=== PATIENT | female | born 1970 | race Caucasian/White ===

== ENCOUNTER 2016-09-06 12:51 | Emergency (ER) | payer MEDICAID, OTHER ==
[~2016-09-06] VITALS: Ht 157.5 cm; Wt 115.0 kg
[~2016-09-06 12:51] MED LIST: CORT5TAB PO; OXYB5TAB33 PO; VICOTAB4 PO; XANA1TAB6 PO
[2016-09-06 12:53] VITALS: BP 169/92; PULSE 113; RESP 18; TEMP 98.7; O2SAT 99
[2016-09-06] MEDS ORDERED: HUMALOG SQ (13:29)
[2016-09-06] MEDS ORDERED: NITR100C4 PO (13:29)
[2016-09-06] MEDS ORDERED: LANTUS2P (13:29)
[2016-09-06] MEDS ORDERED: HYDR25TA5 PO (13:29)
[2016-09-06] MEDS ORDERED: CYCL5TAB PO (13:29)
[2016-09-06] MEDS ORDERED: SODIUM CHLOR 0.9% 1000 ML INJ 1,000 ML IV ONE (13:30)
[2016-09-06] MEDS ORDERED: ONDANSETRON HCL 4 MG/2 ML VIAL IV PUSH ONE (13:30)
[2016-09-06] MEDS ORDERED: KETOROLAC TROMETHAMINE 30 MG/ML (IVP) VIAL IV PUSH ONE (13:30)
--- NOTE | 2016-09-06 13:37 | PD ---
HPI Chief Complaint: Flank/Kidney Pain Time Seen by Provider: 13:09 Travel History International Travel<30 days: No Contact w/Intl Traveler<30days: No Traveled to known affect area: No History of Present Illness HPI This is a 45-year-old female who presents to the emergency department with left- sided flank pain, constant, severe this been going on for 9 days, associated with nausea and some subjective fevers and chills. Patient was just hospitalized at [facility] and had a stent put in because she says she has a 9 mm obstructing stone on the left. She says her pain has been worse ever since the stent was put in and she's had a lot of hematuria and blood clots in her urine. She said she tried to follow-up with the urologist that placed her stent but he says he doesn't take her insurance and she will have to follow up elsewhere to get the stent removed. PFSH Past Medical History Cancer: No Cardiovascular Problems: No Cerebrovascular Accident: No Diabetes: Yes Glaucoma: No Genitourinary: Yes Headaches: Yes (DUE LOW BLOOD PRESSURE) Hepatitis: No Hiatal Hernia: Yes (REPAIR UMBILUS HERNIA) Hypertension: No Kidney Stones: Yes (THREE LISTROPSPHY) Musculoskeletal: No Respiratory: No Thyroid Disease: Yes Ulcer: Yes ?: Not Past Surgical History Abdominal Surgery: Yes (GALL BLADDER APPENDIX) Appendectomy: Yes Cardiac Surgery: No Section: Yes Cholecystectomy: Yes Ear Surgery: No Endocrine Surgery: No Eye Surgery: No Genitourinary Surgery: Yes (KIDNEY STENT PLACED) Gynecologic Surgery: Yes (C SECTION) Hysterectomy: Yes Oral Surgery: Yes (TONSILLECTOMY) Pacemaker: No Thoracic Surgery: No Other Surgery: Yes Social History Alcohol Use: No Tobacco Use: No Substance Use: No Allergies-Medications (Allergen,Severity, Reaction): Coded Allergies: Tylenol (Verified Allergy, Severe, VOMITING, SWELLING OF TONGUE, 08/12/10) Uncoded Allergies: NUTRASWEET (Adverse Reaction, Severe, VOMITING,SWELLING OF TONGUE, 07/24/08) SPLENDA (Adverse Reaction, Severe, SWELLING TONGUE , 07/26/08) Reported Meds & Prescriptions Reported Meds & Active Scripts Active Reported Nitrofurantoin Monohydrate Macrocrystals (Nitrofurantoin Monoh/Nitrofur Macro) 100 Mg Cap 100 Mg PO BID Flexeril (Cyclobenzaprine HCl) 5 Mg Tab 5 Mg PO TID Humalog Inj (Insulin Human Lispro) 1,000 Unit/10 Ml Vial 5-25 Units SQ ACHS Max dose at bedtime:( )units; sugars < 70,(0)units; sugars 150-199,(5)units; sugars 200-249,(10)units; sugars 250-299,(15)units; sugars 300-349,(20)units; sugars more than 349,(25)units. Lantus Inj (Insulin Glargine) 100 Unit/Ml Inj Hydrochlorothiazide 25 Mg Tab 25 Mg PO DAILY Ditropan (Oxybutynin Chloride) 5 Mg Tab 0 PO UNKNOWN DOSE Xanax 1 mg (Alprazolam) 1 Mg Tab 1 Mg PO BIDPRN Review of Systems Except as stated in HPI: all other systems reviewed are Neg Physical Exam Narrative GENERAL:Well appearing, no acute distress SKIN: Focused skin assessment warm and dry. HEAD: Atraumatic. Normocephalic. EYES: Pupils equal and round. No injection or drainage. ENT: Moist mucous membranes NECK: Trachea midline. CARDIOVASCULAR: Regular rate and rhythm. No murmur appreciated. RESPIRATORY: Clear to auscultation. Breath sounds equal bilaterally. GASTROINTESTINAL: Abdomen tender to palpation in the left lower quadrant with no rebound or guarding. : Left CVA tenderness. MUSCULOSKELETAL: No obvious deformities. NEUROLOGICAL: Awake and alert. No obvious cranial nerve deficits. Moving all extremities. PSYCHIATRIC: Appropriate mood and affect; insight and judgment normal. Data Data Last Documented VS Vital Signs Date Time Temp Pulse Resp B/P Pulse Ox O2 Delivery O2 Flow Rate FiO2 09/06/16 12:53 98.7 113 18 169/92 99 Orders Complete Blood Count With Diff (09/06/16 13:19) Comprehensive Metabolic Panel (09/06/16 13:19) Ct Abd/Pel W/O Iv Contrast (09/06/16 ) ^ Insert Iv (09/06/16 13:19) Ketorolac Inj (Toradol Inj) (09/06/16 13:30) Ondansetron Inj (Zofran Inj) (09/06/16 13:30) Sodium Chlor 0.9% 1000 Ml Inj (Ns 1000 M (09/06/16 13:30) Labs Laboratory Tests Test 09/06/16 13:40 White Blood Count 8.2 TH/MM3 Red Blood Count 4.11 MIL/MM3 Hemoglobin 12.6 GM/DL Hematocrit 37.4 % Mean Corpuscular Volume 90.9 FL Mean Corpuscular Hemoglobin 30.7 PG Mean Corpuscular Hemoglobin 33.8 % Concent Red Cell Distribution Width 13.9 % Platelet Count 173 TH/MM3 Mean Platelet Volume 9.0 FL Neutrophils (%) (Auto) 64.2 % Lymphocytes (%) (Auto) 24.2 % Monocytes (%) (Auto) 8.8 % Eosinophils (%) (Auto) 2.3 % Basophils (%) (Auto) 0.5 % Neutrophils # (Auto) 5.2 TH/MM3 Lymphocytes # (Auto) 2.0 TH/MM3 Monocytes # (Auto) 0.7 TH/MM3 Eosinophils # (Auto) 0.2 TH/MM3 Basophils # (Auto) 0.0 TH/MM3 CBC Comment DIFF FINAL Differential Comment Sodium Level 137 MEQ/L Potassium Level 4.1 MEQ/L Chloride Level 96 MEQ/L Carbon Dioxide Level 32.8 MEQ/L Anion Gap 8 MEQ/L Blood Urea Nitrogen 7 MG/DL Creatinine 0.91 MG/DL Estimat Glomerular Filtration 67 ML/MIN Rate Random Glucose 292 MG/DL Calcium Level 9.6 MG/DL Total Bilirubin 0.4 MG/DL Aspartate Amino Transf 33 U/L (AST/SGOT) Alanine Aminotransferase 62 U/L (ALT/SGPT) Alkaline Phosphatase 113 U/L Total Protein 7.3 GM/DL Albumin 3.1 GM/DL MDM Medical Decision Making Medical Screen Exam Complete: Yes Emergency Medical Condition: Yes Interpretation(s) afebrile, tachycardic, hypertensive no leukocytosis hyperglycemia Differential Diagnosis Nephrolithiasis, pyelonephritis, obstructive uropathy Narrative Course This is a 45-year-old female with a history of recurring kidney stones who presents to the emergency department having had a stent placed last week at [facility] with increasing hematuria and pain on the left side. She tried to follow-up at [facility] but they would not take her insurance. She is placed on a monitor and an IV was established. Labs are obtained which are reassuring. She is afebrile. CT demonstrates a stent which is in proper position with no hydronephrosis. I think patient is safe for outpatient follow- up with urology. I spoke to Dr. Lira who was happy to see the patient in clinic. Patient will be discharged home. She was instructed to continue taking her antibiotics. She also says that Toradol really helps her with her pain. Given her kidney function is normal I think it's reasonable to prescribe her a short course of Toradol. Diagnosis Primary Impression: Nephrolithiasis Additional Impression: Hematuria Referrals: Theodore Lira MD Patient Instructions: General Instructions Additional Instructions: If you develop severe pain, inability to eat or drink, or fever return to the emergency department. Follow-up with a urologist as soon as possible. Med/Other Pt SpecificInfo: Prescription(s) given Scripts Ketorolac 10 Mg Tab10 Mg PO Q6HR PRN (PAIN) 5 Days Ref 0 Prov:Vida Bloom MD 09/06/16 Disposition: 01 DISCHARGE HOME Condition: Stable Vida Bloom MD September 06, 2016 13:37
[2016-09-06 13:56] LABS: AUTOMATED NEUTROPHIL # 5.2 TH/MM3 (1.8-7.7); BASOPHIL % 0.5 % (0.0-2.0); EOSINOPHIL # 0.2 TH/MM3 (0-0.4); EOSINOPHIL % 2.3 % (0.0-4.0); HEMATOCRIT 37.4 % (35.0-46.0); HEMO FLAGS DIFF FINAL; LYMPH % 24.2 % (9.0-44.0); MEAN CELL VOLUME 90.9 FL (80.0-100.0); MEAN CORPUSCULAR HEMOGLOBIN 30.7 PG (27.0-34.0); MEAN CORPUSCULAR HGB CONC 33.8 % (32.0-36.0); MONO % 8.8 % (0.0-8.0); NEUT % 64.2 % (16.0-70.0); PLATELET COUNT 173 TH/MM3 (150-450); RED BLOOD COUNT 4.11 MIL/MM3 (4.00-5.30); RED CELL DISTRIBUTION WIDTH 13.9 % (11.6-17.2); WHITE BLOOD COUNT 8.2 TH/MM3 (4.0-11.0)
--- NOTE | 2016-09-06 14:05 | RADRPT ---
EXAM DATE/TIME: 09/06/2016 13:45 [facility] COMPARISON: CT ABDOMEN & PELVIS W/O CONTRAST, August 12, 2010, 16:05. INDICATIONS : Patient complains of known kidney stone left kidney with stent. Blood in urine with clots and increas ed pain left lower quadrant. ORAL CONTRAST: No oral contrast ingested. RADIATION DOSE: 10.68 CTDIvol (mGy) MEDICAL HISTORY : Renal calculi. Diabetes mellitus type 1. Gastroesophageal reflux disease. SURGICAL HISTORY : Appendectomy. Cholecystectomy.Hysterectomy.Kidney stent. ENCOUNTER: Initial ACUITY: 1 day PAIN SCALE: 9/10 LOCATION: Left abdomen TECHNIQUE: Volumetric scanning of the abdomen and pelvis was performed. Using automated exposure control and ad justment of the mA and/or kV according to patient size, radiation dose was kept as low as reasonably achievable to obtain optimal diagnostic quality images. FINDINGS: LOWER LUNGS: The visualized lower lungs are clear. LIVER: Liver measures 19.3 cm in length and demonstrates mild diffuse low density. Gallbladder is absent wit h clips in the gallbladder fossa. There is no dilation of the biliary tree. SPLEEN: Spleen is mildly enlarged measuring 14.3 cm in length. PANCREAS: Within normal limits. KIDNEYS: Normal in size and shape. There is no hydronephrosis or mass appreciated. There are 23 mm nonobstruc ting right renal stones. An 8 x 4 mm stone is present in the left lower pole collecting system. Left ureteral stent is present with proximal aspect in the extrarenal pelvis and distal aspect of the urin reg bladder. There is mild stranding around the left ureter. ADRENAL GLANDS: Within normal limits. VASCULAR: There is no aortic aneurysm. BOWEL/MESENTERY: The stomach, small bowel, and colon demonstrate no acute abnormality. There is no free intraperitone al air or fluid. There is sigmoid diverticulosis. ABDOMINAL WALL: There has been prior inferior left anterior abdominal wall hernia repair with mesh. RETROPERITONEUM: There is no lymphadenopathy. BLADDER: No wall thickening or mass. No stones are visualized. REPRODUCTIVE: The uterus is absent. INGUINAL: There is no lymphadenopathy or hernia. MUSCULOSKELETAL: There are degenerative changes of the lumbar spine. CONCLUSION: 1. Left ureteral stent is present and in appropriate location. There is no hydronephrosis. There is a n 8mm nonobstructing left renal stone. 2. There are 2 nonobstructing right renal stones measuring 3 mm each. 3. Nonacute findings include hepatomegaly with steatosis, mild splenomegaly, and sigmoid diverticulos is. Leonel Suarez MD on September 06, 2016 at 13:57 Board Certified Radiologist. This report was verified electronically.
[2016-09-06 14:20] LABS: ANION GAP 8 MEQ/L (5-15); AST (GOT) 33 U/L (15-37); BICARBONATE 32.8 MEQ/L (21.0-32.0); BLOOD UREA NITROGEN 7 MG/DL (7-18); CHLORIDE 96 MEQ/L (98-107); GLOMERULAR FILTRATION RATE 67 ML/MIN (>89); POTASSIUM 4.1 MEQ/L (3.5-5.1); SODIUM (NA) 137 MEQ/L (136-145)
[2016-09-06 14:23] LABS: ALKALINE PHOSPHATASE 113 U/L (45-117); ALT (GPT) 62 U/L (10-53); TOTAL BILIRUBIN ADULT 0.4 MG/DL (0.2-1.0)
[2016-09-06] MEDS ORDERED: KETO10 PO (14:47)
== END 2016-09-06 15:01 | disposition home or self-care (01) ==
LOC: NEPC 12:51
DX: N20.0 Calculus of kidney (principal)
CPT/HCPCS: 74176; 80053; 85025; 96361; 96374; 96375; 99285; J1885; J2405; J7030

== ENCOUNTER 2016-09-13 20:31 | Inpatient (IN) | payer MEDICAID, OTHER ==
[~2016-09-13] VITALS: Ht 157.5 cm; Wt 117.2 kg
[~2016-09-13 20:31] MED LIST changes: -CORT5TAB PO; +CYCL5TAB PO; +HUMALOG SQ; +HYDR25TA5 PO; +KETO10 PO; +LANTUS2P; +NITR100C4 PO; -VICOTAB4 PO
[2016-09-13 20:33] VITALS: BP 132/83; PULSE 100; RESP 18; TEMP 99.3; O2SAT 98
--- NOTE | 2016-09-13 21:04 | PD ---
Physical Exam Date Seen by Provider: Sep 13, 2016 Time Seen by Provider: 21:02 Data Data Last Documented VS Vital Signs Date Time Temp Pulse Resp B/P Pulse Ox O2 Delivery O2 Flow Rate FiO2 09/13/16 20:33 99.3 100 18 132/83 98 Room Air MDM Supervised Visit with JOE: No Narrative Course 45 YO F with complaint of fever, hematuria x 24 hours. Left stent x 3 weeks at outside hospital. Upcoming appt with Dr. Lira. Vitals reviewed. Awaiting bed placement. Leticia Laughlin Sep 13, 2016 21:04
[2016-09-13 21:21] VITALS: TEMP 100.2
[2016-09-13] MEDS ORDERED: ONDANSETRON HCL 4 MG/2 ML VIAL IV PUSH ONE (22:00)
[2016-09-13] MEDS ORDERED: cefTRIAXone INJ 1,000 MG in SODIUM CHLORIDE 0.9% INJ 100 ML IV ONE (22:00)
[2016-09-13] MEDS ORDERED: HYDROmorphone HCL PF 1 MG/ML VIAL IV PUSH ONE (22:00)
--- NOTE | 2016-09-13 22:07 | PD ---
HPI Chief Complaint: Complaint Time Seen by Provider: 22:04 Travel History International Travel<30 days: No Contact w/Intl Traveler<30days: No Traveled to known affect area: No History of Present Illness HPI 45-year-old female that presents to the ED for evaluation of left flank pain with chills and fever as well as blood in urine. Per patient she's had this since Wednesday. Per patient with 3 weeks ago she was told she had a stone in her kidney and needed a stent. Patient had the stent placed a for the hospital. Per patient she was not able to follow-up because apparently the doctor will not see her outside of the hospital. Patient was seen here by Dr. Bloom this last week and was found to have possible infection so started antibiotics. Patient was sent to Dr. Lira who was given a see her outpatient but she states that she was not able to follow up yet as the symptoms only worsened on Wednesday. Per patient she has a prominent for next week. Per patient she is concerned because she has a lot more pain and she has the fever. Per patient she has finished the Macrobid and she continues to have the fever. Per patient she is only urinating blood. No chest pain or shortness of breath. Allergies to Tylenol and Splenda. She states compliance with her medications. Pain per patient is severe 8 out of 10. PFSH Past Medical History Cancer: No Cardiovascular Problems: No Cerebrovascular Accident: No Diabetes: Yes Patient Takes Glucophage: No Glaucoma: No Genitourinary: Yes Headaches: Yes (DUE LOW BLOOD PRESSURE) Hepatitis: No Hiatal Hernia: Yes (REPAIR UMBILUS HERNIA) Hypertension: No Kidney Stones: Yes (THREE LISTROPSPHY) Medical other: Yes (GERD) Musculoskeletal: No Respiratory: No Thyroid Disease: Yes Ulcer: Yes ?: Not Past Surgical History Abdominal Surgery: Yes (GALL BLADDER APPENDIX) Appendectomy: Yes Cardiac Surgery: No Section: Yes Cholecystectomy: Yes Ear Surgery: No Endocrine Surgery: No Eye Surgery: No Genitourinary Surgery: Yes (KIDNEY STENT PLACED) Gynecologic Surgery: Yes (C SECTION) Hysterectomy: Yes Oral Surgery: Yes (TONSILLECTOMY) Pacemaker: No Thoracic Surgery: No Other Surgery: Yes Social History Alcohol Use: No Tobacco Use: No Substance Use: No Allergies-Medications (Allergen,Severity, Reaction): Coded Allergies: Tylenol (Verified Allergy, Severe, VOMITING, SWELLING OF TONGUE, 08/12/10) Uncoded Allergies: NUTRASWEET (Adverse Reaction, Severe, VOMITING,SWELLING OF TONGUE, 07/24/08) SPLENDA (Adverse Reaction, Severe, SWELLING TONGUE , 07/26/08) Reported Meds & Prescriptions Reported Meds & Active Scripts Active Ketorolac (Ketorolac Tromethamine) 10 Mg Tab 10 Mg PO Q6HR PRN 5 Days Reported Nitrofurantoin Monohydrate Macrocrystals (Nitrofurantoin Monoh/Nitrofur Macro) 100 Mg Cap 100 Mg PO BID Flexeril (Cyclobenzaprine HCl) 5 Mg Tab 5 Mg PO TID Humalog Inj (Insulin Human Lispro) 1,000 Unit/10 Ml Vial 5-25 Units SQ ACHS Max dose at bedtime:( )units; sugars < 70,(0)units; sugars 150-199,(5)units; sugars 200-249,(10)units; sugars 250-299,(15)units; sugars 300-349,(20)units; sugars more than 349,(25)units. Lantus Inj (Insulin Glargine) 100 Unit/Ml Inj Hydrochlorothiazide 25 Mg Tab 25 Mg PO DAILY Ditropan (Oxybutynin Chloride) 5 Mg Tab 0 PO UNKNOWN DOSE Xanax 1 mg (Alprazolam) 1 Mg Tab 1 Mg PO BIDPRN Review of Systems Except as stated in HPI: all other systems reviewed are Neg Physical Exam Narrative GENERAL: SKIN: Warm and dry. HEAD: Atraumatic. Normocephalic. EYES: Pupils equal and round. No scleral icterus. No injection or drainage. ENT: No nasal bleeding or discharge. Mucous membranes pink and moist. Tongue is midline. No uvula deviation. NECK: Trachea midline. No JVD. CARDIOVASCULAR: Regular rate and rhythm. No murmurs, S3, S4. RESPIRATORY: No accessory muscle use. Clear to auscultation. Breath sounds equal bilaterally. GASTROINTESTINAL: Abdomen soft, non-tender, nondistended. Hepatic and splenic margins not palpable. MUSCULOSKELETAL: Extremities without clubbing, cyanosis, or edema. No obvious deformities. Full range of motion of the upper and lower extremities bilaterally. 2+ pulses bilaterally. Patient has reproducible left flank pain. NEUROLOGICAL: Awake and alert. No obvious cranial nerve deficits. Motor grossly within normal limits. Five out of 5 muscle strength in the arms and legs. Normal speech. PSYCHIATRIC: Appropriate mood and affect; insight and judgment normal. Data Data Last Documented VS Vital Signs Date Time Temp Pulse Resp B/P Pulse Ox O2 Delivery O2 Flow Rate FiO2 09/13/16 21:21 100.2 09/13/16 20:33 100 18 132/83 98 Room Air Orders Complete Blood Count With Diff (09/13/16 21:47) Basic Metabolic Panel (Bmp) (09/13/16 21:47) Prothrombin Time / Inr (Pt) (09/13/16 21:47) Act Partial Throm Time (Ptt) (09/13/16 21:47) Urinalysis - C+S If Indicated (09/13/16 21:47) Magnesium (Mg) (09/13/16 21:47) Ct Abd/Pel W/O Iv Contrast (09/13/16 21:47) Blood Culture (09/13/16 21:47) Lactic Acid Sepsis Protocol (09/13/16 21:47) Ceftriaxone Inj (Rocephin Inj) (09/13/16 22:00) Hydromorphone Pf Inj (Dilaudid Pf Inj) (09/13/16 22:00) Ondansetron Inj (Zofran Inj) (09/13/16 22:00) Urine Culture (09/13/16 21:53) Ketorolac Inj (Toradol Inj) (09/13/16 22:45) Labs Laboratory Tests Test 09/13/16 21:53 White Blood Count 8.1 TH/MM3 Red Blood Count 4.19 MIL/MM3 Hemoglobin 13.2 GM/DL Hematocrit 37.6 % Mean Corpuscular Volume 89.9 FL Mean Corpuscular Hemoglobin 31.6 PG Mean Corpuscular Hemoglobin 35.2 % Concent Red Cell Distribution Width 13.6 % Platelet Count 218 TH/MM3 Mean Platelet Volume 8.9 FL Neutrophils (%) (Auto) 66.1 % Lymphocytes (%) (Auto) 24.0 % Monocytes (%) (Auto) 5.4 % Eosinophils (%) (Auto) 3.4 % Basophils (%) (Auto) 1.1 % Neutrophils # (Auto) 5.3 TH/MM3 Lymphocytes # (Auto) 1.9 TH/MM3 Monocytes # (Auto) 0.4 TH/MM3 Eosinophils # (Auto) 0.3 TH/MM3 Basophils # (Auto) 0.1 TH/MM3 CBC Comment DIFF FINAL Differential Comment Prothrombin Time 11.9 SEC Prothromb Time International 1.1 RATIO Ratio Activated Partial 29.5 SEC Thromboplast Time Urine Color RED Urine Turbidity CLOUDY Urine pH 7.0 Urine Specific [place] 1.024 Urine Protein 300 mg/dL Urine Glucose (UA) 150 mg/dL Urine Ketones NEG mg/dL Urine Occult Blood LARGE Urine Nitrite NEG Urine Bilirubin NEG Urine Urobilinogen LESS THAN 2.0 MG/DL Urine Leukocyte Esterase MOD Urine RBC INNUM /hpf Urine WBC 9-14 /hpf Urine Squamous Epithelial 6-8 /hpf Cells Urine Bacteria OCC /hpf Microscopic Urinalysis Comment CULTURE INDICATED Sodium Level 140 MEQ/L Potassium Level 3.4 MEQ/L Chloride Level 106 MEQ/L Carbon Dioxide Level 28.9 MEQ/L Anion Gap 5 MEQ/L Blood Urea Nitrogen 18 MG/DL Creatinine 0.91 MG/DL Estimat Glomerular Filtration 67 ML/MIN Rate Random Glucose 213 MG/DL Lactic Acid Level 1.5 mmol/L Calcium Level 8.5 MG/DL Magnesium Level 1.9 MG/DL [facility] Medical Decision Making Medical Screen Exam Complete: Yes Emergency Medical Condition: Yes Medical Record Reviewed: Yes Interpretation(s) CBC & BMP Diagram 09/13/16 21:53 lactic acid WNL Coags WNL UA shows blood, WBC, bacteria, Leukerase esterase Differential Diagnosis UTI versus polynephritis versus infected stone versus nephrolithiasis Narrative Course 45-year-old female that presents to the ED for evaluation of fever, flank pain and blood in the urine. Patient was properly examined and was found to have signs and symptoms consistent with possible infection with stent. At this time , labs and imaging. Patient started on IV fluids as well as ceftriaxone. Labs and imaging showed UTI with blood. CT pending. Case signed out to my attending pending disposition for likely admission. Manny Cain Sep 13, 2016 22:07
[2016-09-13 22:17] LABS: AUTOMATED NEUTROPHIL # 5.3 TH/MM3 (1.8-7.7); BASOPHIL # 0.1 TH/MM3 (0-0.2); BASOPHIL % 1.1 % (0.0-2.0); EOSINOPHIL # 0.3 TH/MM3 (0-0.4); EOSINOPHIL % 3.4 % (0.0-4.0); HEMATOCRIT 37.6 % (35.0-46.0); HEMO FLAGS DIFF FINAL; LYMPHOCYTE # 1.9 TH/MM3 (1.0-4.8); MEAN CELL VOLUME 89.9 FL (80.0-100.0); MEAN CORPUSCULAR HEMOGLOBIN 31.6 PG (27.0-34.0); MEAN CORPUSCULAR HGB CONC 35.2 % (32.0-36.0); MONO % 5.4 % (0.0-8.0); NEUT % 66.1 % (16.0-70.0); PLATELET COUNT 218 TH/MM3 (150-450); RED BLOOD COUNT 4.19 MIL/MM3 (4.00-5.30); RED CELL DISTRIBUTION WIDTH 13.6 % (11.6-17.2); WHITE BLOOD COUNT 8.1 TH/MM3 (4.0-11.0)
[2016-09-13 22:28] LABS: APTT (PATIENT) 29.5 SEC (24.3-30.1); INTERNATIONAL NORMALIZED RATIO 1.1 RATIO; PROTHROMBIN TIME - PATIENT 11.9 SEC (9.8-11.6)
[2016-09-13 22:29] LABS: BICARBONATE 28.9 MEQ/L (21.0-32.0); MAGNESIUM 1.9 MG/DL (1.5-2.5); POTASSIUM 3.4 MEQ/L (3.5-5.1)
[2016-09-13 22:30] LABS: BLOOD, URINE LARGE (NEG); GLUCOSE,URINE 150 mg/dL (NEG); KETONE, URINE NEG (NEG); NITRITE,URINE NEG (NEG)
[2016-09-13 22:31] LABS: URINE COLOR RED (YELLW/STRAW)
[2016-09-13 22:36] LABS: BACTERIA, URINE OCC /hpf; CULTURE IF INDICATED CULTURE INDICATED; RBC, URINE INNUM /hpf (0-3)
[2016-09-13 22:37] LABS: COMMENT (UR) CULTURE INDICATED; COMMENT2 (UR) CULTURE INDICATED
[2016-09-13] MEDS ORDERED: KETOROLAC TROMETHAMINE 30 MG/ML (IVP) VIAL IV PUSH ONE (22:45)
--- NOTE | 2016-09-13 23:41 | RADRPT ---
EXAM DATE/TIME: 09/13/2016 23:17 [facility] COMPARISON: CT ABDOMEN & PELVIS W/O CONTRAST, September 06, 2016, 13:45. INDICATIONS : Renal stent placed at [facility] x1 week ago. Hematuria. ORAL CONTRAST: No oral contrast ingested. RADIATION DOSE: 17.90 CTDIvol (mGy) MEDICAL HISTORY : Renal calculi. Diabetes. SURGICAL HISTORY : Appendectomy. Cholecystectomy. section.Hysterectomy. Umbilical hernia repair. ENCOUNTER: Initial ACUITY: 1 day PAIN SCALE: 7/10 LOCATION: Left flank TECHNIQUE: Volumetric scanning of the abdomen and pelvis was performed. Using automated exposure control and ad justment of the mA and/or kV according to patient size, radiation dose was kept as low as reasonably achievable to obtain optimal diagnostic quality images. FINDINGS: LOWER LUNGS: The visualized lower lungs are clear. LIVER: Homogeneous density without lesion. There is no dilation of the biliary tree. Cholecystectomy clips. SPLEEN: Normal size without lesion. PANCREAS: Within normal limits. KIDNEYS: Numerous stones are seen bilaterally left greater than right. Left-sided double-J ureteral catheter w ith mild hydronephrosis. No obvious stone on the course of left ureter. ADRENAL GLANDS: Within normal limits. VASCULAR: There is no aortic aneurysm. BOWEL/MESENTERY: The stomach, small bowel, and colon demonstrate no acute abnormality. There is no free intraperitone al air or fluid. ABDOMINAL WALL: Within normal limits. Numerous hernia repairs RETROPERITONEUM: There is no lymphadenopathy. BLADDER: No wall thickening or mass. REPRODUCTIVE: Within normal limits. INGUINAL: There is no lymphadenopathy or hernia. MUSCULOSKELETAL: Within normal limits for patient age. CONCLUSION: Innumerable renal calcifications bilaterally. Left-sided double-J ureteral catheter in good position. No active stone or mass is identified. Status post cholecystectomy Shar Trevizo MD on September 13, 2016 at 23:38 Board Certified Radiologist. This report was verified electronically.
[2016-09-14] MEDS ORDERED: BISACODYL 10 MG SUPP RECTAL PRN (01:30)
[2016-09-14] MEDS ORDERED: LACTULOSE SYRUP 20 GM/30 ML CUP PO PRN (01:30)
[2016-09-14] MEDS ORDERED: SODIUM CHLORIDE 0.9% FLUSH 10 ML FLUSH IV FLUSH PRN (01:30)
[2016-09-14] MEDS: HYDROmorphone HCL PF 1 MG/ML VIAL IV PRN ×5 (01:43→17:21)
[2016-09-14 01:55] VITALS: BP 144/80; PULSE 77; RESP 18; TEMP 98.9; O2SAT 100
--- NOTE | 2016-09-14 02:35 | HHI.HP ---
HPI Service [facility] Hospitalists Primary Care Physician Lissy Henry Admission Diagnosis UTI failed outpatient managment, ureteral stent Diagnoses: (1) UTI (urinary tract infection) Diagnosis: Principal (2) Failure of outpatient treatment Diagnosis: Principal (3) Nephrolithiasis Diagnosis: Principal (4) Dehydration Diagnosis: Principal (5) Hypokalemia Diagnosis: Principal Travel History International Travel<30 Days: No Contact w/Intl Traveler <30 Da: No Traveled to Known Affected Are: No History of Present Illness This is a 45-year-old female with a PMH of DM and Renal Stones who presented to the ER with complaints of acute severe left flank pain with associated fever and chills x2 days. States she had similar symptoms approx 3wks ago, seen at and underwent Ureteral Stent Placement due to left 9mm obstructing stone, was d/c'd w/ referral to Urologist, however states she hasn't been able to follow up due to Insurance reasons. Presented to [place] ER 09/06/16 w/ similar complaints. CT Abd/Pelvis 09/06/16 w/ ureteral stent in place, no hydronephrosis. D/c'd w/ instructions to continue Macrobid and referred to Dr. Lira, however has not been able to make appt as of yet. Reports worsening flank pain and fever since Wednesday. On arrival, BP 132/83, HR 100, O2 sat 98% on RA, Temp 100.2. CBC unremarkable. Chemistry essentially unremarkable except for K+ 3.4, GFR 67. UA with persistent UTI. CT Abd/Pelvis w/ innumerable renal calcifications bilaterally, left-sided double-J ureteral catheter in good position, no active stone or mass identified. S/p Blood/Urine Cultures and IV Rocephin in ER. Review of Systems Except as stated in HPI: all other systems reviewed are Neg ROS: 14 point review of systems otherwise negative. Past Family Social History Past Medical History PMH: DM and Renal Stones Past Surgical History PAST SURGICAL HISTORY: Cholecystectomy, Appendectomy, Lithotripsy, Ureteral Stent , Tonsillectomy Allergies: Coded Allergies: Tylenol (Verified Allergy, Severe, VOMITING, SWELLING OF TONGUE, 08/12/10) Uncoded Allergies: NUTRASWEET (Adverse Reaction, Severe, VOMITING,SWELLING OF TONGUE, 07/24/08) SPLENDA (Adverse Reaction, Severe, SWELLING TONGUE , 07/26/08) Family History PAST FAMILY HISTORY: Reviewed. No h/o DM or CAD Social History PAST SOCIAL HISTORY: Negative for alcohol, tobacco or drugs. Physical Exam Vital Signs Vital Signs Date Time Temp Pulse Resp B/P Pulse Ox O2 Delivery O2 Flow Rate FiO2 09/14/16 01:55 98.9 77 18 144/80 100 09/13/16 21:21 100.2 09/13/16 20:33 99.3 100 18 132/83 98 Room Air Physical Exam PE: GENERAL: Middle-aged female in no acute distress. HEENT: PERRLA, EOMI. No scleral icterus or conjunctival pallor. No lid lag or facial droop. CARDIOVASCULAR: Regular rate and rhythm. No obvious murmurs to auscultation. No chest tenderness to palpation. RESPIRATORY: No obvious rhonchi or wheezing. Clear to auscultation. Breath sounds equal bilaterally. GASTROINTESTINAL: Abdomen soft, non-tender, nondistended. BS normal. MUSCULOSKELETAL: Extremities without clubbing, cyanosis, or edema. No obvious deformities. NEUROLOGICAL: Awake, alert and oriented x4. No focal neurologic deficits. Moving both upper and lower extremities spontaneously. Laboratory Laboratory Tests Test 09/13/16 21:53 White Blood Count 8.1 Red Blood Count 4.19 Hemoglobin 13.2 Hematocrit 37.6 Mean Corpuscular Volume 89.9 Mean Corpuscular Hemoglobin 31.6 Mean Corpuscular Hemoglobin 35.2 Concent Red Cell Distribution Width 13.6 Platelet Count 218 Mean Platelet Volume 8.9 Neutrophils (%) (Auto) 66.1 Lymphocytes (%) (Auto) 24.0 Monocytes (%) (Auto) 5.4 Eosinophils (%) (Auto) 3.4 Basophils (%) (Auto) 1.1 Neutrophils # (Auto) 5.3 Lymphocytes # (Auto) 1.9 Monocytes # (Auto) 0.4 Eosinophils # (Auto) 0.3 Basophils # (Auto) 0.1 CBC Comment DIFF FINAL Differential Comment Prothrombin Time 11.9 Prothromb Time International 1.1 Ratio Activated Partial 29.5 Thromboplast Time Urine Color RED Urine Turbidity CLOUDY Urine pH 7.0 Urine Specific [place] 1.024 Urine Protein 300 Urine Glucose (UA) 150 Urine Ketones NEG Urine Occult Blood LARGE Urine Nitrite NEG Urine Bilirubin NEG Urine Urobilinogen LESS THAN 2.0 Urine Leukocyte Esterase MOD Urine RBC INNUM Urine WBC 9-14 Urine Squamous Epithelial 6-8 Cells Urine Bacteria OCC Microscopic Urinalysis Comment CULTURE INDICATED Sodium Level 140 Potassium Level 3.4 Chloride Level 106 Carbon Dioxide Level 28.9 Anion Gap 5 Blood Urea Nitrogen 18 Creatinine 0.91 Estimat Glomerular Filtration 67 Rate Random Glucose 213 Lactic Acid Level 1.5 Calcium Level 8.5 Magnesium Level 1.9 Date/Time Procedure Status Source Growth 09/13/16 21:53 Urine Culture Received Urine Clean Catch Pending 09/13/16 21:50 Aerobic Blood Culture Received Blood Peripheral Pending 09/13/16 21:50 Anaerobic Blood Culture Received Blood Peripheral Pending Result Diagram: 09/13/16215209/13/162152 Assessment and Plan Problem List: (1) UTI (urinary tract infection) ICD Code: N39.0 Status: Acute (2) Failure of outpatient treatment ICD Code: Z78.9 Status: Acute (3) Nephrolithiasis ICD Code: N20.0 Status: Acute (4) Dehydration ICD Code: E86.0 Status: Acute (5) Hypokalemia ICD Code: E87.6 Status: Acute Assessment and Plan A/P: 1. UTI: Persistent UTI. S/p Blood/Urine Cultures, IV Rocephin in ER, will follow up cultures, continue IV Abx. 2. Failed Outpatient Tx: Previous admit to for ureteral stent/UTI, on Macrobid 100mg BID, now w/ ongoing UTI. Continue IV Abx as above. 3. Nephrolithiasis: S/p Left Ureteral Stent placement at approx 3 wks ago for 9mm obstructing left renal stone, was d/c'd w/ referral to Urologist, however states he did not accept her insurance as was not seen. Presented to [place] ER 09/06/16, CT Abd/Pelvis w/ stent in good position, no hydro, referred to Dr. Lira for stent removal as outpatient however has not been seen as of yet. CT Abd/Pelvis 09/13/16 w/ innumerable renal calcifications bilaterally, left -sided double-J ureteral catheter in good position, images reviewed by me. Will consult Urology for further evaluation. Continue with treatment as above. 6. Hypokalemia: Mild. K+ 3.4. Will recheck and replace as needed. 7. Dehydration: GFR 67, BUN/Creatinine normal. IVF for hydration, repeat labs in am. 8. DVT Prophylaxis: SCD/Teds. 9. Social work for d/c planning as needed. 10. Case discussed w/ ER physician at length Physician Certification 2 Midnight Certification Type: Admission for Inpatient Services Order for Inpatient Services The services are ordered in accordance with Medicare regulations or non- Medicare payer requirements, as applicable. In the case of services not specified as inpatient-only, they are appropriately provided as inpatient services in accordance with the 2-midnight benchmark. Estimated LOS (days): 2 days is the estimated time the patient will need to remain in the hospital, assuming treatment plan goals are met and no additional complications. Post-Hospital Plan: Not yet determined Glenny Lua MD Sep 14, 2016 02:35
[2016-09-14] MEDS: SODIUM CHLOR 0.9% 1000 ML INJ 1,000 ML IV SCH ×2 (02:36→12:04)
[2016-09-14 02:45] VITALS: BP 123/80; PULSE 83; RESP 17; TEMP 98.6; O2SAT 96
[2016-09-14] MEDS ORDERED: DEXTROSE 50% IN WATER 50 ML VIAL(D50) IV PRN (02:45)
[2016-09-14] MEDS ORDERED: GLUCAGON 1 MG/ML VIAL OTHER PRN (02:45)
[2016-09-14] MEDS ORDERED: HYDROmorphone HCL PF 1 MG/ML VIAL IV PUSH ONE (03:30)
[2016-09-14] MEDS: ONDANSETRON HCL 4 MG/2 ML VIAL IVP PRN ×3 (03:49→17:21)
[2016-09-14 07:10] VITALS: BP 120/84; PULSE 75; RESP 18; TEMP 96.6; O2SAT 97
[2016-09-14] MEDS: DOCUSATE SODIUM 50 MG/SENNA 8.6 MG TAB PO SCH ×2 (08:02→19:54)
[2016-09-14] MEDS: INSULIN ASPART SUPPLEMENTAL SCALE SQ SCH ×4 (08:07→20:01)
[2016-09-14] MEDS: SODIUM CHLORIDE 0.9% FLUSH 10 ML FLUSH IV FLUSH SCH ×2 (09:00→20:01)
[2016-09-14 11:10] VITALS: BP 123/78; PULSE 84; RESP 18; TEMP 97.9; O2SAT 99
--- NOTE | 2016-09-14 13:13 | MB ---
cc: ATTILA RAMOS MD DATE OF CONSULTATION: 09/14/2016 REASON FOR CONSULTATION 1. Left renal stone. 2. Status post left ureteral stent placement. 3. Left flank pain. 4. UTI. HISTORY OF PRESENT ILLNESS The patient is a 45-year-old female with a history of diabetes and kidney stones in the past, who presented to the ER this morning with complaints of acute left flank pain associated with fever and chills for last 2 days. She had similar symptoms approximately three weeks ago when she was seen at [facility] and was found to have a 9 mm obstructing stone. She underwent a cystostomy and left ureteral stent placement by Dr. Kang, and was then referred to urologist but she said she was unable to follow up due to insurance reasons. She subsequently presented to [place] ER on September [address] of the abdomen and pelvis at that time showed the ureteral stent placement, no hydronephrosis. She was then managed conservatively and was told to follow up with Dr. Lira however, she is still waiting on an appointment. She states that over the last 2 days she started having fevers, chills, worsening flank pain and pelvic pain. On arrival to the ER she was found to have a slightly low grade fever of 100.2. CT of the abdomen and pelvis without contrast was done which showed presence of the left ureteral stent in good position with a left renal non-obstructing stone as well as non-obstructing right renal stone. She was admitted for pain control and urology was consulted. Currently she continues to complain of left flank pain and more urgency, frequency and gross hematuria. She had been doing well for a while with the stent but now that her symptoms worsened when she developed a fever 2 days ago it scared her which brought her to the ER. She has had kidney stones in the past but she has never had metabolic workup. She denies family history of genitourinary malignancies. REVIEW OF SYSTEMS See HPI, otherwise all systems reviewed otherwise are negative. PAST MEDICAL HISTORY Significant for diabetes and renal stones. PAST SURGICAL HISTORY 1. Lithotripsy. 2. Appendectomy. 3. Cholecystectomy. 4. Tonsillectomy. ALLERGIES TYLENOL. FAMILY HISTORY Negative for genitourinary malignancy, negative for nephrolithiasis. SOCIAL HISTORY Negative for alcohol, tobacco or drugs. She is currently . PHYSICAL EXAMINATION VITAL SIGNS: Temperature 96.6, pulse 75, respiratory rate 18, BP 120/84, sating 97% on room air. GENERAL: She is alert and oriented x3. No apparent distress. A pleasant, cooperative lady who appears her stated age. HEAD: Normocephalic, atraumatic. EYES: o scleral icterus. Extraocular muscles intact. NECK: Neck is supple. Trachea is midline. LUNGS: Clear to auscultation bilaterally. No wheezes, rales or rhonchi. HEART: Regular rhythm. ABDOMEN: Soft, nontender, nondistended. Positive bowel sounds. GENITOURINARY: No CVA tenderness bilaterally. PELVIC: Not indicated at this time. EXTREMITIES: Nontender. No clubbing, cyanosis or edema. SKIN: No ulcers or rashes. NEURO: Cranial nerves II-XII intact. Strength 5/5 in all four extremities. PSYCHE: Normal affect. LABORATORY DATA Labs show a white count of 8.1, hemoglobin 13.2, hematocrit 37.6, platelet count 218, sodium 140, potassium 3.4, chloride 106, bicarb 28.9, BUN 18, creatinine 0.91, glucose 213. The urine shows cloudy and bright red blood with large red blood cells, large leukocyte esterase and culture currently pending. IMAGING STUDIES CT abdomen and pelvis without contrast images were reviewed and agree with the radiologist report. The patient has left nonobstructing 9 mm stone with left ureteral stent in proper position, nonobstructing right renal calculi. ASSESSMENT AND PLAN The patient is a 45-year-old female with a history of kidney stones status post cystoscopy, left ureteral stent placement, presents with fevers, chills ___ and flank pain, diagnosed with UTI and likely stent intolerance. Recommend pain control at this time. Will add Toradol and Pyridium to help with bladder spasms. We will start her on Flomax 0.4 mg daily to help with stent intolerance. Recommend continued antibiotics until the urine culture is back. Recommend against removing the stent on the left side until the stone is properly treated due to the fact that it has become obstructing in the past, most recently 3 weeks ago. Also recommend adequate treatment of the urinary tract infection before treatment of the stone. She then can follow up with Dr. Lira on an outpatient basis. Thank you for this consult. MD KLAUDIA Valentin/TISHA /12:27 PM /12:36 PM
[2016-09-14] MEDS: KETOROLAC TROMETHAMINE 30 MG/ML (IVP) VIAL IV PUSH SCH ×2 (13:19→17:20)
[2016-09-14] MEDS: TAMSULOSIN HCL 0.4 MG CAP PO SCH (13:21)
[2016-09-14] MEDS: PHENAZOPYRIDINE HCL 200 MG TAB PO SCH ×2 (13:21→22:41)
[2016-09-14 15:34] VITALS: BP 123/80; PULSE 85; RESP 18; TEMP 98.1; O2SAT 96
[2016-09-14 20:36] VITALS: BP 137/76; PULSE 84; RESP 15; TEMP 97.8; O2SAT 96
[2016-09-14] MEDS: cefTRIAXone INJ 1,000 MG in SODIUM CHLORIDE 0.9% INJ 100 ML IV SCH (22:41)
[2016-09-14] MEDS: HYDROmorphone HCL PF 1 MG/ML VIAL IV PUSH PRN (22:42)
[2016-09-15] MEDS: ONDANSETRON HCL 4 MG/2 ML VIAL IVP PRN ×4 (00:32→21:58)
[2016-09-15] MEDS: KETOROLAC TROMETHAMINE 30 MG/ML (IVP) VIAL IV PUSH SCH ×5 (00:33→23:27)
--- NOTE | 2016-09-15 00:35 | HHI.PR ---
Subjective Remarks Deferred entry - patient seen on 09/14 around 6:30 pm..Patient denies cp/sob. Denies fevers/chills. Patient c/o of severe pain on left flank. IV Dilaudid partially helping with pain. Stable vital signs. AAOx3, clear lungs, S1S2, soft abdomen. Patient has uti and failure of stent. Urology consulted recommended treatment w antibiotics and against removal of stent. Patient has uncontrolled pain. Will place patient on oral oxycodone and Dilaudid IV for breakthrough pain. Continue IVF and IV Rocephin. Objective Vitals Vital Signs Date Time Temp Pulse Resp B/P Pulse Ox O2 Delivery O2 Flow Rate FiO2 09/14/16 20:36 97.8 84 15 137/76 96 09/14/16 15:34 98.1 85 18 123/80 96 09/14/16 11:10 97.9 84 18 123/78 99 09/14/16 07:10 96.6 75 18 120/84 97 09/14/16 02:45 98.6 83 17 123/80 96 09/14/16 02:37 18 09/14/16 02:36 18 09/14/16 01:55 98.9 77 18 144/80 100 I/O 09/14/16 09/14/16 09/14/16 09/15/16 09/15/16 09/15/16 07:00 15:00 23:00 07:00 15:00 23:00 Intake Total 240 ml 960 ml 480 ml Balance 240 ml 960 ml 480 ml Intake Oral 240 ml 960 ml 480 ml # Voids 1 6 4 # Bowel Movements 0 0 0 Result Diagram: 09/13/16215209/13/16 2153 A/P Problem List: (1) UTI (urinary tract infection) ICD Code: N39.0 Status: Acute (2) Failure of outpatient treatment ICD Code: Z78.9 Status: Acute (3) Nephrolithiasis ICD Code: N20.0 Status: Acute (4) Dehydration ICD Code: E86.0 Status: Acute (5) Hypokalemia ICD Code: E87.6 Status: Acute Warren Glass MD Sep 15, 2016 00:35
[2016-09-15 00:59] VITALS: BP 142/86; PULSE 78; RESP 18; TEMP 98.7; O2SAT 97
[2016-09-15] MEDS: SODIUM CHLOR 0.9% 1000 ML INJ 1,000 ML IV SCH ×3 (01:38→18:00)
[2016-09-15] MEDS: HYDROmorphone HCL PF 1 MG/ML VIAL IV PUSH PRN ×5 (03:16→23:27)
[2016-09-15] MEDS: PHENAZOPYRIDINE HCL 200 MG TAB PO SCH ×3 (05:14→21:57)
[2016-09-15 06:24] LABS: AUTOMATED NEUTROPHIL # 3.7 TH/MM3 (1.8-7.7); BASOPHIL % 0.6 % (0.0-2.0); EOSINOPHIL # 0.3 TH/MM3 (0-0.4); EOSINOPHIL % 4.3 % (0.0-4.0); HEMATOCRIT 32.7 % (35.0-46.0); HEMO FLAGS DIFF FINAL; LYMPH % 32.5 % (9.0-44.0); LYMPHOCYTE # 2.2 TH/MM3 (1.0-4.8); MEAN CELL VOLUME 90.2 FL (80.0-100.0); MEAN CORPUSCULAR HEMOGLOBIN 30.5 PG (27.0-34.0); MEAN CORPUSCULAR HGB CONC 33.8 % (32.0-36.0); MONO % 8.6 % (0.0-8.0); PLATELET COUNT 172 TH/MM3 (150-450); RED BLOOD COUNT 3.63 MIL/MM3 (4.00-5.30); RED CELL DISTRIBUTION WIDTH 13.7 % (11.6-17.2); WHITE BLOOD COUNT 6.9 TH/MM3 (4.0-11.0)
[2016-09-15 06:58] LABS: ALKALINE PHOSPHATASE 90 U/L (45-117); ALT (GPT) 125 U/L (10-53); ANION GAP 7 MEQ/L (5-15); AST (GOT) 97 U/L (15-37); BICARBONATE 29.4 MEQ/L (21.0-32.0); BLOOD UREA NITROGEN 15 MG/DL (7-18); CHLORIDE 107 MEQ/L (98-107); GLOMERULAR FILTRATION RATE 87 ML/MIN (>89); POTASSIUM 3.6 MEQ/L (3.5-5.1); SODIUM (NA) 143 MEQ/L (136-145); TOTAL BILIRUBIN ADULT 0.3 MG/DL (0.2-1.0)
[2016-09-15] MEDS: INSULIN ASPART SUPPLEMENTAL SCALE SQ SCH ×4 (07:00→21:00)
[2016-09-15 08:00] VITALS: BP 108/67; PULSE 96; RESP 18; TEMP 97.3; O2SAT 97
[2016-09-15] MEDS: TAMSULOSIN HCL 0.4 MG CAP PO SCH (08:49)
[2016-09-15] MEDS: DOCUSATE SODIUM 50 MG/SENNA 8.6 MG TAB PO SCH ×2 (08:49→21:57)
[2016-09-15] MEDS: SODIUM CHLORIDE 0.9% FLUSH 10 ML FLUSH IV FLUSH SCH ×2 (08:52→21:00)
[2016-09-15 12:00] VITALS: BP 96/73; PULSE 76; RESP 18; TEMP 98; O2SAT 96
--- NOTE | 2016-09-15 15:42 | RADRPT ---
EXAM DATE/TIME: 09/15/2016 14:16 [place] COMPARISON: CT ABDOMEN & PELVIS W/O CONTRAST, September 13, 2016, 23:17. INDICATIONS : Increased lab values. MEDICAL HISTORY : Hernia, hiatal. Hypothyroidism. Gastroesophageal reflux disease. Ulcer. Kidney stones. Diabetes. SURGICAL HISTORY : Appendectomy. section. Hysterectomy. Tonsillectomy. Cholecystectomy. ENCOUNTER: Initial ACUITY: 1 day PAIN SCORE: 4/10 LOCATION: Bilateral upper quadrant MEASUREMENTS: LIVER: 14.9 cm length COMMON DUCT: 3 mm RIGHT KIDNEY: 10.4 x 4.7 x 4.7 cm SPLEEN: 12.5 cm length FINDINGS: LIVER: Homogeneous but diffusely increased echotexture without focal lesion or ductal dilatation. Hepatoped al flow within the portal vein. COMMON DUCT: No intraluminal mass or stone visualized. GALLBLADDER: Cholecystectomy. PANCREAS: Not well seen. RIGHT KIDNEY: No evidence hydronephrosis. Focal hyperechogenic area upper pole renal sinus measuring 7 x 5 mm with acoustic shadowing, probably representing a calcification. SPLEEN: No focal lesion. CONCLUSION: 1. Normal dimension common hepatic duct. 2. Diffuse increased acoustic attenuation throughout the liver suggests diffuse fatty change. 3. Focal calcification mid pole right kidney without evidence of hydronephrosis. Oscar Domínguez MD on September 15, 2016 at 15:38 Board Certified Radiologist. This report was verified electronically.
[2016-09-15 16:00] VITALS: BP 112/56; PULSE 85; RESP 18; TEMP 97.5; O2SAT 100
[2016-09-15 17:09] LABS: HEMOGLOBIN A1a 1.2 %; HEMOGLOBIN A1b 0.8 %; HEMOGLOBIN Ao 82.2 %; HEMOGLOBIN F 1.4 %; HEMOGLOBIN LA1C 1.6 %; HEMOGLOBIN P3 3.6 %
[2016-09-15 19:00] VITALS: BP 132/82; PULSE 84; RESP 16; TEMP 98.5; O2SAT 98
--- NOTE | 2016-09-15 19:46 | HHI.PR ---
Subjective Remarks Patient states has had a very bad day. feels nauseous and vomited x1 denies cp/sob still c/o left flank pain afebrile with stable vital signs Objective Vitals Vital Signs Date Time Temp Pulse Resp B/P Pulse Ox O2 Delivery O2 Flow Rate FiO2 09/15/16 16:00 97.5 85 18 112/56 100 09/15/16 12:00 98.0 76 18 96/73 96 09/15/16 08:00 97.3 96 18 108/67 97 09/15/16 00:59 98.7 78 18 142/86 97 09/14/16 20:36 97.8 84 15 137/76 96 I/O 09/14/16 09/14/16 09/14/16 09/15/16 09/15/16 09/15/16 07:00 15:00 23:00 07:00 15:00 23:00 Intake Total 240 ml 960 ml 480 ml 1190 ml 120 ml Balance 240 ml 960 ml 480 ml 1190 ml 120 ml Intake Oral 240 ml 960 ml 480 ml 1190 ml 120 ml # Voids 1 6 4 3 2 # Bowel Movements 0 0 0 0 Result Diagram: 09/15/16 0530 09/15/16 0530 Imaging Last Impressions Liver Ultrasound 09/15/16 0000 Signed Impressions: Service Date/Time: Thursday, September 15, 2016 14:16 - CONCLUSION: 1. Normal dimension common hepatic duct. 2. Diffuse increased acoustic attenuation throughout the liver suggests diffuse fatty change. 3. Focal calcification mid pole right kidney without evidence of hydronephrosis. Oscar Domínguez MD Abdomen/Pelvis CT 09/13/167 Signed Impressions: Service Date/Time: Tuesday, September 13, 2016 23:17 - CONCLUSION: Innumerable renal calcifications bilaterally. Left-sided double-J ureteral catheter in good position. No active stone or mass is identified. Status post cholecystectomy Shar Trevizo MD Objective Remarks GENERAL: Middle-aged female in no acute distress. HEENT: PERRLA, EOMI. No scleral icterus or conjunctival pallor. No lid lag or facial droop. CARDIOVASCULAR: Regular rate and rhythm. No obvious murmurs to auscultation. No chest tenderness to palpation. RESPIRATORY: No obvious rhonchi or wheezing. Clear to auscultation. Breath sounds equal bilaterally. GASTROINTESTINAL: Abdomen soft, non-tender, nondistended. BS normal. MUSCULOSKELETAL: Extremities without clubbing, cyanosis, or edema. No obvious deformities. NEUROLOGICAL: Awake, alert and oriented x4. No focal neurologic deficits. Moving both upper and lower extremities spontaneously. Medications and IVs Current Medications Medications (Trade) Dose Ordered Sig/Jacques Route Start Time Stop Time Status Last Admin Ceftriaxone Sodium 1000 mg/ Sodium Chloride 100 ml @ 200 mls/hr Q24H IV 09/14/16 22:00 09/14/16 22:41 (NS 1000 ml Inj) 1,000 ml @ 100 mls/hr Q10H IV 09/14/16 02:00 09/15/16 18:00 (NS Flush) 2 ml UNSCH PRN IV FLUSH 09/14/16 01:30 (NS Flush) 2 ml BID IV FLUSH 09/14/16 09:00 (Zofran Inj) 4 mg Q6H PRN IVP 09/14/16 01:30 09/15/16 12:01 (Alisha-Colace) 1 tab BID PO 09/14/16 09:00 09/15/16 08:49 (Milk Of Magnesia Liq) 30 ml Q12H PRN PO 09/14/16 01:30 (Senokot) 17.2 mg Q12H PRN PO 09/14/16 01:30 (Dulcolax Supp) 10 mg DAILY PRN RECTAL 09/14/16 01:30 (Lactulose Liq) 30 ml DAILY PRN PO 09/14/16 01:30 (D50w (Vial) Inj) 50 ml UNSCH PRN IV 09/14/16 02:45 (Glucagon Inj) 1 mg UNSCH PRN OTHER 09/14/16 02:45 (Toradol Inj) 30 mg Q6HR IV PUSH 09/14/16 13:00 09/19/16 12:59 09/15/16 17:47 (Flomax) 0.4 mg DAILY PO 09/14/16 13:00 09/15/16 08:49 (Pyridium) 200 mg Q8HR PO 09/14/16 14:00 09/15/16 14:44 (Roxicodone) 5 mg Q4H PRN PO 09/14/16 18:45 (Roxicodone) 10 mg Q4H PRN PO 09/14/16 18:45 09/15/16 17:47 (Dilaudid Pf Inj) 1 mg Q4H PRN IV PUSH 09/14/16 18:45 09/15/16 17:10 A/P Problem List: (1) UTI (urinary tract infection) ICD Code: N39.0 Status: Acute (2) Failure of outpatient treatment ICD Code: Z78.9 Status: Acute (3) Nephrolithiasis ICD Code: N20.0 Status: Acute (4) Dehydration ICD Code: E86.0 Status: Acute (5) Hypokalemia ICD Code: E87.6 Status: Acute Assessment and Plan 1. UTI: Persistent UTI. S/p Blood/Urine Cultures, IV Rocephin in ER,Blood cultures negative x2, continue IV Abx. 2. Failed Outpatient Tx: Previous admit to for ureteral stent/UTI, on Macrobid 100mg BID, now w/ ongoing UTI. Continue IV Abx as above. 3. Nephrolithiasis: S/p Left Ureteral Stent placement at approx 3 wks ago for 9mm obstructing left renal stone, was d/c'd w/ referral to Urologist, however states he did not accept her insurance as was not seen. Presented to [place] ER 09/06/16, CT Abd/Pelvis w/ stent in good position, no hydro, referred to Dr. Lira for stent removal as outpatient however has not been seen as of yet. CT Abd/Pelvis 09/13/16 w/ innumerable renal calcifications bilaterally, left -sided double-J ureteral catheter in good position, images reviewed by me. Urology consulted and recommended against removing stent. Continue pain control with oxycodone and IV dilaudid. 6. Hypokalemia: Continue to monitor BMP. K 3.6 7. Dehydration: Improved after IV fluids 8. DVT Prophylaxis: SCD/Teds. 9. Transaminitis: Mild. Liver ultrasound ordered which shows fatty liver. 10. Diabetes mellitus: Hemoglobin A1c is 9.0. Diabetes uncontrolled. Continue SSI with insulin NovoLog. Hepatitis profile is pending. 11. Nausea/vomiting: Secondary to pain. We'll place on IV Zofran Discharge Planning Possible discharge in a.m. pending clinical improvement and improvement of pain control. Warren Glass MD Sep 15, 2016 19:46
[2016-09-15] MEDS: cefTRIAXone INJ 1,000 MG in SODIUM CHLORIDE 0.9% INJ 100 ML IV SCH (21:57)
[2016-09-16] VITALS: BP 121/66; PULSE 85; RESP 17; TEMP 97.7; O2SAT 100
[2016-09-16] MEDS: SODIUM CHLOR 0.9% 1000 ML INJ 1,000 ML IV SCH ×3 (04:00→20:20)
[2016-09-16] MEDS: HYDROmorphone HCL PF 1 MG/ML VIAL IV PUSH PRN ×4 (04:53→20:17)
[2016-09-16] MEDS: ONDANSETRON HCL 4 MG/2 ML VIAL IVP PRN ×3 (05:03→20:24)
[2016-09-16] MEDS: PHENAZOPYRIDINE HCL 200 MG TAB PO SCH ×3 (07:14→20:15)
[2016-09-16] MEDS: KETOROLAC TROMETHAMINE 30 MG/ML (IVP) VIAL IV PUSH SCH ×3 (07:19→17:09)
[2016-09-16] MEDS: INSULIN ASPART SUPPLEMENTAL SCALE SQ SCH ×4 (07:31→20:34)
[2016-09-16 07:53] LABS: AUTOMATED NEUTROPHIL # 3.8 TH/MM3 (1.8-7.7); BASOPHIL # 0.1 TH/MM3 (0-0.2); BASOPHIL % 0.8 % (0.0-2.0); EOSINOPHIL # 0.3 TH/MM3 (0-0.4); EOSINOPHIL % 4.3 % (0.0-4.0); HEMATOCRIT 34.4 % (35.0-46.0); HEMO FLAGS DIFF FINAL; LYMPH % 31.8 % (9.0-44.0); LYMPHOCYTE # 2.2 TH/MM3 (1.0-4.8); MEAN CELL VOLUME 91.6 FL (80.0-100.0); MEAN CORPUSCULAR HEMOGLOBIN 30.2 PG (27.0-34.0); MONO % 7.4 % (0.0-8.0); NEUT % 55.7 % (16.0-70.0); PLATELET COUNT 175 TH/MM3 (150-450); RED BLOOD COUNT 3.76 MIL/MM3 (4.00-5.30); RED CELL DISTRIBUTION WIDTH 13.8 % (11.6-17.2); WHITE BLOOD COUNT 6.8 TH/MM3 (4.0-11.0)
[2016-09-16 07:55] VITALS: BP 117/72; PULSE 80; RESP 16; TEMP 98.7; O2SAT 95
[2016-09-16] MEDS: DOCUSATE SODIUM 50 MG/SENNA 8.6 MG TAB PO SCH ×2 (08:16→20:16)
[2016-09-16] MEDS: SODIUM CHLORIDE 0.9% FLUSH 10 ML FLUSH IV FLUSH SCH ×2 (08:16→20:17)
[2016-09-16] MEDS: TAMSULOSIN HCL 0.4 MG CAP PO SCH (08:16)
[2016-09-16 08:17] LABS: ALT (GPT) 117 U/L (10-53); ANION GAP 6 MEQ/L (5-15); AST (GOT) 87 U/L (15-37); BLOOD UREA NITROGEN 11 MG/DL (7-18); CHLORIDE 104 MEQ/L (98-107); GLOMERULAR FILTRATION RATE 78 ML/MIN (>89); POTASSIUM 3.9 MEQ/L (3.5-5.1); SODIUM (NA) 140 MEQ/L (136-145)
[2016-09-16 08:20] LABS: ALKALINE PHOSPHATASE 92 U/L (45-117); TOTAL BILIRUBIN ADULT 0.2 MG/DL (0.2-1.0)
[2016-09-16 11:57] VITALS: BP 125/72; PULSE 79; RESP 16; TEMP 98.2; O2SAT 96
--- NOTE | 2016-09-16 14:53 | HHI.PR ---
Subjective Remarks Patient still c/o severe left flank pain for which she requires constant pain medications RN states patient has been ambulating and on the phone and does not look in pain patient states she has a colicky crampy pain and still has hematuria states she might be urinating less denies fevers/chills denies cp/sob stable vital signs Objective Vitals Vital Signs Date Time Temp Pulse Resp B/P Pulse Ox O2 Delivery O2 Flow Rate FiO2 09/16/16 11:57 98.2 79 16 125/72 96 09/16/16 07:55 98.7 80 16 117/72 95 09/16/16 00:00 97.7 85 17 121/66 100 09/15/16 19:00 98.5 84 16 132/82 98 09/15/16 16:00 97.5 85 18 112/56 100 I/O 09/15/16 09/15/16 09/15/16 09/16/16 09/16/16 09/16/16 07:00 15:00 23:00 07:00 15:00 23:00 Intake Total 1190 ml 120 ml 480 ml 580 ml Balance 1190 ml 120 ml 480 ml 580 ml Intake Oral 1190 ml 120 ml 480 ml 580 ml # Voids 3 2 4 5 # Bowel Movements 0 0 0 Result Diagram: 09/16/16 0620 09/16/16 0620 Imaging Last Impressions Liver Ultrasound 09/15/16 0000 Signed Impressions: Service Date/Time: Thursday, September 15, 2016 14:16 - CONCLUSION: 1. Normal dimension common hepatic duct. 2. Diffuse increased acoustic attenuation throughout the liver suggests diffuse fatty change. 3. Focal calcification mid pole right kidney without evidence of hydronephrosis. Oscar Domínguez MD Abdomen/Pelvis CT 09/13/167 Signed Impressions: Service Date/Time: Tuesday, September 13, 2016 23:17 - CONCLUSION: Innumerable renal calcifications bilaterally. Left-sided double-J ureteral catheter in good position. No active stone or mass is identified. Status post cholecystectomy Shar Trevizo MD Objective Remarks GENERAL: Middle-aged female in no acute distress. HEENT: PERRLA, EOMI. No scleral icterus or conjunctival pallor. No lid lag or facial droop. CARDIOVASCULAR: Regular rate and rhythm. No obvious murmurs to auscultation. No chest tenderness to palpation. RESPIRATORY: No obvious rhonchi or wheezing. Clear to auscultation. Breath sounds equal bilaterally. GASTROINTESTINAL: Abdomen soft, tender to palpation of left flank, (+) left CVA tenderness. MUSCULOSKELETAL: Extremities without clubbing, cyanosis, or edema. No obvious deformities. NEUROLOGICAL: Awake, alert and oriented x4. No focal neurologic deficits. Moving both upper and lower extremities spontaneously. Medications and IVs Current Medications Medications (Trade) Dose Ordered Sig/Jacques Route Start Time Stop Time Status Last Admin Ceftriaxone Sodium 1000 mg/ Sodium Chloride 100 ml @ 200 mls/hr Q24H IV 09/14/16 22:00 09/15/16 21:57 (NS 1000 ml Inj) 1,000 ml @ 100 mls/hr Q10H IV 09/14/16 02:00 09/15/16 18:00 (NS Flush) 2 ml UNSCH PRN IV FLUSH 09/14/16 01:30 (NS Flush) 2 ml BID IV FLUSH 09/14/16 09:00 (Zofran Inj) 4 mg Q6H PRN IVP 09/14/16 01:30 09/16/16 11:50 (Alisha-Colace) 1 tab BID PO 09/14/16 09:00 09/16/16 08:16 (Milk Of Magnesia Liq) 30 ml Q12H PRN PO 09/14/16 01:30 (Senokot) 17.2 mg Q12H PRN PO 09/14/16 01:30 (Dulcolax Supp) 10 mg DAILY PRN RECTAL 09/14/16 01:30 (Lactulose Liq) 30 ml DAILY PRN PO 09/14/16 01:30 (D50w (Vial) Inj) 50 ml UNSCH PRN IV 09/14/16 02:45 09/15/16 21:52 (Glucagon Inj) 1 mg UNSCH PRN OTHER 09/14/16 02:45 (Toradol Inj) 30 mg Q6HR IV PUSH 09/14/16 13:00 09/19/16 12:59 09/16/16 17:09 (Flomax) 0.4 mg DAILY PO 09/14/16 13:00 09/16/16 08:16 (Pyridium) 200 mg Q8HR PO 09/14/16 14:00 09/16/16 14:42 (Roxicodone) 5 mg Q4H PRN PO 09/14/16 18:45 (Roxicodone) 10 mg Q4H PRN PO 09/14/16 18:45 09/16/16 17:09 (Dilaudid Pf Inj) 1 mg Q4H PRN IV PUSH 09/14/16 18:45 09/16/16 14:42 Urinary Catheter: No Vascular Central Line Catheter: No A/P Problem List: (1) UTI (urinary tract infection) ICD Code: N39.0 Status: Acute (2) Failure of outpatient treatment ICD Code: Z78.9 Status: Acute (3) Nephrolithiasis ICD Code: N20.0 Status: Acute (4) Dehydration ICD Code: E86.0 Status: Acute (5) Hypokalemia ICD Code: E87.6 Status: Acute Assessment and Plan 1. UTI: Persistent UTI. S/p Blood/Urine Cultures, IV Rocephin in ER,Blood cultures negative x3, continue IV Abx. Urine culture with mixed gram positive ariadna. 2. Failed Outpatient Tx: Previous admit to for ureteral stent/UTI, on Macrobid 100mg BID, now w/ ongoing UTI. Continue IV Abx as above. 3. Nephrolithiasis: S/p Left Ureteral Stent placement at approx 3 wks ago for 9mm obstructing left renal stone, was d/c'd w/ referral to Urologist, however states he did not accept her insurance as was not seen. Presented to [facility] 09/06/16, CT Abd/Pelvis w/ stent in good position, no hydro, referred to Dr. Lira for stent removal as outpatient however has not been seen as of yet. CT Abd/Pelvis 09/13/16 w/ innumerable renal calcifications bilaterally, left -sided double-J ureteral catheter in good position, images reviewed by me. Urology consulted and recommended against removing stent. Continue pain control with oxycodone and IV dilaudid. Patient has stent intolerance 09/16 Patient still having severe pain despite toradol and Flomax. will reconsult urology. Continue pain control w narcotics. 6. Hypokalemia: Continue to monitor BMP. K 3.9 7. Dehydration: Improved after IV fluids 8. DVT Prophylaxis: SCD/Teds. 9. Transaminitis: Mild. Liver ultrasound ordered which shows fatty liver. 10. Diabetes mellitus: Hemoglobin A1c is 9.0. Diabetes uncontrolled. Continue SSI with insulin NovoLog. Hepatitis profile negative. 11. Nausea/vomiting: Secondary to pain or narcotics. Continue IV Zofran Discharge Planning Continue to monitor in the medical floor. Patient still has severe pain, urology has been reconsulted. Warren Glass MD Sep 16, 2016 14:53
[2016-09-16 16:05] VITALS: BP 121/73; PULSE 86; RESP 16; TEMP 98.1; O2SAT 95
[2016-09-16] MEDS: cefTRIAXone INJ 1,000 MG in SODIUM CHLORIDE 0.9% INJ 100 ML IV SCH (20:14)
[2016-09-16] MEDS: MAGNESIUM HYDROXIDE SUSP 30 ML CUP PO PRN (20:15)
[2016-09-16] MEDS: SENNOSIDES 8.6 MG TAB PO PRN (20:16)
[2016-09-16 21:07] VITALS: BP 134/75; PULSE 100; RESP 18; TEMP 97; O2SAT 96
[2016-09-16] MEDS ORDERED: INSULIN HUMAN REGULAR 1,000 UNITS/10 ML VIAL SQ PRN (22:00)
[2016-09-16] MEDS ORDERED: SODIUM CHLORID 0.9% 500 ML IV PRN (22:00)
[2016-09-16] MEDS ORDERED: POVIDONE IODINE 5% (ANTISEPSIS KIT) 4 APPLICATIONS EACH NARE PRN (22:00)
[2016-09-16] MEDS ORDERED: LACTATED RINGER'S 1000 ML IV PRN (22:00)
[2016-09-16] MEDS ORDERED: METOPROLOL TARTRATE 25 MG TAB PO PRN (22:00)
[2016-09-16] MEDS ORDERED: CHLORHEXIDINE GLUCONATE 2 % 1 PACK (2 CLOTHS) TOPICAL PRN (22:00)
[2016-09-17] VITALS (7 sets, daily range): BP systolic 105–129; BP diastolic 57–78; PULSE 80–92; RESP 16–18; TEMP 97.1–98.3; O2SAT 94–99
[2016-09-17] MEDS: HYDROmorphone HCL PF 1 MG/ML VIAL IV PUSH PRN ×4 (00:19→21:27)
[2016-09-17] MEDS: KETOROLAC TROMETHAMINE 30 MG/ML (IVP) VIAL IV PUSH SCH ×5 (00:19→23:08)
[2016-09-17] MEDS: ONDANSETRON HCL 4 MG/2 ML VIAL IVP PRN (02:22)
[2016-09-17] MEDS: INSULIN ASPART SUPPLEMENTAL SCALE SQ SCH ×4 (06:52→21:16)
[2016-09-17] MEDS: PHENAZOPYRIDINE HCL 100 MG TAB PO SCH ×3 (07:06→21:10)
[2016-09-17] MEDS: TAMSULOSIN HCL 0.4 MG CAP PO SCH (08:52)
[2016-09-17] MEDS: DOCUSATE SODIUM 50 MG/SENNA 8.6 MG TAB PO SCH ×2 (08:54→21:07)
[2016-09-17] MEDS: SODIUM CHLORIDE 0.9% FLUSH 10 ML FLUSH IV FLUSH SCH ×2 (08:54→21:00)
--- NOTE | 2016-09-17 09:34 | PD.PN.STU ---
Subjective Remarks Patient states that she is feeling better today. She has more energy. Her pain is tolerable with the pain medications now. She still has left sided flank discomfort and is urinating the same about of blood. She had the renal ultrasound yesterday and was told that there were no kidney stones. Report is pending. She was also told that she is having surgery today around noon to have the stent removed. Objective Vitals Vital Signs Date Time Temp Pulse Resp B/P Pulse Ox O2 Delivery O2 Flow Rate FiO2 09/17/16 08:00 98.2 88 18 105/70 94 09/17/16 04:42 98.3 92 18 110/78 96 09/17/16 00:00 97.7 88 16 121/78 99 09/16/16 21:07 97.0 100 18 134/75 96 09/16/16 18:44 Room Air 09/16/16 16:05 98.1 86 16 121/73 95 09/16/16 11:57 98.2 79 16 125/72 96 I/O 09/16/16 09/16/16 09/16/16 09/17/16 09/17/16 09/17/16 06:59 14:59 22:59 06:59 14:59 22:59 Intake Total 580 ml 2354 ml Balance 580 ml 2354 ml Intake Oral 580 ml 480 ml IV Total 1874 ml # Voids 5 2 1 # Bowel Movements 0 0 0 Result Diagram: 09/16/1620 09/16/16 06 Objective Remarks GENERAL: Middle-aged female in no acute distress. CARDIOVASCULAR: Regular rate and rhythm. No obvious murmurs to auscultation. No chest tenderness to palpation. RESPIRATORY: No obvious rhonchi or wheezing. Clear to auscultation. Breath sounds equal bilaterally. GASTROINTESTINAL: Abdomen soft, tender to palpation of left flank, (+) left CVA tenderness. A/P Assessment and Plan 1. Persistent UTI. S/p Blood/Urine Cultures, IV Rocephin in ER,Blood cultures negative x3, continue IV Abx. Urine culture with mixed gram positive ariadna. 2. Failed Outpatient Tx: Previous admit to for ureteral stent/UTI, on Macrobid 100mg BID, now w/ ongoing UTI. Continue IV Abx as above. 3. Stent intolerance: Patient is still having pain despite pain medications. Renal ultrasound performed yesterday. Results pending. Urology was initially consulted and advised against removing stent, after reconsult they have decided to proceed with removal. Scheduled for surgery today at noon. Eli Echols M3 Sep 17, 2016 09:34
[2016-09-17] MEDS: SODIUM CHLOR 0.9% 1000 ML INJ 1,000 ML IV SCH ×2 (10:00→21:15)
--- NOTE | 2016-09-17 10:18 | HHI.PR ---
Subjective Remarks Patient still has left flank pain but better still feels nauseous, vomited last night denies fevers, (+) chills stable vital signs c/o insomnia Objective Vitals Vital Signs Date Time Temp Pulse Resp B/P Pulse Ox O2 Delivery O2 Flow Rate FiO2 09/17/16 08:00 98.2 88 18 105/70 94 09/17/16 04:42 98.3 92 18 110/78 96 09/17/16 00:00 97.7 88 16 121/78 99 09/16/16 21:07 97.0 100 18 134/75 96 09/16/16 18:44 Room Air 09/16/16 16:05 98.1 86 16 121/73 95 09/16/16 11:57 98.2 79 16 125/72 96 I/O 09/16/16 09/16/16 09/16/16 09/17/16 09/17/16 09/17/16 07:00 15:00 23:00 07:00 15:00 23:00 Intake Total 580 ml 480 ml 1874 ml Balance 580 ml 480 ml 1874 ml Intake Oral 580 ml 480 ml IV Total 1874 ml # Voids 5 1 1 1 # Bowel Movements 0 0 0 0 Result Diagram: 09/16/16 0620 09/16/16 0620 Imaging Last Impressions Liver Ultrasound 09/15/16 0000 Signed Impressions: Service Date/Time: Thursday, September 15, 2016 14:16 - CONCLUSION: 1. Normal dimension common hepatic duct. 2. Diffuse increased acoustic attenuation throughout the liver suggests diffuse fatty change. 3. Focal calcification mid pole right kidney without evidence of hydronephrosis. Oscar Domínguez MD Abdomen/Pelvis CT 09/13/162146 Signed Impressions: Service Date/Time: Tuesday, September 13, 2016 23:17 - CONCLUSION: Innumerable renal calcifications bilaterally. Left-sided double-J ureteral catheter in good position. No active stone or mass is identified. Status post cholecystectomy Shar Trevizo MD Objective Remarks GENERAL: Middle-aged female in no acute distress. HEENT: PERRLA, EOMI. No scleral icterus or conjunctival pallor. No lid lag or facial droop. CARDIOVASCULAR: Regular rate and rhythm. No obvious murmurs to auscultation. No chest tenderness to palpation. RESPIRATORY: No obvious rhonchi or wheezing. Clear to auscultation. Breath sounds equal bilaterally. GASTROINTESTINAL: Abdomen soft, tender to palpation of left flank, (+) left CVA tenderness. MUSCULOSKELETAL: Extremities without clubbing, cyanosis, or edema. No obvious deformities. NEUROLOGICAL: Awake, alert and oriented x4. No focal neurologic deficits. Moving both upper and lower extremities spontaneously. Medications and IVs Current Medications Medications (Trade) Dose Ordered Sig/Jacques Route Start Time Stop Time Status Last Admin Ceftriaxone Sodium 1000 mg/ Sodium Chloride 100 ml @ 200 mls/hr Q24H IV 09/14/16 22:00 09/16/16 20:14 (NS 1000 ml Inj) 1,000 ml @ 100 mls/hr Q10H IV 09/14/16 02:00 09/16/16 20:20 (NS Flush) 2 ml UNSCH PRN IV FLUSH 09/14/16 01:30 (NS Flush) 2 ml BID IV FLUSH 09/14/16 09:00 09/17/16 08:54 (Zofran Inj) 4 mg Q6H PRN IVP 09/14/16 01:30 09/17/16 02:22 (Alisha-Colace) 1 tab BID PO 09/14/16 09:00 09/16/16 20:16 (Milk Of Magnesia Liq) 30 ml Q12H PRN PO 09/14/16 01:30 09/16/16 20:15 (Senokot) 17.2 mg Q12H PRN PO 09/14/16 01:30 09/16/16 20:16 (Dulcolax Supp) 10 mg DAILY PRN RECTAL 09/14/16 01:30 09/17/16 04:30 (Lactulose Liq) 30 ml DAILY PRN PO 09/14/16 01:30 (D50w (Vial) Inj) 50 ml UNSCH PRN IV 09/14/16 02:45 09/15/16 21:52 (Glucagon Inj) 1 mg UNSCH PRN OTHER 09/14/16 02:45 (Toradol Inj) 30 mg Q6HR IV PUSH 09/14/16 13:00 09/19/16 12:59 09/17/16 06:49 (Flomax) 0.4 mg DAILY PO 09/14/16 13:00 09/17/16 08:52 (Roxicodone) 5 mg Q4H PRN PO 09/14/16 18:45 (Roxicodone) 10 mg Q4H PRN PO 09/14/16 18:45 09/17/16 08:52 Hydromorphone HCl 1 mg 1 mg Q4H PRN IV PUSH 09/14/16 18:45 09/17/16 06:50 Lactated Ringer's 1,000 ml @ 30 mls/hr Q24H PRN IV 09/16/16 22:00 09/19/16 21:59 (NS 500 ml Inj) 500 ml @ 30 mls/hr [id number] PRN IV 09/16/16 22:00 09/19/16 21:59 (Pyridium) 200 mg Q8HR PO 09/17/16 06:00 09/17/16 07:06 Urinary Catheter: No Vascular Central Line Catheter: No A/P Problem List: (1) UTI (urinary tract infection) ICD Code: N39.0 Status: Acute (2) Failure of outpatient treatment ICD Code: Z78.9 Status: Acute (3) Nephrolithiasis ICD Code: N20.0 Status: Acute (4) Dehydration ICD Code: E86.0 Status: Acute (5) Hypokalemia ICD Code: E87.6 Status: Acute Assessment and Plan 1. UTI: Persistent UTI. S/p Blood/Urine Cultures, IV Rocephin in ER,Blood cultures negative x3, continue IV Abx. Urine culture with mixed gram positive ariadna. 2. Failed Outpatient Tx: Previous admit to for ureteral stent/UTI, on Macrobid 100mg BID, now w/ ongoing UTI. Continue IV Abx as above. 3. Nephrolithiasis: S/p Left Ureteral Stent placement at approx 3 wks ago for 9mm obstructing left renal stone, was d/c'd w/ referral to Urologist, however states he did not accept her insurance as was not seen. Presented to [facility] ER 09/06/16, CT Abd/Pelvis w/ stent in good position, no hydro, referred to Dr. Lira for stent removal as outpatient however has not been seen as of yet. CT Abd/Pelvis 09/13/16 w/ innumerable renal calcifications bilaterally, left -sided double-J ureteral catheter in good position, images reviewed by me. Urology consulted and recommended against removing stent. Continue pain control with oxycodone and IV dilaudid. Patient has stent intolerance 09/16 Patient still having severe pain despite toradol and Flomax. will reconsult urology. Continue pain control w narcotics. 09/17 Patient for OR today by urology. Still having pain and hematuria. Will Continue pain control with IV morphine and Dilaudid and after surgery will Dc IV narcotics and start on oral. 6. Hypokalemia: Continue to monitor BMP. Level normal. 7. Dehydration: Improved after IV fluids 8. DVT Prophylaxis: SCD/Teds. 9. Transaminitis: Mild. Liver ultrasound ordered which shows fatty liver. 10. Diabetes mellitus: Hemoglobin A1c is 9.0. Diabetes uncontrolled. Continue SSI with insulin NovoLog. Hepatitis profile negative. 11. Nausea/vomiting: Secondary to pain or narcotics. Continue IV Zofran, will Add phenergan. 12. Insomnia: Will Rx Amitriptyline. Discharge Planning Patient for OR today. Warren Glass MD Sep 17, 2016 10:18
[2016-09-17] MEDS ORDERED: MORPHINE SULFATE 4 MG/ML INJ IV PUSH PRN (10:30)
[2016-09-17] MEDS ORDERED: POLYETHYLENE GLYCOL 17 GM PKG PO PRN (10:30)
[2016-09-17] MEDS: MORPHINE SULFATE 4 MG/ML INJ IV PUSH PRN ×3 (11:35→23:08)
[2016-09-17] MEDS ORDERED: ONDANSETRON HCL 4 MG/2 ML VIAL IV PUSH ONE (12:00)
[2016-09-17] MEDS ORDERED: ePHEDrine/NS 25 MG/5 ML SYR IV ONE (12:00)
[2016-09-17] MEDS ORDERED: LACTATED RINGER'S 1000 ML INJ 1,000 ML IV ONE (12:00)
[2016-09-17] MEDS ORDERED: PHENYLEPH/NS 1000 MCG/10 ML SYR IV ONE (12:00)
[2016-09-17] MEDS ORDERED: PROPOFOL 200 MG/20 ML AMP IV ONE (12:00)
[2016-09-17] MEDS ORDERED: KETOROLAC TROMETHAMINE 60 MG/2 ML (IM) VIAL IM ONE (12:00)
--- NOTE | 2016-09-17 15:40 | EKG ---
Date Performed: 09/16/2016 Time Performed: 19:46:18 PTAGE: 45 years EKG: Sinus rhythm MINIMAL ST DEPRESSION MINIMAL ST CHANGES ONLY. BORDERLINE ECG PREVIOUS TRACING : 08/24/2008 15.01 DOCTOR: Heath Patrick Interpretating Date/Time 09/17/2016 15:40:30
[2016-09-17] MEDS ORDERED: MIDAZOLAM HCL 2 MG/2 ML VIAL ONE (17:21)
[2016-09-17] MEDS ORDERED: ceFAZolin INJ 1,000 MG VIAL IV ONE (17:56)
--- NOTE | 2016-09-17 18:49 | PD.OP ---
Operative Report Date of Surgery: Sep 17, 2016 Preoperative Diagnosis: Left Renal Stone Left Flank Pain Stent intolerance Postoperative Diagnosis: Procedure: cystoscopy, left ureteroscopy, laser lithotripsy, stent removal Surgeon: Lucas Chaudhary Tour Narrator(s): N/A Operation and Findings: 9 mm stone found in lower pole of left kidney Successfully fragmented into tiny passable fragments Stent removed Lucas Chaudhary MD Sep 17, 2016 18:49
[2016-09-17] MEDS ORDERED: BELLADONNA ALKALOIDS/OPIUM 60 MG SUPP RECTAL PRN (19:00)
[2016-09-17] MEDS ORDERED: fentaNYL CITRATE 250 MCG/5 ML AMP ONE (19:02)
[2016-09-17] MEDS ORDERED: MORPHINE SULFATE 8 MG/ML INJ ONE (19:40)
[2016-09-17] MEDS: cefTRIAXone INJ 1,000 MG in SODIUM CHLORIDE 0.9% INJ 100 ML IV SCH (21:08)
[2016-09-18] MEDS: TEMAZEPAM 15 MG CAP PO PRN (00:11)
[2016-09-18] MEDS: MORPHINE SULFATE 4 MG/ML INJ IV PUSH PRN ×7 (02:17→22:27)
[2016-09-18 04:05] VITALS: BP 144/85; PULSE 117; RESP 18; TEMP 99.1; O2SAT 98
[2016-09-18] MEDS: KETOROLAC TROMETHAMINE 30 MG/ML (IVP) VIAL IV PUSH SCH ×4 (05:21→22:27)
[2016-09-18] MEDS: PHENAZOPYRIDINE HCL 200 MG TAB PO SCH ×3 (05:21→22:27)
[2016-09-18] MEDS: SODIUM CHLOR 0.9% 1000 ML INJ 1,000 ML IV SCH ×2 (05:22→16:00)
[2016-09-18] MEDS: INSULIN ASPART SUPPLEMENTAL SCALE SQ SCH ×4 (06:09→19:49)
[2016-09-18 07:43] LABS: AUTOMATED NEUTROPHIL # 6.9 TH/MM3 (1.8-7.7); BASOPHIL % 0.4 % (0.0-2.0); EOSINOPHIL # 0.1 TH/MM3 (0-0.4); EOSINOPHIL % 1.6 % (0.0-4.0); HEMO FLAGS DIFF FINAL; LYMPH % 7.9 % (9.0-44.0); LYMPHOCYTE # 0.7 TH/MM3 (1.0-4.8); MEAN CELL VOLUME 91.9 FL (80.0-100.0); MEAN CORPUSCULAR HEMOGLOBIN 30.2 PG (27.0-34.0); MEAN CORPUSCULAR HGB CONC 32.9 % (32.0-36.0); MONO % 6.4 % (0.0-8.0); NEUT % 83.7 % (16.0-70.0); PLATELET COUNT 164 TH/MM3 (150-450); RED BLOOD COUNT 3.48 MIL/MM3 (4.00-5.30); RED CELL DISTRIBUTION WIDTH 13.8 % (11.6-17.2); WHITE BLOOD COUNT 8.3 TH/MM3 (4.0-11.0)
[2016-09-18 08:00] VITALS: BP 119/60; PULSE 105; RESP 18; TEMP 101.1; O2SAT 95
[2016-09-18 08:04] LABS: ALKALINE PHOSPHATASE 108 U/L (45-117); ALT (GPT) 77 U/L (10-53); ANION GAP 7 MEQ/L (5-15); AST (GOT) 49 U/L (15-37); BICARBONATE 26.5 MEQ/L (21.0-32.0); BLOOD UREA NITROGEN 8 MG/DL (7-18); CHLORIDE 105 MEQ/L (98-107); GLOMERULAR FILTRATION RATE 80 ML/MIN (>89); POTASSIUM 4.2 MEQ/L (3.5-5.1); SODIUM (NA) 138 MEQ/L (136-145); TOTAL BILIRUBIN ADULT 0.4 MG/DL (0.2-1.0)
[2016-09-18] MEDS: TAMSULOSIN HCL 0.4 MG CAP PO SCH (08:13)
[2016-09-18] MEDS: DOCUSATE SODIUM 50 MG/SENNA 8.6 MG TAB PO SCH ×2 (08:13→19:31)
[2016-09-18] MEDS: SODIUM CHLORIDE 0.9% FLUSH 10 ML FLUSH IV FLUSH SCH ×2 (08:19→19:31)
--- NOTE | 2016-09-18 09:10 | PD.PN.STU ---
Subjective Remarks Patient seen status post lithotripsy, cystoscopy and L uretal stent removal. A 9 mm stone was successfully fragmented in the left lower pole of the kidney. She states that she is sore from the surgery and needs a day of rest. Her pain now is different than the pain she was feeling from the kidney stone. She says it is controlled best with morphine injections every 3 hours and wants to continue this regimen for now. She is still urinating blood. Denies chest pain, shortness of breath. Her swelling of her lower abdomen is improving. She still has not had a bowel movement since Wednesday. Objective Vitals Vital Signs Date Time Temp Pulse Resp B/P Pulse Ox O2 Delivery O2 Flow Rate FiO2 09/18/16 08:00 101.1 105 18 119/60 95 09/18/16 04:05 99.1 117 18 144/85 98 09/17/16 23:20 97.1 92 17 120/68 98 09/17/16 20:30 98.1 80 17 110/57 98 09/17/16 20:15 78 16 110/58 98 09/17/16 20:00 78 16 117/60 98 09/17/16 19:45 87 18 121/58 100 09/17/16 19:30 88 14 119/60 100 Nasal Cannula 2 09/17/16 19:15 91 11 128/63 100 Nasal Cannula 2 09/17/16 19:05 97.8 81 12 136/62 100 Nasal Cannula 2 09/17/16 18:55 Room Air 09/17/16 15:50 98.0 87 18 129/72 95 09/17/16 12:00 98.0 86 18 114/74 95 I/O 09/17/16 09/17/16 09/17/16 09/18/16 09/18/16 09/18/16 07:00 15:00 23:00 07:00 15:00 23:00 Intake Total 1780 ml 1244 ml Output Total 900 ml 1400 ml Balance 880 ml -156 ml Intake Oral 480 ml 800 ml IV Total 444 ml Other 1300 ml Output Urine Total 900 ml 1400 ml # Voids 1 6 # Bowel Movements 0 0 0 0 Result Diagram: 09/18/1670609/18/16706 Objective Remarks GENERAL: Pleasant middle-aged obese female in no acute distress. CARDIOVASCULAR: Regular rate and rhythm. No obvious murmurs to auscultation. No chest tenderness to palpation. RESPIRATORY: No obvious rhonchi or wheezing. Clear to auscultation. Breath sounds equal bilaterally. GASTROINTESTINAL: Abdomen soft, tender to palpation of left flank. BS + MUSCULOSKELETAL: Extremities without clubbing, cyanosis, or edema. No obvious deformities. NEUROLOGICAL: Awake, alert and oriented x4. No focal neurologic deficits. Moving both upper and lower extremities spontaneously. A/P Assessment and Plan 1. Nephrolithiasis: - s/p lithotripsy. Successful fragmentation of 9mm left renal stone in lower left pole of the kidney. - Patient stable, pain controlled with morphine injections q 3 hours - Fever of 101.1, WBC 8.3 with PMNs 83.7. Most likely reactive to surgery, continue to monitor. Patient using incentive spirometry post-op. 2. Stent intolerance: - Left stent removed successfully 3. Diabetes mellitus: uncontrolled - most recent fasting blood glucose 219 - Hemoglobin A1c is 9.0 - continue insulin therapy and follow up with outpatient physician Eli Echols Sep 18, 2016 09:10
--- NOTE | 2016-09-18 10:06 | MP ---
cc: ATTILA RAMOS MD DATE OF SURGERY: 09/17/2016 PREOPERATIVE DIAGNOSIS: 1. Left renal calculus status post cystoscopy left ureteral stent insertion. 2. Left flank pain 3. Stent intolerance. POSTOPERATIVE DIAGNOSIS: 1. Left renal calculus status post cystoscopy left ureteral stent insertion. 2. Left flank pain 3. Stent intolerance. PROCEDURE PERFORMED 1. cystoscopy. 2. Left ureteroscopy 3. Laser lithotripsy 4. Left ureteral stent removal. SURGEON Ning Ramos. ANESTHESIA General COMPLICATIONS None. ANTIBIOTICS: Ancef 2 grams IV. DRAINS: None SPECIMENS None. DISPOSITION To recovery INDICATIONS The patient is a 45-year-old female with a long standing history of kidney stones who presented to [facility] several weeks ago with left flank pain. The patient has cystoscopy, and stent placement. At that time was told to follow up with urologist however due to insurance issues she never did follow up. Approximately one week ago she started having fevers, chills, urgency, frequency and severe left flank pain. She came in to [facility] for further evaluation. She had a CT scan of the abdomen and pelvis without contrast which showed the stent to be in good position and the stone and migrated to the lower pole. She admitted for pain control. However next several days she has continue to have severe left flank pain and hematuria and inability to tolerate the stent. FINDINGS: Due to these findings she was then scheduled for definitive treatment of her left renal stone. After risks, benefits, alternatives were explained to the patient, the patient would like to proceed and informed consent was obtained. DETAILS OF THE PROCEDURE: The patient was appropriately identified, brought back to the cystoscopy suite, placed supine on cystoscopy table. Proper time-out was performed under anesthesiology. The patient was then induced under general aesthetic. Antibiotics in the form of Ancef 2 grams IV, given one hour prior to the start of the procedure. The patient was then placed in dorsolithotomy position, prepped, draped in normal sterile surgical fashion. The patient is using a rigid cystoscope I carefully into her bladder per urethra without any difficulty. There was some clots or bladder. These were irrigated out this time, I then found the distal portion of the indwelling left ureteral stent, using alligator grasping forceps. I grasped at this portion of the stent and removed it just inside urethral meatus under guidance fluoroscopy I then passed the wire through the stent up into the left kidney. The wire appeared to be in the full left kidney and then lower pole 9 mm stone was easily seen in kidney was a calcium stone. The stone was completely removed. I then passed a flexible ureteroscope easily over the wire up into the left kidney under guidance of fluoroscopy. The wire was then removed. A 200 mg laser wire was then used to break up the stone tiny fragments, to be passable. No other stones were seen in the kidney. This time I carefully resect the rest the kidney. The upper and lower pole calyces, as well as calyces in between. There were no other stones seen other then tiny fragments that were formed after breaking up this large stone. I then examined the ureter in its entirety and it appeared to be widely patent with minimal trauma. Due to it being patent and having the stent in for the last several weeks, intolerance of stent, it was decided not to leave the stent at this time. Her bladder was then drained, this concluded the procedure. The patient was extubated and sent to the Recovery Room in stable condition, without immediate complications, she will be transferred back to the floor and will be instructed to strain all her urine. If she does well overnight. She can then be discharged in the morning and follow up as an outpatient as scheduled with Dr. Lira. MD KLAUDIA Valentin/ale /6:54 PM /9:40 AM ASTON
[2016-09-18] MEDS ORDERED: GLUCAGON 1 MG/ML VIAL OTHER PRN (11:45)
[2016-09-18] MEDS ORDERED: DEXTROSE 50% IN WATER 50 ML VIAL(D50) IV PRN (11:45)
[2016-09-18 12:00] VITALS: BP 121/65; PULSE 104; RESP 18; TEMP 102.2; O2SAT 97
--- NOTE | 2016-09-18 12:25 | HHI.PR ---
Subjective Patient symptoms today feels better. pain improved, just "sore from surgery". Has spiked 2 high fevers. Denies nausea, vomiting. Has dysuria. Objective Vital Signs Vital Signs Date Time Temp Pulse Resp B/P Pulse Ox O2 Delivery O2 Flow Rate FiO2 09/18/16 08:00 101.1 105 18 119/60 95 09/18/16 04:05 99.1 117 18 144/85 98 09/17/16 23:20 97.1 92 17 120/68 98 09/17/16 20:30 98.1 80 17 110/57 98 09/17/16 20:15 78 16 110/58 98 09/17/16 20:00 78 16 117/60 98 09/17/16 19:45 87 18 121/58 100 09/17/16 19:30 88 14 119/60 100 Nasal Cannula 2 09/17/16 19:15 91 11 128/63 100 Nasal Cannula 2 09/17/16 19:05 97.8 81 12 136/62 100 Nasal Cannula 2 09/17/16 18:55 Room Air 09/17/16 15:50 98.0 87 18 129/72 95 Intake & Output 09/18/16 09/18/16 07:00 19:00 Intake Total 3024 ml Output Total 2300 ml Balance 724 ml Intake Oral 1280 ml IV Total 444 ml Other 1300 ml Output Urine Total 2300 ml # Bowel Movements 0 Result Diagram: 09/18/16 0707 09/18/16 0707 Objective Remarks NAD. A/O x 3 abd soft, No CVAT. Medications and IVs Current Medications Medications (Trade) Dose Ordered Sig/Jacques Route Start Time Stop Time Status Last Admin (NS 1000 ml Inj) 1,000 ml @ 100 mls/hr Q10H IV 09/14/16 02:00 09/18/16 05:22 (NS Flush) 2 ml UNSCH PRN IV FLUSH 09/14/16 01:30 (NS Flush) 2 ml BID IV FLUSH 09/14/16 09:00 09/18/16 08:19 (Zofran Inj) 4 mg Q6H PRN IVP 09/14/16 01:30 09/17/16 02:22 (Alisha-Colace) 1 tab BID PO 09/14/16 09:00 09/18/16 08:13 (Milk Of Magnesia Liq) 30 ml Q12H PRN PO 09/14/16 01:30 09/16/16 20:15 (Senokot) 17.2 mg Q12H PRN PO 09/14/16 01:30 09/16/16 20:16 (Dulcolax Supp) 10 mg DAILY PRN RECTAL 09/14/16 01:30 09/17/16 04:30 (Lactulose Liq) 30 ml DAILY PRN PO 09/14/16 01:30 (Toradol Inj) 30 mg Q6HR IV PUSH 09/14/16 13:00 09/19/16 12:59 09/18/16 11:17 Tamsulosin HCl 0.4 mg 0.4 mg DAILY PO 09/14/16 13:00 09/18/16 08:13 Lactated Ringer's 1,000 ml @ 30 mls/hr Q24H PRN IV 09/16/16 22:00 09/19/16 21:59 (NS 500 ml Inj) 500 ml @ 30 mls/hr [id number] PRN IV 09/16/16 22:00 09/19/16 21:59 (Compazine Inj) 5 mg Q6H PRN IM 09/17/16 10:30 (Restoril) 15 mg HS PRN PO 09/17/16 10:30 09/18/16 00:11 (Miralax) 17 gm DAILY PRN PO 09/17/16 10:30 (B & O Supp) 60 mg Q6HR PRN RECTAL 09/17/16 19:00 Phenazopyridine HCl 200 mg 200 mg Q8HR PO 09/18/16 06:00 09/18/16 05:21 (Zosyn 4.5 Gm Premix) 100 ml @ 200 mls/hr Q8H IV 09/18/16 11:45 UNV (D50w (Vial) Inj) 50 ml UNSCH PRN IV 09/18/16 11:45 UNV (Glucagon Inj) 1 mg UNSCH PRN OTHER 09/18/16 11:45 UNV (Roxicodone) 5 mg Q4H PRN PO 09/18/16 12:00 UNV (Roxicodone) 10 mg Q4H PRN PO 09/18/16 12:00 UNV (Morphine Inj) 4 mg Q3H PRN IV PUSH 09/18/16 12:00 UNV Assessment and Plan Assessment and Plan POD# 1 s/p cystoscopy, left ureteroscopy, laser lithotripsy, stent removal -check KUB -Agree with change of antibiotics. Stone was likely infected. -Pain control -Flomax -BLood, Urine cultures pending Lucas Chaudhary MD Sep 18, 2016 12:25
--- NOTE | 2016-09-18 14:23 | RADRPT ---
EXAM DATE/TIME: 09/18/2016 13:40 [facility] COMPARISON: No previous studies available for comparison. INDICATIONS : Calculi MEDICAL HISTORY : SURGICAL HISTORY : Hysterectomy. section. Cholecystectomy. hernias, appendectomy, kidney stones ENCOUNTER: Initial ACUITY: 4 - 6 days PAIN SCORE: Non-responsive. LOCATION: Bilateral abdomen FINDINGS: Supine view of the abdomen was performed. Examination is extremely limited due to the patient's body habitus. No obvious obstruction. Multiple surgical clips in the right upper abdominal quadrant are ch aracteristic of prior cholecystectomy. No obvious renal stones but again, anatomic detail is extremel y limited. CONCLUSION: 1. Very limited examination due to patient's body habitus. Small renal calculi cannot be excluded. 2. No obvious bowel obstruction or pneumoperitoneum. 3. Noncontrasted CT scan of the abdomen could be performed for further evaluation if clinically warra nted. Tonny Figueroa MD on September 18, 2016 at 14:19 Board Certified Radiologist. This report was verified electronically.
--- NOTE | 2016-09-18 14:29 | RADRPT ---
EXAM DATE/TIME: 09/18/2016 13:36 [facility] COMPARISON: No previous studies available for comparison. INDICATIONS : Fever. MEDICAL HISTORY : Hiatal hernia. SURGICAL HISTORY : Hysterectomy. Cholecystectomy. section. hernias ENCOUNTER: Initial ACUITY: 4 - 6 days PAIN SCORE: 0/10 LOCATION: Bilateral chest FINDINGS: A single view of the chest demonstrates the lungs to be symmetrically, but under aerated without evid ence of mass, infiltrate or effusion. The cardiomediastinal contours are unremarkable. Osseous stru ctures are intact. CONCLUSION: Hypoinflation with no acute cardiopulmonary process. Tonny Figueroa MD on September 18, 2016 at 14:23 Board Certified Radiologist. This report was verified electronically.
[2016-09-18] MEDS: PIPERACIL-TAZO 4.5 GM PREMIX 100 ML IV SCH ×2 (15:08→22:27)
[2016-09-18 16:00] VITALS: BP 140/90; PULSE 100; RESP 18; TEMP 100.7; O2SAT 98
[2016-09-18 19:30] VITALS: BP 135/70; PULSE 103; RESP 18; TEMP 100.3; O2SAT 95
--- NOTE | 2016-09-18 19:47 | HHI.PR ---
Subjective Remarks Patient states that flank pain is better - feels sore now Patient has had 2 episodes of fever denies dysuria, nausea or vomiting Objective Vitals Vital Signs Date Time Temp Pulse Resp B/P Pulse Ox O2 Delivery O2 Flow Rate FiO2 09/18/16 16:00 100.7 100 18 140/90 98 09/18/16 12:00 102.2 104 18 121/65 97 09/18/16 08:00 101.1 105 18 119/60 95 09/18/16 04:05 99.1 117 18 144/85 98 09/17/16 23:20 97.1 92 17 120/68 98 09/17/16 20:30 98.1 80 17 110/57 98 09/17/16 20:15 78 16 110/58 98 09/17/16 20:00 78 16 117/60 98 09/17/16 19:45 87 18 121/58 100 I/O 09/17/16 09/17/16 09/17/16 09/18/16 09/18/16 09/18/16 07:00 15:00 23:00 07:00 15:00 23:00 Intake Total 1780 ml 1244 ml 480 ml Output Total 900 ml 1400 ml Balance 880 ml -156 ml 480 ml Intake Oral 480 ml 800 ml 480 ml IV Total 444 ml Other 1300 ml Output Urine Total 900 ml 1400 ml # Voids 1 6 3 # Bowel Movements 0 0 0 0 0 Result Diagram: 09/18/16 0707 09/18/16 0707 Imaging Last Impressions Chest X-Ray 09/18/16 0000 Signed Impressions: Service Date/Time: Sunday, September 18, 2016 13:36 - CONCLUSION: Hypoinflation with no acute cardiopulmonary process. Tonny Figueroa MD Abdomen X-Ray 09/18/16 0000 Signed Impressions: Service Date/Time: Sunday, September 18, 2016 13:40 - CONCLUSION: 1. Very limited examination due to patient's body habitus. Small renal calculi cannot be excluded. 2. No obvious bowel obstruction or pneumoperitoneum. 3. Noncontrasted CT scan of the abdomen could be performed for further evaluation if clinically warranted. Tonny Figueroa MD Liver Ultrasound 09/15/16 0000 Signed Impressions: Service Date/Time: Thursday, September 15, 2016 14:16 - CONCLUSION: 1. Normal dimension common hepatic duct. 2. Diffuse increased acoustic attenuation throughout the liver suggests diffuse fatty change. 3. Focal calcification mid pole right kidney without evidence of hydronephrosis. Oscar Domínguez MD Abdomen/Pelvis CT [id number]/13/162146 Signed Impressions: Service Date/Time: Tuesday, September 13, 2016 23:17 - CONCLUSION: Innumerable renal calcifications bilaterally. Left-sided double-J ureteral catheter in good position. No active stone or mass is identified. Status post cholecystectomy Shar Trevizo MD Objective Remarks GENERAL: Middle-aged female in no acute distress. HEENT: PERRLA, EOMI. No scleral icterus or conjunctival pallor. No lid lag or facial droop. CARDIOVASCULAR: Regular rate and rhythm. No obvious murmurs to auscultation. No chest tenderness to palpation. RESPIRATORY: No obvious rhonchi or wheezing. Clear to auscultation. Breath sounds equal bilaterally. GASTROINTESTINAL: Abdomen soft, tender to palpation of left flank, (+) left CVA tenderness. MUSCULOSKELETAL: Extremities without clubbing, cyanosis, or edema. No obvious deformities. NEUROLOGICAL: Awake, alert and oriented x4. No focal neurologic deficits. Moving both upper and lower extremities spontaneously. Procedures 6/8cystoscopy, left ureteroscopy, laser lithotripsy, stent removal Medications and IVs Current Medications Medications (Trade) Dose Ordered Sig/Jacques Route Start Time Stop Time Status Last Admin (NS 1000 ml Inj) 1,000 ml @ 100 mls/hr Q10H IV 09/14/16 02:00 09/18/16 16:00 (NS Flush) 2 ml UNSCH PRN IV FLUSH 09/14/16 01:30 (NS Flush) 2 ml BID IV FLUSH 09/14/16 09:00 09/18/16 08:19 (Zofran Inj) 4 mg Q6H PRN IVP 09/14/16 01:30 09/17/16 02:22 (Alisha-Colace) 1 tab BID PO 09/14/16 09:00 09/18/16 08:13 (Milk Of Magnesia Liq) 30 ml Q12H PRN PO 09/14/16 01:30 09/16/16 20:15 (Senokot) 17.2 mg Q12H PRN PO 09/14/16 01:30 09/16/16 20:16 (Dulcolax Supp) 10 mg DAILY PRN RECTAL 09/14/16 01:30 09/17/16 04:30 (Lactulose Liq) 30 ml DAILY PRN PO 09/14/16 01:30 (Toradol Inj) 30 mg Q6HR IV PUSH 09/14/16 13:00 09/19/16 12:59 09/18/16 17:34 Tamsulosin HCl 0.4 mg 0.4 mg DAILY PO 09/14/16 13:00 09/18/16 08:13 Lactated Ringer's 1,000 ml @ 30 mls/hr Q24H PRN IV 09/16/16 22:00 09/19/16 21:59 (NS 500 ml Inj) 500 ml @ 30 mls/hr [id number] PRN IV 09/16/16 22:00 09/19/16 21:59 (Compazine Inj) 5 mg Q6H PRN IM 09/17/16 10:30 (Restoril) 15 mg HS PRN PO 09/17/16 10:30 09/18/16 00:11 (Miralax) 17 gm DAILY PRN PO 09/17/16 10:30 (B & O Supp) 60 mg Q6HR PRN RECTAL 09/17/16 19:00 Phenazopyridine HCl 200 mg 200 mg Q8HR PO 09/18/16 06:00 09/18/16 14:03 (Zosyn 4.5 Gm Premix) 100 ml @ 200 mls/hr Q8H IV 09/18/16 14:00 09/18/16 15:08 (D50w (Vial) Inj) 50 ml UNSCH PRN IV 09/18/16 11:45 (Glucagon Inj) 1 mg UNSCH PRN OTHER 09/18/16 11:45 (Roxicodone) 5 mg Q4H PRN PO 09/18/16 13:00 (Roxicodone) 10 mg Q4H PRN PO 09/18/16 12:00 09/18/16 17:34 (Morphine Inj) 4 mg Q3H PRN IV PUSH 09/18/16 12:00 09/18/16 14:04 Urinary Catheter: No Vascular Central Line Catheter: No A/P Problem List: (1) UTI (urinary tract infection) ICD Code: N39.0 Status: Acute (2) Failure of outpatient treatment ICD Code: Z78.9 Status: Acute (3) Nephrolithiasis ICD Code: N20.0 Status: Acute (4) Dehydration ICD Code: E86.0 Status: Acute (5) Hypokalemia ICD Code: E87.6 Status: Acute Assessment and Plan 1. UTI: Persistent UTI. S/p Blood/Urine Cultures, IV Rocephin in ER,Blood cultures negative x3, continue IV Abx. Urine culture with mixed gram positive ariadna. 2. Failed Outpatient Tx: Previous admit to for ureteral stent/UTI, on Macrobid 100mg BID, now w/ ongoing UTI. Continue IV Abx as above. 3. Nephrolithiasis: S/p Left Ureteral Stent placement at approx 3 wks ago for 9mm obstructing left renal stone, was d/c'd w/ referral to Urologist, however states he did not accept her insurance as was not seen. Presented to [place] ER 09/06/16, CT Abd/Pelvis w/ stent in good position, no hydro, referred to Dr. Lira for stent removal as outpatient however has not been seen as of yet. CT Abd/Pelvis 09/13/16 w/ innumerable renal calcifications bilaterally, left -sided double-J ureteral catheter in good position, images reviewed by me. Urology consulted and recommended against removing stent. Continue pain control with oxycodone and IV dilaudid. Patient has stent intolerance 09/16 Patient still having severe pain despite toradol and Flomax. will reconsult urology. Continue pain control w narcotics. 09/17 Patient for OR today by urology. Still having pain and hematuria. Will Continue pain control with IV morphine and Dilaudid and after surgery will Dc IV narcotics and start on oral. 09/18 patient is a status post cystoscopy, left ureteroscopy, laser lithotripsy and left ureteral stent removal. Continue pain control with oral Percocet and IV morphine for breakthrough pain. 6. Hypokalemia: Continue to monitor BMP. Level normal. 7. Dehydration: Improved after IV fluids 8. DVT Prophylaxis: SCD/Teds. 9. Transaminitis: Mild. Liver ultrasound ordered which shows fatty liver. 10. Diabetes mellitus: Hemoglobin A1c is 9.0. Diabetes uncontrolled. Continue SSI with insulin NovoLog. Hepatitis profile negative. 11. Nausea/vomiting: Secondary to pain or narcotics. Continue IV Zofran, Continue phenergan. 12. Insomnia: Improved. Continue amitriptyline. 13. Sepsis: Patient with tachycardia and fever with a MAXIMUM TEMPERATURE of 102.2. Likely infected stone. I will discontinue IV Rocephin and placed on IV Zosyn. Check blood cultures, repeat urinalysis and consult infectious disease. Discharge Planning Patient for OR today. Warren Glass MD Sep 18, 2016 19:47
[2016-09-18] MEDS: ONDANSETRON HCL 4 MG/2 ML VIAL IVP PRN (22:28)
[2016-09-19] VITALS (7 sets, daily range): BP systolic 128–165; BP diastolic 63–88; PULSE 103–111; RESP 17–22; TEMP 98.8–102.6; O2SAT 94–96
[2016-09-19] MEDS: SODIUM CHLOR 0.9% 1000 ML INJ 1,000 ML IV SCH ×3 (02:00→22:00)
[2016-09-19] MEDS: MORPHINE SULFATE 4 MG/ML INJ IV PUSH PRN ×6 (02:59→23:14)
[2016-09-19] MEDS: MAGNESIUM HYDROXIDE SUSP 30 ML CUP PO PRN ×2 (04:14→08:42)
[2016-09-19] MEDS: PHENAZOPYRIDINE HCL 200 MG TAB PO SCH ×3 (05:56→20:46)
[2016-09-19] MEDS: KETOROLAC TROMETHAMINE 30 MG/ML (IVP) VIAL IV PUSH SCH ×2 (05:56→11:19)
[2016-09-19] MEDS: PIPERACIL-TAZO 4.5 GM PREMIX 100 ML IV SCH ×3 (06:00→20:46)
[2016-09-19] MEDS: INSULIN ASPART SUPPLEMENTAL SCALE SQ SCH ×4 (06:09→20:39)
--- NOTE | 2016-09-19 08:20 | PD.PN.STU ---
Subjective Remarks Patient states she has been feeling very dizzy, like she is going to pass out. She also reports shaking and tremors. She said the oral pain medications do not control her pain as well as the IV morphine every 3 hours and she wants to go back to that pain regimen instead of using morphine for break through pain. She states that the oral pain medications make her throw up. She threw up 2 times last night after the taking the medicine. She has not eaten since her surgery yesterday, 09/18. She can tolerate the liquids she has been drinking. No BM yet. She is still urinating blood. Reports pain on her left lower back. Objective Vitals Vital Signs Date Time Temp Pulse Resp B/P Pulse Ox O2 Delivery O2 Flow Rate FiO2 09/19/16 04:00 101.6 108 17 128/68 95 09/19/16 00:10 100.5 103 17 139/67 96 09/18/16 19:30 100.3 103 18 135/70 95 09/18/16 16:00 100.7 100 18 140/90 98 09/18/16 12:00 102.2 104 18 121/65 97 I/O 09/18/16 09/18/16 09/18/16 09/19/16 09/19/16 09/19/16 07:00 15:00 23:00 07:00 15:00 23:00 Intake Total 1244 ml 480 ml 600 ml 480 ml Output Total 1400 ml Balance -156 ml 480 ml 600 ml 480 ml Intake Oral 800 ml 480 ml 600 ml 480 ml IV Total 444 ml Output Urine Total 1400 ml # Voids 3 3 5 # Bowel Movements 0 0 0 0 Result Diagram: 09/18/16 0707 09/18/16 0707 Objective Remarks GENERAL: Middle-aged female in no acute distress. CARDIOVASCULAR: Regular rate and rhythm. No obvious murmurs to auscultation. No chest tenderness to palpation. RESPIRATORY: No obvious rhonchi or wheezing. Clear to auscultation. Breath sounds equal bilaterally. GASTROINTESTINAL: Abdomen soft, tender to palpation of left flank. BACK: Left lower back pain illicited with palpation. A/P Assessment and Plan 1. Nephrolithiasis: - s/p left ureteroscopy, lithotripsy. Successful fragmentation of 9mm left renal stone in lower left pole of the kidney. - Patient stable, pain controlled with morphine injections q 3 hours post-op. POD1 switched to oral roxicodone and morphine IV for break through pain. Patient states this is not controlling her pain and the oral medications cause vomiting. 2. Sepsis: - Fever of 101.6 today, WBC 8.3 with PMNs 83.7. - Pulse 108, BP stable - Blood cultures and urine pending - KUB inconclusive due to body habitus, recommended CT abdomen - Currently on IV Zosyn, consult to ID 2. Stent intolerance: - Left stent removed successfully 3. Diabetes mellitus: uncontrolled - most recent fasting blood glucose 219 - Hemoglobin A1c is 9.0 - continue insulin therapy and follow up with outpatient physician Eli Echols Sep 19, 2016 08:20
[2016-09-19] MEDS: TAMSULOSIN HCL 0.4 MG CAP PO SCH (08:40)
[2016-09-19] MEDS: DOCUSATE SODIUM 50 MG/SENNA 8.6 MG TAB PO SCH ×2 (08:42→20:33)
[2016-09-19] MEDS: SENNOSIDES 8.6 MG TAB PO PRN (08:42)
[2016-09-19] MEDS: ONDANSETRON HCL 4 MG/2 ML VIAL IVP PRN (08:43)
[2016-09-19] MEDS: SODIUM CHLORIDE 0.9% FLUSH 10 ML FLUSH IV FLUSH SCH ×2 (08:45→20:33)
[2016-09-19] MEDS: PROCHLORPERAZINE INJ 10 MG/2 ML VIAL IM PRN ×2 (11:20→17:11)
--- NOTE | 2016-09-19 11:44 | HHI.PR ---
Subjective Remarks Patient c/o left flank pain states hematuria was improving however now back to being very red Patient still having fevers w a Tmax of 101.6 still tachycardic denies cp/sob states feels very nauseous after oral narcotics Objective Vitals Vital Signs Date Time Temp Pulse Resp B/P Pulse Ox O2 Delivery O2 Flow Rate FiO2 09/19/16 09:06 Room Air 09/19/16 07:18 100.8 104 19 131/78 96 09/19/16 04:00 101.6 108 17 128/68 95 09/19/16 00:10 100.5 103 17 139/67 96 09/18/16 19:30 100.3 103 18 135/70 95 09/18/16 16:00 100.7 100 18 140/90 98 09/18/16 12:00 102.2 104 18 121/65 97 I/O 09/18/16 09/18/16 09/18/16 09/19/16 09/19/16 09/19/16 07:00 15:00 23:00 07:00 15:00 23:00 Intake Total 1244 ml 480 ml 600 ml 480 ml 1163 ml Output Total 1400 ml Balance -156 ml 480 ml 600 ml 480 ml 1163 ml Intake Oral 800 ml 480 ml 600 ml 480 ml IV Total 444 ml 1163 ml Output Urine Total 1400 ml # Voids 3 3 5 # Bowel Movements 0 0 0 0 Result Diagram: 09/18/16 0707 09/18/16 0707 Imaging Last Impressions Chest X-Ray 09/18/16 0000 Signed Impressions: Service Date/Time: Sunday, September 18, 2016 13:36 - CONCLUSION: Hypoinflation with no acute cardiopulmonary process. Tonny Figueroa MD Abdomen X-Ray 09/18/16 0000 Signed Impressions: Service Date/Time: Sunday, September 18, 2016 13:40 - CONCLUSION: 1. Very limited examination due to patient's body habitus. Small renal calculi cannot be excluded. 2. No obvious bowel obstruction or pneumoperitoneum. 3. Noncontrasted CT scan of the abdomen could be performed for further evaluation if clinically warranted. Tonny Figueroa MD Liver Ultrasound 09/15/16 0000 Signed Impressions: Service Date/Time: Thursday, September 15, 2016 14:16 - CONCLUSION: 1. Normal dimension common hepatic duct. 2. Diffuse increased acoustic attenuation throughout the liver suggests diffuse fatty change. 3. Focal calcification mid pole right kidney without evidence of hydronephrosis. Oscar Domínguez MD Abdomen/Pelvis CT 09/13/162146 Signed Impressions: Service Date/Time: Tuesday, September 13, 2016 23:17 - CONCLUSION: Innumerable renal calcifications bilaterally. Left-sided double-J ureteral catheter in good position. No active stone or mass is identified. Status post cholecystectomy Shar Trevizo MD Objective Remarks GENERAL: Middle-aged female in no acute distress. HEENT: PERRLA, EOMI. No scleral icterus or conjunctival pallor. No lid lag or facial droop. CARDIOVASCULAR: Regular rate and rhythm. No obvious murmurs to auscultation. No chest tenderness to palpation. RESPIRATORY: No obvious rhonchi or wheezing. Clear to auscultation. Breath sounds equal bilaterally. GASTROINTESTINAL: Abdomen soft, tender to palpation of left flank, (+) left CVA tenderness. MUSCULOSKELETAL: Extremities without clubbing, cyanosis, or edema. No obvious deformities. NEUROLOGICAL: Awake, alert and oriented x4. No focal neurologic deficits. Moving both upper and lower extremities spontaneously. Procedures 6/8cystoscopy, left ureteroscopy, laser lithotripsy, stent removal Medications and IVs Current Medications Medications (Trade) Dose Ordered Sig/Jacques Route Start Time Stop Time Status Last Admin (NS 1000 ml Inj) 1,000 ml @ 100 mls/hr Q10H IV 09/14/16 02:00 09/19/16 11:23 (NS Flush) 2 ml UNSCH PRN IV FLUSH 09/14/16 01:30 (NS Flush) 2 ml BID IV FLUSH 09/14/16 09:00 09/18/16 08:19 (Zofran Inj) 4 mg Q6H PRN IVP 09/14/16 01:30 09/19/16 08:43 (Alisha-Colace) 1 tab BID PO 09/14/16 09:00 09/19/16 08:42 (Milk Of Magnesia Liq) 30 ml Q12H PRN PO 09/14/16 01:30 09/19/16 08:42 (Senokot) 17.2 mg Q12H PRN PO 09/14/16 01:30 09/19/16 08:42 (Dulcolax Supp) 10 mg DAILY PRN RECTAL 09/14/16 01:30 09/17/16 04:30 (Lactulose Liq) 30 ml DAILY PRN PO 09/14/16 01:30 09/19/16 08:42 Tamsulosin HCl 0.4 mg 0.4 mg DAILY PO 09/14/16 13:00 09/19/16 08:40 Lactated Ringer's 1,000 ml @ 30 mls/hr Q24H PRN IV 09/16/16 22:00 09/19/16 21:59 (NS 500 ml Inj) 500 ml @ 30 mls/hr [id number] PRN IV 09/16/16 22:00 09/19/16 21:59 (Compazine Inj) 5 mg Q6H PRN IM 09/17/16 10:30 09/19/16 11:20 (Restoril) 15 mg HS PRN PO 09/17/16 10:30 09/18/16 00:11 (Miralax) 17 gm DAILY PRN PO 09/17/16 10:30 09/19/16 08:43 (B & O Supp) 60 mg Q6HR PRN RECTAL 09/17/16 19:00 Phenazopyridine HCl 200 mg 200 mg Q8HR PO 09/18/16 06:00 09/19/16 12:28 (Zosyn 4.5 Gm Premix) 100 ml @ 200 mls/hr Q8H IV 09/18/16 14:00 09/19/16 12:28 (D50w (Vial) Inj) 50 ml UNSCH PRN IV 09/18/16 11:45 (Glucagon Inj) 1 mg UNSCH PRN OTHER 09/18/16 11:45 (Roxicodone) 5 mg Q4H PRN PO 09/18/16 13:00 (Roxicodone) 10 mg Q4H PRN PO 09/18/16 12:00 09/19/16 11:20 Morphine Sulfate 4 mg 4 mg Q3H PRN IV PUSH 09/18/16 12:00 09/19/16 12:28 (Vancomycin Consult Pharmacy) 0 ml @ 0 mls/hr UNSCH OTHER 09/19/16 11:45 Insulin Detemir 10 units 10 units Q12HR SQ 09/19/16 11:45 09/19/16 13:34 (Vancomycin Inj/ NS 500 ml Inj) 515 ml @ 257.5 mls/ hr Q12H IV 09/20/16 03:00 Miscellaneous Information SPECIFIC LAB TO BE ... ONCE ONCE .XX 09/21/16 02:45 09/21/16 02:46 Urinary Catheter: No Vascular Central Line Catheter: No A/P Problem List: (1) UTI (urinary tract infection) ICD Code: N39.0 Status: Acute (2) Failure of outpatient treatment ICD Code: Z78.9 Status: Acute (3) Nephrolithiasis ICD Code: N20.0 Status: Acute (4) Dehydration ICD Code: E86.0 Status: Acute (5) Hypokalemia ICD Code: E87.6 Status: Acute Assessment and Plan 1. UTI: Persistent UTI. S/p Blood/Urine Cultures, IV Rocephin in ER,Blood cultures negative x3, continue IV Abx. Urine culture with mixed gram positive ariadna. 09/19 given fevers the antibiotic therapy was broadened to Zosyn, patient still with fevers due to recent instrumentation will add IV Vancomycin. Blood cultures negative x1. Will consult infectious disease. 2. Failed Outpatient Tx: Previous admit to for ureteral stent/UTI, on Macrobid 100mg BID, now w/ ongoing UTI. Continue IV Abx as above. 3. Nephrolithiasis: S/p Left Ureteral Stent placement at approx 3 wks ago for 9mm obstructing left renal stone, was d/c'd w/ referral to Urologist, however states he did not accept her insurance as was not seen. Presented to [facility] ER 09/06/16, CT Abd/Pelvis w/ stent in good position, no hydro, referred to Dr. Lira for stent removal as outpatient however has not been seen as of yet. CT Abd/Pelvis 09/13/16 w/ innumerable renal calcifications bilaterally, left -sided double-J ureteral catheter in good position, images reviewed by me. Urology consulted and recommended against removing stent. Continue pain control with oxycodone and IV dilaudid. Patient has stent intolerance 09/16 Patient still having severe pain despite toradol and Flomax. will reconsult urology. Continue pain control w narcotics. 09/17 Patient for OR today by urology. Still having pain and hematuria. Will Continue pain control with IV morphine and Dilaudid and after surgery will Dc IV narcotics and start on oral. 09/18 patient is a status post cystoscopy, left ureteroscopy, laser lithotripsy and left ureteral stent removal. Continue pain control with oral Percocet and IV morphine for breakthrough pain. 6. Hypokalemia: Continue to monitor BMP. Level normal. Lft's are trending down. 7. Dehydration: Improved after IV fluids 8. DVT Prophylaxis: SCD/Teds. 9. Transaminitis: Mild. Liver ultrasound ordered which shows fatty liver. 10. Diabetes mellitus: Hemoglobin A1c is 9.0. Diabetes uncontrolled. Continue SSI with insulin NovoLog. Hepatitis profile negative. 11. Nausea/vomiting: Secondary to pain or narcotics. Continue IV Zofran, Continue phenergan. 12. Insomnia: Improved. Continue amitriptyline. 13. Sepsis: Patient with tachycardia and fever with a MAXIMUM TEMPERATURE of 102.2. Likely infected stone vs pyelonephritis. Continue IV Zosyn,add Vancomycin. Pharmacy to help w dosing. Blood cultures negative x1. ID consulted - recommendations pending. Discharge Planning Patient is still febrile - Id consulted. Warren Glass MD Sep 19, 2016 11:44
[2016-09-19] MEDS ORDERED: Vancomycin Consult Pharmacy 1 EA OTHER SCH (11:45)
[2016-09-19] MEDS ORDERED: VANCOMYCIN INJ 1,000 MG in SODIUM CHLOR 0.9% 250 ML INJ 250 ML IV ONE (12:30)
[2016-09-19] MEDS ORDERED: VANCOMYCIN 1,000 MG/NS 250 ML IV ONE ×2 (13:30)
[2016-09-19] MEDS: INSULIN DETEMIR 100 UNITS/ML VIAL SQ SCH ×2 (13:34→20:39)
--- NOTE | 2016-09-19 17:46 | RADRPT ---
EXAM DATE/TIME: 09/19/2016 17:16 [facility] COMPARISON: No previous studies available for comparison. INDICATIONS : Left sided chest pain. MEDICAL HISTORY : Hiatal hernia. SURGICAL HISTORY : Hernia repair. ENCOUNTER: Initial ACUITY: 1 day PAIN SCORE: 4/10 LOCATION: Left chest FINDINGS: A single view of the chest demonstrates the lungs to be symmetrically aerated without evidence of mas s, infiltrate or effusion. Minimal basilar atelectasis. The cardiomediastinal contours are mildly pr ominent. Osseous structures are intact. CONCLUSION: 1. Minimal basilar atelectasis. No effusion or pneumothorax. Rambo Rodriguez MD on September 19, 2016 at 17:43 Board Certified Radiologist. This report was verified electronically.
[2016-09-19 19:11] LABS: LACTIC ACID GHOST NOT REPORTABLE
--- NOTE | 2016-09-19 20:02 | MB ---
cc: THOMAS WYATT MD DATE OF CONSULTATION 09/19/[address] Ramirez REASON FOR CONSULTATION UTI/sepsis. Removed stent. HISTORY OF PRESENT ILLNESS This is a 45-year-old white female who presented to the emergency department on 09/13 with fever and hematuria. The patient was evaluated 3 weeks prior and was noted to have a stone in the kidney and underwent placement of a ureteral stent double-J. She was seen previously in the emergency department on September 06. She presented again on September 13 with fever and left flank pain. The patient was seen by urology and the ureteral stent was removed and she underwent lithotripsy. She had a passage of blood via the urine and then it cleared up and she states that the blood started again today. Prior to admission she was on Macrobid. She states that she was having nausea over the past couple of days and currently she states that she feels very poorly. She states that she has severe headache and left-sided pain at the left flank and she has a lot of nausea. She is receiving Compazine for the nausea. Her temperature donita to 102.6 degrees this evening. Prior to that the temperature was 102 degrees yesterday. Her temperature was within normal range before the temperature elevations began yesterday. Her white blood cell count is normal. Blood culture taken yesterday has no growth in 1 day. Previous blood culture from 09/13 have no growth and urine culture showed mixed bacteria. She is on IV antibiotics with vancomycin and piperacillin/Tazobactam. She states to me now that she actively had chills and it has been happening all day today. Chest x-ray performed yesterday showed hypoinflation with no acute cardiopulmonary disease. PAST MEDICAL HISTORY Past medical history of diabetes mellitus, kidney stones. PAST SURGICAL HISTORY Cholecystectomy, appendectomy, lithotripsy, ureteral stent, tonsillectomy. ALLERGIES TYLENOL CAUSE SWELLING OF THE TONGUE AND CAUSED HER BREATHING TO SHUT OFF. THE PATIENT ALSO ALLERGIC TO SPLENDA AND NUTRASWEET. MEDICATIONS 1. Vancomycin. 2. Piperacillin/Tazobactam. 3. Insulin. 4. Morphine sulfate. 5. Oxycodone. 6. Pyridium. 7. Compazine. 8. MiraLax. 9. Alisha-Colace. 10. Flomax. SOCIAL HISTORY The patient is . No tobacco, no alcohol. No illicit drugs. FAMILY HISTORY Noncontributory. REVIEW OF SYSTEMS Pertinents mentioned in the history of present illness. PHYSICAL EXAMINATION GENERAL: This is a moderately obese female in no acute distress. She is awake and alert. VITAL SIGNS: Temperature 102.6, BP 165/88, heart rate 111, respirations 22. HEENT: Head is atraumatic. Extraocular movements grossly intact. Pupils reactive to light without icterus. Oropharynx no visible lesions. NECK: Supple. No adenopathy. LUNGS: Clear to auscultation. HEART: Regular rate and rhythm without audible murmurs, rubs or gallops. ABDOMEN: Bowel sounds present, distended, soft, left flank tenderness. RECTAL: Not performed. EXTREMITIES: No clubbing, cyanosis or edema. SKIN: No rash. NEURO: Nonfocal. PSYCHIATRIC: The patient is calm and cooperative. LABORATORY DATA WBC 8.3, platelets 164, 83% neutrophils, hemoglobin 10.5, creatinine 0.78, BUN 8, estimated GFR 80, sodium 138, AST 49, ALT 77, alk phos 108, lactic acid level pending. IMPRESSION 1. Sepsis indicated by fever, tachycardia, increased respiratory rate. The patient with left flank pain and chills and fever suggesting pyelonephritis. 2. Recent treatment for UTI and left-sided ureteral stent removal. 3. Recent kidney stone treated with lithotripsy. RECOMMENDATIONS 1. Continue vancomycin. 2. Continue piperacillin/tazobactam. 3. Add cefepime. 4. Monitor blood cultures. 5. Monitor clinical status. 6. Monitor repeat urine culture. 7. Monitor repeat blood culture. Thank you for this consultation. The patient's progress will be monitored and further recommendations will be given on followup if necessary. Thomas Wyatt MD FD/JOSE E /5:40 PM /7:48 PM
[2016-09-19 20:12] LABS: CREATINE KINASE 97 U/L (26-192)
[2016-09-20] VITALS (8 sets, daily range): BP systolic 122–155; BP diastolic 72–93; PULSE 86–110; RESP 14–20; TEMP 100–102.7; O2SAT 93–98
[2016-09-20] MEDS: PROCHLORPERAZINE INJ 10 MG/2 ML VIAL IM PRN ×4 (01:35→20:20)
[2016-09-20 01:50] LABS: AUTOMATED NEUTROPHIL # 4.4 TH/MM3 (1.8-7.7); BASOPHIL % 0.3 % (0.0-2.0); EOSINOPHIL % 0.4 % (0.0-4.0); HEMATOCRIT 28.7 % (35.0-46.0); HEMO FLAGS DIFF FINAL; LYMPH % 12.5 % (9.0-44.0); LYMPHOCYTE # 0.7 TH/MM3 (1.0-4.8); MEAN CELL VOLUME 90.8 FL (80.0-100.0); MEAN CORPUSCULAR HEMOGLOBIN 30.7 PG (27.0-34.0); MEAN CORPUSCULAR HGB CONC 33.8 % (32.0-36.0); MONO % 10.4 % (0.0-8.0); NEUT % 76.4 % (16.0-70.0); PLATELET COUNT 137 TH/MM3 (150-450); RED BLOOD COUNT 3.16 MIL/MM3 (4.00-5.30); RED CELL DISTRIBUTION WIDTH 13.9 % (11.6-17.2); WHITE BLOOD COUNT 5.8 TH/MM3 (4.0-11.0)
[2016-09-20 02:21] LABS: ALKALINE PHOSPHATASE 75 U/L (45-117); ALT (GPT) 49 U/L (10-53); ANION GAP 5 MEQ/L (5-15); AST (GOT) 29 U/L (15-37); BICARBONATE 27.9 MEQ/L (21.0-32.0); BLOOD UREA NITROGEN 7 MG/DL (7-18); CALCIUM-PROTEIN CORRECTED 7.7 MG/DL (8.5-10.1); CHLORIDE 104 MEQ/L (98-107); GLOMERULAR FILTRATION RATE 78 ML/MIN (>89); POTASSIUM 4.2 MEQ/L (3.5-5.1); SODIUM (NA) 137 MEQ/L (136-145); TOTAL BILIRUBIN ADULT 0.6 MG/DL (0.2-1.0)
[2016-09-20 02:23] LABS: CREATINE KINASE 83 U/L (26-192)
[2016-09-20] MEDS: MORPHINE SULFATE 4 MG/ML INJ IV PUSH PRN ×7 (02:52→23:09)
[2016-09-20] MEDS: VANCOMYCIN 1,500 MG/NS 500 ML IV SCH ×4 (03:09→14:02)
[2016-09-20] MEDS: PIPERACIL-TAZO 4.5 GM PREMIX 100 ML IV SCH ×2 (05:32→11:16)
[2016-09-20] MEDS: PHENAZOPYRIDINE HCL 200 MG TAB PO SCH ×3 (05:32→21:35)
[2016-09-20] MEDS: INSULIN ASPART SUPPLEMENTAL SCALE SQ SCH ×4 (05:39→21:34)
[2016-09-20] MEDS: SODIUM CHLOR 0.9% 1000 ML INJ 1,000 ML IV SCH ×2 (07:04→11:15)
[2016-09-20] MEDS: MAGNESIUM HYDROXIDE SUSP 30 ML CUP PO PRN (07:11)
[2016-09-20] MEDS: DOCUSATE SODIUM 50 MG/SENNA 8.6 MG TAB PO SCH ×2 (07:11→20:20)
[2016-09-20] MEDS: TAMSULOSIN HCL 0.4 MG CAP PO SCH (07:11)
[2016-09-20] MEDS: SODIUM CHLORIDE 0.9% FLUSH 10 ML FLUSH IV FLUSH SCH ×2 (07:12→17:11)
[2016-09-20] MEDS: INSULIN DETEMIR 100 UNITS/ML VIAL SQ SCH ×2 (07:14→21:31)
[2016-09-20 08:16] LABS: BACTERIA, URINE OCC /hpf; BLOOD, URINE LARGE (NEG); GLUCOSE,URINE 70 mg/dL (NEG); KETONE, URINE NEG (NEG); NITRITE,URINE NEG (NEG); PH, URINE 7.5 (5.0-8.5)
[2016-09-20 08:27] LABS: URINE COLOR AMBER (YELLW/STRAW)
[2016-09-20 08:51] LABS: CREATINE KINASE 86 U/L (26-192)
--- NOTE | 2016-09-20 09:30 | EKG ---
Date Performed: 09/20/2016 Time Performed: 05:25:26 PTAGE: 45 years EKG: Sinus rhythm Possible inferior infarct - age undetermined Abnormal ECG NO PREVIOUS TRACING DOCTOR: Shar Carr Interpretating Date/Time 09/20/2016 09:28:17
--- NOTE | 2016-09-20 09:35 | EKG ---
Date Performed: 09/19/2016 Time Performed: 22:30:21 PTAGE: 45 years EKG: SINUS TACHYCARDIA ABNORMAL RHYTHM ECG PREVIOUS TRACING : 09/19/2016 17.44 DOCTOR: Shar Carr Interpretating Date/Time 09/20/2016 09:31:37
--- NOTE | 2016-09-20 09:39 | EKG ---
Date Performed: 09/19/2016 Time Performed: 17:44:37 PTAGE: 45 years EKG: SINUS TACHYCARDIA ABNORMAL RHYTHM ECG PREVIOUS TRACING : 09/16/2016 19.46 DOCTOR: Shar Carr Interpretating Date/Time 09/20/2016 09:33:39
--- NOTE | 2016-09-20 15:11 | HHI.IDPN ---
Note Infectious Disease Note Patient continues to have nausea. (+) vomiting. Febrile. Chills. Notes lower abdominal pain. Notes loose stool. Presented to the emergency department on 09/13 with fever and hematuria. The patient was evaluated 3 weeks prior and was noted to have a stone in the kidney and underwent placement of a ureteral stent double-J. PAST MEDICAL HISTORY Past medical history of diabetes mellitus, kidney stones. PAST SURGICAL HISTORY Cholecystectomy, appendectomy, lithotripsy, ureteral stent, tonsillectomy. ALLERGIES TYLENOL CAUSE SWELLING OF THE TONGUE AND CAUSED HER BREATHING TO SHUT OFF. THE PATIENT ALSO ALLERGIC TO SPLENDA AND NUTRASWEET. MEDICATIONS 1. Vancomycin. 2. Piperacillin/Tazobactam. OBJECTIVE: Vital Signs Date Time Temp Pulse Resp B/P Pulse Ox O2 Delivery O2 Flow Rate FiO2 09/20/16 14:09 18 09/20/16 14:00 96 09/20/16 12:06 100.3 93 14 138/89 95 09/20/16 07:15 102.7 98 19 136/82 93 09/20/16 04:13 100.9 103 18 122/72 95 09/20/16 00:45 100.4 110 20 133/79 96 09/19/16 20:45 102.3 111 20 143/84 94 09/19/16 16:56 102.6 111 22 165/88 96 09/19/16 16:00 100.5 108 19 141/81 96 09/19/16 09/19/16 09/20/16 15:00 23:00 07:00 Intake Total 1643 ml 360 ml 240 ml Balance 1643 ml 360 ml 240 ml Intake Oral 480 ml 360 ml 240 ml IV Total 1163 ml # Voids 2 1 2 # Bowel Movements 2 0 0 Laboratory Tests Test 09/20/16 01:35 White Blood Count 5.8 TH/MM3 Red Blood Count 3.16 MIL/MM3 Hemoglobin 9.7 GM/DL Hematocrit 28.7 % Mean Corpuscular Volume 90.8 FL Mean Corpuscular Hemoglobin 30.7 PG Mean Corpuscular Hemoglobin 33.8 % Concent Red Cell Distribution Width 13.9 % Platelet Count 137 TH/MM3 Mean Platelet Volume 8.6 FL Neutrophils (%) (Auto) 76.4 % Lymphocytes (%) (Auto) 12.5 % Monocytes (%) (Auto) 10.4 % Eosinophils (%) (Auto) 0.4 % Basophils (%) (Auto) 0.3 % Neutrophils # (Auto) 4.4 TH/MM3 Lymphocytes # (Auto) 0.7 TH/MM3 Monocytes # (Auto) 0.6 TH/MM3 Eosinophils # (Auto) 0.0 TH/MM3 Basophils # (Auto) 0.0 TH/MM3 CBC Comment DIFF FINAL Differential Comment Microbiology Date/Time Procedure Status Source Growth 09/18/16 11:59 Aerobic Blood Culture - Preliminary Resulted Blood Peripheral NO GROWTH IN 2 DAYS 09/18/16 11:59 Anaerobic Blood Culture - Preliminary Resulted Blood Peripheral NO GROWTH IN 2 DAYS 09/18/16 12:05 Aerobic Blood Culture - Preliminary Resulted Blood Peripheral NO GROWTH IN 2 DAYS 09/18/16 12:05 Anaerobic Blood Culture - Preliminary Resulted Blood Peripheral NO GROWTH IN 2 DAYS 09/19/16 19:15 Aerobic Blood Culture - Preliminary Resulted Blood Peripheral NO GROWTH IN 1 DAY 09/19/16 19:15 Anaerobic Blood Culture - Preliminary Resulted Blood Peripheral NO GROWTH IN 1 DAY 09/19/16 19:20 Aerobic Blood Culture - Preliminary Resulted Blood Peripheral NO GROWTH IN 1 DAY 09/19/16 19:20 Anaerobic Blood Culture - Preliminary Resulted Blood Peripheral NO GROWTH IN 1 DAY 09/20/16 07:40 Urine Culture Received Urine Clean Catch Pending IMAGING: Chest X-Ray 09/19/16 0000 Signed Impressions: Service Date/Time: Monday, September 19, 2016 17:16 - CONCLUSION: 1. Minimal basilar atelectasis. No effusion or pneumothorax. Rambo Rodriguez MD Abdomen X-Ray 09/18/16 0000 Signed Impressions: Service Date/Time: Sunday, September 18, 2016 13:40 - CONCLUSION: 1. Very limited examination due to patient's body habitus. Small renal calculi cannot be excluded. 2. No obvious bowel obstruction or pneumoperitoneum. 3. Noncontrasted CT scan of the abdomen could be performed for further evaluation if clinically warranted. Tonny Figueroa MD Liver Ultrasound 09/15/16 0000 Signed Impressions: Service Date/Time: Thursday, September 15, 2016 14:16 - CONCLUSION: 1. Normal dimension common hepatic duct. 2. Diffuse increased acoustic attenuation throughout the liver suggests diffuse fatty change. 3. Focal calcification mid pole right kidney without evidence of hydronephrosis. Osacr Domínguez MD Abdomen/Pelvis CT 09/13/162 Signed Impressions: Service Date/Time: Tuesday, September 13, 2016 23:17 - CONCLUSION: Innumerable renal calcifications bilaterally. Left-sided double-J ureteral catheter in good position. No active stone or mass is identified. Status post cholecystectomy Shar Trevizo MD PHYSICAL EXAMINATION GENERAL: Distressed by nausea. She is awake and alert. HEENT: Head is atraumatic. Extraocular movements grossly intact. Pupils reactive to light without icterus. Oropharynx no visible lesions. NECK: Supple. No adenopathy. LUNGS: Clear to auscultation. HEART: Regular rate and rhythm without audible murmurs, rubs or gallops. ABDOMEN: Bowel sounds present, distended, soft, left flank tenderness, lower abdominal tenderness. EXTREMITIES: No clubbing, cyanosis or edema. SKIN: No rash. NEURO: Nonfocal. PSYCHIATRIC: The patient is calm and cooperative. IMPRESSION 1. Sepsis indicated by fever, tachycardia, increased respiratory rate. patient with left flank pain and chills and fever suggesting pyelonephritis. 2. Recent treatment for UTI and left-sided ureteral stent removal. 3. Recent kidney stone treated with lithotripsy. RECOMMENDATIONS 1. Continue vancomycin. 2. Stop cefepime. 3. Start Azactam. 4. Repeat CT scan of the abdomen. 5. Monitor blood cultures. 6. Monitor urine culture. 7. Monitor blood culture. Discussed with and RN. Cuong Navas MD Sep 20, 2016 15:11
[2016-09-20] MEDS ORDERED: IOHEXOL 350 MG/ML 10 ML VIAL (for RAD DIAG) IV ONE (15:48)
--- NOTE | 2016-09-20 16:52 | RADRPT ---
EXAM DATE/TIME: 09/20/2016 15:42 [facility] COMPARISON: No previous studies available for comparison. INDICATIONS : Abdominal pain. IV CONTRAST: 100 cc Omnipaque 350 (iohexol) IV ORAL CONTRAST: No oral contrast ingested. RADIATION DOSE: 9.96 CTDIvol (mGy) MEDICAL HISTORY : Renal calculi. SURGICAL HISTORY : Cholecystectomy. Appendectomy.Hysterectomy.hernia repair. ENCOUNTER: Initial ACUITY: 1 day PAIN SCALE: 5/10 LOCATION: Bilateral abdomen. TECHNIQUE: Volumetric scanning of the abdomen and pelvis was performed. Using automated exposure control and ad justment of the mA and/or kV according to patient size, radiation dose was kept as low as reasonably achievable to obtain optimal diagnostic quality images. FINDINGS: LOWER LUNGS: The visualized lower lungs are clear. LIVER: Homogeneous density without lesion. There is no dilation of the biliary tree. Cholecystectomy. SPLEEN: Normal size without lesion. PANCREAS: Within normal limits. KIDNEYS: No evidence of hydronephrosis on either side. There are solitary bilateral nonobstructing stones, conor th measuring less than 5 mm, located mid pole of the right and lower pole of the left. Both ureters are normal in dimension. ADRENAL GLANDS: Within normal limits. VASCULAR: There is no aortic aneurysm. 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 BOWEL/MESENTERY: No dilated loops of small or large bowel. There is some mild induration of the lateral conal fascia on the left side. There are a few diverticula in the left colon and one diverticula is close to the area of the thickening. ABDOMINAL WALL: No focal defects seen. Prior lower abdominal surgery with multiple metallic anchor screws. There is induration of the subcutaneous fat bilaterally in the mid abdomen, more prominent on the left on the right. RETROPERITONEUM: There is no lymphadenopathy. BLADDER: No wall thickening or mass. REPRODUCTIVE: Within normal limits. INGUINAL: There is no lymphadenopathy or hernia. MUSCULOSKELETAL: Within normal limits for patient age. CONCLUSION: 1. Minimal amount of thickening of the left lateral conal fascia adjacent to one of the several diver ticula of the descending colon. This is nonspecific, but does suggest the possibility of diverticuli tis. 2. Bilateral nonobstructing renal stones. 3. Subcutaneous fat induration bilateral lateral abdominal wall, left greater than right. Oscar Domínguez MD on September 20, 2016 at 16:42 Board Certified Radiologist. This report was verified electronically.
[2016-09-20] MEDS ORDERED: CALCIUM CHLORIDE INJ 2 GM in SODIUM CHLORIDE 0.9% INJ 100 ML IV ONE (17:00)
[2016-09-20] MEDS: AZTREONAM INJ 2,000 MG in SODIUM CHLORIDE 0.9% INJ 100 ML IV SCH ×2 (17:12→23:08)
[2016-09-20] MEDS ORDERED: metroNIDAZOLE 500 MG INJ 100 ML IV SCH (18:00)
--- NOTE | 2016-09-20 18:13 | HHI.PR ---
Subjective Remarks Patient states the pain is controlled. Denies chest pain or shortness of breath States that she feels very nauseous, denies vomiting Still complains of severe left flank pain Still having fevers with a MAXIMUM TEMPERATURE of 102.7 Other vital signs stable Tachycardia improving. Blood sugars noted to be very elevated. Objective Vitals Vital Signs Date Time Temp Pulse Resp B/P Pulse Ox O2 Delivery O2 Flow Rate FiO2 09/20/16 17:30 18 09/20/16 17:14 19 09/20/16 15:28 100.0 99 19 151/93 95 09/20/16 14:00 96 09/20/16 12:06 100.3 93 14 138/89 95 09/20/16 07:15 102.7 98 19 136/82 93 09/20/16 04:13 100.9 103 18 122/72 95 09/20/16 00:45 100.4 110 20 133/79 96 09/19/16 20:45 102.3 111 20 143/84 94 I/O 09/19/16 09/19/16 09/19/16 09/20/16 09/20/16 09/20/16 07:00 15:00 23:00 07:00 15:00 23:00 Intake Total 480 ml 1643 ml 360 ml 240 ml 2936 ml Balance 480 ml 1643 ml 360 ml 240 ml 2936 ml Intake Oral 480 ml 480 ml 360 ml 240 ml IV Total 1163 ml 2936 ml # Voids 5 2 1 2 # Bowel Movements 0 2 0 0 Result Diagram: 09/20/16 0135 09/20/16 0135 Imaging Last Impressions Abdomen/Pelvis CT 09/20/16 0000 Signed Impressions: Service Date/Time: Tuesday, September 20, 2016 15:42 - CONCLUSION: 1. Minimal amount of thickening of the left lateral conal fascia adjacent to one of the several diverticula of the descending colon. This is nonspecific, but does suggest the possibility of diverticulitis. 2. Bilateral nonobstructing renal stones. 3. Subcutaneous fat induration bilateral lateral abdominal wall, left greater than right. Oscar Domínguez MD Chest X-Ray 09/19/16 0000 Signed Impressions: Service Date/Time: Monday, September 19, 2016 17:16 - CONCLUSION: 1. Minimal basilar atelectasis. No effusion or pneumothorax. Rambo Rodriguez MD Abdomen X-Ray 09/18/16 0000 Signed Impressions: Service Date/Time: Sunday, September 18, 2016 13:40 - CONCLUSION: 1. Very limited examination due to patient's body habitus. Small renal calculi cannot be excluded. 2. No obvious bowel obstruction or pneumoperitoneum. 3. Noncontrasted CT scan of the abdomen could be performed for further evaluation if clinically warranted. Tonny Figueroa MD Liver Ultrasound 09/15/16 0000 Signed Impressions: Service Date/Time: Thursday, September 15, 2016 14:16 - CONCLUSION: 1. Normal dimension common hepatic duct. 2. Diffuse increased acoustic attenuation throughout the liver suggests diffuse fatty change. 3. Focal calcification mid pole right kidney without evidence of hydronephrosis. Oscar Domínguez MD Objective Remarks GENERAL: Middle-aged female in no mild distress, not observed to be respiratory distress. HEENT: PERRLA, EOMI. No scleral icterus or conjunctival pallor. No lid lag or facial droop. CARDIOVASCULAR: Regular rate and rhythm. No obvious murmurs to auscultation. No chest tenderness to palpation. RESPIRATORY: No obvious rhonchi or wheezing. Clear to auscultation. Breath sounds equal bilaterally. GASTROINTESTINAL: Abdomen soft, tender to palpation of left flank, (+) left CVA tenderness. MUSCULOSKELETAL: Extremities without clubbing, cyanosis, or edema. No obvious deformities. NEUROLOGICAL: Awake, alert and oriented x4. No focal neurologic deficits. Moving both upper and lower extremities spontaneously. Procedures 6/8cystoscopy, left ureteroscopy, laser lithotripsy, stent removal Medications and IVs Current Medications Medications (Trade) Dose Ordered Sig/Jacques Route Start Time Stop Time Status Last Admin (NS 1000 ml Inj) 1,000 ml @ 100 mls/hr Q10H IV 09/14/16 02:00 09/20/16 11:15 (NS Flush) 2 ml UNSCH PRN IV FLUSH 09/14/16 01:30 (NS Flush) 2 ml BID IV FLUSH 09/14/16 09:00 09/20/16 17:11 (Zofran Inj) 4 mg Q6H PRN IVP 09/14/16 01:30 09/19/16 08:43 (Alisha-Colace) 1 tab BID PO 09/14/16 09:00 09/20/16 07:11 (Milk Of Magnesia Liq) 30 ml Q12H PRN PO 09/14/16 01:30 09/20/16 07:11 (Senokot) 17.2 mg Q12H PRN PO 09/14/16 01:30 09/19/16 08:42 (Dulcolax Supp) 10 mg DAILY PRN RECTAL 09/14/16 01:30 09/17/16 04:30 (Lactulose Liq) 30 ml DAILY PRN PO 09/14/16 01:30 09/19/16 08:42 (Flomax) 0.4 mg DAILY PO 09/14/16 13:00 09/20/16 07:11 (Compazine Inj) 5 mg Q6H PRN IM 09/17/16 10:30 09/20/16 14:52 (Restoril) 15 mg HS PRN PO 09/17/16 10:30 09/18/16 00:11 (Miralax) 17 gm DAILY PRN PO 09/17/16 10:30 09/19/16 08:43 (B & O Supp) 60 mg Q6HR PRN RECTAL 09/17/16 19:00 (Pyridium) 200 mg Q8HR PO 09/18/16 06:00 09/20/16 11:15 (D50w (Vial) Inj) 50 ml UNSCH PRN IV 09/18/16 11:45 (Glucagon Inj) 1 mg UNSCH PRN OTHER 09/18/16 11:45 (Roxicodone) 5 mg Q4H PRN PO 09/18/16 13:00 (Roxicodone) 10 mg Q4H PRN PO 09/18/16 12:00 09/20/16 15:31 Morphine Sulfate 4 mg 4 mg Q3H PRN IV PUSH 09/18/16 12:00 09/20/16 17:13 (Vancomycin Consult Pharmacy) 0 ml @ 0 mls/hr UNSCH OTHER 09/19/16 11:45 Insulin Detemir 10 units 10 units Q12HR SQ 09/19/16 11:45 09/20/16 07:14 (Vancomycin Inj/ NS 500 ml Inj) 515 ml @ 257.5 mls/ hr Q12H IV 09/20/16 03:00 09/20/16 14:02 Miscellaneous Information SPECIFIC LAB TO BE .. ONCE ONCE .XX 09/21/16 02:45 09/21/16 02:46 Potassium Phos/ Sodium Phos 250 mg 250 mg Q8HR PO 09/20/16 22:00 Aztreonam 2000 mg/ Sodium Chloride 100 ml @ 200 mls/hr Q6H IV 09/20/16 17:00 09/20/16 17:12 (Flagyl 500 Mg Inj) 100 ml @ 100 mls/hr Q6H IV 09/20/16 21:00 Urinary Catheter: No Vascular Central Line Catheter: No A/P Problem List: (1) UTI (urinary tract infection) ICD Code: N39.0 Status: Acute (2) Failure of outpatient treatment ICD Code: Z78.9 Status: Acute (3) Nephrolithiasis ICD Code: N20.0 Status: Acute (4) Dehydration ICD Code: E86.0 Status: Acute (5) Hypokalemia ICD Code: E87.6 Status: Acute Assessment and Plan 1. UTI: Persistent UTI. S/p Blood/Urine Cultures, IV Rocephin in ER,Blood cultures negative x3, continue IV Abx. Urine culture with mixed gram positive ariadna. 09/19 given fevers the antibiotic therapy was broadened to Zosyn, patient still with fevers due to recent instrumentation will add IV Vancomycin. Blood cultures negative x1. Will consult infectious disease. 2. Failed Outpatient Tx: Previous admit to for ureteral stent/UTI, on Macrobid 100mg BID, now w/ ongoing UTI. Continue IV Abx as above. 3. Nephrolithiasis: S/p Left Ureteral Stent placement at approx 3 wks ago for 9mm obstructing left renal stone, was d/c'd w/ referral to Urologist, however states he did not accept her insurance as was not seen. Presented to [facility] 09/06/16, CT Abd/Pelvis w/ stent in good position, no hydro, referred to Dr. Lira for stent removal as outpatient however has not been seen as of yet. CT Abd/Pelvis 09/13/16 w/ innumerable renal calcifications bilaterally, left -sided double-J ureteral catheter in good position, images reviewed by me. Urology consulted and recommended against removing stent. Continue pain control with oxycodone and IV dilaudid. Patient has stent intolerance 09/16 Patient still having severe pain despite toradol and Flomax. will reconsult urology. Continue pain control w narcotics. 09/17 Patient for OR today by urology. Still having pain and hematuria. Will Continue pain control with IV morphine and Dilaudid and after surgery will Dc IV narcotics and start on oral. 09/18 patient is a status post cystoscopy, left ureteroscopy, laser lithotripsy and left ureteral stent removal. Continue pain control with oral Percocet and IV morphine for breakthrough pain. 6. Hypokalemia: Continue to monitor BMP. Level normal. 7. Dehydration: Improved after IV fluids 8. DVT Prophylaxis: SCD/Teds. 9. Transaminitis: Mild. Liver ultrasound ordered which shows fatty liver. LFTs now normal. Hepatitis profile negative. 10. Diabetes mellitus: Hemoglobin A1c is 9.0. Diabetes uncontrolled. Continue SSI with insulin NovoLog. I will start the patient on basal bolus insulin with insulin Levemir and prandial insulin NovoLog. 11. Nausea/vomiting: Secondary to pain or narcotics. Continue IV Zofran, Continue phenergan. 12. Insomnia: Improved. Continue amitriptyline. 13. Sepsis: Patient with tachycardia and fever with a MAXIMUM TEMPERATURE of 102.2. Likely infected stone vs pyelonephritis. Continue IV Zosyn,add Vancomycin. Pharmacy to help w dosing. Blood cultures negative x1. ID consulted - recommendations pending. 09/20 appreciate IDs assistance. Recommended continuation of vancomycin, IV Zosyn discontinued and the patient started on aztreonam IV. Follow-up blood cultures which are negative to date. The abdomen and pelvis ordered, will follow. Discharge Planning Patient is still febrile -pending clinical improvement. Warren Glass MD Sep 20, 2016 18:13
[2016-09-20] MEDS: metroNIDAZOLE 500 MG INJ 100 ML IV SCH (20:21)
[2016-09-20] MEDS: POTASSIUM PHOSPHATE/SODIUM PHOSPHATE 250 MG TAB PO SCH (21:35)
[2016-09-21] VITALS (12 sets, daily range): BP systolic 113–160; BP diastolic 60–95; PULSE 88–119; RESP 17–19; TEMP 99.1–100.5; O2SAT 92–97
[2016-09-21] MEDS: ONDANSETRON HCL 4 MG/2 ML VIAL IVP PRN (02:38)
[2016-09-21] MEDS: MORPHINE SULFATE 4 MG/ML INJ IV PUSH PRN ×7 (02:38→23:53)
[2016-09-21] MEDS: SODIUM CHLOR 0.9% 1000 ML INJ 1,000 ML IV SCH ×3 (02:43→23:51)
[2016-09-21] MEDS: metroNIDAZOLE 500 MG INJ 100 ML IV SCH ×4 (02:43→22:54)
[2016-09-21] MEDS ORDERED: PHARMACY ORDERED LAB ONE ×2 (02:45→14:45)
[2016-09-21] MEDS: VANCOMYCIN 1,500 MG/NS 500 ML IV SCH ×4 (03:49→20:52)
[2016-09-21] MEDS: AZTREONAM INJ 2,000 MG in SODIUM CHLORIDE 0.9% INJ 100 ML IV SCH ×4 (05:36→23:51)
[2016-09-21] MEDS: POTASSIUM PHOSPHATE/SODIUM PHOSPHATE 250 MG TAB PO SCH ×4 (05:36→21:01)
[2016-09-21] MEDS: PHENAZOPYRIDINE HCL 200 MG TAB PO SCH ×3 (05:36→20:58)
[2016-09-21] MEDS: INSULIN ASPART SUPPLEMENTAL SCALE SQ SCH ×4 (06:18→21:00)
[2016-09-21 06:39] LABS: AUTOMATED NEUTROPHIL # 5.1 TH/MM3 (1.8-7.7); BASOPHIL % 0.3 % (0.0-2.0); EOSINOPHIL % 0.6 % (0.0-4.0); HEMATOCRIT 29.8 % (35.0-46.0); HEMO FLAGS DIFF FINAL; LYMPH % 15.4 % (9.0-44.0); LYMPHOCYTE # 1.1 TH/MM3 (1.0-4.8); MEAN CELL VOLUME 90.3 FL (80.0-100.0); MEAN CORPUSCULAR HEMOGLOBIN 30.9 PG (27.0-34.0); MEAN CORPUSCULAR HGB CONC 34.2 % (32.0-36.0); MONO % 12.7 % (0.0-8.0); PLATELET COUNT 164 TH/MM3 (150-450); RED CELL DISTRIBUTION WIDTH 13.3 % (11.6-17.2); WHITE BLOOD COUNT 7.2 TH/MM3 (4.0-11.0)
[2016-09-21 07:03] LABS: ALKALINE PHOSPHATASE 75 U/L (45-117); ALT (GPT) 36 U/L (10-53); ANION GAP 5 MEQ/L (5-15); AST (GOT) 17 U/L (15-37); BICARBONATE 31.2 MEQ/L (21.0-32.0); BLOOD UREA NITROGEN 7 MG/DL (7-18); CHLORIDE 103 MEQ/L (98-107); GLOMERULAR FILTRATION RATE 104 ML/MIN (>89); POTASSIUM 3.8 MEQ/L (3.5-5.1); SODIUM (NA) 139 MEQ/L (136-145); TOTAL BILIRUBIN ADULT 0.5 MG/DL (0.2-1.0)
[2016-09-21] MEDS: INSULIN ASPART 1,000 UNITS/10 ML VIAL SQ SCH ×3 (08:00→16:42)
[2016-09-21] MEDS: DOCUSATE SODIUM 50 MG/SENNA 8.6 MG TAB PO SCH ×2 (09:24→20:58)
[2016-09-21] MEDS: TAMSULOSIN HCL 0.4 MG CAP PO SCH (09:24)
[2016-09-21] MEDS: INSULIN DETEMIR 100 UNITS/ML VIAL SQ SCH ×2 (09:25→21:00)
[2016-09-21] MEDS: SODIUM CHLORIDE 0.9% FLUSH 10 ML FLUSH IV FLUSH SCH ×2 (09:28→20:58)
--- NOTE | 2016-09-21 14:36 | HHI.IDPN ---
Note Infectious Disease Note Delayed entry seen at 1:10pm. Patient had some liquids this am. No nausea this am. Looks comfortable but notes pain now at the RLQ of abdomen. Still febrile. Temp lower. Chills. Notes loose stool. Had BM this am. Notes " I will like I am going to explode" while pinching abdominal skin folds. Presented to the emergency department on 09/13 with fever and hematuria. The patient was evaluated 3 weeks prior and was noted to have a stone in the kidney and underwent placement of a ureteral stent double-J. PAST MEDICAL HISTORY Past medical history of diabetes mellitus, kidney stones. PAST SURGICAL HISTORY Cholecystectomy, appendectomy, lithotripsy, ureteral stent, tonsillectomy. ALLERGIES TYLENOL CAUSE SWELLING OF THE TONGUE AND CAUSED HER BREATHING TO SHUT OFF. THE PATIENT ALSO ALLERGIC TO SPLENDA AND NUTRASWEET. MEDICATIONS 1. Vancomycin. 2. Azactam. 3. Flagyl. OBJECTIVE: Vital Signs Date Time Temp Pulse Resp B/P Pulse Ox O2 Delivery O2 Flow Rate FiO2 09/21/16 11:20 99.7 89 19 144/76 97 09/21/16 11:11 88 09/21/16 07:14 100.0 91 19 160/76 92 09/21/16 06:43 88 09/21/16 04:45 100.0 90 19 157/87 96 09/21/16 00:30 92 09/21/16 00:25 100.5 94 19 156/95 97 09/20/16 20:40 100.2 91 20 155/90 98 09/20/16 20:00 86 09/20/16 17:30 18 09/20/16 17:14 19 09/20/16 15:28 100.0 99 19 151/93 95 09/20/16 09/20/16 09/21/16 15:00 23:00 07:00 Intake Total 3656 ml 1479 ml 1092 ml Balance 3656 ml 1479 ml 1092 ml Intake Oral 720 ml 240 ml 240 ml IV Total 2936 ml 1239 ml 852 ml # Voids 2 2 2 # Bowel Movements 0 0 0 Laboratory Tests Test 09/20/16 09/21/16 01:35 05:14 White Blood Count 5.8 TH/MM3 7.2 TH/MM3 Red Blood Count 3.16 MIL/MM3 3.30 MIL/MM3 Hemoglobin 9.7 GM/DL 10.2 GM/DL Hematocrit 28.7 % 29.8 % Mean Corpuscular Volume 90.8 FL 90.3 FL Mean Corpuscular Hemoglobin 30.7 PG 30.9 PG Mean Corpuscular Hemoglobin 33.8 % 34.2 % Concent Red Cell Distribution Width 13.9 % 13.3 % Platelet Count 137 TH/MM3 164 TH/MM3 Mean Platelet Volume 8.6 FL 9.3 FL Neutrophils (%) (Auto) 76.4 % 71.0 % Lymphocytes (%) (Auto) 12.5 % 15.4 % Monocytes (%) (Auto) 10.4 % 12.7 % Eosinophils (%) (Auto) 0.4 % 0.6 % Basophils (%) (Auto) 0.3 % 0.3 % Neutrophils # (Auto) 4.4 TH/MM3 5.1 TH/MM3 Lymphocytes # (Auto) 0.7 TH/MM3 1.1 TH/MM3 Monocytes # (Auto) 0.6 TH/MM3 0.9 TH/MM3 Eosinophils # (Auto) 0.0 TH/MM3 0.0 TH/MM3 Basophils # (Auto) 0.0 TH/MM3 0.0 TH/MM3 CBC Comment DIFF FINAL DIFF FINAL Differential Comment Laboratory Tests Test 09/19/16 09/19/16 09/19/16 09/20/16 17:08 19:15 20:46 01:35 Lactic Acid Level 2.3 mmol/L 0.9 mmol/L Total Creatine Kinase 97 U/L 83 U/L Troponin I LESS THAN 0.02 LESS THAN 0.02 NG/ML NG/ML Sodium Level 137 MEQ/L Potassium Level 4.2 MEQ/L Chloride Level 104 MEQ/L Carbon Dioxide Level 27.9 MEQ/L Anion Gap 5 MEQ/L Blood Urea Nitrogen 7 MG/DL Creatinine 0.79 MG/DL Estimat Glomerular Filtration 78 ML/MIN Rate Random Glucose 247 MG/DL Calcium Level 7.4 MG/DL Protein Corrected Calcium 7.7 MG/DL Phosphorus Level 1.7 MG/DL Magnesium Level 2.0 MG/DL Total Bilirubin 0.6 MG/DL Aspartate Amino Transf 29 U/L (AST/SGOT) Alanine Aminotransferase 49 U/L (ALT/SGPT) Alkaline Phosphatase 75 U/L Total Protein 6.5 GM/DL Albumin 2.4 GM/DL Test 09/20/16 09/21/16 07:59 05:14 Total Creatine Kinase 86 U/L Troponin I LESS THAN 0.02 NG/ML Sodium Level 139 MEQ/L Potassium Level 3.8 MEQ/L Chloride Level 103 MEQ/L Carbon Dioxide Level 31.2 MEQ/L Anion Gap 5 MEQ/L Blood Urea Nitrogen 7 MG/DL Creatinine 0.62 MG/DL Estimat Glomerular Filtration 104 ML/MIN Rate Random Glucose 170 MG/DL Calcium Level 8.4 MG/DL Phosphorus Level 1.6 MG/DL Total Bilirubin 0.5 MG/DL Aspartate Amino Transf 17 U/L (AST/SGOT) Alanine Aminotransferase 36 U/L (ALT/SGPT) Alkaline Phosphatase 75 U/L Total Protein 6.9 GM/DL Albumin 2.6 GM/DL Microbiology Date/Time Procedure Status Source Growth 09/19/16 19:15 Aerobic Blood Culture - Preliminary Resulted Blood Peripheral NO GROWTH IN 2 DAYS 09/19/16 19:15 Anaerobic Blood Culture - Preliminary Resulted Blood Peripheral NO GROWTH IN 2 DAYS 09/19/16 19:20 Aerobic Blood Culture - Preliminary Resulted Blood Peripheral NO GROWTH IN 2 DAYS 09/19/16 19:20 Anaerobic Blood Culture - Preliminary Resulted Blood Peripheral NO GROWTH IN 2 DAYS 09/20/16 07:40 Urine Culture - Final Complete Urine Clean Catch NO GROWTH IMAGING: Abdomen/Pelvis CT 09/20/16 0000 Signed Impressions: Service Date/Time: Tuesday, September 20, 2016 15:42 - CONCLUSION: 1. Minimal amount of thickening of the left lateral conal fascia adjacent to one of the several diverticula of the descending colon. This is nonspecific, but does suggest the possibility of diverticulitis. 2. Bilateral nonobstructing renal stones. 3. Subcutaneous fat induration bilateral lateral abdominal wall, left greater than right. Oscar Domínguez MD Chest X-Ray 09/19/16 0000 Signed Impressions: Service Date/Time: Monday, September 19, 2016 17:16 - CONCLUSION: 1. Minimal basilar atelectasis. No effusion or pneumothorax. Rambo Rodriguez MD Abdomen X-Ray 09/18/16 0000 Signed Impressions: Service Date/Time: Sunday, September 18, 2016 13:40 - CONCLUSION: 1. Very limited examination due to patient's body habitus. Small renal calculi cannot be excluded. 2. No obvious bowel obstruction or pneumoperitoneum. 3. Noncontrasted CT scan of the abdomen could be performed for further evaluation if clinically warranted. Tonny Figueroa MD Liver Ultrasound 09/15/16 0000 Signed Impressions: Service Date/Time: Thursday, September 15, 2016 14:16 - CONCLUSION: 1. Normal dimension common hepatic duct. 2. Diffuse increased acoustic attenuation throughout the liver suggests diffuse fatty change. 3. Focal calcification mid pole right kidney without evidence of hydronephrosis. Oscar Domínguez MD Abdomen/Pelvis CT 09/13/16 2147 Signed Impressions: Service Date/Time: Tuesday, September 13, 2016 23:17 - CONCLUSION: Innumerable renal calcifications bilaterally. Left-sided double-J ureteral catheter in good position. No active stone or mass is identified. Status post cholecystectomy Shar Trevizo MD PHYSICAL EXAMINATION GENERAL: She is awake and alert. no distress. HEENT: Head is atraumatic. Extraocular movements grossly intact. Pupils reactive to light without icterus. Oropharynx no visible lesions. NECK: Supple. No adenopathy. LUNGS: Clear to auscultation. HEART: Regular rate and rhythm without audible murmurs, rubs or gallops. ABDOMEN: Bowel sounds present, distended, soft, left flank tenderness, lower abdominal tenderness. EXTREMITIES: No clubbing, cyanosis or edema. SKIN: No rash. NEURO: Nonfocal. PSYCHIATRIC: The patient is calm and cooperative. IMPRESSION 1. Sepsis indicated by fever, tachycardia, increased respiratory rate. patient with left flank pain and chills and fever suggesting pyelonephritis. 2. Recent treatment for UTI and left-sided ureteral stent removal. 3. Recent kidney stone treated with lithotripsy. 4. Abdominal pain. ? diverticulitis CT abd finding. RECOMMENDATIONS 1. Continue vancomycin. 2. Continue Flagyl.. 3. Continue Azactam. 4. Monitor blood cultures. 5. Monitor urine culture. Discussed with and RN. Cuong Navas MD Sep 21, 2016 14:36
--- NOTE | 2016-09-21 16:05 | HHI.PR ---
Subjective Remarks Patient c/o of pain in right and left lower quadrants denies cp/sob states vomited several time last night after she got the oral oxycodone. Still hving fevers with a Tmax of 100.5 Patient still tachycardic Blood sugars elevated Objective Vitals Vital Signs Date Time Temp Pulse Resp B/P Pulse Ox O2 Delivery O2 Flow Rate FiO2 09/21/16 15:17 88 09/21/16 11:20 99.7 89 19 144/76 97 09/21/16 11:11 88 09/21/16 07:14 100.0 91 19 160/76 92 09/21/16 06:43 88 09/21/16 04:45 100.0 90 19 157/87 96 09/21/16 00:30 92 09/21/16 00:25 100.5 94 19 156/95 97 09/20/16 20:40 100.2 91 20 155/90 98 09/20/16 20:00 86 09/20/16 17:30 18 09/20/16 17:14 19 I/O 09/20/16 09/20/16 09/20/16 09/21/16 09/21/16 09/21/16 07:00 15:00 23:00 07:00 15:00 23:00 Intake Total 240 ml 3656 ml 1479 ml 1092 ml 120 ml Balance 240 ml 3656 ml 1479 ml 1092 ml 120 ml Intake Oral 240 ml 720 ml 240 ml 240 ml IV Total 2936 ml 1239 ml 852 ml 120 ml # Voids 2 2 2 2 # Bowel Movements 0 0 0 0 Result Diagram: 09/21/16 0514 09/21/16 0514 Imaging Last Impressions Abdomen/Pelvis CT 09/20/16 0000 Signed Impressions: Service Date/Time: Tuesday, September 20, 2016 15:42 - CONCLUSION: 1. Minimal amount of thickening of the left lateral conal fascia adjacent to one of the several diverticula of the descending colon. This is nonspecific, but does suggest the possibility of diverticulitis. 2. Bilateral nonobstructing renal stones. 3. Subcutaneous fat induration bilateral lateral abdominal wall, left greater than right. Oscar Domínguez MD Chest X-Ray 09/19/16 0000 Signed Impressions: Service Date/Time: Monday, September 19, 2016 17:16 - CONCLUSION: 1. Minimal basilar atelectasis. No effusion or pneumothorax. Rambo Rodriguez MD Abdomen X-Ray 09/18/16 0000 Signed Impressions: Service Date/Time: Sunday, September 18, 2016 13:40 - CONCLUSION: 1. Very limited examination due to patient's body habitus. Small renal calculi cannot be excluded. 2. No obvious bowel obstruction or pneumoperitoneum. 3. Noncontrasted CT scan of the abdomen could be performed for further evaluation if clinically warranted. Tonny Figueroa MD Liver Ultrasound 09/15/16 0000 Signed Impressions: Service Date/Time: Thursday, September 15, 2016 14:16 - CONCLUSION: 1. Normal dimension common hepatic duct. 2. Diffuse increased acoustic attenuation throughout the liver suggests diffuse fatty change. 3. Focal calcification mid pole right kidney without evidence of hydronephrosis. Oscar Domínguez MD Objective Remarks GENERAL: Middle-aged female in no mild distress, not observed to be respiratory distress. HEENT: PERRLA, EOMI. No scleral icterus or conjunctival pallor. No lid lag or facial droop. CARDIOVASCULAR: Regular rate and rhythm. No obvious murmurs to auscultation. No chest tenderness to palpation. RESPIRATORY: No obvious rhonchi or wheezing. Clear to auscultation. Breath sounds equal bilaterally. GASTROINTESTINAL: Abdomen soft, tender to palpation of left flank, (+) left CVA tenderness. There is some tenderness over the right and left lower quadrant. MUSCULOSKELETAL: Extremities without clubbing, cyanosis, or edema. No obvious deformities. NEUROLOGICAL: Awake, alert and oriented x4. No focal neurologic deficits. Moving both upper and lower extremities spontaneously. Procedures 6/8cystoscopy, left ureteroscopy, laser lithotripsy, stent removal Medications and IVs Current Medications Medications (Trade) Dose Ordered Sig/Jacques Route Start Time Stop Time Status Last Admin (NS 1000 ml Inj) 1,000 ml @ 100 mls/hr Q10H IV 09/14/16 02:00 09/21/16 13:18 (NS Flush) 2 ml UNSCH PRN IV FLUSH 09/14/16 01:30 (NS Flush) 2 ml BID IV FLUSH 09/14/16 09:00 09/21/16 09:28 (Zofran Inj) 4 mg Q6H PRN IVP 09/14/16 01:30 09/21/16 02:38 (Alisha-Colace) 1 tab BID PO 09/14/16 09:00 09/21/16 09:24 (Milk Of Magnesia Liq) 30 ml Q12H PRN PO 09/14/16 01:30 09/20/16 07:11 (Senokot) 17.2 mg Q12H PRN PO 09/14/16 01:30 09/19/16 08:42 (Dulcolax Supp) 10 mg DAILY PRN RECTAL 09/14/16 01:30 09/17/16 04:30 (Lactulose Liq) 30 ml DAILY PRN PO 09/14/16 01:30 09/19/16 08:42 (Flomax) 0.4 mg DAILY PO 09/14/16 13:00 09/21/16 09:24 (Compazine Inj) 5 mg Q6H PRN IM 09/17/16 10:30 09/20/16 20:20 (Restoril) 15 mg HS PRN PO 09/17/16 10:30 09/18/16 00:11 (Miralax) 17 gm DAILY PRN PO 09/17/16 10:30 09/19/16 08:43 (B & O Supp) 60 mg Q6HR PRN RECTAL 09/17/16 19:00 (Pyridium) 200 mg Q8HR PO 09/18/16 06:00 09/21/16 13:21 (D50w (Vial) Inj) 50 ml UNSCH PRN IV 09/18/16 11:45 Glucagon 1 mg 1 mg UNSCH PRN OTHER 09/18/16 11:45 (Vancomycin Consult Pharmacy) 0 ml @ 0 mls/hr UNSCH OTHER 09/19/16 11:45 Insulin Detemir 10 units 10 units Q12HR SQ 09/19/16 11:45 09/21/16 09:25 (Vancomycin Inj/ NS 500 ml Inj) 515 ml @ 257.5 mls/ hr Q12H IV 09/20/16 03:00 09/21/16 03:49 Potassium Phos/ Sodium Phos 250 mg 250 mg Q8HR PO 09/20/16 22:00 09/21/16 13:21 Aztreonam 2000 mg/ Sodium Chloride 100 ml @ 200 mls/hr Q6H IV 09/20/16 17:00 09/21/16 16:41 (Flagyl 500 Mg Inj) 100 ml @ 100 mls/hr Q6H IV 09/20/16 21:00 09/21/16 15:00 (NovoLOG INJ) 8 units TIDAC SQ 09/21/16 08:00 (Morphine Inj) 2 mg Q3H PRN IV PUSH 09/21/16 16:15 (Morphine Inj) 4 mg Q3H PRN IV PUSH 09/21/16 16:15 09/21/16 17:54 (Xanax) 1 mg Q8HR PRN PO 09/21/16 16:15 09/21/16 16:41 Urinary Catheter: No Vascular Central Line Catheter: No A/P Problem List: (1) UTI (urinary tract infection) ICD Code: N39.0 Status: Acute (2) Failure of outpatient treatment ICD Code: Z78.9 Status: Acute (3) Nephrolithiasis ICD Code: N20.0 Status: Acute (4) Dehydration ICD Code: E86.0 Status: Acute (5) Hypokalemia ICD Code: E87.6 Status: Acute Assessment and Plan 1. UTI: Persistent UTI. S/p Blood/Urine Cultures, IV Rocephin in ER,Blood cultures negative x3, continue IV Abx. Urine culture with mixed gram positive ariadna. 09/19 given fevers the antibiotic therapy was broadened to Zosyn, patient still with fevers due to recent instrumentation will add IV Vancomycin. Blood cultures negative x1. Will consult infectious disease. 2. Failed Outpatient Tx: Previous admit to for ureteral stent/UTI, on Macrobid 100mg BID, now w/ ongoing UTI. Continue IV Abx as above. 3. Nephrolithiasis: S/p Left Ureteral Stent placement at approx 3 wks ago for 9mm obstructing left renal stone, was d/c'd w/ referral to Urologist, however states he did not accept her insurance as was not seen. Presented to [facility] 09/06/16, CT Abd/Pelvis w/ stent in good position, no hydro, referred to Dr. Lira for stent removal as outpatient however has not been seen as of yet. CT Abd/Pelvis 09/13/16 w/ innumerable renal calcifications bilaterally, left -sided double-J ureteral catheter in good position, images reviewed by me. Urology consulted and recommended against removing stent. Continue pain control with oxycodone and IV dilaudid. Patient has stent intolerance 09/16 Patient still having severe pain despite toradol and Flomax. will reconsult urology. Continue pain control w narcotics. 09/17 Patient for OR today by urology. Still having pain and hematuria. Will Continue pain control with IV morphine and Dilaudid and after surgery will Dc IV narcotics and start on oral. 09/18 patient is a status post cystoscopy, left ureteroscopy, laser lithotripsy and left ureteral stent removal. Continue pain control with oral Percocet and IV morphine for breakthrough pain. 6. Hypokalemia: Continue to monitor BMP. Level normal. 7. Dehydration: Improved after IV fluids 8. DVT Prophylaxis: SCD/Teds. 9. Transaminitis: Mild. Liver ultrasound ordered which shows fatty liver. LFTs now normal. Hepatitis profile negative. 10. Diabetes mellitus: Hemoglobin A1c is 9.0. Diabetes uncontrolled. Continue SSI with insulin NovoLog. Blood sugars improved, however patient is refusing prandial insulin. 11. Nausea/vomiting: Secondary to pain or narcotics. Continue IV Zofran, Continue phenergan. 09/21 I will discontinue oral narcotics and keep the patient on IV morphine. Continue antiemetics as above 12. Insomnia: Improved. Continue amitriptyline. 13. Sepsis: Patient with tachycardia and fever with a MAXIMUM TEMPERATURE of 102.2. Likely infected stone vs pyelonephritis. Continue IV Zosyn,add Vancomycin. Pharmacy to help w dosing. Blood cultures negative x1. ID consulted - recommendations pending. 09/20 appreciate IDs assistance. Recommended continuation of vancomycin, IV Zosyn discontinued and the patient started on aztreonam IV. Follow-up blood cultures which are negative to date. The abdomen and pelvis ordered, will follow. 09/21 appreciate infectious disease consultation recommendations. Continue IV vancomycin, IV aztreonam and IV Flagyl recently started. CT of the abdomen and pelvis showed changes consistent with possible diverticulitis. Bilateral nonobstructing renal stones. Subcutaneous fat induration in the bilateral abdominal wall left greater than right. The case was discussed with Dr. Navas from infectious disease. Will await for 24 hours to see if there is any clinical improvement. I will also order a soft tissue ultrasound of the abdominal wall. Also place patient on clear liquid diet. 14. Hypophosphatemia: I will start the patient on oral K-Phos. Continue to monitor phosphorus. Hypophosphatemia likely secondary to nutritional deficiency due to poor oral intake secondary to nausea and vomiting. Blood cultures negative to date. Continue to monitor. Repeat urine culture on 09/20 no growth. Discharge Planning Patient is still febrile -pending clinical improvement. Warren Glass MD Sep 21, 2016 16:05
[2016-09-21] MEDS ORDERED: POLYETHYLENE GLYCOL 17 GM PKG PO ONE (16:15)
[2016-09-21] MEDS: ALPRAZolam 1 MG TAB PO PRN (16:41)
--- NOTE | 2016-09-21 22:24 | RADRPT ---
EXAM DATE/TIME: 09/21/2016 21:31 [facility] COMPARISON: CT ABDOMEN & PELVIS W CONTRAST, September 20, 2016, 15:42. INDICATIONS : Possible fluid collection seen on CT. MEDICAL HISTORY : Gastroesophageal reflux disease. Thyroid disease. Headache. Numbness. Ulcer. Renal calculi. Diabe jeff. SURGICAL HISTORY : Tonsillectomy. Cholecystectomy. Appendectomy. Hysterectomy. section. Ankle surgery. Lithotri psy. Renal stent placement. Umbilical hernia repair. ENCOUNTER: Initial ACUITY: 1 day PAIN SCORE: 2/10 LOCATION: Left lateral abdomen. AREA EVALUATED: Left lateral abdomen mid renal area. FINDINGS: Subcutaneous edema seen of both flanks. No organized or drainable fluid. No mass lesion demonstrated. CONCLUSION: Nonspecific body wall edema. No abscess. Leonel Glover MD on September 21, 2016 at 22:21 Board Certified Radiologist. This report was verified electronically.
[2016-09-21] MEDS: PROCHLORPERAZINE INJ 10 MG/2 ML VIAL IM PRN (23:52)
[2016-09-22 00:15] VITALS: BP 121/62; PULSE 93; RESP 18; TEMP 101.7; O2SAT 94
[2016-09-22] MEDS: metroNIDAZOLE 500 MG INJ 100 ML IV SCH ×4 (02:42→22:10)
[2016-09-22] MEDS: POTASSIUM PHOSPHATE/SODIUM PHOSPHATE 250 MG TAB PO SCH ×4 (04:18→22:11)
[2016-09-22 04:20] VITALS: BP 136/66; PULSE 97; RESP 18; TEMP 102; O2SAT 97
[2016-09-22] MEDS: INSULIN ASPART SUPPLEMENTAL SCALE SQ SCH ×4 (05:32→21:00)
[2016-09-22] MEDS: PHENAZOPYRIDINE HCL 200 MG TAB PO SCH ×2 (05:33→13:21)
[2016-09-22] MEDS: AZTREONAM INJ 2,000 MG in SODIUM CHLORIDE 0.9% INJ 100 ML IV SCH (05:34)
[2016-09-22] MEDS: ALPRAZolam 1 MG TAB PO PRN ×3 (05:42→22:28)
[2016-09-22] MEDS: MORPHINE SULFATE 4 MG/ML INJ IV PUSH PRN ×4 (05:42→22:13)
[2016-09-22] MEDS: DOCUSATE SODIUM 50 MG/SENNA 8.6 MG TAB PO SCH ×2 (07:54→22:10)
[2016-09-22 08:00] VITALS: BP 118/69; PULSE 94; RESP 19; TEMP 101.5; O2SAT 96
[2016-09-22] MEDS: INSULIN ASPART 1,000 UNITS/10 ML VIAL SQ SCH ×3 (08:04→17:00)
[2016-09-22] MEDS: INSULIN DETEMIR 100 UNITS/ML VIAL SQ SCH ×2 (08:05→22:25)
[2016-09-22] MEDS: TAMSULOSIN HCL 0.4 MG CAP PO SCH (08:09)
[2016-09-22] MEDS: SODIUM CHLORIDE 0.9% FLUSH 10 ML FLUSH IV FLUSH SCH ×2 (08:12→21:00)
[2016-09-22] MEDS ORDERED: VANCOMYCIN 1,500 MG/NS 500 ML IV SCH ×2 (09:00)
[2016-09-22 12:00] VITALS: BP 122/62; PULSE 99; RESP 20; TEMP 100.3; O2SAT 96
--- NOTE | 2016-09-22 15:24 | HHI.IDPN ---
Note Infectious Disease Note Patient had some liquids this am. No nausea this am. Notes nausea last night. Wants to eat soft foods. Now on liquid diet. High spiking temp. Notes sweats. Say she was unable to pass urine for 6 hours last night. Voided and notes she had blood in the urine. Looks comfortable but notes she has pain at both lower quadrants of the abdomen. Presented to the emergency department on 09/13 with fever and hematuria. The patient was evaluated 3 weeks prior and was noted to have a stone in the kidney and underwent placement of a ureteral stent double-J. PAST MEDICAL HISTORY Past medical history of diabetes mellitus, kidney stones. PAST SURGICAL HISTORY Cholecystectomy, appendectomy, lithotripsy, ureteral stent, tonsillectomy. ALLERGIES TYLENOL CAUSE SWELLING OF THE TONGUE AND CAUSED HER BREATHING TO SHUT OFF. THE PATIENT ALSO ALLERGIC TO SPLENDA AND NUTRASWEET. MEDICATIONS 1. Vancomycin. 2. Azactam. 3. Flagyl. OBJECTIVE: Vital Signs Date Time Temp Pulse Resp B/P Pulse Ox O2 Delivery O2 Flow Rate FiO2 09/22/16 12:00 100.3 99 20 122/62 96 09/22/16 08:00 101.5 94 19 118/69 96 09/22/16 04:20 102.0 97 18 136/66 97 09/22/16 00:15 101.7 93 18 121/62 94 09/21/16 20:00 103 09/21/16 19:50 100.4 98 17 133/61 94 09/21/16 18:32 119 09/21/16 15:29 99.1 92 19 113/60 96 09/21/16 15:17 88 09/21/16 09/21/16 09/22/16 15:00 23:00 07:00 Intake Total 1080 ml 480 ml 240 ml Balance 1080 ml 480 ml 240 ml Intake Oral 960 ml 480 ml 240 ml IV Total 120 ml # Voids 3 3 1 # Bowel Movements 1 0 0 Laboratory Tests Test 09/21/16 05:14 White Blood Count 7.2 TH/MM3 Red Blood Count 3.30 MIL/MM3 Hemoglobin 10.2 GM/DL Hematocrit 29.8 % Mean Corpuscular Volume 90.3 FL Mean Corpuscular Hemoglobin 30.9 PG Mean Corpuscular Hemoglobin 34.2 % Concent Red Cell Distribution Width 13.3 % Platelet Count 164 TH/MM3 Mean Platelet Volume 9.3 FL Neutrophils (%) (Auto) 71.0 % Lymphocytes (%) (Auto) 15.4 % Monocytes (%) (Auto) 12.7 % Eosinophils (%) (Auto) 0.6 % Basophils (%) (Auto) 0.3 % Neutrophils # (Auto) 5.1 TH/MM3 Lymphocytes # (Auto) 1.1 TH/MM3 Monocytes # (Auto) 0.9 TH/MM3 Eosinophils # (Auto) 0.0 TH/MM3 Basophils # (Auto) 0.0 TH/MM3 CBC Comment DIFF FINAL Differential Comment Laboratory Tests Test 09/21/16 05:14 Sodium Level 139 MEQ/L Potassium Level 3.8 MEQ/L Chloride Level 103 MEQ/L Carbon Dioxide Level 31.2 MEQ/L Anion Gap 5 MEQ/L Blood Urea Nitrogen 7 MG/DL Creatinine 0.62 MG/DL Estimat Glomerular Filtration 104 ML/MIN Rate Random Glucose 170 MG/DL Calcium Level 8.4 MG/DL Phosphorus Level 1.6 MG/DL Total Bilirubin 0.5 MG/DL Aspartate Amino Transf 17 U/L (AST/SGOT) Alanine Aminotransferase 36 U/L (ALT/SGPT) Alkaline Phosphatase 75 U/L Total Protein 6.9 GM/DL Albumin 2.6 GM/DL Microbiology Date/Time Procedure Status Source Growth 09/19/16 19:15 Aerobic Blood Culture - Preliminary Resulted Blood Peripheral NO GROWTH IN 3 DAYS 09/19/16 19:15 Anaerobic Blood Culture - Preliminary Resulted Blood Peripheral NO GROWTH IN 3 DAYS 09/19/16 19:20 Aerobic Blood Culture - Preliminary Resulted Blood Peripheral NO GROWTH IN 3 DAYS 09/19/16 19:20 Anaerobic Blood Culture - Preliminary Resulted Blood Peripheral NO GROWTH IN 3 DAYS 09/20/16 07:40 Urine Culture - Final Complete Urine Clean Catch NO GROWTH IMAGING: Soft Tissue Ultrasound 09/21/16 0000 Signed Impressions: Service Date/Time: Wednesday, September 21, 2016 21:31 - CONCLUSION: Nonspecific body wall edema. No abscess. Leonel Glover MD Abdomen/Pelvis CT 09/20/16 0000 Signed Impressions: Service Date/Time: Tuesday, September 20, 2016 15:42 - CONCLUSION: 1. Minimal amount of thickening of the left lateral conal fascia adjacent to one of the several diverticula of the descending colon. This is nonspecific, but does suggest the possibility of diverticulitis. 2. Bilateral nonobstructing renal stones. 3. Subcutaneous fat induration bilateral lateral abdominal wall, left greater than right. Oscar Domínguez MD Chest X-Ray 09/19/16 0000 Signed Impressions: Service Date/Time: Monday, September 19, 2016 17:16 - CONCLUSION: 1. Minimal basilar atelectasis. No effusion or pneumothorax. Rambo Rodriguez MD Abdomen X-Ray 09/18/16 0000 Signed Impressions: Service Date/Time: Sunday, September 18, 2016 13:40 - CONCLUSION: 1. Very limited examination due to patient's body habitus. Small renal calculi cannot be excluded. 2. No obvious bowel obstruction or pneumoperitoneum. 3. Noncontrasted CT scan of the abdomen could be performed for further evaluation if clinically warranted. Tonny Figueroa MD Liver Ultrasound 09/15/16 0000 Signed Impressions: Service Date/Time: Thursday, September 15, 2016 14:16 - CONCLUSION: 1. Normal dimension common hepatic duct. 2. Diffuse increased acoustic attenuation throughout the liver suggests diffuse fatty change. 3. Focal calcification mid pole right kidney without evidence of hydronephrosis. Oscar Domínguez MD Abdomen/Pelvis CT [id number] Signed Impressions: Service Date/Time: Tuesday, September 13, 2016 23:17 - CONCLUSION: Innumerable renal calcifications bilaterally. Left-sided double-J ureteral catheter in good position. No active stone or mass is identified. Status post cholecystectomy Shar Trevizo MD PHYSICAL EXAMINATION GENERAL: Awake and alert. no distress. HEENT: No icterus. Oropharynx no visible lesions. NECK: Supple. No adenopathy. LUNGS: Clear to auscultation. HEART: Regular rate and rhythm without audible murmurs, rubs or gallops. ABDOMEN: Bowel sounds present, distended, soft, left flank tenderness, lower abdominal tenderness. EXTREMITIES: No clubbing, cyanosis or edema. SKIN: No rash. NEURO: Nonfocal. PSYCHIATRIC: Calm and cooperative. IMPRESSION 1. Sepsis indicated by fever, tachycardia, increased respiratory rate. patient with left flank pain and chills and fever suggesting pyelonephritis. Negative cultures. Now with persistent fever. WBC normal. ? etiology. 2. Recent treatment for UTI and left-sided ureteral stent removal. 3. Recent kidney stone treated with lithotripsy. 4. Abdominal pain. ? diverticulitis CT abd CT finding. RECOMMENDATIONS 1. Continue vancomycin. Level was sub therapeutic. Increased by pharmacy. 2. Continue Flagyl. 3. Stop Azactam. 4. Stop Pyridium. 5. Monitor temps. 6. Ambulation. 7. Consider gallium scan if fever persist and cultures remain negative. Discussed with and RN. Cuong Navas MD Sep 22, 2016 15:24
[2016-09-22 15:26] LABS: BASOPHIL # 0.1 TH/MM3 (0-0.2); BASOPHIL % 0.7 % (0.0-2.0); EOSINOPHIL # 0.1 TH/MM3 (0-0.4); EOSINOPHIL % 1.7 % (0.0-4.0); HEMO FLAGS DIFF FINAL; LYMPH % 15.9 % (9.0-44.0); LYMPHOCYTE # 1.1 TH/MM3 (1.0-4.8); MEAN CELL VOLUME 90.6 FL (80.0-100.0); MEAN CORPUSCULAR HEMOGLOBIN 29.9 PG (27.0-34.0); NEUT % 69.7 % (16.0-70.0); PLATELET COUNT 183 TH/MM3 (150-450); RED BLOOD COUNT 3.31 MIL/MM3 (4.00-5.30); RED CELL DISTRIBUTION WIDTH 13.3 % (11.6-17.2); WHITE BLOOD COUNT 7.1 TH/MM3 (4.0-11.0)
--- NOTE | 2016-09-22 15:58 | HHI.PR ---
Subjective Remarks Patient is still having fevers. T max 102.0 marylou cp/sob patient had still c/o headache Patient states she wa s not able to void from 6pm to 5 am from today but now is urinating well. Patient wants her diet advanced to soft. denies nausea today. Objective Vitals Vital Signs Date Time Temp Pulse Resp B/P Pulse Ox O2 Delivery O2 Flow Rate FiO2 09/22/16 12:00 100.3 99 20 122/62 96 09/22/16 08:00 101.5 94 19 118/69 96 09/22/16 04:20 102.0 97 18 136/66 97 09/22/16 00:15 101.7 93 18 121/62 94 09/21/16 20:00 103 09/21/16 19:50 100.4 98 17 133/61 94 09/21/16 18:32 119 I/O 09/21/16 09/21/16 09/21/16 09/22/16 09/22/16 09/22/16 06:59 14:59 22:59 06:59 14:59 22:59 Intake Total 1092 ml 1080 ml 480 ml 240 ml Balance 1092 ml 1080 ml 480 ml 240 ml Intake Oral 240 ml 960 ml 480 ml 240 ml IV Total 852 ml 120 ml # Voids 2 2 4 1 # Bowel Movements 0 1 0 0 Result Diagram: 09/22/16 1359 09/21/16 0514 Imaging Last Impressions Soft Tissue Ultrasound 09/21/16 0000 Signed Impressions: Service Date/Time: Wednesday, September 21, 2016 21:31 - CONCLUSION: Nonspecific body wall edema. No abscess. Leonel Glover MD Abdomen/Pelvis CT 09/20/16 0000 Signed Impressions: Service Date/Time: Tuesday, September 20, 2016 15:42 - CONCLUSION: 1. Minimal amount of thickening of the left lateral conal fascia adjacent to one of the several diverticula of the descending colon. This is nonspecific, but does suggest the possibility of diverticulitis. 2. Bilateral nonobstructing renal stones. 3. Subcutaneous fat induration bilateral lateral abdominal wall, left greater than right. Oscar Domínguez MD Chest X-Ray 09/19/16 0000 Signed Impressions: Service Date/Time: Monday, September 19, 2016 17:16 - CONCLUSION: 1. Minimal basilar atelectasis. No effusion or pneumothorax. Rambo Rodriguez MD Abdomen X-Ray 09/18/16 0000 Signed Impressions: Service Date/Time: Sunday, September 18, 2016 13:40 - CONCLUSION: 1. Very limited examination due to patient's body habitus. Small renal calculi cannot be excluded. 2. No obvious bowel obstruction or pneumoperitoneum. 3. Noncontrasted CT scan of the abdomen could be performed for further evaluation if clinically warranted. Tonny Figueroa MD Liver Ultrasound 09/15/16 0000 Signed Impressions: Service Date/Time: Thursday, September 15, 2016 14:16 - CONCLUSION: 1. Normal dimension common hepatic duct. 2. Diffuse increased acoustic attenuation throughout the liver suggests diffuse fatty change. 3. Focal calcification mid pole right kidney without evidence of hydronephrosis. Oscar Domínguez MD Objective Remarks GENERAL: Middle-aged female in no mild distress, not observed to be respiratory distress. HEENT: PERRLA, EOMI. No scleral icterus or conjunctival pallor. No lid lag or facial droop. CARDIOVASCULAR: Regular rate and rhythm. No obvious murmurs to auscultation. No chest tenderness to palpation. RESPIRATORY: No obvious rhonchi or wheezing. Clear to auscultation. Breath sounds equal bilaterally. GASTROINTESTINAL: Abdomen soft, tender to palpation of left flank, (+) left CVA tenderness. There is some tenderness over the right and left lower quadrant. MUSCULOSKELETAL: Extremities without clubbing, cyanosis, or edema. No obvious deformities. NEUROLOGICAL: Awake, alert and oriented x4. No focal neurologic deficits. Moving both upper and lower extremities spontaneously. Procedures 6/8cystoscopy, left ureteroscopy, laser lithotripsy, stent removal Medications and IVs Last Impressions Soft Tissue Ultrasound 09/21/16 0000 Signed Impressions: Service Date/Time: Wednesday, September 21, 2016 21:31 - CONCLUSION: Nonspecific body wall edema. No abscess. Leonel Glover MD Abdomen/Pelvis CT 09/20/16 0000 Signed Impressions: Service Date/Time: Tuesday, September 20, 2016 15:42 - CONCLUSION: 1. Minimal amount of thickening of the left lateral conal fascia adjacent to one of the several diverticula of the descending colon. This is nonspecific, but does suggest the possibility of diverticulitis. 2. Bilateral nonobstructing renal stones. 3. Subcutaneous fat induration bilateral lateral abdominal wall, left greater than right. Oscar Domínguez MD Chest X-Ray 09/19/16 0000 Signed Impressions: Service Date/Time: Monday, September 19, 2016 17:16 - CONCLUSION: 1. Minimal basilar atelectasis. No effusion or pneumothorax. Rambo Rodriguez MD Abdomen X-Ray 09/18/16 0000 Signed Impressions: Service Date/Time: Sunday, September 18, 2016 13:40 - CONCLUSION: 1. Very limited examination due to patient's body habitus. Small renal calculi cannot be excluded. 2. No obvious bowel obstruction or pneumoperitoneum. 3. Noncontrasted CT scan of the abdomen could be performed for further evaluation if clinically warranted. Tonny Figueroa MD Liver Ultrasound 09/15/16 0000 Signed Impressions: Service Date/Time: Thursday, September 15, 2016 14:16 - CONCLUSION: 1. Normal dimension common hepatic duct. 2. Diffuse increased acoustic attenuation throughout the liver suggests diffuse fatty change. 3. Focal calcification mid pole right kidney without evidence of hydronephrosis. Oscar Domínguez MD Urinary Catheter: No Vascular Central Line Catheter: No A/P Problem List: (1) UTI (urinary tract infection) ICD Code: N39.0 Status: Acute (2) Failure of outpatient treatment ICD Code: Z78.9 Status: Acute (3) Nephrolithiasis ICD Code: N20.0 Status: Acute (4) Dehydration ICD Code: E86.0 Status: Acute (5) Hypokalemia ICD Code: E87.6 Status: Acute Assessment and Plan 1. UTI: Persistent UTI. S/p Blood/Urine Cultures, IV Rocephin in ER,Blood cultures negative x3, continue IV Abx. Urine culture with mixed gram positive ariadna. 09/19 given fevers the antibiotic therapy was broadened to Zosyn, patient still with fevers due to recent instrumentation will add IV Vancomycin. Blood cultures negative x1. Will consult infectious disease. 2. Failed Outpatient Tx: Previous admit to for ureteral stent/UTI, on Macrobid 100mg BID, now w/ ongoing UTI. Continue IV Abx as above. 3. Nephrolithiasis: S/p Left Ureteral Stent placement at approx 3 wks ago for 9mm obstructing left renal stone, was d/c'd w/ referral to Urologist, however states he did not accept her insurance as was not seen. Presented to [place] [facility] 09/06/16, CT Abd/Pelvis w/ stent in good position, no hydro, referred to Dr. Lira for stent removal as outpatient however has not been seen as of yet. CT Abd/Pelvis 09/13/16 w/ innumerable renal calcifications bilaterally, left -sided double-J ureteral catheter in good position, images reviewed by me. Urology consulted and recommended against removing stent. Continue pain control with oxycodone and IV dilaudid. Patient has stent intolerance 09/16 Patient still having severe pain despite toradol and Flomax. will reconsult urology. Continue pain control w narcotics. 09/17 Patient for OR today by urology. Still having pain and hematuria. Will Continue pain control with IV morphine and Dilaudid and after surgery will Dc IV narcotics and start on oral. 09/18 patient is a status post cystoscopy, left ureteroscopy, laser lithotripsy and left ureteral stent removal. Continue pain control with oral Percocet and IV morphine for breakthrough pain. 6. Hypokalemia: Continue to monitor BMP. Level normal. 7. Dehydration: Improved after IV fluids 8. DVT Prophylaxis: SCD/Teds. 9. Transaminitis: Mild. Liver ultrasound ordered which shows fatty liver. LFTs now normal. Hepatitis profile negative. 10. Diabetes mellitus: Hemoglobin A1c is 9.0. Diabetes uncontrolled. Continue SSI with insulin NovoLog. Blood sugars improved, however patient is refusing prandial insulin. 11. Nausea/vomiting: Secondary to pain or narcotics. Continue IV Zofran, Continue phenergan. 09/21 I will discontinue oral narcotics and keep the patient on IV morphine. Continue antiemetics as above 12. Insomnia: Improved. Continue amitriptyline. 13. Sepsis: Patient with tachycardia and fever with a MAXIMUM TEMPERATURE of 102.2. Likely infected stone vs pyelonephritis. Continue IV Zosyn,add Vancomycin. Pharmacy to help w dosing. Blood cultures negative x1. ID consulted - recommendations pending. 09/20 appreciate IDs assistance. Recommended continuation of vancomycin, IV Zosyn discontinued and the patient started on aztreonam IV. Follow-up blood cultures which are negative to date. The abdomen and pelvis ordered, will follow. 09/21 appreciate infectious disease consultation recommendations. Continue IV vancomycin, IV aztreonam and IV Flagyl recently started. CT of the abdomen and pelvis showed changes consistent with possible diverticulitis. Bilateral nonobstructing renal stones. Subcutaneous fat induration in the bilateral abdominal wall left greater than right. The case was discussed with Dr. Navas from infectious disease. Will await for 24 hours to see if there is any clinical improvement. I will also order a soft tissue ultrasound of the abdominal wall. Also place patient on clear liquid diet. Blood cultures negative to date. Continue to monitor. Repeat urine culture on 09/20 no growth. 09/22 Patient still febrile. Continue antibiotics as per ID. If fevers and headache persists will consider lumbar puncture. Consider galium scan as well. 14. Hypophosphatemia: I will start the patient on oral K-Phos. Continue to monitor phosphorus. Hypophosphatemia likely secondary to nutritional deficiency due to poor oral intake secondary to nausea and vomiting. 15. Soft stools. Patient states has soft stools which she notices when urinating. Will check c diff. DVT proph: Patient still with gross hematuria on SCD's. No chemoprophyalxis due to gross hematuria. Discharge Planning Patient is still febrile -pending clinical improvement. Warren Glass MD Sep 22, 2016 15:58
[2016-09-22 16:00] VITALS: BP 125/73; PULSE 96; RESP 20; TEMP 100.3; O2SAT 94
[2016-09-22] MEDS: VANCOMYCIN INJ 2,250 MG in SODIUM CHLORID 0.9% 500 ML INJ 500 ML IV SCH (16:00)
[2016-09-22 16:26] LABS: ALKALINE PHOSPHATASE 72 U/L (45-117); ALT (GPT) 26 U/L (10-53); ANION GAP 9 MEQ/L (5-15); AST (GOT) 17 U/L (15-37); BICARBONATE 26.6 MEQ/L (21.0-32.0); BLOOD UREA NITROGEN 6 MG/DL (7-18); CHLORIDE 105 MEQ/L (98-107); GLOMERULAR FILTRATION RATE 96 ML/MIN (>89); SODIUM (NA) 141 MEQ/L (136-145); TOTAL BILIRUBIN ADULT 0.3 MG/DL (0.2-1.0)
[2016-09-22 16:30] LABS: POTASSIUM 2.9 MEQ/L (3.5-5.1)
[2016-09-22] MEDS ORDERED: POTASSIUM CHLORIDE 20 MEQ CONTROLLED RELEASE TAB PO ONE (19:00)
[2016-09-22 20:00] VITALS: BP 99/51; PULSE 104; RESP 22; TEMP 100.3; O2SAT 98
[2016-09-23] VITALS: BP 115/55; PULSE 102; RESP 20; TEMP 100.9; O2SAT 95
[2016-09-23 03:25] VITALS: BP 120/53; PULSE 95; RESP 18; TEMP 101.7; O2SAT 96
[2016-09-23] MEDS: metroNIDAZOLE 500 MG INJ 100 ML IV SCH ×4 (03:29→22:28)
[2016-09-23] MEDS: VANCOMYCIN INJ 2,250 MG in SODIUM CHLORID 0.9% 500 ML INJ 500 ML IV SCH ×2 (03:29→15:44)
[2016-09-23] MEDS: MORPHINE SULFATE 4 MG/ML INJ IV PUSH PRN ×7 (03:31→22:13)
[2016-09-23] MEDS: POTASSIUM PHOSPHATE/SODIUM PHOSPHATE 250 MG TAB PO SCH ×3 (05:24→22:30)
[2016-09-23] MEDS: INSULIN ASPART SUPPLEMENTAL SCALE SQ SCH ×4 (05:25→21:00)
[2016-09-23] MEDS: SODIUM CHLOR 0.9% 1000 ML INJ 1,000 ML IV SCH ×2 (06:00→22:31)
[2016-09-23] MEDS: TAMSULOSIN HCL 0.4 MG CAP PO SCH (07:16)
[2016-09-23] MEDS: ALPRAZolam 1 MG TAB PO PRN ×2 (07:16→15:45)
[2016-09-23] MEDS: DOCUSATE SODIUM 50 MG/SENNA 8.6 MG TAB PO SCH ×2 (07:16→22:13)
[2016-09-23] MEDS: INSULIN ASPART 1,000 UNITS/10 ML VIAL SQ SCH (07:24)
[2016-09-23] MEDS: INSULIN DETEMIR 100 UNITS/ML VIAL SQ SCH ×2 (07:25→21:00)
[2016-09-23 07:29] LABS: AUTOMATED NEUTROPHIL # 4.8 TH/MM3 (1.8-7.7); BASOPHIL # 0.1 TH/MM3 (0-0.2); BASOPHIL % 0.8 % (0.0-2.0); EOSINOPHIL # 0.1 TH/MM3 (0-0.4); EOSINOPHIL % 2.1 % (0.0-4.0); HEMO FLAGS DIFF FINAL; LYMPH % 18.9 % (9.0-44.0); LYMPHOCYTE # 1.3 TH/MM3 (1.0-4.8); MEAN CELL VOLUME 90.8 FL (80.0-100.0); MEAN CORPUSCULAR HEMOGLOBIN 29.5 PG (27.0-34.0); MEAN CORPUSCULAR HGB CONC 32.5 % (32.0-36.0); MONO % 9.9 % (0.0-8.0); NEUT % 68.3 % (16.0-70.0); PLATELET COUNT 181 TH/MM3 (150-450); RED CELL DISTRIBUTION WIDTH 13.5 % (11.6-17.2)
[2016-09-23 07:30] VITALS: BP 122/63; PULSE 91; RESP 18; TEMP 100.3; O2SAT 97
[2016-09-23 07:56] LABS: ANION GAP 7 MEQ/L (5-15); AST (GOT) 20 U/L (15-37); BICARBONATE 27.6 MEQ/L (21.0-32.0); BLOOD UREA NITROGEN 4 MG/DL (7-18); CHLORIDE 107 MEQ/L (98-107); GLOMERULAR FILTRATION RATE 106 ML/MIN (>89); MAGNESIUM 1.9 MG/DL (1.5-2.5); POTASSIUM 3.1 MEQ/L (3.5-5.1); SODIUM (NA) 142 MEQ/L (136-145)
[2016-09-23 07:59] LABS: ALKALINE PHOSPHATASE 66 U/L (45-117); ALT (GPT) 22 U/L (10-53); TOTAL BILIRUBIN ADULT 0.5 MG/DL (0.2-1.0)
[2016-09-23] MEDS: SODIUM CHLORIDE 0.9% FLUSH 10 ML FLUSH IV FLUSH SCH ×2 (09:00→22:12)
[2016-09-23] MEDS ORDERED: POTASSIUM CHLORIDE 10 MEQ CONTROLLED RELEASE TAB PO ONE (09:45)
--- NOTE | 2016-09-23 09:48 | HHI.PR ---
Subjective Remarks Patient c/o chest pain also still with persistent headaches now more localized to the mastoid area still febrile, T max 101.7 as per RN patient's o2 sats dropped down into the low 90's today on room air patient states hematuria had resolved but came back Heart rate in the 90's K low Objective Vitals Vital Signs Date Time Temp Pulse Resp B/P Pulse Ox O2 Delivery O2 Flow Rate FiO2 09/23/16 07:30 100.3 91 18 122/63 97 09/23/16 03:25 101.7 95 18 120/53 96 09/23/16 00:00 100.9 102 20 115/55 95 09/22/16 22:18 16 09/22/16 20:00 100.3 104 22 99/51 98 09/22/16 16:00 100.3 96 20 125/73 94 09/22/16 12:00 100.3 99 20 122/62 96 I/O 09/22/16 09/22/16 09/22/16 09/23/16 09/23/16 09/23/16 07:00 15:00 23:00 07:00 15:00 23:00 Intake Total 240 ml 600 ml 780 ml 2318 ml Balance 240 ml 600 ml 780 ml 2318 ml Intake Oral 240 ml 600 ml 780 ml 780 ml IV Total 1538 ml # Voids 1 4 1 1 # Bowel Movements 0 0 0 Result Diagram: 09/23/16 0633 09/23/16 0633 Imaging Last Impressions Soft Tissue Ultrasound 09/21/16 0000 Signed Impressions: Service Date/Time: Wednesday, September 21, 2016 21:31 - CONCLUSION: Nonspecific body wall edema. No abscess. Leonel Glover MD Abdomen/Pelvis CT 09/20/16 0000 Signed Impressions: Service Date/Time: Tuesday, September 20, 2016 15:42 - CONCLUSION: 1. Minimal amount of thickening of the left lateral conal fascia adjacent to one of the several diverticula of the descending colon. This is nonspecific, but does suggest the possibility of diverticulitis. 2. Bilateral nonobstructing renal stones. 3. Subcutaneous fat induration bilateral lateral abdominal wall, left greater than right. Oscar Domínguez MD Chest X-Ray 09/19/16 0000 Signed Impressions: Service Date/Time: Monday, September 19, 2016 17:16 - CONCLUSION: 1. Minimal basilar atelectasis. No effusion or pneumothorax. Rambo Rodriguez MD Abdomen X-Ray 09/18/16 0000 Signed Impressions: Service Date/Time: Sunday, September 18, 2016 13:40 - CONCLUSION: 1. Very limited examination due to patient's body habitus. Small renal calculi cannot be excluded. 2. No obvious bowel obstruction or pneumoperitoneum. 3. Noncontrasted CT scan of the abdomen could be performed for further evaluation if clinically warranted. Tonny Figueroa MD Liver Ultrasound 09/15/16 0000 Signed Impressions: Service Date/Time: Thursday, September 15, 2016 14:16 - CONCLUSION: 1. Normal dimension common hepatic duct. 2. Diffuse increased acoustic attenuation throughout the liver suggests diffuse fatty change. 3. Focal calcification mid pole right kidney without evidence of hydronephrosis. Oscar Domínguez MD Objective Remarks GENERAL: Middle-aged female ill looking in mild distress due to chest pain, not observed to be respiratory distress. HEENT: PERRLA, EOMI. No scleral icterus or conjunctival pallor. No lid lag or facial droop. There is tenderness to palpation over right mastoid area, no erythema observed at this region. No ear discharge. Patient also has some neck pain at the level of the back of the neck. There is some nuchal rigidity on exam. CARDIOVASCULAR: Regular rate and rhythm. No obvious murmurs to auscultation. No chest tenderness to palpation. RESPIRATORY: No obvious rhonchi or wheezing. Clear to auscultation. Breath sounds equal bilaterally. GASTROINTESTINAL: Abdomen is soft, however diffusely tender. There is some tenderness over the right and left lower quadrant. MUSCULOSKELETAL: Extremities without clubbing, cyanosis, or edema. No obvious deformities. NEUROLOGICAL: Awake, alert and oriented x4. No focal neurologic deficits. Moving both upper and lower extremities spontaneously. PERRLA. Procedures 6/8cystoscopy, left ureteroscopy, laser lithotripsy, stent removal Medications and IVs Last Impressions Soft Tissue Ultrasound 09/21/16 0000 Signed Impressions: Service Date/Time: Wednesday, September 21, 2016 21:31 - CONCLUSION: Nonspecific body wall edema. No abscess. Leonel Glover MD Abdomen/Pelvis CT 09/20/16 0000 Signed Impressions: Service Date/Time: Tuesday, September 20, 2016 15:42 - CONCLUSION: 1. Minimal amount of thickening of the left lateral conal fascia adjacent to one of the several diverticula of the descending colon. This is nonspecific, but does suggest the possibility of diverticulitis. 2. Bilateral nonobstructing renal stones. 3. Subcutaneous fat induration bilateral lateral abdominal wall, left greater than right. Oscar Domínguez MD Chest X-Ray 09/19/16 0000 Signed Impressions: Service Date/Time: Monday, September 19, 2016 17:16 - CONCLUSION: 1. Minimal basilar atelectasis. No effusion or pneumothorax. Rambo Rodriguez MD Abdomen X-Ray 09/18/16 0000 Signed Impressions: Service Date/Time: Sunday, September 18, 2016 13:40 - CONCLUSION: 1. Very limited examination due to patient's body habitus. Small renal calculi cannot be excluded. 2. No obvious bowel obstruction or pneumoperitoneum. 3. Noncontrasted CT scan of the abdomen could be performed for further evaluation if clinically warranted. Tonny Figueroa MD Liver Ultrasound 09/15/16 0000 Signed Impressions: Service Date/Time: Thursday, September 15, 2016 14:16 - CONCLUSION: 1. Normal dimension common hepatic duct. 2. Diffuse increased acoustic attenuation throughout the liver suggests diffuse fatty change. 3. Focal calcification mid pole right kidney without evidence of hydronephrosis. Oscar Domínguez MD Urinary Catheter: No Vascular Central Line Catheter: No A/P Problem List: (1) Sepsis ICD Code: A41.9 Status: Acute Plan: Patient with tachycardia and fever with a MAXIMUM TEMPERATURE of 102.2 after stent removal and stone lithotripsy. Likely infected stone (pyonephritis. Antibody discontinued, the patient IV Zosyn and vancomycin. Blood cultures obtained. ID consulted and recommended continuation of IV antibiotics. ID discontinued IV Zosyn on 09/19. Repeat CT of the abdomen and pelvis was ordered on 09/20/16 and it showed changes consistent with possible diverticulitis. Bilateral nonobstructing renal stones. An subcutaneous fatty induration in the bilateral abdominal wall left greater than right. The case was discussed with Dr. Cherie Edwards from infectious disease. Soft tissue ultrasound of the abdomen did not show any fluid collection or abscess. 09/22 fevers are still persistent. Continue IV fluids, IV antibiotics as per infectious disease recommendations. Her noninfectious causes of fever given persistence of fever and no leukocytosis. We'll order CT of the brain and given persistence headache as well as nausea and vomiting, no CT abnormality and will probably order a lumbar puncture. Also blood clots go also give fevers , will check CT of the chest given the patient has chest pain and episode of oxygen saturation. If there is no PE and no clots in the legs then will order lumbar puncture. Follow-up DANDRE ordered to rule out autoimmune cause of fever. Sedimentation rate elevated at 85. Calcitonin within normal range. Follow-up ID recommendations. (2) Chest pain ICD Code: R07.9 Status: Acute Plan: A single complaining of chest pain today 09/23. Also reports of oxygen saturation. EKG stat ordered and it shows sinus rhythm with possible left atrial enlargement. Nonspecific T-wave abnormalities. No ischemic changes observed. EKG reviewed by me. Chest x-ray ordered stat reviewed by me. There is no clear infiltrate and there is a left-sided pleural effusion. Patient has a history of DVT and PE recently on antibiotic correlation which was discontinued but the patient's primary. I will order CTA chest with IV contrast to rule out PE, will also stop her ultrasounds of bilateral extremities to rule out DVT. Patient has not been on chemoprophylaxis due to gross hematuria. (3) Swelling of right lower extremity ICD Code: M79.89 Status: Acute Plan: Vital extremity noticed to be bigger than the left lower extremity on . The patient complaining of charley horses in both calves. Check venous Dopplers of the lotion is to rule out DVT. (4) Headache ICD Code: R51 Status: Acute Plan: Patient has a persistent headache for several days now. Also some neck pain on the posterior side as well as nausea and vomiting. I will order a CT of the brain without IV contrast and since the patient is also complaining of pain in the right mastoid I will order IV contrast to be given to better assess this region of the skull. (5) UTI (urinary tract infection) ICD Code: N39.0 Status: Acute Plan: Possible pyelonephritis. Patient presented to [facility] in planning of fevers and hematuria one week prior to presentation. The patient has had a stent placement for a kidney stone 3 weeks prior and was seen in emergency department and started on oral antibiotics for a UTI. The patient was admitted to the medical floor as her on IV Rocephin. Blood cultures and urine cultures obtained, results as above. Patient had a stent removal, given fevers the patient's coverage was broadened from IV Rocephin to Zosyn and 1 the patient start having fevers vancomycin IV was added. Infectious disease consulted (6) Failure of outpatient treatment ICD Code: Z78.9 Status: Acute Plan: As above. (7) Nephrolithiasis ICD Code: N20.0 Status: Acute Plan: Patient is status post left ureteral stent placement at approximately 3 weeks ago for a 9 mm obstructing left renal stone. The patient was discharged and referred to a urologist. However the patient states that the urologist did not accept her insurance and she was not seen. The patient presented to [place] [facility] on 09/06/16, CT abdomen and pelvis with stent in good position, no hydronephrosis, the patient was referred to Dr. Lira for stent removal as outpatient however was not seen yet when patient presented to the ED. CT abdomen and pelvis on 09/13/16 with innumerable renal calcifications bilaterally, left-sided double-J ureteral catheter in good position. Urology was consulted and recommended against removing the stent. Recommended pain control with oxycodone and IV Dilaudid as well as start the patient on Toradol IV. As per urology the patient had stenting tolerance. Patient's left flank pain persisted despite Toradol and Flomax. Urology was reconsulted on 09/16. Patient was taken to the OR on / and underwent cystoscopy, left ureteroscopy , laser lithotripsy and left ureteral stent removal. 09/23 patient states that the flank pain is improving, however hematuria had resolved and now is back. I will reconsult urology. (8) Uncontrolled diabetes mellitus ICD Code: E11.65 Status: Acute Plan: Hemoglobin A1c ordered and 9.0. Patient started on basal bolus therapy with insulin Levemir and prandial insulin with insulin NovoLog. SSI with insulin NovoLog. Patient refusing prandial insulin and blood sugars very elevated in the 200s. I will increase the sliding scale to the high dose. (9) Nausea & vomiting ICD Code: R11.2 Status: Acute Plan: Initially thought to be secondary to the patient's UTI. The patient placed on IV Zofran which would not controlled the nausea and vomiting, Phenergan was added to be given a Zofran ineffective. Patient still with persistent nausea and vomiting, thought to be secondary to oral opiates, these were discontinued and the patient only continue IV opiates. Patient still with nausea and vomiting and headache as well as fever. If CT of the brain is normal then will order a lumbar puncture. (10) Hypophosphatemia ICD Code: E83.39 Status: Acute Plan: The patient has a phosphorus of 1.6. We'll place on oral K-Phos. (11) Hypokalemia ICD Code: E87.6 Status: Acute Plan: Likely secondary to decreased by mouth intake. Will replete orally and continue to monitor BMP. (12) Transaminitis ICD Code: R74.0 Status: Acute Plan: Liver ultrasound showed normal dimension, hepatic duct. Diffusely increased acoustic attenuation of the liver suggesting fatty change. Patient presented with elevated AST of 97 and an AO 2125 which has been monitored and is now normal. Discharge Planning Patient is still febrile -pending clinical improvement. Problem Qualifiers (1) Sepsis: Qualified Code: A41.9 - Sepsis, due to unspecified organism (2) Headache: Qualified Code: R51 - Acute intractable headache, unspecified headache type (3) UTI (urinary tract infection): Qualified Code: N10 - Acute pyelonephritis (4) Uncontrolled diabetes mellitus: Qualified Code: E11.65 - Uncontrolled type 2 diabetes mellitus without complication, with long-term current use of insulin (5) Nausea & vomiting: Qualified Code: R11.2 - Intractable vomiting with nausea, unspecified vomiting type Warren Glass MD Sep 23, 2016 09:48
--- NOTE | 2016-09-23 11:44 | RADRPT ---
EXAM DATE/TIME: 09/23/2016 09:11 [facility] COMPARISON: CHEST SINGLE AP, September 19, 2016, 17:16. INDICATIONS : Chest pain. MEDICAL HISTORY : Gastroesophageal reflux disease. Thyroid disease. Headache. Numbness. Ulcer. Renal calculi. Carlene betes. SURGICAL HISTORY : Tonsillectomy. Cholecystectomy. Appendectomy. Hysterectomy. section. Ankle surgery. Lithotri psy. Renal stent placement. Umbilical hernia repair. ENCOUNTER: Subsequent ACUITY: 4 - 6 days PAIN SCORE: 4/10 LOCATION: Left chest FINDINGS: A single view of the chest demonstrates the lungs to be symmetrically aerated without evidence of mas s, infiltrate or effusion. The cardiomediastinal contours are unremarkable. Osseous structures are intact. CONCLUSION: 1. No acute cardiopulmonary findings. Sarbjit Us MD on September 23, 2016 at 11:42 Board Certified Radiologist. This report was verified electronically.
--- NOTE | 2016-09-23 11:47 | RADRPT ---
EXAM DATE/TIME: 09/23/2016 11:17 [facility] COMPARISON: No previous studies available for comparison. INDICATIONS : Bilateral leg pain. MEDICAL HISTORY : Gastroesophageal reflux disease. Thyroid disease. Dizziness. Headache. Numbness. Ulcer. Hiatal azael ia. Bloody urine. Kidney stones. Diabetes. SURGICAL HISTORY : Tonsillectomy.Appendectomy. Cholecystectomy. section. Kidney stent placement. Two ankle surge estrella. ENCOUNTER: Initial ACUITY: 2 day PAIN SCORE: 5/10 LOCATION: Bilateral legs. TECHNIQUE: Venous ultrasound of the left and right leg was performed from the inguinal ligament to the proximal calf. Real-time, color Doppler and spectral tracing, compression and augmentation techniques were us ed. FINDINGS: RIGHT LEG: There is normal compressibility of the deep venous system from the inguinal region to the proximal ca lf. No echogenic clot is seen in the lumen of the common femoral, femoral, popliteal, and posterior tibial veins. There is a normal response of the venous system to proximal and distal augmentation an d respiration. LEFT LEG: There is normal compressibility of the deep venous system from the inguinal region to the proximal ca lf. No echogenic clot is seen in the lumen of the common femoral, femoral, popliteal, and posterior tibial veins. There is a normal response of the venous system to proximal and distal augmentation an d respiration. CONCLUSION: No evidence of deep venous thrombosis within the lower extremities. Kayode Begum MD on September 23, 2016 at 11:44 Board Certified Radiologist. This report was verified electronically.
[2016-09-23 12:00] VITALS: BP 116/62; PULSE 94; RESP 18; TEMP 100.7; O2SAT 97
--- NOTE | 2016-09-23 12:32 | EKG ---
Date Performed: 09/23/2016 Time Performed: 09:10:08 PTAGE: 45 years EKG: Sinus rhythm POSSIBLE LEFT ATRIAL ENLARGEMENT NONSPECIFIC T-WAVE ABNORMALITY BORDERLINE ECG COMPARED TO PRIOR ZULEYMA CTROCARDIOGRAM, nonspecific T wave changes are present PREVIOUS TRACING : 09/20/2016 05.25 DOCTOR: Reuben Moore Interpretating Date/Time 09/23/2016 12:31:07
--- NOTE | 2016-09-23 13:15 | HHI.IDPN ---
Note Infectious Disease Note Patient notes FREGOSO. points to right posterior head. Denies dizziness, Photophobia or diplopia. No neck stiffness. No difficulty opening the mouth. "I felt like everything was caving in on me" this am. Still with temp spike. No chills, chest pain. Says she gets SOB and chest heaviness. Notes sweats. Presented to the emergency department on 09/13 with fever and hematuria. The patient was evaluated 3 weeks prior and was noted to have a stone in the kidney and underwent placement of a ureteral stent double-J. PAST MEDICAL HISTORY Past medical history of diabetes mellitus, kidney stones. PAST SURGICAL HISTORY Cholecystectomy, appendectomy, lithotripsy, ureteral stent, tonsillectomy. ALLERGIES TYLENOL CAUSE SWELLING OF THE TONGUE AND CAUSED HER BREATHING TO SHUT OFF. THE PATIENT ALSO ALLERGIC TO SPLENDA AND NUTRASWEET. MEDICATIONS 1. Vancomycin. 2. Flagyl. OBJECTIVE: Vital Signs Date Time Temp Pulse Resp B/P Pulse Ox O2 Delivery O2 Flow Rate FiO2 09/23/16 07:30 100.3 91 18 122/63 97 09/23/16 03:25 101.7 95 18 120/53 96 09/23/16 00:00 100.9 102 20 115/55 95 09/22/16 22:18 16 09/22/16 20:00 100.3 104 22 99/51 98 09/22/16 16:00 100.3 96 20 125/73 94 Vital Signs Date Time Temp Pulse Resp B/P Pulse Ox O2 Delivery O2 Flow Rate FiO2 09/22/16 12:00 100.3 99 20 122/62 96 09/22/16 08:00 101.5 94 19 118/69 96 09/22/16 04:20 102.0 97 18 136/66 97 09/22/16 00:15 101.7 93 18 121/62 94 09/21/16 20:00 103 09/21/16 19:50 100.4 98 17 133/61 94 09/21/16 18:32 119 09/21/16 15:29 99.1 92 19 113/60 96 09/21/16 15:17 88 09/22/16 09/22/16 09/23/16 15:00 23:00 07:00 Intake Total 600 ml 780 ml 2318 ml Balance 600 ml 780 ml 2318 ml Intake Oral 600 ml 780 ml 780 ml IV Total 1538 ml # Voids 4 1 1 # Bowel Movements 0 0 Laboratory Tests Test 09/22/16 09/22/16 09/23/16 13:54 13:59 06:33 Erythrocyte Sedimentation Rate 85 mm/hr White Blood Count 7.1 TH/MM3 7.0 TH/MM3 Red Blood Count 3.31 MIL/MM3 3.30 MIL/MM3 Hemoglobin 9.9 GM/DL 9.7 GM/DL Hematocrit 30.0 % 30.0 % Mean Corpuscular Volume 90.6 FL 90.8 FL Mean Corpuscular Hemoglobin 29.9 PG 29.5 PG Mean Corpuscular Hemoglobin 33.0 % 32.5 % Concent Red Cell Distribution Width 13.3 % 13.5 % Platelet Count 183 TH/MM3 181 TH/MM3 Mean Platelet Volume 9.2 FL 8.9 FL Neutrophils (%) (Auto) 69.7 % 68.3 % Lymphocytes (%) (Auto) 15.9 % 18.9 % Monocytes (%) (Auto) 12.0 % 9.9 % Eosinophils (%) (Auto) 1.7 % 2.1 % Basophils (%) (Auto) 0.7 % 0.8 % Neutrophils # (Auto) 5.0 TH/MM3 4.8 TH/MM3 Lymphocytes # (Auto) 1.1 TH/MM3 1.3 TH/MM3 Monocytes # (Auto) 0.9 TH/MM3 0.7 TH/MM3 Eosinophils # (Auto) 0.1 TH/MM3 0.1 TH/MM3 Basophils # (Auto) 0.1 TH/MM3 0.1 TH/MM3 CBC Comment DIFF FINAL DIFF FINAL Differential Comment Laboratory Tests Test 09/22/16 09/23/16 09/23/16 13:59 06:33 10:41 Sodium Level 141 MEQ/L 142 MEQ/L Potassium Level 2.9 MEQ/L 3.1 MEQ/L Chloride Level 105 MEQ/L 107 MEQ/L Carbon Dioxide Level 26.6 MEQ/L 27.6 MEQ/L Anion Gap 9 MEQ/L 7 MEQ/L Blood Urea Nitrogen 6 MG/DL 4 MG/DL Creatinine 0.66 MG/DL 0.61 MG/DL Estimat Glomerular Filtration 96 ML/MIN 106 ML/MIN Rate Random Glucose 109 MG/DL 170 MG/DL Calcium Level 8.0 MG/DL 7.8 MG/DL Total Bilirubin 0.3 MG/DL 0.5 MG/DL Aspartate Amino Transf 17 U/L 20 U/L (AST/SGOT) Alanine Aminotransferase 26 U/L 22 U/L (ALT/SGPT) Alkaline Phosphatase 72 U/L 66 U/L Total Protein 6.7 GM/DL 6.1 GM/DL Albumin 2.3 GM/DL 2.1 GM/DL Procalcitonin 0.28 ng/mL Phosphorus Level 1.6 MG/DL Magnesium Level 1.9 MG/DL Troponin I LESS THAN 0.02 NG/ML IMAGING: Lower Extremity Ultrasound 09/23/16 0000 Signed Impressions: Service Date/Time: Friday, September 23, 2016 11:17 - CONCLUSION: No evidence of deep venous thrombosis within the lower extremities. Kayode Begum MD Chest X-Ray 09/23/16 0000 Signed Impressions: Service Date/Time: Friday, September 23, 2016 09:11 - CONCLUSION: 1. No acute cardiopulmonary findings. Sarbjit Us MD Soft Tissue Ultrasound 09/21/16 0000 Signed Impressions: Service Date/Time: Wednesday, September 21, 2016 21:31 - CONCLUSION: Nonspecific body wall edema. No abscess. Leonel Glover MD Abdomen/Pelvis CT 09/20/16 0000 Signed Impressions: Service Date/Time: Tuesday, September 20, 2016 15:42 - CONCLUSION: 1. Minimal amount of thickening of the left lateral conal fascia adjacent to one of the several diverticula of the descending colon. This is nonspecific, but does suggest the possibility of diverticulitis. 2. Bilateral nonobstructing renal stones. 3. Subcutaneous fat induration bilateral lateral abdominal wall, left greater than right. Oscar Domínguez MD Chest X-Ray 09/19/16 0000 Signed Impressions: Service Date/Time: Monday, September 19, 2016 17:16 - CONCLUSION: 1. Minimal basilar atelectasis. No effusion or pneumothorax. Rambo Rodriguez MD Abdomen X-Ray 09/18/16 0000 Signed Impressions: Service Date/Time: Sunday, September 18, 2016 13:40 - CONCLUSION: 1. Very limited examination due to patient's body habitus. Small renal calculi cannot be excluded. 2. No obvious bowel obstruction or pneumoperitoneum. 3. Noncontrasted CT scan of the abdomen could be performed for further evaluation if clinically warranted. Tonny Figueroa MD Liver Ultrasound 09/15/16 0000 Signed Impressions: Service Date/Time: Thursday, September 15, 2016 14:16 - CONCLUSION: 1. Normal dimension common hepatic duct. 2. Diffuse increased acoustic attenuation throughout the liver suggests diffuse fatty change. 3. Focal calcification mid pole right kidney without evidence of hydronephrosis. Oscar Domínguez MD Abdomen/Pelvis CT 09/13/16 2147 Signed Impressions: Service Date/Time: Tuesday, September 13, 2016 23:17 - CONCLUSION: Innumerable renal calcifications bilaterally. Left-sided double-J ureteral catheter in good position. No active stone or mass is identified. Status post cholecystectomy Shar Trevizo MD PHYSICAL EXAMINATION GENERAL: Awake and alert. no distress. looks lethargic. HEENT: Focal area of tenderness at the r. posterior head. No icterus. Oropharynx no visible lesions. NECK: Supple. No adenopathy. LUNGS: Clear to auscultation. HEART: Regular rate and rhythm without audible murmurs, rubs or gallops. ABDOMEN: Bowel sounds present, distended, soft, left flank tenderness, lower abdominal tenderness. EXTREMITIES: No clubbing, cyanosis or edema. SKIN: No rash. NEURO: Nonfocal. PSYCHIATRIC: Calm and cooperative. IMPRESSION 1. Sepsis indicated by fever, tachycardia, increased respiratory rate. patient with left flank pain and chills and fever suggesting pyelonephritis. Negative cultures. 2. FUO - Persistent fever. WBC normal. ? etiology. 3. Recent treatment for UTI and left-sided ureteral stent removal. 4. Recent kidney stone treated with lithotripsy. 5. Abdominal pain. ? diverticulitis abd CT finding. RECOMMENDATIONS 1. Continue vancomycin. Level was sub therapeutic. Increased by pharmacy. 2. Continue Flagyl. 3. Monitor head CT scan and CTA. 4. Consider LP. 5. Monitor temps. 6. Consider gallium scan if fever persist and cultures remain negative. Has elevated sed rate. Cuong Navas MD Sep 23, 2016 13:15
[2016-09-23] MEDS ORDERED: IOHEXOL 350 MG/ML 10 ML VIAL (for RAD DIAG) IV ONE (14:18)
--- NOTE | 2016-09-23 14:25 | RADRPT ---
EXAM DATE/TIME: 09/23/2016 14:14 [facility] COMPARISON: No previous studies available for comparison. INDICATIONS : Cephalgia, right posterior ear pain. RADIATION DOSE: 67.83 CTDIvol (mGy) MEDICAL HISTORY : Diabetes mellitus type 2. SURGICAL HISTORY : None. ENCOUNTER: Subsequent ACUITY: 1 day PAIN SCALE: 2/10 LOCATION: cranial TECHNIQUE: Multiple contiguous axial images were obtained of the head. Using automated exposure control and adj ustment of the mA and/or kV according to patient size, radiation dose was kept as low as reasonably a chievable to obtain optimal diagnostic quality images. FINDINGS: CEREBRUM: The ventricles are normal for age. No evidence of midline shift, mass lesion, hemorrhage or acute in farction. No extra-axial fluid collections are seen. POSTERIOR FOSSA: The cerebellum and brainstem are intact. The 4th ventricle is midline. The cerebellopontine angle i s unremarkable. EXTRACRANIAL: The visualized portion of the orbits is intact. SKULL: The calvaria is intact. No evidence of skull fracture. CONCLUSION: No acute disease. Kayode Begum MD on September 23, 2016 at 14:23 Board Certified Radiologist. This report was verified electronically.
--- NOTE | 2016-09-23 14:43 | RADRPT ---
EXAM DATE/TIME: 09/23/2016 14:18 [facility] COMPARISON: CT BRAIN W/O CONTRAST, September 23, 2016, 14:14. INDICATIONS : Evaluate for Embolism. IV CONTRAST: 70 cc Omnipaque 350 (iohexol) IV RADIATION DOSE: 23.00 CTDIvol (mGy) MEDICAL HISTORY : Diabetes mellitus type 2. SURGICAL HISTORY : None. ENCOUNTER: Subsequent ACUITY: 1 day PAIN SCALE: 0/10 LOCATION: chest TECHNIQUE: Volumetric scanning of the chest was performed using a pulmonary embolism protocol MIP images were re constructed. Using automated exposure control and adjustment of the mA and/or kV according to patien t size, radiation dose was kept as low as reasonably achievable to obtain optimal diagnostic quality images. FINDINGS: PULMONARY ARTERIES: No filling defects are seen in the pulmonary arteries through the segmental level. LUNGS: There is no consolidation or pneumothorax . No concerning pulmonary nodule is visualized. PLEURAE: There is no pleural thickening or pleural effusion. MEDIASTINUM: There is good visualization of the great vessels of the middle mediastinum. No evidence of mediastin al or hilar adenopathy/mass. MUSCULOSKELETAL: Within normal limits for patient age. MISCELLANEOUS: The visualized upper abdominal organs demonstrate no acute abnormality. CONCLUSION: 1. No pulmonary embolus identified. The lungs are clear. Sarbjit Us MD on September 23, 2016 at 14:31 Board Certified Radiologist. This report was verified electronically.
[2016-09-23 16:00] VITALS: BP 104/56; PULSE 94; RESP 18; TEMP 99.6; O2SAT 94
[2016-09-23 20:00] VITALS: BP 106/63; PULSE 97; RESP 20; TEMP 101.1; O2SAT 97
[2016-09-23 23:24] LABS: C. DIFF EPI 027 PRESUMPTIVE NEGATIVE (NEGATIVE); C. DIFF TOXIN PCR NEGATIVE (NEGATIVE)
[2016-09-24] VITALS: BP 107/80; PULSE 101; RESP 20; TEMP 100.2; O2SAT 95
[2016-09-24] MEDS: ALPRAZolam 1 MG TAB PO PRN ×3 (00:30→17:44)
[2016-09-24] MEDS: MORPHINE SULFATE 4 MG/ML INJ IV PUSH PRN ×7 (00:31→21:51)
[2016-09-24] MEDS: ONDANSETRON HCL 4 MG/2 ML VIAL IVP PRN (01:38)
[2016-09-24] MEDS: SODIUM CHLOR 0.9% 1000 ML INJ 1,000 ML IV SCH ×3 (02:00→09:39)
[2016-09-24] MEDS ORDERED: PHARMACY ORDERED LAB ONE (03:45)
[2016-09-24] MEDS: metroNIDAZOLE 500 MG INJ 100 ML IV SCH ×4 (03:57→21:36)
[2016-09-24 04:00] VITALS: BP 108/51; PULSE 88; RESP 20; TEMP 99.7; O2SAT 99
[2016-09-24] MEDS: VANCOMYCIN INJ 2,250 MG in SODIUM CHLORID 0.9% 500 ML INJ 500 ML IV SCH ×2 (04:37→17:46)
[2016-09-24] MEDS: POTASSIUM PHOSPHATE/SODIUM PHOSPHATE 250 MG TAB PO SCH ×3 (06:00→21:35)
[2016-09-24] MEDS: INSULIN ASPART SUPPLEMENTAL SCALE SQ SCH ×4 (07:00→21:40)
[2016-09-24 08:00] VITALS: BP 115/55; PULSE 90; PULSE 97; RESP 18; TEMP 101.1; O2SAT 100
[2016-09-24] MEDS: INSULIN DETEMIR 100 UNITS/ML VIAL SQ SCH ×2 (09:00→21:39)
[2016-09-24] MEDS: SODIUM CHLORIDE 0.9% FLUSH 10 ML FLUSH IV FLUSH SCH ×2 (09:00→21:00)
[2016-09-24] MEDS: TAMSULOSIN HCL 0.4 MG CAP PO SCH (09:24)
[2016-09-24] MEDS: DOCUSATE SODIUM 50 MG/SENNA 8.6 MG TAB PO SCH ×2 (09:24→21:38)
[2016-09-24] MEDS: SENNOSIDES 8.6 MG TAB PO PRN (09:24)
[2016-09-24] MEDS: PROCHLORPERAZINE INJ 10 MG/2 ML VIAL IM PRN ×2 (09:37→17:45)
--- NOTE | 2016-09-24 11:23 | PD.RAD ---
Post Procedure Progress Note Pre Procedure Diagnosis: (1) Headache (2) Nausea & vomiting Post Procedure Diagnosis: (1) Nausea & vomiting (2) Headache Procedure Date: Sep 24, 2016 Supervising Radiologist: Sarbjit Us Anesthesia: Local Plan of Activity Patient to Unit: Nursing Unit Patient Condition: Poor Additional Comments: LP completed without difficulty 9cc of clear csf removed. Pt tolerated the procedure well See PACS Report for procedural detail/treatment Sarbjit Us MD Sep 24, 2016 11:23
[2016-09-24 11:48] LABS: CSF LYMPHOCYTES 0 %; CSF NEUTROPHILS 0 %; GROSS BLOOD TUBE #1 0 (0); GROSS BLOOD TUBE #2 0 (0); GROSS BLOOD TUBE #3 0 (0); GROSS BLOOD TUBE #4 0 (0); SUPERNATE COLOR TUBE #1 CLEAR (CLEAR); SUPERNATE COLOR TUBE #2 CLEAR (CLEAR); SUPERNATE COLOR TUBE #3 CLEAR (CLEAR); SUPERNATE COLOR TUBE #4 CLEAR (CLEAR); VOLUME TUBE # 1 1.3 ML; VOLUME TUBE # 3 1.7 ML; WBC TUBE #1 0 /MM3 (0-10)
[2016-09-24 12:00] VITALS: BP 93/50; PULSE 90; RESP 18; TEMP 99.9; O2SAT 94
--- NOTE | 2016-09-24 12:11 | RADRPT ---
EXAM DATE/TIME: 09/24/2016 10:57 [facility] COMPARISON: No previous studies available for comparison. INDICATIONS : Patient presents with headache and fever in need of lumbar puncture. MEDICAL HISTORY : DM Renal Stones SURGICAL HISTORY : Cholecystectomy Appendectomy Lithotripsy Ureteral Stent Tonsillectomy Hysterectomy ENCOUNTER: Initial ACUITY: 3 months PAIN SCORE: 10/10 LOCATION: Left flank Headache pain. LUMBAR PUNCTURE TIME: 11:00 hours FLUORO TIME: 2.5 minutes IMAGE SERIES: 0 ACCESS LEVEL: L3-4 OPENING PRESSURE: 15 cm of water CLOSING PRESSURE: Not requested. FLUID: 9 cc of clear CSF was collected and sent to the laboratory for analysis. PROCEDURE : 1. Fluoroscopic guided lumbar puncture. 2. Recording of opening pressure. The risks, benefits and alternatives to the procedure were explained and verbal and written consent w as obtained. The site was prepped in sterile fashion. Full sterile technique was used, including ca p, mask, sterile gloves and gown and a large sterile sheet. Hand hygiene and 2% chlorhexidine and/or betadine/alcohol prep was utilized per protocol for cutaneous antisepsis. A suitable site was localized using fluoroscopic guidance and the skin and subcutaneous tissues were infiltrated with 7 cc of local anesthetic solution. The procedure was performed with the patient in the lateral decubitus position. With fluoroscopic guidance the lumbar thecal sac was punctured at the L3-L4 level. Position was confi rmed in the anterior/posterior and lateral projections. The opening pressure was 15 CM H2O. A 22 gaug e needle was used. There was immediate return of clear CSF. A total of 9 cc of fluid was collected. Samples were appropriately labeled and sent for topology for evaluation. The patient tolerated the procedure well and there were no complications. CONCLUSION: Uncomplicated fluoroscopically guided lumbar puncture with pressures as above. Sarbjit Us MD on September 24, 2016 at 12:05 Board Certified Radiologist. This report was verified electronically.
[2016-09-24] MEDS: FLUCONAZOLE 400 MG PREMIX BAG 200 ML IV SCH (13:06)
[2016-09-24 13:07] LABS: HEMATOCRIT 28.8 % (35.0-46.0); MEAN CELL VOLUME 91.4 FL (80.0-100.0); MEAN CORPUSCULAR HEMOGLOBIN 29.7 PG (27.0-34.0); MEAN CORPUSCULAR HGB CONC 32.5 % (32.0-36.0); PLATELET COUNT 193 TH/MM3 (150-450); RED BLOOD COUNT 3.16 MIL/MM3 (4.00-5.30); RED CELL DISTRIBUTION WIDTH 13.6 % (11.6-17.2); REVIEW FLAG FINAL; WHITE BLOOD COUNT 6.2 TH/MM3 (4.0-11.0)
[2016-09-24 13:41] LABS: BICARBONATE 27.6 MEQ/L (21.0-32.0)
[2016-09-24 13:45] LABS: POTASSIUM 2.8 MEQ/L (3.5-5.1)
[2016-09-24 16:00] VITALS: BP 102/53; PULSE 90; RESP 18; TEMP 100.5; O2SAT 98
[2016-09-24] MEDS ORDERED: HYDROmorphone HCL PF 1 MG/ML VIAL IV ONE (16:00)
--- NOTE | 2016-09-24 16:52 | HHI.IDPN ---
Note Infectious Disease Note Patient had LP today. Notes mild FREGOSO. No distress. Denies dizziness, Photophobia or diplopia. No neck stiffness. Current temp 100.5. No chills, chest pain. Says she gets SOB and chest heaviness. Not wearing oxygen. CSF had 0 WBC, 5 RBC. Presented to the emergency department on 09/13 with fever and hematuria. The patient was evaluated 3 weeks prior and was noted to have a stone in the kidney and underwent placement of a ureteral stent double-J. PAST MEDICAL HISTORY Past medical history of diabetes mellitus, kidney stones. PAST SURGICAL HISTORY Cholecystectomy, appendectomy, lithotripsy, ureteral stent, tonsillectomy. ALLERGIES TYLENOL CAUSE SWELLING OF THE TONGUE AND CAUSED HER BREATHING TO SHUT OFF. THE PATIENT ALSO ALLERGIC TO SPLENDA AND NUTRASWEET. MEDICATIONS 1. Vancomycin. 2. Flagyl. OBJECTIVE: Vital Signs Date Time Temp Pulse Resp B/P Pulse Ox O2 Delivery O2 Flow Rate FiO2 09/24/16 12:00 99.9 90 18 93/50 94 09/24/16 08:00 101.1 90 18 115/55 100 09/24/16 08:00 97 09/24/16 04:00 99.7 88 20 108/51 99 09/24/16 00:00 100.2 101 20 107/80 95 09/23/16 20:00 101.1 97 20 106/63 97 09/23/16 09/23/16 09/24/16 15:00 23:00 07:00 Intake Total 480 ml 1000 ml 650 ml Balance 480 ml 1000 ml 650 ml Intake Oral 480 ml 1000 ml 650 ml # Voids 2 1 1 # Bowel Movements 1 0 0 Laboratory Tests Test 09/23/16 09/24/16 06:33 12:26 White Blood Count 7.0 TH/MM3 6.2 TH/MM3 Red Blood Count 3.30 MIL/MM3 3.16 MIL/MM3 Hemoglobin 9.7 GM/DL 9.4 GM/DL Hematocrit 30.0 % 28.8 % Mean Corpuscular Volume 90.8 FL 91.4 FL Mean Corpuscular Hemoglobin 29.5 PG 29.7 PG Mean Corpuscular Hemoglobin 32.5 % 32.5 % Concent Red Cell Distribution Width 13.5 % 13.6 % Platelet Count 181 TH/MM3 193 TH/MM3 Mean Platelet Volume 8.9 FL 8.7 FL Neutrophils (%) (Auto) 68.3 % Lymphocytes (%) (Auto) 18.9 % Monocytes (%) (Auto) 9.9 % Eosinophils (%) (Auto) 2.1 % Basophils (%) (Auto) 0.8 % Neutrophils # (Auto) 4.8 TH/MM3 Lymphocytes # (Auto) 1.3 TH/MM3 Monocytes # (Auto) 0.7 TH/MM3 Eosinophils # (Auto) 0.1 TH/MM3 Basophils # (Auto) 0.1 TH/MM3 CBC Comment DIFF FINAL Differential Comment Laboratory Tests Test 09/23/16 09/23/16 09/24/16 09/24/16 06:33 10:41 12:23 12:26 Sodium Level 142 MEQ/L 141 MEQ/L Potassium Level 3.1 MEQ/L 2.8 MEQ/L Chloride Level 107 MEQ/L 104 MEQ/L Carbon Dioxide Level 27.6 MEQ/L 27.6 MEQ/L Anion Gap 7 MEQ/L 9 MEQ/L Blood Urea Nitrogen 4 MG/DL 3 MG/DL Creatinine 0.61 MG/DL 0.72 MG/DL Estimat Glomerular Filtration 106 ML/MIN 87 ML/MIN Rate Random Glucose 170 MG/DL 216 MG/DL Calcium Level 7.8 MG/DL 7.6 MG/DL Phosphorus Level 1.6 MG/DL 1.9 MG/DL Magnesium Level 1.9 MG/DL Total Bilirubin 0.5 MG/DL Aspartate Amino Transf 20 U/L (AST/SGOT) Alanine Aminotransferase 22 U/L (ALT/SGPT) Alkaline Phosphatase 66 U/L Total Protein 6.1 GM/DL Albumin 2.1 GM/DL Troponin I LESS THAN 0.02 LESS THAN 0.02 NG/ML NG/ML Microbiology Date/Time Procedure Status Source Growth 09/24/16 11:00 Gram Stain - Final Resulted Cerebral Spinal Fluid Lumbar Puncture 09/24/16 11:00 CSF Culture Resulted Cerebral Spinal Fluid Lumbar Puncture Pending 09/24/16 11:00 Acid Fast Stain Received Cerebral Spinal Fluid Lumbar Puncture Pending 09/24/16 11:00 Mycobacterial Culture Received Cerebral Spinal Fluid Lumbar Puncture Pending 09/24/16 11:00 Fungal Smear - Final Resulted Cerebral Spinal Fluid Lumbar Puncture NO FUNGAL ELEMENTS SEEN. 09/24/16 11:00 Fungal Culture Resulted Cerebral Spinal Fluid Lumbar Puncture Pending IMAGING: Last 72 hours Impressions Lumbar Puncture Fluoroscopy 09/24/16 0000 Signed Impressions: Service Date/Time: September 10:57 - CONCLUSION: Uncomplicated fluoroscopically guided lumbar puncture with pressures as above. Sarbjit Us MD Head CT 09/23/16 1011 Signed Impressions: Service Date/Time: Friday, September 23, 2016 14:14 - CONCLUSION: No acute disease. Kayode Begum MD Lower Extremity Ultrasound 09/23/16 0000 Signed Impressions: Service Date/Time: Friday, September 23, 2016 11:17 - CONCLUSION: No evidence of deep venous thrombosis within the lower extremities. Kayode Begum MD Chest X-Ray 09/23/16 0000 Signed Impressions: Service Date/Time: Friday, September 23, 2016 09:11 - CONCLUSION: 1. No acute cardiopulmonary findings. Sarbjit Us MD CT Angiography 09/23/16 0000 Signed Impressions: Service Date/Time: Friday, September 23, 2016 14:18 - CONCLUSION: 1. No pulmonary embolus identified. The lungs are clear. Sarbjit Us MD Abdomen/Pelvis CT 09/20/16 0000 Signed Impressions: Service Date/Time: Tuesday, September 20, 2016 15:42 - CONCLUSION: 1. Minimal amount of thickening of the left lateral conal fascia adjacent to one of the several diverticula of the descending colon. This is nonspecific, but does suggest the possibility of diverticulitis. 2. Bilateral nonobstructing renal stones. 3. Subcutaneous fat induration bilateral lateral abdominal wall, left greater than right. Oscar Domínguez MD Chest X-Ray 09/19/16 0000 Signed Impressions: Service Date/Time: Monday, September 19, 2016 17:16 - CONCLUSION: 1. Minimal basilar atelectasis. No effusion or pneumothorax. Rambo Rodriguez MD Abdomen X-Ray 09/18/16 0000 Signed Impressions: Service Date/Time: Sunday, September 18, 2016 13:40 - CONCLUSION: 1. Very limited examination due to patient's body habitus. Small renal calculi cannot be excluded. 2. No obvious bowel obstruction or pneumoperitoneum. 3. Noncontrasted CT scan of the abdomen could be performed for further evaluation if clinically warranted. Tonny Figueroa MD Liver Ultrasound 09/15/16 0000 Signed Impressions: Service Date/Time: Thursday, September 15, 2016 14:16 - CONCLUSION: 1. Normal dimension common hepatic duct. 2. Diffuse increased acoustic attenuation throughout the liver suggests diffuse fatty change. 3. Focal calcification mid pole right kidney without evidence of hydronephrosis. Oscar Domínguez MD Abdomen/Pelvis CT 09/13/16 [id number] Signed Impressions: Service Date/Time: Tuesday, September 13, 2016 23:17 - CONCLUSION: Innumerable renal calcifications bilaterally. Left-sided double-J ureteral catheter in good position. No active stone or mass is identified. Status post cholecystectomy Shar Trevizo MD PHYSICAL EXAMINATION GENERAL: Awake and alert. no distress. More alert. HEENT: Focal area of tenderness at the r. posterior head. No icterus. Oropharynx no visible lesions. NECK: Supple. No adenopathy. LUNGS: Clear to auscultation. HEART: Regular rate and rhythm without audible murmurs, rubs or gallops. ABDOMEN: Bowel sounds present, distended, soft, left flank tenderness, lower abdominal tenderness. EXTREMITIES: No clubbing, cyanosis or edema. SKIN: No rash. NEURO: Nonfocal. PSYCHIATRIC: Calm and cooperative. IMPRESSION 1. Sepsis indicated by fever, tachycardia, increased respiratory rate. patient with left flank pain and chills and fever suggesting pyelonephritis. Negative cultures. 2. FUO - Persistent fever. WBC normal. ? etiology. No focal exam. - CSF unremarkable - Cultures negative. - CT without obvious abscess. 3. Recent treatment for UTI and left-sided ureteral stent removal. 4. Recent kidney stone treated with lithotripsy. 5. Abdominal pain. ? diverticulitis abd CT finding. RECOMMENDATIONS 1. Continue vancomycin. Level was sub therapeutic. Increased by pharmacy. 2. Continue Flagyl. 3. Add Diflucan 4. HIV test. Pre counseled by myself. 5. Gallium scan. 6. Monitor temps. Hopefully temp trends down. 7. Monitor clinical exam. Cuong Navas MD Sep 24, 2016 16:52
[2016-09-24 19:00] VITALS: BP 127/78; PULSE 106; RESP 17; TEMP 100.9; O2SAT 99
[2016-09-24 22:37] LABS: RHEUMATOID FACTOR TRIGGER LESS THAN 10.0 IU/ML (0.0-14.9)
[2016-09-25] VITALS (7 sets, daily range): BP systolic 102–124; BP diastolic 45–90; PULSE 71–100; RESP 17–20; TEMP 97.4–101.4; O2SAT 94–98
[2016-09-25] MEDS ORDERED: POTASSIUM CHLORIDE 10 MEQ CONTROLLED RELEASE TAB PO ONE (02:15)
[2016-09-25] MEDS: POTASSIUM CHLOR 20 MEQ PREMIX 100 ML IV SCH ×2 (02:34→04:00)
[2016-09-25] MEDS: metroNIDAZOLE 500 MG INJ 100 ML IV SCH ×2 (02:55→07:44)
[2016-09-25] MEDS: PROCHLORPERAZINE INJ 10 MG/2 ML VIAL IM PRN ×3 (03:02→23:12)
[2016-09-25] MEDS: MORPHINE SULFATE 4 MG/ML INJ IV PUSH PRN ×4 (03:02→12:47)
[2016-09-25] MEDS: VANCOMYCIN INJ 2,250 MG in SODIUM CHLORID 0.9% 500 ML INJ 500 ML IV SCH (04:00)
[2016-09-25] MEDS: ALPRAZolam 1 MG TAB PO PRN ×3 (04:47→21:02)
[2016-09-25] MEDS: INSULIN ASPART SUPPLEMENTAL SCALE SQ SCH ×4 (06:01→21:01)
[2016-09-25] MEDS: POTASSIUM PHOSPHATE/SODIUM PHOSPHATE 250 MG TAB PO SCH ×3 (06:15→21:02)
[2016-09-25] MEDS: DOCUSATE SODIUM 50 MG/SENNA 8.6 MG TAB PO SCH ×2 (07:43→21:02)
[2016-09-25] MEDS: TAMSULOSIN HCL 0.4 MG CAP PO SCH (07:43)
[2016-09-25] MEDS: MAGNESIUM HYDROXIDE SUSP 30 ML CUP PO PRN (07:43)
[2016-09-25] MEDS: SENNOSIDES 8.6 MG TAB PO PRN (07:43)
[2016-09-25] MEDS: SODIUM CHLORIDE 0.9% FLUSH 10 ML FLUSH IV FLUSH SCH ×2 (07:49→21:02)
[2016-09-25] MEDS: SODIUM CHLOR 0.9% 1000 ML INJ 1,000 ML IV SCH ×2 (07:50→17:42)
[2016-09-25] MEDS: INSULIN DETEMIR 100 UNITS/ML VIAL SQ SCH ×2 (07:53→21:01)
[2016-09-25] MEDS ORDERED: traMADol HCL 50 MG TAB PO PRN (08:00)
--- NOTE | 2016-09-25 08:22 | HHI.PR ---
Subjective Remarks still with fever; Tmax 101.4. complaining of some headache. has some pain to both flanks. no cough or sob. Objective Vitals Vital Signs Date Time Temp Pulse Resp B/P Pulse Ox O2 Delivery O2 Flow Rate FiO2 09/25/16 04:00 98.7 94 18 108/54 98 09/25/16 00:00 101.4 100 17 108/45 98 09/24/16 19:00 100.9 106 17 127/78 99 09/24/16 18:48 16 09/24/16 17:21 16 09/24/16 16:00 100.5 90 18 102/53 98 09/24/16 12:00 99.9 90 18 93/50 94 I/O 09/24/16 09/24/16 09/24/16 09/25/16 09/25/16 09/25/16 07:00 15:00 23:00 07:00 15:00 23:00 Intake Total 650 ml 600 ml 480 ml 5173 ml Balance 650 ml 600 ml 480 ml 5173 ml Intake Oral 650 ml 600 ml 480 ml 250 ml IV Total 4923 ml # Voids 1 2 3 3 # Bowel Movements 0 1 0 0 Result Diagram: 09/24/16 1226 09/24/16 1223 Imaging Last Impressions Lumbar Puncture Fluoroscopy 09/24/16 0000 Signed Impressions: Service Date/Time: September 10:57 - CONCLUSION: Uncomplicated fluoroscopically guided lumbar puncture with pressures as above. Sarbjit Us MD Head CT 09/23/16 1011 Signed Impressions: Service Date/Time: Friday, September 23, 2016 14:14 - CONCLUSION: No acute disease. Kayode Begum MD Lower Extremity Ultrasound 09/23/16 0000 Signed Impressions: Service Date/Time: Friday, September 23, 2016 11:17 - CONCLUSION: No evidence of deep venous thrombosis within the lower extremities. Kayode Begum MD Chest X-Ray 09/23/16 0000 Signed Impressions: Service Date/Time: Friday, September 23, 2016 09:11 - CONCLUSION: 1. No acute cardiopulmonary findings. Sarbjit Us MD CT Angiography 09/23/16 0000 Signed Impressions: Service Date/Time: Friday, September 23, 2016 14:18 - CONCLUSION: 1. No pulmonary embolus identified. The lungs are clear. Sarbjit Us MD Soft Tissue Ultrasound 09/21/16 0000 Signed Impressions: Service Date/Time: Wednesday, September 21, 2016 21:31 - CONCLUSION: Nonspecific body wall edema. No abscess. Leonel Glover MD Abdomen/Pelvis CT 09/20/16 0000 Signed Impressions: Service Date/Time: Tuesday, September 20, 2016 15:42 - CONCLUSION: 1. Minimal amount of thickening of the left lateral conal fascia adjacent to one of the several diverticula of the descending colon. This is nonspecific, but does suggest the possibility of diverticulitis. 2. Bilateral nonobstructing renal stones. 3. Subcutaneous fat induration bilateral lateral abdominal wall, left greater than right. Oscar Domínguez MD Abdomen X-Ray 09/18/16 0000 Signed Impressions: Service Date/Time: Sunday, September 18, 2016 13:40 - CONCLUSION: 1. Very limited examination due to patient's body habitus. Small renal calculi cannot be excluded. 2. No obvious bowel obstruction or pneumoperitoneum. 3. Noncontrasted CT scan of the abdomen could be performed for further evaluation if clinically warranted. Tonny Figueroa MD Liver Ultrasound 09/15/16 0000 Signed Impressions: Service Date/Time: Thursday, September 15, 2016 14:16 - CONCLUSION: 1. Normal dimension common hepatic duct. 2. Diffuse increased acoustic attenuation throughout the liver suggests diffuse fatty change. 3. Focal calcification mid pole right kidney without evidence of hydronephrosis. Oscar Domínguez MD Objective Remarks GENERAL: This is a well-nourished, well-developed patient, in no apparent distress. CARDIOVASCULAR: Regular rate and regular rhythm without murmurs, gallops, or rubs. RESPIRATORY: Clear to auscultation. Breath sounds equal bilaterally. No wheezes , rales, or rhonchi. GASTROINTESTINAL: Abdomen soft, mild right flank tenderness, nondistended. Normal, active bowel sounds MUSCULOSKELETAL: Extremities without clubbing, cyanosis, or edema. NEURO: Alert & Oriented x4 to person, place, time, situation. Moves all ext x4 Procedures cystoscopy, left ureteroscopy, laser lithotripsy, stent removal LP Medications and IVs Current Medications Ceftriaxone Sodium/Sodium Chloride (Rocephin Inj/NS Inj) 100 ml @ 200 mls/hr ONCE ONCE IV Last administered on 09/13/16 22:09; Start 09/13/16 at 22:00; Stop 09/13/16 at 22:29; Status DC Hydromorphone HCl (Dilaudid Pf Inj) 1 mg ONCE ONCE IV PUSH Last administered on 09/13/16 22:09; Start 09/13/16 at 22:00; Stop 09/13/16 at 22:01; Status DC Ondansetron HCl (Zofran Inj) 4 mg ONCE ONCE IV PUSH Last administered on 22:09; Start 09/13/16 at 22:00; Stop 09/13/16 at 22:01; Status DC Ketorolac Tromethamine 30 mg 30 mg ONCE ONCE IV PUSH Last administered on 23:44; Start 09/13/16 at 22:45; Stop 09/13/16 at 22:46; Status DC Ceftriaxone Sodium 1000 mg/ Sodium Chloride 100 ml @ 200 mls/hr Q24H IV Last administered on 09/17/16 21:08; Start 09/14/16 at 22:00; Stop 09/18/16 at 11:43; Status DC Sodium Chloride (NS 1000 ml Inj) 1,000 ml @ 100 mls/hr Q10H IV Last administered on 09/24/16 09:39; Start 09/14/16 at 02:00 Sodium Chloride (NS Flush) 2 ml UNSCH PRN IV FLUSH FLUSH AFTER USING IV ACCESS ; Start 09/14/16 at 01:30 Sodium Chloride (NS Flush) 2 ml BID IV FLUSH Last administered on 09/23/16 22: 12; Start 09/14/16 at 09:00 Ondansetron HCl (Zofran Inj) 4 mg Q6H PRN IVP NAUSEA OR VOMITING Last administered on 09/24/16 01:38; Start 09/14/16 at 01:30 Hydromorphone HCl (Dilaudid Pf Inj) 1 mg Q3H PRN IV Pain 6-10 Last administered on 09/14/16 17:21; Start 09/14/16 at 01:30; Stop 09/14/16 at 18:38; Status DC Senna/Docusate Sodium (Alisha-Colace) 1 tab BID PO Last administered on 07:43; Start 09/14/16 at 09:00 Magnesium Hydroxide (Milk Of Magnesia Liq) 30 ml Q12H PRN PO MILD - MODERATE CONSTIPATION Last administered on 09/25/16 07:43; Start 09/14/16 at 01:30 Sennosides (Senokot) 17.2 mg Q12H PRN PO MODERATE - SEVERE CONSTIPATION Last administered on 09/25/16 07:43; Start 09/14/16 at 01:30 Bisacodyl (Dulcolax Supp) 10 mg DAILY PRN RECTAL SEVERE CONSITIPATION Last administered on 09/17/16 04:30; Start 09/14/16 at 01:30 Lactulose (Lactulose Liq) 30 ml DAILY PRN PO SEVERE CONSITIPATION Last administered on 09/19/16 08:42; Start 09/14/16 at 01:30 Dextrose (D50w (Vial) Inj) 50 ml UNSCH PRN IV HYPOGLYCEMIA-SEE COMMENTS Last administered on 09/15/16 21:52; Start 09/14/16 at 02:45; Stop 09/18/16 at 11:45; Status DC Glucagon (Glucagon Inj) 1 mg UNSCH PRN OTHER HYPOGLYCEMIA-SEE COMMENTS; Start 09/14/16 at 02:45; Stop 09/18/16 at 11:45; Status DC Insulin Aspart (NovoLOG SUPPLEMENTAL SCALE) 1 ACHS SLIDING SCALE SQ Last administered on 09/18/16 11:20; Start 09/14/16 at 07:00; Stop 09/18/16 at 11:45; Status DC Hydromorphone HCl (Dilaudid Pf Inj) 1 mg ONCE ONCE IV PUSH Last administered on 09/14/16 03:46; Start 09/14/16 at 03:30; Stop 09/14/16 at 03:36; Status DC Ketorolac Tromethamine (Toradol Inj) 30 mg Q6HR IV PUSH Last administered on 11:19; Start 09/14/16 at 13:00; Stop 09/19/16 at 12:59; Status DC Tamsulosin HCl (Flomax) 0.4 mg DAILY PO Last administered on 09/25/16 07:43; Start 09/14/16 at 13:00 Phenazopyridine HCl (Pyridium) 200 mg Q8HR PO Last administered on 09/16/16 20: 15; Start 09/14/16 at 14:00; Stop 09/17/16 at 06:51; Status DC Oxycodone HCl (Roxicodone) 5 mg Q4H PRN PO PAIN SCALE 1 TO 4; Start 09/14/16 at 18:45; Stop 09/17/16 at 10:25; Status DC Oxycodone HCl (Roxicodone) 10 mg Q4H PRN PO PAIN SCALE 5 TO 10 Last administered on 09/17/16 08:52; Start 09/14/16 at 18:45; Stop 09/17/16 at 10:25; Status DC Hydromorphone HCl 1 mg 1 mg Q4H PRN IV PUSH BREAKTHROUGH PAIN Last administered on 09/17/16 21:27; Start 09/14/16 at 18:45; Stop 09/18/16 at 11:46; Status DC Lactated Ringer's 1,000 ml @ 30 mls/hr Q24H PRN IV SEE LABEL COMMENTS; Start at 22:00; Stop 09/19/16 at 21:59; Status DC Sodium Chloride (NS 500 ml Inj) 500 ml @ 30 mls/hr [id number] PRN IV SEE LABEL COMMENTS; Start 09/16/16 at 22:00; Stop 09/19/16 at 21:59; Status DC Metoprolol Tartrate (Lopressor) 25 mg MANAGER [employer]ATION PRN PO SEE LABEL COMMENTS; Start 09/16/16 at 22:00; Stop 09/19/16 at 21:59; Status DC Povidone Iodine (Betadine 5% Antisepsis Kit) 1 applic [employer] PRN EACH NARE SEE LABEL COMMENTS; Start 09/16/16 at 22:00; Stop 09/19/16 at 21:59; Status DC Chlorhexidine Gluconate (Chlorhexidine 2% Cloth) 3 pack [employer] PRN TOPICAL SEE LABEL COMMENTS; Start 09/16/16 at 22:00; Stop 09/19/16 at 21:59; Status DC Insulin Human Regular (NovoLIN R INJ) See Protocol Table ... [employer] PRN SQ SEE PROTOCOL TABLE; Start 09/16/16 at 22:00; Stop 09/19/16 at 21:59; Status DC Phenazopyridine HCl (Pyridium) 200 mg Q8HR PO Last administered on 09/17/16 07: 06; Start 09/17/16 at 06:00; Stop 09/18/16 at 02:41; Status DC Prochlorperazine Edisylate (Compazine Inj) 5 mg Q6H PRN IM NAUSEA OR VOMITING Last administered on 09/25/16 03:02; Start 09/17/16 at 10:30 Temazepam (Restoril) 15 mg HS PRN PO INSOMNIA Last administered on 09/18/16 00: 11; Start 09/17/16 at 10:30 Polyethylene Glycol (Miralax) 17 gm DAILY PRN PO CONSTIPATION. SEE LABEL COMMEN Last administered on 09/19/16 08:43; Start 09/17/16 at 10:30 Morphine Sulfate (Morphine Inj) 2 mg Q3H PRN IV PUSH PAIN SCALE 1 TO 4; Start 09/17/16 at 10:30; Stop 09/18/16 at 11:46; Status DC Morphine Sulfate (Morphine Inj) 4 mg Q3H PRN IV PUSH PAIN SCALE 5 TO 10 Last administered on 09/18/16 11:17; Start 09/17/16 at 10:30; Stop 09/18/16 at 11:46; Status DC Midazolam HCl (Versed Inj) 2 mg STK-MED ONCE .ROUTE ; Start 09/17/16 at 17:21; Stop 09/17/16 at 17:22; Status DC Belladonna Alkaloids/Opium (B & O Supp) 60 mg Q6HR PRN RECTAL BLADDER SPASM; Start 09/17/16 at 19:00 Fentanyl Citrate (fentaNYL INJ) 250 mcg STK-MED ONCE .ROUTE ; Start 09/17/16 at 19:02; Stop 09/17/16 at 19:03; Status DC Cefazolin Sodium (Ancef Inj) 2,000 mg STK-MED ONCE IV Last administered on 17:56; Start 09/17/16 at 17:56; Stop 09/17/16 at 19:21; Status DC Morphine Sulfate (Morphine Inj) 8 mg STK-MED ONCE .ROUTE Last administered on 19:40; Start 09/17/16 at 19:40; Stop 09/17/16 at 19:41; Status DC Phenazopyridine HCl 200 mg 200 mg Q8HR PO Last administered on 09/22/16 13:21 ; Start 09/18/16 at 06:00; Stop 09/22/16 at 13:58; Status DC Piperacillin Sod/ Tazobactam Sod (Zosyn 4.5 Gm Premix) 100 ml @ 200 mls/hr Q8H IV Last administered on 09/20/16 11:16; Start 09/18/16 at 14:00; Stop 09/20/16 at 12:04; Status DC Dextrose (D50w (Vial) Inj) 50 ml UNSCH PRN IV HYPOGLYCEMIA-SEE COMMENTS; Start 09/18/16 at 11:45 Glucagon (Glucagon Inj) 1 mg UNSCH PRN OTHER HYPOGLYCEMIA-SEE COMMENTS; Start 09/18/16 at 11:45 Insulin Aspart (NovoLOG SUPPLEMENTAL SCALE) 1 ACHS SLIDING SCALE SQ Last administered on 09/24/16 21:40; Start 09/18/16 at 16:00 Oxycodone HCl (Roxicodone) 5 mg Q4H PRN PO PAIN SCALE 1 TO 4; Start 09/18/16 at 13:00; Stop 09/21/16 at 16:08; Status DC Oxycodone HCl (Roxicodone) 10 mg Q4H PRN PO PAIN SCALE 5 TO 10 Last administered on 09/21/16 06:15; Start 09/18/16 at 12:00; Stop 09/21/16 at 16:08 ; Status DC Morphine Sulfate 4 mg 4 mg Q3H PRN IV PUSH BREAKTHROUGH PAIN Last administered on 09/21/16 15:10; Start 09/18/16 at 12:00; Stop 09/21/16 at 16:08; Status DC Vancomycin HCl 1000 mg/Sodium Chloride 250 ml @ 250 mls/hr ONCE ONCE IV Last administered on 09/19/16 13:35; Start 09/19/16 at 12:30; Stop 09/19/16 at 13:29 ; Status DC Pharmacy Profile Note (Vancomycin Consult Pharmacy) 0 ml @ 0 mls/hr UNSCH OTHER ; Start 09/19/16 at 11:45 Insulin Detemir 10 units 10 units Q12HR SQ Last administered on 6/15/17at 21:39 ; Start 09/19/16 at 11:45 Vancomycin HCl 1000 mg/Sodium Chloride 250 ml @ 250 mls/hr ONCE ONCE IV Last administered on 09/19/16 13:35; Start 09/19/16 at 13:30; Stop 09/19/16 at 14:29 ; Status DC Vancomycin HCl/ Sodium Chloride (Vancomycin Inj/ NS 500 ml Inj) 515 ml @ 257.5 mls/ hr Q12H IV Last administered on 09/21/16 20:52; Start 09/20/16 at 03:00; Stop 09/21/16 at 21:14; Status DC Miscellaneous Information SPECIFIC LAB TO BE DARIEN... ONCE ONCE .XX Last administered on 09/21/16 02:45; Start 09/21/16 at 02:45; Stop 09/21/16 at 02:46 ; Status DC Iohexol (Omnipaque 350 Inj) 100 ml STK-MED ONCE IV Last administered on 15:48; Start 09/20/16 at 15:48; Stop 09/20/16 at 15:49; Status DC Potassium Phos/ Sodium Phos 250 mg 250 mg Q8HR PO Last administered on 05:24; Start 09/20/16 at 22:00; Stop 09/23/16 at 10:57; Status DC Calcium Chloride 2 gm/Sodium Chloride 120 ml @ 120 mls/hr ONCE ONCE IV Last administered on 09/20/16 17:57; Start 09/20/16 at 17:00; Stop 09/20/16 at 17:59 ; Status DC Aztreonam 2000 mg/ Sodium Chloride 100 ml @ 200 mls/hr Q6H IV Last administered on 09/22/16 05:34; Start 09/20/16 at 17:00; Stop 09/22/16 at 09:46 ; Status DC Metronidazole 100 ml @ 100 mls/hr Q6H IV ; Start 09/20/16 at 18:00; Stop at 18:05; Status DC Metronidazole (Flagyl 500 Mg Inj) 100 ml @ 100 mls/hr Q6H IV Last administered on 09/25/16 07:44; Start 09/20/16 at 21:00 Insulin Aspart (NovoLOG INJ) 8 units TIDAC SQ Last administered on 09/22/16 11 :52; Start 09/21/16 at 08:00; Status Hold Miscellaneous Information SPECIFIC LAB TO BE DARIEN... ONCE ONCE .XX Last administered on 09/21/16 15:20; Start 09/21/16 at 14:45; Stop 09/21/16 at 14:46 ; Status DC Morphine Sulfate (Morphine Inj) 2 mg Q3H PRN IV PUSH PAIN SCALE 1 TO 7 Last administered on 09/24/16 10:11; Start 09/21/16 at 16:15 Morphine Sulfate (Morphine Inj) 4 mg Q3H PRN IV PUSH PAIN SCALE 8 TO 10 Last administered on 09/25/16 06:16; Start 09/21/16 at 16:15 Polyethylene Glycol (Miralax) 17 gm ONCE ONCE PO ; Start 09/21/16 at 16:15; Stop 09/21/16 at 16:19; Status DC Alprazolam (Xanax) 1 mg Q8HR PRN PO ANXIETY Last administered on 09/25/16 04: 47; Start 09/21/16 at 16:15 Potassium Phos/ Sodium Phos 250 mg 250 mg Q8HR PO ; Start 09/21/16 at 22:00; Stop 09/22/16 at 16:21; Status DC Vancomycin HCl/ Sodium Chloride (Vancomycin Inj/ NS 500 ml Inj) 515 ml @ 257.5 mls/ hr Q12H IV Last administered on 09/22/16 08:10; Start 09/22/16 at 09:00; Stop 09/22/16 at 10:12; Status DC Miscellaneous Information SPECIFIC LAB TO BE DRAWN:VANCO TROUGH DATE TO... ONCE ONCE .XX Last administered on 09/24/16 04:00; Start 09/24/16 at 03:45; Stop 09/24/16 at 03:46; Status DC Vancomycin HCl/ Sodium Chloride (Vancomycin Inj/ NS 500 ml Inj) 522.5 ml @ 257.5 mls/ hr Q12H IV Last administered on 09/25/16 04:00; Start 09/22/16 at 16:00 Propofol (Diprivan 200 Mg/20 ml Inj) 200 mg STK-MED ONCE IV ; Start 09/17/16 at 12:00; Stop 09/22/16 at 15:24; Status DC Ephedrine Sulfate (ePHEDrine/NS 25 MG/5 ML SYR) 25 mg STK-MED ONCE IV ; Start at 12:00; Stop 09/22/16 at 15:24; Status DC Phenylephrine HCl (Neosynephrine/ NS 1000 Mcg/10ml Syr) 1,000 mcg STK-MED ONCE IV ; Start 09/17/16 at 12:00; Stop 09/22/16 at 15:24; Status DC Ketorolac Tromethamine (Toradol Inj) 60 mg STK-MED ONCE IM ; Start 09/17/16 at 12 :00; Stop 09/22/16 at 15:24; Status DC Ondansetron HCl 4 mg 4 mg STK-MED ONCE IV PUSH ; Start 09/17/16 at 12:00; Stop at 15:24; Status DC Lactated Ringer's (Lr 1000 ml Inj) 1,000 ml @ As Directed STK-MED ONCE IV ; Start 09/17/16 at 12:00; Stop 09/22/16 at 15:24; Status DC Potassium Chloride (KCl) 60 meq ONCE ONCE PO Last administered on 09/22/16 22 :11; Start 09/22/16 at 19:00; Stop 09/22/16 at 19:02; Status DC Potassium Chloride (KCl) 30 meq ONCE ONCE PO Last administered on 09/23/16 09 :45; Start 09/23/16 at 09:45; Stop 09/23/16 at 09:46; Status DC Potassium Phos/ Sodium Phos (K-Phos Neutral) 250 mg Q8HR PO Last administered on 09/25/16 06:15; Start 09/23/16 at 14:00 Miscellaneous Information SPECIFIC LAB TO BE DRAWN:VANCOMYCIN TROUGH DATE TO... ONCE ONCE .XX ; Start 09/26/16 at 03:45; Stop 09/26/16 at 03:46 Fluconazole/ Sodium Chloride (Diflucan 400 Mg Premix Bag) 200 ml @ 100 mls/hr Q24H IV Last administered on 09/24/16 13:06; Start 09/24/16 at 10:00 Hydromorphone HCl (Dilaudid Pf Inj) 1 mg STAT ONCE IV Last administered on 16:32; Start 09/24/16 at 16:00; Stop 09/24/16 at 16:01; Status DC Potassium Chloride 40 meq 40 meq ONCE ONCE PO Last administered on 09/25/16t 02:34; Start 09/25/16 at 02:15; Stop 09/25/16 at 02:16; Status DC Potassium Chloride (KCl 20 Meq Premix Inj) 100 ml @ 50 mls/hr Q2H IV Last administered on 09/25/16t 04:00; Start 09/25/16 at 02:15; Stop 09/25/16 at 06:14 ; Status DC A/P Assessment and Plan (1) Sepsis Patient with tachycardia and fever with a MAXIMUM TEMPERATURE of 102.2 after stent removal and stone lithotripsy. Likely infected stone (pyonephritis. Repeat CT of the abdomen and pelvis was ordered on 09/20/16 and it showed changes consistent with possible diverticulitis. Bilateral nonobstructing renal stones. An subcutaneous fatty induration in the bilateral abdominal wall left greater than right. Soft tissue ultrasound of the abdomen did not show any fluid collection or abscess. LP was performed- CSF cultures and blood cultures negative. Sedimentation rate elevated at 85. on Vancomycin, Flagyl and Diflucan. for gallium scan today. ID is following. (2) Chest pain-resolved CTA chest and venous doppler negative for thrombus. (3) Headache continue with pain control. head CT with no acute abnormality. (4) Nephrolithiasis Patient is status post left ureteral stent placement at approximately 3 weeks ago for a 9 mm obstructing left renal stone. The patient was discharged and referred to a urologist. However the patient states that the urologist did not accept her insurance and she was not seen. The patient presented to [place] [facility] on 09/06/16, CT abdomen and pelvis with stent in good position, no hydronephrosis, the patient was referred to Dr. Lira for stent removal as outpatient however was not seen yet when patient presented to the ED. CT abdomen and pelvis on 09/13/16 with innumerable renal calcifications bilaterally, left-sided double-J ureteral catheter in good position. Urology was consulted ; Patient was taken to the OR on 64/8 and underwent cystoscopy, left ureteroscopy, laser lithotripsy and left ureteral stent removal. (5) diabetes mellitus Hemoglobin A1c ordered and 9.0. continue levemir and SSI. (6) Hypophosphatemia replaced- will monitor. (7) Hypokalemia Likely secondary to decreased by mouth intake. replaced - will monitor. (8) Transaminitis-resolved. Liver ultrasound showed normal dimension, hepatic duct. Diffusely increased acoustic attenuation of the liver suggesting fatty change. Cece Bryson MD Sep 25, 2016 08:22
[2016-09-25 08:55] LABS: HEMATOCRIT 28.9 % (35.0-46.0); MEAN CORPUSCULAR HEMOGLOBIN 29.6 PG (27.0-34.0); MEAN CORPUSCULAR HGB CONC 32.5 % (32.0-36.0); PLATELET COUNT 208 TH/MM3 (150-450); RED BLOOD COUNT 3.18 MIL/MM3 (4.00-5.30); RED CELL DISTRIBUTION WIDTH 13.8 % (11.6-17.2); REVIEW FLAG FINAL; WHITE BLOOD COUNT 6.4 TH/MM3 (4.0-11.0)
[2016-09-25] MEDS: FLUCONAZOLE 400 MG PREMIX BAG 200 ML IV SCH (09:17)
[2016-09-25 09:27] LABS: MAGNESIUM 1.9 MG/DL (1.5-2.5); POTASSIUM 3.3 MEQ/L (3.5-5.1)
--- NOTE | 2016-09-25 12:47 | HHI.IDPN ---
Note Infectious Disease Note Patient is sitting up in bed eating a tuna sandwich. Says she has pain in the lower back on both sides, lower abdomen and back of neck and that the top of her scalp is sensitive. No distress. Denies dizziness, Photophobia or diplopia. No neck stiffness. Temp lower. No chills, chest pain. CSF had 0 WBC, 5 RBC. CSF culture has no growth. Gallium scan in progress. RF and DANDRE negative. Sed rate elevated. Presented to the emergency department on 09/13 with fever and hematuria. The patient was evaluated 3 weeks prior and was noted to have a stone in the kidney and underwent placement of a ureteral stent double-J. PAST MEDICAL HISTORY Past medical history of diabetes mellitus, kidney stones. PAST SURGICAL HISTORY Cholecystectomy, appendectomy, lithotripsy, ureteral stent, tonsillectomy. ALLERGIES TYLENOL CAUSE SWELLING OF THE TONGUE AND CAUSED HER BREATHING TO SHUT OFF. THE PATIENT ALSO ALLERGIC TO SPLENDA AND NUTRASWEET. MEDICATIONS 1. Vancomycin. 2. Flagyl. 3. Diflucan. OBJECTIVE: Vital Signs Date Time Temp Pulse Resp B/P Pulse Ox O2 Delivery O2 Flow Rate FiO2 09/25/16 08:00 97.4 71 18 124/90 94 09/25/16 07:54 89 09/25/16 04:00 98.7 94 18 108/54 98 09/25/16 00:00 101.4 100 17 108/45 98 09/24/16 19:00 100.9 106 17 127/78 99 09/24/16 18:48 16 09/24/16 17:21 16 09/24/16 16:00 100.5 90 18 102/53 98 09/24/16 09/24/16 09/25/16 15:00 23:00 07:00 Intake Total 600 ml 480 ml 5173 ml Balance 600 ml 480 ml 5173 ml Intake Oral 600 ml 480 ml 250 ml IV Total 4923 ml # Voids 2 3 3 # Bowel Movements 1 0 0 Laboratory Tests Test 09/24/16 09/25/16 12:26 08:27 White Blood Count 6.2 TH/MM3 6.4 TH/MM3 Red Blood Count 3.16 MIL/MM3 3.18 MIL/MM3 Hemoglobin 9.4 GM/DL 9.4 GM/DL Hematocrit 28.8 % 28.9 % Mean Corpuscular Volume 91.4 FL 91.0 FL Mean Corpuscular Hemoglobin 29.7 PG 29.6 PG Mean Corpuscular Hemoglobin 32.5 % 32.5 % Concent Red Cell Distribution Width 13.6 % 13.8 % Platelet Count 193 TH/MM3 208 TH/MM3 Mean Platelet Volume 8.7 FL 8.6 FL Laboratory Tests Test 09/24/16 09/24/16 09/25/16 12:23 12:26 08:27 Sodium Level 141 MEQ/L 139 MEQ/L Potassium Level 2.8 MEQ/L 3.3 MEQ/L Chloride Level 104 MEQ/L 105 MEQ/L Carbon Dioxide Level 27.6 MEQ/L 28.0 MEQ/L Anion Gap 9 MEQ/L 6 MEQ/L Blood Urea Nitrogen 3 MG/DL 2 MG/DL Creatinine 0.72 MG/DL 0.73 MG/DL Estimat Glomerular Filtration 87 ML/MIN 86 ML/MIN Rate Random Glucose 216 MG/DL 168 MG/DL Calcium Level 7.6 MG/DL 7.7 MG/DL Phosphorus Level 1.9 MG/DL 1.9 MG/DL Troponin I LESS THAN 0.02 NG/ML Magnesium Level 1.9 MG/DL Microbiology Date/Time Procedure Status Source Growth 09/24/16 11:00 Gram Stain - Final Resulted Cerebral Spinal Fluid Lumbar Puncture 09/24/16 11:00 CSF Culture - Preliminary Resulted Cerebral Spinal Fluid Lumbar Puncture NO GROWTH IN 24 HOURS. 09/24/16 11:00 Acid Fast Stain Received Cerebral Spinal Fluid Lumbar Puncture Pending 09/24/16 11:00 Mycobacterial Culture Received Cerebral Spinal Fluid Lumbar Puncture Pending 09/24/16 11:00 Fungal Smear - Final Resulted Cerebral Spinal Fluid Lumbar Puncture NO FUNGAL ELEMENTS SEEN. 09/24/16 11:00 Fungal Culture Resulted Cerebral Spinal Fluid Lumbar Puncture Pending IMAGING: Lumbar Puncture Fluoroscopy 09/24/16 0000 Signed Impressions: Service Date/Time: September 10:57 - CONCLUSION: Uncomplicated fluoroscopically guided lumbar puncture with pressures as above. Sarbjit Us MD Head CT 09/23/16 1011 Signed Impressions: Service Date/Time: Friday, September 23, 2016 14:14 - CONCLUSION: No acute disease. Kayode Begum MD Lower Extremity Ultrasound 09/23/16 0000 Signed Impressions: Service Date/Time: Friday, September 23, 2016 11:17 - CONCLUSION: No evidence of deep venous thrombosis within the lower extremities. Kayode Begum MD Chest X-Ray 09/23/16 Signed Impressions: Service Date/Time: Friday, September 23, 2016 09:11 - CONCLUSION: 1. No acute cardiopulmonary findings. Sarbjit Us MD CT Angiography 09/23/16 Signed Impressions: Service Date/Time: Friday, September 23, 2016 14:18 - CONCLUSION: 1. No pulmonary embolus identified. The lungs are clear. Sarbjit Us MD Abdomen/Pelvis CT 09/20/16 Signed Impressions: Service Date/Time: Tuesday, September 20, 2016 15:42 - CONCLUSION: 1. Minimal amount of thickening of the left lateral conal fascia adjacent to one of the several diverticula of the descending colon. This is nonspecific, but does suggest the possibility of diverticulitis. 2. Bilateral nonobstructing renal stones. 3. Subcutaneous fat induration bilateral lateral abdominal wall, left greater than right. Oscar Domínguez MD Chest X-Ray 09/19/16 Signed Impressions: Service Date/Time: Monday, September 19, 2016 17:16 - CONCLUSION: 1. Minimal basilar atelectasis. No effusion or pneumothorax. Rambo Rodriguez MD Abdomen X-Ray 09/18/16 Signed Impressions: Service Date/Time: Sunday, September 18, 2016 13:40 - CONCLUSION: 1. Very limited examination due to patient's body habitus. Small renal calculi cannot be excluded. 2. No obvious bowel obstruction or pneumoperitoneum. 3. Noncontrasted CT scan of the abdomen could be performed for further evaluation if clinically warranted. Tonny Figueroa MD Liver Ultrasound 09/15/16 Signed Impressions: Service Date/Time: Thursday, September 15, 2016 14:16 - CONCLUSION: 1. Normal dimension common hepatic duct. 2. Diffuse increased acoustic attenuation throughout the liver suggests diffuse fatty change. 3. Focal calcification mid pole right kidney without evidence of hydronephrosis. Oscar Domínguez MD Abdomen/Pelvis CT 09/13/167 Signed Impressions: Service Date/Time: Tuesday, September 13, 2016 23:17 - CONCLUSION: Innumerable renal calcifications bilaterally. Left-sided double-J ureteral catheter in good position. No active stone or mass is identified. Status post cholecystectomy Shar Trevizo MD PHYSICAL EXAMINATION GENERAL: Awake and alert. no distress. More alert. HEENT: Focal area of tenderness at the r. posterior head, same. No icterus. Oropharynx no visible lesions. NECK: Supple. No adenopathy. LUNGS: Clear to auscultation. HEART: Regular rate and rhythm without audible murmurs, rubs or gallops. ABDOMEN: Bowel sounds present, distended, soft, left flank tenderness, lower abdominal tenderness. EXTREMITIES: No clubbing, cyanosis or edema. SKIN: No rash. NEURO: Nonfocal. PSYCHIATRIC: Calm and cooperative. IMPRESSION 1. Sepsis indicated by fever, tachycardia, increased respiratory rate. patient with left flank pain and chills and fever suggesting pyelonephritis. Negative cultures. 2. FUO - Persistent fever. WBC normal. ? etiology. ? inflammatory condition. - CSF unremarkable - Cultures negative. - CT without obvious abscess. - Gallium scan pending. 3. Recent treatment for UTI and left-sided ureteral stent removal. 4. Recent kidney stone treated with lithotripsy. 5. Abdominal pain. ? diverticulitis abd CT finding. RECOMMENDATIONS 1. Stop vancomycin. Level was sub therapeutic. Increased by pharmacy. 2. Stop Flagyl. 3. Continue Diflucan for mow. 4. Follow HIV test. CSF Crypto antigen. 5. Follow Gallium scan. 6. Monitor temps. Hopefully temp trends down. 7. Monitor clinical exam. May have to consider trial of steroids. ? polymyalgia rheumatica. If fever resolves she can be discharged and follow up with primary doctor. Would like to see her afebrile 24 - 48 hours. Cuong Navas MD Sep 25, 2016 12:47
[2016-09-25] MEDS ORDERED: HYDROmorphone HCL PF 1 MG/ML VIAL IV ONE (16:00)
[2016-09-26] VITALS (8 sets, daily range): BP systolic 92–118; BP diastolic 50–69; PULSE 79–110; RESP 16–19; TEMP 95.7–101.1; O2SAT 94–97
[2016-09-26] MEDS: TEMAZEPAM 15 MG CAP PO PRN ×2 (00:45→20:18)
[2016-09-26] MEDS: SODIUM CHLOR 0.9% 1000 ML INJ 1,000 ML IV SCH ×3 (01:16→20:25)
[2016-09-26] MEDS ORDERED: PHARMACY ORDERED LAB ONE (03:45)
[2016-09-26] MEDS: POTASSIUM PHOSPHATE/SODIUM PHOSPHATE 250 MG TAB PO SCH ×3 (06:13→20:13)
[2016-09-26] MEDS: ALPRAZolam 1 MG TAB PO PRN ×3 (06:13→23:02)
[2016-09-26] MEDS: INSULIN ASPART SUPPLEMENTAL SCALE SQ SCH ×4 (06:15→20:22)
--- NOTE | 2016-09-26 07:50 | HHI.PR ---
Subjective Remarks still febrile- Tmax 101.3. has mild headache but it seems better than yesterday. no cough,sob, abdominal pain or nausea. Objective Vitals Vital Signs Date Time Temp Pulse Resp B/P Pulse Ox O2 Delivery O2 Flow Rate FiO2 09/26/16 04:00 100.0 85 17 114/69 96 09/26/16 00:00 101.1 100 16 100/57 96 09/25/16 19:00 101.3 99 18 114/64 97 09/25/16 16:00 99.9 90 20 107/55 95 09/25/16 12:53 16 09/25/16 12:00 99.6 100 18 102/61 94 09/25/16 08:00 97.4 71 18 124/90 94 09/25/16 07:54 89 I/O 09/25/16 09/25/16 09/25/16 09/26/16 09/26/16 09/26/16 07:00 15:00 23:00 07:00 15:00 23:00 Intake Total 5173 ml 960 ml 480 ml 480 ml Balance 5173 ml 960 ml 480 ml 480 ml Intake Oral 250 ml 960 ml 480 ml 480 ml IV Total 4923 ml # Voids 3 1 4 3 # Bowel Movements 0 0 0 0 Result Diagram: 09/25/1627 09/25/16826 Imaging Last Impressions Lumbar Puncture Fluoroscopy 09/24/16 0000 Signed Impressions: Service Date/Time: September 10:57 - CONCLUSION: Uncomplicated fluoroscopically guided lumbar puncture with pressures as above. Sarbjit Us MD Head CT 09/23/16 1011 Signed Impressions: Service Date/Time: Friday, September 23, 2016 14:14 - CONCLUSION: No acute disease. Kayode Begum MD Lower Extremity Ultrasound 09/23/16 0000 Signed Impressions: Service Date/Time: Friday, September 23, 2016 11:17 - CONCLUSION: No evidence of deep venous thrombosis within the lower extremities. Kayode Begum MD Chest X-Ray 09/23/16 0000 Signed Impressions: Service Date/Time: Friday, September 23, 2016 09:11 - CONCLUSION: 1. No acute cardiopulmonary findings. Sarbjit Us MD CT Angiography 09/23/16 0000 Signed Impressions: Service Date/Time: Friday, September 23, 2016 14:18 - CONCLUSION: 1. No pulmonary embolus identified. The lungs are clear. Sarbjit Us MD Soft Tissue Ultrasound 09/21/16 0000 Signed Impressions: Service Date/Time: Wednesday, September 21, 2016 21:31 - CONCLUSION: Nonspecific body wall edema. No abscess. Leonel Glovre MD Abdomen/Pelvis CT 09/20/16 0000 Signed Impressions: Service Date/Time: Tuesday, September 20, 2016 15:42 - CONCLUSION: 1. Minimal amount of thickening of the left lateral conal fascia adjacent to one of the several diverticula of the descending colon. This is nonspecific, but does suggest the possibility of diverticulitis. 2. Bilateral nonobstructing renal stones. 3. Subcutaneous fat induration bilateral lateral abdominal wall, left greater than right. Oscar Domínguez MD Abdomen X-Ray 09/18/16 0000 Signed Impressions: Service Date/Time: Sunday, September 18, 2016 13:40 - CONCLUSION: 1. Very limited examination due to patient's body habitus. Small renal calculi cannot be excluded. 2. No obvious bowel obstruction or pneumoperitoneum. 3. Noncontrasted CT scan of the abdomen could be performed for further evaluation if clinically warranted. Tonny Figueroa MD Liver Ultrasound 09/15/16 0000 Signed Impressions: Service Date/Time: Thursday, September 15, 2016 14:16 - CONCLUSION: 1. Normal dimension common hepatic duct. 2. Diffuse increased acoustic attenuation throughout the liver suggests diffuse fatty change. 3. Focal calcification mid pole right kidney without evidence of hydronephrosis. Oscar Domínguez MD Objective Remarks GENERAL: This is a well-nourished, well-developed patient, in no apparent distress. CARDIOVASCULAR: Regular rate and regular rhythm without murmurs, gallops, or rubs. RESPIRATORY: Clear to auscultation. Breath sounds equal bilaterally. No wheezes , rales, or rhonchi. GASTROINTESTINAL: Abdomen soft, mild right flank tenderness, nondistended. Normal, active bowel sounds MUSCULOSKELETAL: Extremities without clubbing, cyanosis, or edema. NEURO: Alert & Oriented x4 to person, place, time, situation. Moves all ext x4 Procedures cystoscopy, left ureteroscopy, laser lithotripsy, stent removal LP Medications and IVs Current Medications Ceftriaxone Sodium/Sodium Chloride (Rocephin Inj/NS Inj) 100 ml @ 200 mls/hr ONCE ONCE IV Last administered on 09/13/16 22:09; Start 09/13/16 at 22:00; Stop 09/13/16 at 22:29; Status DC Hydromorphone HCl (Dilaudid Pf Inj) 1 mg ONCE ONCE IV PUSH Last administered on 09/13/16 22:09; Start 09/13/16 at 22:00; Stop 09/13/16 at 22:01; Status DC Ondansetron HCl (Zofran Inj) 4 mg ONCE ONCE IV PUSH Last administered on 22:09; Start 09/13/16 at 22:00; Stop 09/13/16 at 22:01; Status DC Ketorolac Tromethamine 30 mg 30 mg ONCE ONCE IV PUSH Last administered on 23:44; Start 09/13/16 at 22:45; Stop 09/13/16 at 22:46; Status DC Ceftriaxone Sodium 1000 mg/ Sodium Chloride 100 ml @ 200 mls/hr Q24H IV Last administered on 09/17/16 21:08; Start 09/14/16 at 22:00; Stop 09/18/16 at 11:43; Status DC Sodium Chloride (NS 1000 ml Inj) 1,000 ml @ 100 mls/hr Q10H IV Last administered on 09/24/16 09:39; Start 09/14/16 at 02:00 Sodium Chloride (NS Flush) 2 ml UNSCH PRN IV FLUSH FLUSH AFTER USING IV ACCESS ; Start 09/14/16 at 01:30 Sodium Chloride (NS Flush) 2 ml BID IV FLUSH Last administered on 09/25/16 21: 02; Start 09/14/16 at 09:00 Ondansetron HCl (Zofran Inj) 4 mg Q6H PRN IVP NAUSEA OR VOMITING Last administered on 09/24/16 01:38; Start 09/14/16 at 01:30 Hydromorphone HCl (Dilaudid Pf Inj) 1 mg Q3H PRN IV Pain 6-10 Last administered on 09/14/16 17:21; Start 09/14/16 at 01:30; Stop 09/14/16 at 18:38; Status DC Senna/Docusate Sodium (Alisha-Colace) 1 tab BID PO Last administered on 07:43; Start 09/14/16 at 09:00 Magnesium Hydroxide (Milk Of Magnesia Liq) 30 ml Q12H PRN PO MILD - MODERATE CONSTIPATION Last administered on 09/25/16 07:43; Start 09/14/16 at 01:30 Sennosides (Senokot) 17.2 mg Q12H PRN PO MODERATE - SEVERE CONSTIPATION Last administered on 09/25/16 07:43; Start 09/14/16 at 01:30 Bisacodyl (Dulcolax Supp) 10 mg DAILY PRN RECTAL SEVERE CONSITIPATION Last administered on 09/17/16 04:30; Start 09/14/16 at 01:30 Lactulose (Lactulose Liq) 30 ml DAILY PRN PO SEVERE CONSITIPATION Last administered on 09/19/16 08:42; Start 09/14/16 at 01:30 Dextrose (D50w (Vial) Inj) 50 ml UNSCH PRN IV HYPOGLYCEMIA-SEE COMMENTS Last administered on 09/15/16 21:52; Start 09/14/16 at 02:45; Stop 09/18/16 at 11:45; Status DC Glucagon (Glucagon Inj) 1 mg UNSCH PRN OTHER HYPOGLYCEMIA-SEE COMMENTS; Start 09/14/16 at 02:45; Stop 09/18/16 at 11:45; Status DC Insulin Aspart (NovoLOG SUPPLEMENTAL SCALE) 1 ACHS SLIDING SCALE SQ Last administered on 09/18/16 11:20; Start 09/14/16 at 07:00; Stop 09/18/16 at 11:45; Status DC Hydromorphone HCl (Dilaudid Pf Inj) 1 mg ONCE ONCE IV PUSH Last administered on 09/14/16 03:46; Start 09/14/16 at 03:30; Stop 09/14/16 at 03:36; Status DC Ketorolac Tromethamine (Toradol Inj) 30 mg Q6HR IV PUSH Last administered on 11:19; Start 09/14/16 at 13:00; Stop 09/19/16 at 12:59; Status DC Tamsulosin HCl (Flomax) 0.4 mg DAILY PO Last administered on 09/25/16 07:43; Start 09/14/16 at 13:00 Phenazopyridine HCl (Pyridium) 200 mg Q8HR PO Last administered on 09/16/16 20: 15; Start 09/14/16 at 14:00; Stop 09/17/16 at 06:51; Status DC Oxycodone HCl (Roxicodone) 5 mg Q4H PRN PO PAIN SCALE 1 TO 4; Start 09/14/16 at 18:45; Stop 09/17/16 at 10:25; Status DC Oxycodone HCl (Roxicodone) 10 mg Q4H PRN PO PAIN SCALE 5 TO 10 Last administered on 09/17/16 08:52; Start 09/14/16 at 18:45; Stop 09/17/16 at 10:25; Status DC Hydromorphone HCl 1 mg 1 mg Q4H PRN IV PUSH BREAKTHROUGH PAIN Last administered on 09/17/16 21:27; Start 09/14/16 at 18:45; Stop 09/18/16 at 11:46; Status DC Lactated Ringer's 1,000 ml @ 30 mls/hr Q24H PRN IV SEE LABEL COMMENTS; Start at 22:00; Stop 09/19/16 at 21:59; Status DC Sodium Chloride (NS 500 ml Inj) 500 ml @ 30 mls/hr [id number] PRN IV SEE LABEL COMMENTS; Start 09/16/16 at 22:00; Stop 09/19/16 at 21:59; Status DC Metoprolol Tartrate (Lopressor) 25 mg STAFFING ANALYST PRN PO SEE LABEL COMMENTS; Start 09/16/16 at 22:00; Stop 09/19/16 at 21:59; Status DC Povidone Iodine (Betadine 5% Antisepsis Kit) 1 applic STAFFING ANALYST PRN EACH NARE SEE LABEL COMMENTS; Start 09/16/16 at 22:00; Stop 09/19/16 at 21:59; Status DC Chlorhexidine Gluconate (Chlorhexidine 2% Cloth) 3 pack STAFFING ANALYST PRN TOPICAL SEE LABEL COMMENTS; Start 09/16/16 at 22:00; Stop 09/19/16 at 21:59; Status DC Insulin Human Regular (NovoLIN R INJ) See Protocol Table ... STAFFING ANALYST PRN SQ SEE PROTOCOL TABLE; Start 09/16/16 at 22:00; Stop 09/19/16 at 21:59; Status DC Phenazopyridine HCl (Pyridium) 200 mg Q8HR PO Last administered on 09/17/16 07: 06; Start 09/17/16 at 06:00; Stop 09/18/16 at 02:41; Status DC Prochlorperazine Edisylate (Compazine Inj) 5 mg Q6H PRN IM NAUSEA OR VOMITING Last administered on 09/25/16 23:12; Start 09/17/16 at 10:30 Temazepam (Restoril) 15 mg HS PRN PO INSOMNIA Last administered on 09/26/16 00 :45; Start 09/17/16 at 10:30 Polyethylene Glycol (Miralax) 17 gm DAILY PRN PO CONSTIPATION. SEE LABEL COMMEN Last administered on 09/19/16 08:43; Start 09/17/16 at 10:30; Stop at 15:16; Status DC Morphine Sulfate (Morphine Inj) 2 mg Q3H PRN IV PUSH PAIN SCALE 1 TO 4; Start 09/17/16 at 10:30; Stop 09/18/16 at 11:46; Status DC Morphine Sulfate (Morphine Inj) 4 mg Q3H PRN IV PUSH PAIN SCALE 5 TO 10 Last administered on 09/18/16 11:17; Start 09/17/16 at 10:30; Stop 09/18/16 at 11:46; Status DC Midazolam HCl (Versed Inj) 2 mg STK-MED ONCE .ROUTE ; Start 09/17/16 at 17:21; Stop 09/17/16 at 17:22; Status DC Belladonna Alkaloids/Opium (B & O Supp) 60 mg Q6HR PRN RECTAL BLADDER SPASM; Start 09/17/16 at 19:00 Fentanyl Citrate (fentaNYL INJ) 250 mcg STK-MED ONCE .ROUTE ; Start 09/17/16 at 19:02; Stop 09/17/16 at 19:03; Status DC Cefazolin Sodium (Ancef Inj) 2,000 mg STK-MED ONCE IV Last administered on 17:56; Start 09/17/16 at 17:56; Stop 09/17/16 at 19:21; Status DC Morphine Sulfate (Morphine Inj) 8 mg STK-MED ONCE .ROUTE Last administered on 19:40; Start 09/17/16 at 19:40; Stop 09/17/16 at 19:41; Status DC Phenazopyridine HCl 200 mg 200 mg Q8HR PO Last administered on 09/22/16 13:21 ; Start 09/18/16 at 06:00; Stop 09/22/16 at 13:58; Status DC Piperacillin Sod/ Tazobactam Sod (Zosyn 4.5 Gm Premix) 100 ml @ 200 mls/hr Q8H IV Last administered on 09/20/16 11:16; Start 09/18/16 at 14:00; Stop 09/20/16 at 12:04; Status DC Dextrose (D50w (Vial) Inj) 50 ml UNSCH PRN IV HYPOGLYCEMIA-SEE COMMENTS; Start 09/18/16 at 11:45 Glucagon (Glucagon Inj) 1 mg UNSCH PRN OTHER HYPOGLYCEMIA-SEE COMMENTS; Start 09/18/16 at 11:45 Insulin Aspart (NovoLOG SUPPLEMENTAL SCALE) 1 ACHS SLIDING SCALE SQ Last administered on 09/25/16 21:01; Start 09/18/16 at 16:00 Oxycodone HCl (Roxicodone) 5 mg Q4H PRN PO PAIN SCALE 1 TO 4; Start 09/18/16 at 13:00; Stop 09/21/16 at 16:08; Status DC Oxycodone HCl (Roxicodone) 10 mg Q4H PRN PO PAIN SCALE 5 TO 10 Last administered on 09/21/16 06:15; Start 09/18/16 at 12:00; Stop 09/21/16 at 16:08 ; Status DC Morphine Sulfate 4 mg 4 mg Q3H PRN IV PUSH BREAKTHROUGH PAIN Last administered on 09/21/16 15:10; Start 09/18/16 at 12:00; Stop 09/21/16 at 16:08; Status DC Vancomycin HCl 1000 mg/Sodium Chloride 250 ml @ 250 mls/hr ONCE ONCE IV Last administered on 09/19/16 13:35; Start 09/19/16 at 12:30; Stop 09/19/16 at 13:29 ; Status DC Pharmacy Profile Note (Vancomycin Consult Pharmacy) 0 ml @ 0 mls/hr UNSCH OTHER ; Start 09/19/16 at 11:45; Stop 09/25/16 at 09:08; Status DC Insulin Detemir 10 units 10 units Q12HR SQ Last administered on 09/25/16 21:01 ; Start 09/19/16 at 11:45 Vancomycin HCl 1000 mg/Sodium Chloride 250 ml @ 250 mls/hr ONCE ONCE IV Last administered on 09/19/16 13:35; Start 09/19/16 at 13:30; Stop 09/19/16 at 14:29 ; Status DC Vancomycin HCl/ Sodium Chloride (Vancomycin Inj/ NS 500 ml Inj) 515 ml @ 257.5 mls/ hr Q12H IV Last administered on 09/21/16 20:52; Start 09/20/16 at 03:00; Stop 09/21/16 at 21:14; Status DC Miscellaneous Information SPECIFIC LAB TO BE DARIEN... ONCE ONCE .XX Last administered on 09/21/16 02:45; Start 09/21/16 at 02:45; Stop 09/21/16 at 02:46 ; Status DC Iohexol (Omnipaque 350 Inj) 100 ml STK-MED ONCE IV Last administered on 15:48; Start 09/20/16 at 15:48; Stop 09/20/16 at 15:49; Status DC Potassium Phos/ Sodium Phos 250 mg 250 mg Q8HR PO Last administered on 05:24; Start 09/20/16 at 22:00; Stop 09/23/16 at 10:57; Status DC Calcium Chloride 2 gm/Sodium Chloride 120 ml @ 120 mls/hr ONCE ONCE IV Last administered on 09/20/16 17:57; Start 09/20/16 at 17:00; Stop 09/20/16 at 17:59 ; Status DC Aztreonam 2000 mg/ Sodium Chloride 100 ml @ 200 mls/hr Q6H IV Last administered on 09/22/16 05:34; Start 09/20/16 at 17:00; Stop 09/22/16 at 09:46 ; Status DC Metronidazole 100 ml @ 100 mls/hr Q6H IV ; Start 09/20/16 at 18:00; Stop at 18:05; Status DC Metronidazole (Flagyl 500 Mg Inj) 100 ml @ 100 mls/hr Q6H IV Last administered on 09/25/16 07:44; Start 09/20/16 at 21:00; Stop 09/25/16 at 09:08 ; Status DC Insulin Aspart (NovoLOG INJ) 8 units TIDAC SQ Last administered on 09/22/16 11 :52; Start 09/21/16 at 08:00; Status Hold Miscellaneous Information SPECIFIC LAB TO BE DARIEN... ONCE ONCE .XX Last administered on 09/21/16 15:20; Start 09/21/16 at 14:45; Stop 09/21/16 at 14:46 ; Status DC Morphine Sulfate (Morphine Inj) 2 mg Q3H PRN IV PUSH PAIN SCALE 1 TO 7 Last administered on 09/24/16 10:11; Start 09/21/16 at 16:15; Stop 09/25/16 at 08:12 ; Status DC Morphine Sulfate (Morphine Inj) 4 mg Q3H PRN IV PUSH PAIN SCALE 8 TO 10 Last administered on 09/25/16 06:16; Start 09/21/16 at 16:15; Stop 09/25/16 at 08:12 ; Status DC Polyethylene Glycol (Miralax) 17 gm ONCE ONCE PO ; Start 09/21/16 at 16:15; Stop 09/21/16 at 16:19; Status DC Alprazolam (Xanax) 1 mg Q8HR PRN PO ANXIETY Last administered on 09/26/16 06: 13; Start 09/21/16 at 16:15 Potassium Phos/ Sodium Phos 250 mg 250 mg Q8HR PO ; Start 09/21/16 at 22:00; Stop 09/22/16 at 16:21; Status DC Vancomycin HCl/ Sodium Chloride (Vancomycin Inj/ NS 500 ml Inj) 515 ml @ 257.5 mls/ hr Q12H IV Last administered on 09/22/16 08:10; Start 09/22/16 at 09:00; Stop 09/22/16 at 10:12; Status DC Miscellaneous Information SPECIFIC LAB TO BE DRAWN:VANCO TROUGH DATE TO... ONCE ONCE .XX Last administered on 09/24/16 04:00; Start 09/24/16 at 03:45; Stop 09/24/16 at 03:46; Status DC Vancomycin HCl/ Sodium Chloride (Vancomycin Inj/ NS 500 ml Inj) 522.5 ml @ 257.5 mls/ hr Q12H IV Last administered on 09/25/16 04:00; Start 09/22/16 at 16:00; Stop 09/25/16 at 09:09; Status DC Propofol (Diprivan 200 Mg/20 ml Inj) 200 mg STK-MED ONCE IV ; Start 09/17/16 at 12:00; Stop 09/22/16 at 15:24; Status DC Ephedrine Sulfate (ePHEDrine/NS 25 MG/5 ML SYR) 25 mg STK-MED ONCE IV ; Start at 12:00; Stop 09/22/16 at 15:24; Status DC Phenylephrine HCl (Neosynephrine/ NS 1000 Mcg/10ml Syr) 1,000 mcg STK-MED ONCE IV ; Start 09/17/16 at 12:00; Stop 09/22/16 at 15:24; Status DC Ketorolac Tromethamine (Toradol Inj) 60 mg STK-MED ONCE IM ; Start 09/17/16 at 12 :00; Stop 09/22/16 at 15:24; Status DC Ondansetron HCl 4 mg 4 mg STK-MED ONCE IV PUSH ; Start 09/17/16 at 12:00; Stop at 15:24; Status DC Lactated Ringer's (Lr 1000 ml Inj) 1,000 ml @ As Directed STK-MED ONCE IV ; Start 09/17/16 at 12:00; Stop 09/22/16 at 15:24; Status DC Potassium Chloride (KCl) 60 meq ONCE ONCE PO Last administered on 09/22/16 22 :11; Start 09/22/16 at 19:00; Stop 09/22/16 at 19:02; Status DC Potassium Chloride (KCl) 30 meq ONCE ONCE PO Last administered on 09/23/16 09 :45; Start 09/23/16 at 09:45; Stop 09/23/16 at 09:46; Status DC Potassium Phos/ Sodium Phos (K-Phos Neutral) 250 mg Q8HR PO Last administered on 09/26/16 06:13; Start 09/23/16 at 14:00 Miscellaneous Information SPECIFIC LAB TO BE DRAWN:VANCOMYCIN TROUGH DATE TO... ONCE ONCE .XX ; Start 09/26/16 at 03:45; Stop 09/26/16 at 03:45; Status DC Fluconazole/ Sodium Chloride (Diflucan 400 Mg Premix Bag) 200 ml @ 100 mls/hr Q24H IV Last administered on 09/25/16 09:17; Start 09/24/16 at 10:00 Hydromorphone HCl (Dilaudid Pf Inj) 1 mg STAT ONCE IV Last administered on 16:32; Start 09/24/16 at 16:00; Stop 09/24/16 at 16:01; Status DC Potassium Chloride 40 meq 40 meq ONCE ONCE PO Last administered on 09/25/16 02:34; Start 09/25/16 at 02:15; Stop 09/25/16 at 02:16; Status DC Potassium Chloride (KCl 20 Meq Premix Inj) 100 ml @ 50 mls/hr Q2H IV Last administered on 09/25/16 04:00; Start 09/25/16 at 02:15; Stop 09/25/16 at 06:14 ; Status DC Tramadol HCl (Ultram) 50 mg Q8H PRN PO PAIN 1-10/HEADACHE; Start 09/25/16 at 08 :00; Stop 09/25/16 at 09:25; Status DC Morphine Sulfate (Morphine Inj) 2 mg Q4HR PRN IV PUSH BREAKTHROUGH PAIN Last administered on 09/25/16 12:47; Start 09/25/16 at 08:00 Iohexol (Omnipaque 350 Inj) 70 ml STK-MED ONCE IV Last administered on 14:18; Start 09/23/16 at 14:18; Stop 09/25/16 at 11:11; Status DC Hydromorphone HCl (Dilaudid Pf Inj) 0.2 mg NOW ONCE IV Last administered on 16:33; Start 09/25/16 at 16:00; Stop 09/25/16 at 16:01; Status DC Oxycodone HCl (Roxicodone) 10 mg Q6H PRN PO PAIN WHEN TOLERATING PO MEDS Last administered on 09/26/16 06:13; Start 09/25/16 at 16:00 A/P Assessment and Plan (1) Sepsis Patient with tachycardia and fever with a MAXIMUM TEMPERATURE of 102.2 after stent removal and stone lithotripsy. Likely infected stone (pyonephritis). Patient is status post left ureteral stent placement at approximately 3 weeks ago for a 9 mm obstructing left renal stone. The patient was discharged and referred to a urologist. However the patient states that the urologist did not accept her insurance and she was not seen. The patient presented to [place] ER on 09/06/16, CT abdomen and pelvis with stent in good position, no hydronephrosis, the patient was referred to Dr. Lira for stent removal as outpatient however was not seen yet when patient presented to the ED. CT abdomen and pelvis on 09/13/16 with innumerable renal calcifications bilaterally, left-sided double-J ureteral catheter in good position. Urology was consulted ; Patient was taken to the OR on and underwent cystoscopy, left ureteroscopy, laser lithotripsy and left ureteral stent removal. (2)- FUO Repeat CT of the abdomen and pelvis showed changes consistent with possible diverticulitis. Bilateral nonobstructing renal stones. An subcutaneous fatty induration in the bilateral abdominal wall left greater than right. CTA chest with no PE and clear lungs. RF and DANDRE negative. Soft tissue ultrasound of the abdomen did not show any fluid collection or abscess. LP was performed- CSF cultures and blood cultures negative. HIV testing negative. Sedimentation rate elevated at 85. gallium scan pending. ID is following. (3) Headache continue with pain control. head CT with no acute abnormality. (4) diabetes mellitus Hemoglobin A1c ordered and 9.0. continue levemir and SSI. (5) Hypophosphatemia replaced- will monitor. (6) Hypokalemia Likely secondary to decreased by mouth intake. replaced - will monitor. (7) Transaminitis-resolved. Liver ultrasound showed normal dimension, hepatic duct. Diffusely increased acoustic attenuation of the liver suggesting fatty change. hepatitis panel negative. Discharge Planning not ready for discharge.work-up in progress. Cece Bryson MD Sep 26, 2016 07:50
[2016-09-26] MEDS: DOCUSATE SODIUM 50 MG/SENNA 8.6 MG TAB PO SCH ×2 (08:20→20:13)
[2016-09-26] MEDS: TAMSULOSIN HCL 0.4 MG CAP PO SCH (08:20)
[2016-09-26] MEDS: INSULIN DETEMIR 100 UNITS/ML VIAL SQ SCH ×2 (08:23→20:21)
[2016-09-26] MEDS: SODIUM CHLORIDE 0.9% FLUSH 10 ML FLUSH IV FLUSH SCH ×2 (08:23→20:15)
[2016-09-26] MEDS: predniSONE 20 MG TAB PO SCH ×2 (10:00→13:29)
[2016-09-26] MEDS: FLUCONAZOLE 400 MG PREMIX BAG 200 ML IV SCH (11:20)
--- NOTE | 2016-09-26 11:31 | RADRPT ---
EXAM DATE/TIME: 09/25/2016 11:30 [facility] COMPARISON: CT PULMONARY ANGIOGRAM, September 23, 2016, 14:18. CT BRAIN W/O CONTRAST, September 23, 2016, 14:14. INDICATIONS : Fever with kidney stones for 10 days. Left flank pain. DOSE: 6.2 mCi Gallium 67 Citrate IV PLANAR IMAGIN hrs, 24 hrs, 48 hrs MEDICAL HISTORY : Hypertension. Diabetes mellitus type 2. SURGICAL HISTORY : Cholecystectomy. Appendectomy. Hysterectomy. lithotripsy, ureteral stent. ENCOUNTER: Subsequent ACUITY: 2 weeks PAIN SCALE: 0/10 LOCATION: Left flank TECHNIQUE: Whole body imaging was performed at the specified times after intravenous administration of radiogal lium. FINDINGS: There is normal biodistribution of the radiotracer. No intense focal activity is seen to suggest a fo cus of infection. CONCLUSION: No abnormal uptake is identified to suggest an infectious or inflammatory process. Leonel Suarez MD on September 26, 2016 at 11:24 Board Certified Radiologist. This report was verified electronically.
[2016-09-26] MEDS: MORPHINE SULFATE 4 MG/ML INJ IV PUSH PRN (11:48)
[2016-09-26] MEDS: SENNOSIDES 8.6 MG TAB PO PRN (20:13)
[2016-09-26] MEDS: MAGNESIUM HYDROXIDE SUSP 30 ML CUP PO PRN (20:13)
[2016-09-27] VITALS: BP 119/68; PULSE 84; RESP 16; TEMP 97.4; O2SAT 97
[2016-09-27 04:00] VITALS: BP 111/58; PULSE 92; RESP 18; TEMP 96.9; O2SAT 95
[2016-09-27] MEDS: POTASSIUM PHOSPHATE/SODIUM PHOSPHATE 250 MG TAB PO SCH (06:15)
[2016-09-27] MEDS: INSULIN ASPART SUPPLEMENTAL SCALE SQ SCH ×4 (06:18→20:03)
[2016-09-27 07:05] LABS: AUTOMATED NEUTROPHIL # 5.1 TH/MM3 (1.8-7.7); BASOPHIL % 0.7 % (0.0-2.0); EOSINOPHIL % 0.2 % (0.0-4.0); HEMATOCRIT 31.1 % (35.0-46.0); HEMO FLAGS DIFF FINAL; LYMPH % 13.8 % (9.0-44.0); LYMPHOCYTE # 0.9 TH/MM3 (1.0-4.8); MEAN CELL VOLUME 91.7 FL (80.0-100.0); MEAN CORPUSCULAR HEMOGLOBIN 29.4 PG (27.0-34.0); MEAN CORPUSCULAR HGB CONC 32.1 % (32.0-36.0); MONO % 5.6 % (0.0-8.0); NEUT % 79.7 % (16.0-70.0); PLATELET COUNT 246 TH/MM3 (150-450); RED BLOOD COUNT 3.39 MIL/MM3 (4.00-5.30); RED CELL DISTRIBUTION WIDTH 13.9 % (11.6-17.2); WHITE BLOOD COUNT 6.3 TH/MM3 (4.0-11.0)
[2016-09-27 07:42] LABS: BICARBONATE 31.6 MEQ/L (21.0-32.0); POTASSIUM 3.9 MEQ/L (3.5-5.1)
--- NOTE | 2016-09-27 07:57 | HHI.PR ---
Subjective Remarks in no acute distress. temps improving- Tmax 100.4. complaining of generalized body ache and blurred vision on left side. Objective Vitals Vital Signs Date Time Temp Pulse Resp B/P Pulse Ox O2 Delivery O2 Flow Rate FiO2 09/27/16 04:00 96.9 92 18 111/58 95 09/27/16 00:00 97.4 84 16 119/68 97 09/26/16 23:22 79 09/26/16 20:00 98.4 88 16 118/60 95 09/26/16 18:39 Room Air 09/26/16 18:07 110 09/26/16 16:00 100.4 88 19 92/50 94 09/26/16 12:00 95.7 89 18 101/61 96 09/26/16 08:00 99.7 100 19 99/60 97 I/O 09/26/16 09/26/16 09/26/16 09/27/16 09/27/16 09/27/16 07:00 15:00 23:00 07:00 15:00 23:00 Intake Total 480 ml 1320 ml 480 ml Balance 480 ml 1320 ml 480 ml Intake Oral 480 ml 1320 ml 480 ml Bladder Scan Volume Amount 40 ml 663 ml # Voids 3 2 0 # Bowel Movements 0 0 0 Result Diagram: 09/27/16 0647 09/27/16 0647 Imaging Last Impressions Lumbar Puncture Fluoroscopy 09/24/16 0000 Signed Impressions: Service Date/Time: September 10:57 - CONCLUSION: Uncomplicated fluoroscopically guided lumbar puncture with pressures as above. Sarbjit Us MD Gallium Scan Nuclear Medicine 09/24/16 0000 Signed Impressions: Service Date/Time: Sunday, September 25, 2016 11:30 - CONCLUSION: No abnormal uptake is identified to suggest an infectious or inflammatory process. Leonel Suarez MD Head CT 09/23/16 1011 Signed Impressions: Service Date/Time: Friday, September 23, 2016 14:14 - CONCLUSION: No acute disease. Kayode Begum MD Lower Extremity Ultrasound 09/23/16 0000 Signed Impressions: Service Date/Time: Friday, September 23, 2016 11:17 - CONCLUSION: No evidence of deep venous thrombosis within the lower extremities. Kayode Begum MD Chest X-Ray 09/23/16 Signed Impressions: Service Date/Time: Friday, September 23, 2016 09:11 - CONCLUSION: 1. No acute cardiopulmonary findings. Sarbjit Us MD CT Angiography 09/23/16 Signed Impressions: Service Date/Time: Friday, September 23, 2016 14:18 - CONCLUSION: 1. No pulmonary embolus identified. The lungs are clear. Sarbjit Us MD Soft Tissue Ultrasound 09/21/16 Signed Impressions: Service Date/Time: Wednesday, September 21, 2016 21:31 - CONCLUSION: Nonspecific body wall edema. No abscess. Leonel Glover MD Abdomen/Pelvis CT 09/20/16 Signed Impressions: Service Date/Time: Tuesday, September 20, 2016 15:42 - CONCLUSION: 1. Minimal amount of thickening of the left lateral conal fascia adjacent to one of the several diverticula of the descending colon. This is nonspecific, but does suggest the possibility of diverticulitis. 2. Bilateral nonobstructing renal stones. 3. Subcutaneous fat induration bilateral lateral abdominal wall, left greater than right. Oscar Domínguez MD Abdomen X-Ray 09/18/16 Signed Impressions: Service Date/Time: Sunday, September 18, 2016 13:40 - CONCLUSION: 1. Very limited examination due to patient's body habitus. Small renal calculi cannot be excluded. 2. No obvious bowel obstruction or pneumoperitoneum. 3. Noncontrasted CT scan of the abdomen could be performed for further evaluation if clinically warranted. Tonny Figueroa MD Liver Ultrasound 09/15/16 Signed Impressions: Service Date/Time: Thursday, September 15, 2016 14:16 - CONCLUSION: 1. Normal dimension common hepatic duct. 2. Diffuse increased acoustic attenuation throughout the liver suggests diffuse fatty change. 3. Focal calcification mid pole right kidney without evidence of hydronephrosis. Oscar Domínguez MD Objective Remarks GENERAL: This is a well-nourished, well-developed patient, in no apparent distress. CARDIOVASCULAR: Regular rate and regular rhythm without murmurs, gallops, or rubs. RESPIRATORY: Clear to auscultation. Breath sounds equal bilaterally. No wheezes , rales, or rhonchi. GASTROINTESTINAL: Abdomen soft, mild right flank tenderness, nondistended. Normal, active bowel sounds MUSCULOSKELETAL: Extremities without clubbing, cyanosis, or edema. NEURO: Alert & Oriented x4 to person, place, time, situation. Moves all ext x4 Procedures cystoscopy, left ureteroscopy, laser lithotripsy, stent removal LP Medications and IVs Current Medications Ceftriaxone Sodium/Sodium Chloride (Rocephin Inj/NS Inj) 100 ml @ 200 mls/hr ONCE ONCE IV Last administered on 09/13/16 22:09; Start 09/13/16 at 22:00; Stop 09/13/16 at 22:29; Status DC Hydromorphone HCl (Dilaudid Pf Inj) 1 mg ONCE ONCE IV PUSH Last administered on 09/13/16 22:09; Start 09/13/16 at 22:00; Stop 09/13/16 at 22:01; Status DC Ondansetron HCl (Zofran Inj) 4 mg ONCE ONCE IV PUSH Last administered on 22:09; Start 09/13/16 at 22:00; Stop 09/13/16 at 22:01; Status DC Ketorolac Tromethamine 30 mg 30 mg ONCE ONCE IV PUSH Last administered on 23:44; Start 09/13/16 at 22:45; Stop 09/13/16 at 22:46; Status DC Ceftriaxone Sodium 1000 mg/ Sodium Chloride 100 ml @ 200 mls/hr Q24H IV Last administered on 09/17/16 21:08; Start 09/14/16 at 22:00; Stop 09/18/16 at 11:43; Status DC Sodium Chloride (NS 1000 ml Inj) 1,000 ml @ 100 mls/hr Q10H IV Last administered on 09/24/16 09:39; Start 09/14/16 at 02:00 Sodium Chloride (NS Flush) 2 ml UNSCH PRN IV FLUSH FLUSH AFTER USING IV ACCESS ; Start 09/14/16 at 01:30 Sodium Chloride (NS Flush) 2 ml BID IV FLUSH Last administered on 09/26/16 20: 15; Start 09/14/16 at 09:00 Ondansetron HCl (Zofran Inj) 4 mg Q6H PRN IVP NAUSEA OR VOMITING Last administered on 09/24/16 01:38; Start 09/14/16 at 01:30 Hydromorphone HCl (Dilaudid Pf Inj) 1 mg Q3H PRN IV Pain 6-10 Last administered on 09/14/16 17:21; Start 09/14/16 at 01:30; Stop 09/14/16 at 18:38; Status DC Senna/Docusate Sodium (Alisha-Colace) 1 tab BID PO Last administered on 20:13; Start 09/14/16 at 09:00 Magnesium Hydroxide (Milk Of Magnesia Liq) 30 ml Q12H PRN PO MILD - MODERATE CONSTIPATION Last administered on 09/26/16 20:13; Start 09/14/16 at 01:30 Sennosides (Senokot) 17.2 mg Q12H PRN PO MODERATE - SEVERE CONSTIPATION Last administered on 09/26/16 20:13; Start 09/14/16 at 01:30 Bisacodyl (Dulcolax Supp) 10 mg DAILY PRN RECTAL SEVERE CONSITIPATION Last administered on 09/17/16 04:30; Start 09/14/16 at 01:30 Lactulose (Lactulose Liq) 30 ml DAILY PRN PO SEVERE CONSITIPATION Last administered on 09/19/16 08:42; Start 09/14/16 at 01:30 Dextrose (D50w (Vial) Inj) 50 ml UNSCH PRN IV HYPOGLYCEMIA-SEE COMMENTS Last administered on 09/15/16 21:52; Start 09/14/16 at 02:45; Stop 09/18/16 at 11:45; Status DC Glucagon (Glucagon Inj) 1 mg UNSCH PRN OTHER HYPOGLYCEMIA-SEE COMMENTS; Start 09/14/16 at 02:45; Stop 09/18/16 at 11:45; Status DC Insulin Aspart (NovoLOG SUPPLEMENTAL SCALE) 1 ACHS SLIDING SCALE SQ Last administered on 09/18/16 11:20; Start 09/14/16 at 07:00; Stop 09/18/16 at 11:45; Status DC Hydromorphone HCl (Dilaudid Pf Inj) 1 mg ONCE ONCE IV PUSH Last administered on 09/14/16 03:46; Start 09/14/16 at 03:30; Stop 09/14/16 at 03:36; Status DC Ketorolac Tromethamine (Toradol Inj) 30 mg Q6HR IV PUSH Last administered on 11:19; Start 09/14/16 at 13:00; Stop 09/19/16 at 12:59; Status DC Tamsulosin HCl (Flomax) 0.4 mg DAILY PO Last administered on 09/26/16 08:20; Start 09/14/16 at 13:00 Phenazopyridine HCl (Pyridium) 200 mg Q8HR PO Last administered on 09/16/16 20: 15; Start 09/14/16 at 14:00; Stop 09/17/16 at 06:51; Status DC Oxycodone HCl (Roxicodone) 5 mg Q4H PRN PO PAIN SCALE 1 TO 4; Start 09/14/16 at 18:45; Stop 09/17/16 at 10:25; Status DC Oxycodone HCl (Roxicodone) 10 mg Q4H PRN PO PAIN SCALE 5 TO 10 Last administered on 09/17/16 08:52; Start 09/14/16 at 18:45; Stop 09/17/16 at 10:25; Status DC Hydromorphone HCl 1 mg 1 mg Q4H PRN IV PUSH BREAKTHROUGH PAIN Last administered on 09/17/16 21:27; Start 09/14/16 at 18:45; Stop 09/18/16 at 11:46; Status DC Lactated Ringer's 1,000 ml @ 30 mls/hr Q24H PRN IV SEE LABEL COMMENTS; Start at 22:00; Stop 09/19/16 at 21:59; Status DC Sodium Chloride (NS 500 ml Inj) 500 ml @ 30 mls/hr [id number] PRN IV SEE LABEL COMMENTS; Start 09/16/16 at 22:00; Stop 09/19/16 at 21:59; Status DC Metoprolol Tartrate (Lopressor) 25 mg CHARRER PRN PO SEE LABEL COMMENTS; Start 09/16/16 at 22:00; Stop 09/19/16 at 21:59; Status DC Povidone Iodine (Betadine 5% Antisepsis Kit) 1 applic CHARRER PRN EACH NARE SEE LABEL COMMENTS; Start 09/16/16 at 22:00; Stop 09/19/16 at 21:59; Status DC Chlorhexidine Gluconate (Chlorhexidine 2% Cloth) 3 pack CHARRER PRN TOPICAL SEE LABEL COMMENTS; Start 09/16/16 at 22:00; Stop 09/19/16 at 21:59; Status DC Insulin Human Regular (NovoLIN R INJ) See Protocol Table ... CHARRER PRN SQ SEE PROTOCOL TABLE; Start 09/16/16 at 22:00; Stop 09/19/16 at 21:59; Status DC Phenazopyridine HCl (Pyridium) 200 mg Q8HR PO Last administered on 09/17/16 07: 06; Start 09/17/16 at 06:00; Stop 09/18/16 at 02:41; Status DC Prochlorperazine Edisylate (Compazine Inj) 5 mg Q6H PRN IM NAUSEA OR VOMITING Last administered on 09/25/16 23:12; Start 09/17/16 at 10:30 Temazepam (Restoril) 15 mg HS PRN PO INSOMNIA Last administered on 09/26/16 20 :18; Start 09/17/16 at 10:30 Polyethylene Glycol (Miralax) 17 gm DAILY PRN PO CONSTIPATION. SEE LABEL COMMEN Last administered on 09/19/16 08:43; Start 09/17/16 at 10:30; Stop at 15:16; Status DC Morphine Sulfate (Morphine Inj) 2 mg Q3H PRN IV PUSH PAIN SCALE 1 TO 4; Start 09/17/16 at 10:30; Stop 09/18/16 at 11:46; Status DC Morphine Sulfate (Morphine Inj) 4 mg Q3H PRN IV PUSH PAIN SCALE 5 TO 10 Last administered on 09/18/16 11:17; Start 09/17/16 at 10:30; Stop 09/18/16 at 11:46; Status DC Midazolam HCl (Versed Inj) 2 mg STK-MED ONCE .ROUTE ; Start 09/17/16 at 17:21; Stop 09/17/16 at 17:22; Status DC Belladonna Alkaloids/Opium (B & O Supp) 60 mg Q6HR PRN RECTAL BLADDER SPASM; Start 09/17/16 at 19:00 Fentanyl Citrate (fentaNYL INJ) 250 mcg STK-MED ONCE .ROUTE ; Start 09/17/16 at 19:02; Stop 09/17/16 at 19:03; Status DC Cefazolin Sodium (Ancef Inj) 2,000 mg STK-MED ONCE IV Last administered on 17:56; Start 09/17/16 at 17:56; Stop 09/17/16 at 19:21; Status DC Morphine Sulfate (Morphine Inj) 8 mg STK-MED ONCE .ROUTE Last administered on 19:40; Start 09/17/16 at 19:40; Stop 09/17/16 at 19:41; Status DC Phenazopyridine HCl 200 mg 200 mg Q8HR PO Last administered on 09/22/16 13:21 ; Start 09/18/16 at 06:00; Stop 09/22/16 at 13:58; Status DC Piperacillin Sod/ Tazobactam Sod (Zosyn 4.5 Gm Premix) 100 ml @ 200 mls/hr Q8H IV Last administered on 09/20/16 11:16; Start 09/18/16 at 14:00; Stop 09/20/16 at 12:04; Status DC Dextrose (D50w (Vial) Inj) 50 ml UNSCH PRN IV HYPOGLYCEMIA-SEE COMMENTS; Start 09/18/16 at 11:45 Glucagon (Glucagon Inj) 1 mg UNSCH PRN OTHER HYPOGLYCEMIA-SEE COMMENTS; Start 09/18/16 at 11:45 Insulin Aspart (NovoLOG SUPPLEMENTAL SCALE) 1 ACHS SLIDING SCALE SQ Last administered on 09/27/16 06:18; Start 09/18/16 at 16:00 Oxycodone HCl (Roxicodone) 5 mg Q4H PRN PO PAIN SCALE 1 TO 4; Start 09/18/16 at 13:00; Stop 09/21/16 at 16:08; Status DC Oxycodone HCl (Roxicodone) 10 mg Q4H PRN PO PAIN SCALE 5 TO 10 Last administered on 09/21/16 06:15; Start 09/18/16 at 12:00; Stop 09/21/16 at 16:08 ; Status DC Morphine Sulfate 4 mg 4 mg Q3H PRN IV PUSH BREAKTHROUGH PAIN Last administered on 09/21/16 15:10; Start 09/18/16 at 12:00; Stop 09/21/16 at 16:08; Status DC Vancomycin HCl 1000 mg/Sodium Chloride 250 ml @ 250 mls/hr ONCE ONCE IV Last administered on 09/19/16 13:35; Start 09/19/16 at 12:30; Stop 09/19/16 at 13:29 ; Status DC Pharmacy Profile Note (Vancomycin Consult Pharmacy) 0 ml @ 0 mls/hr UNSCH OTHER ; Start 09/19/16 at 11:45; Stop 09/25/16 at 09:08; Status DC Insulin Detemir 10 units 10 units Q12HR SQ Last administered on 09/26/16 20:21 ; Start 09/19/16 at 11:45 Vancomycin HCl 1000 mg/Sodium Chloride 250 ml @ 250 mls/hr ONCE ONCE IV Last administered on 09/19/16 13:35; Start 09/19/16 at 13:30; Stop 09/19/16 at 14:29 ; Status DC Vancomycin HCl/ Sodium Chloride (Vancomycin Inj/ NS 500 ml Inj) 515 ml @ 257.5 mls/ hr Q12H IV Last administered on 09/21/16 20:52; Start 09/20/16 at 03:00; Stop 09/21/16 at 21:14; Status DC Miscellaneous Information SPECIFIC LAB TO BE DARIEN... ONCE ONCE .XX Last administered on 09/21/16 02:45; Start 09/21/16 at 02:45; Stop 09/21/16 at 02:46 ; Status DC Iohexol (Omnipaque 350 Inj) 100 ml STK-MED ONCE IV Last administered on 15:48; Start 09/20/16 at 15:48; Stop 09/20/16 at 15:49; Status DC Potassium Phos/ Sodium Phos 250 mg 250 mg Q8HR PO Last administered on 05:24; Start 09/20/16 at 22:00; Stop 09/23/16 at 10:57; Status DC Calcium Chloride 2 gm/Sodium Chloride 120 ml @ 120 mls/hr ONCE ONCE IV Last administered on 09/20/16 17:57; Start 09/20/16 at 17:00; Stop 09/20/16 at 17:59 ; Status DC Aztreonam 2000 mg/ Sodium Chloride 100 ml @ 200 mls/hr Q6H IV Last administered on 09/22/16 05:34; Start 09/20/16 at 17:00; Stop 09/22/16 at 09:46 ; Status DC Metronidazole 100 ml @ 100 mls/hr Q6H IV ; Start 09/20/16 at 18:00; Stop at 18:05; Status DC Metronidazole (Flagyl 500 Mg Inj) 100 ml @ 100 mls/hr Q6H IV Last administered on 09/25/16 07:44; Start 09/20/16 at 21:00; Stop 09/25/16 at 09:08 ; Status DC Insulin Aspart (NovoLOG INJ) 8 units TIDAC SQ Last administered on 09/22/16 11 :52; Start 09/21/16 at 08:00; Status Hold Miscellaneous Information SPECIFIC LAB TO BE DARIEN... ONCE ONCE .XX Last administered on 09/21/16 15:20; Start 09/21/16 at 14:45; Stop 09/21/16 at 14:46 ; Status DC Morphine Sulfate (Morphine Inj) 2 mg Q3H PRN IV PUSH PAIN SCALE 1 TO 7 Last administered on 09/24/16 10:11; Start 09/21/16 at 16:15; Stop 09/25/16 at 08:12 ; Status DC Morphine Sulfate (Morphine Inj) 4 mg Q3H PRN IV PUSH PAIN SCALE 8 TO 10 Last administered on 09/25/16 06:16; Start 09/21/16 at 16:15; Stop 09/25/16 at 08:12 ; Status DC Polyethylene Glycol (Miralax) 17 gm ONCE ONCE PO ; Start 09/21/16 at 16:15; Stop 09/21/16 at 16:19; Status DC Alprazolam (Xanax) 1 mg Q8HR PRN PO ANXIETY Last administered on 09/26/16 23: 02; Start 09/21/16 at 16:15 Potassium Phos/ Sodium Phos 250 mg 250 mg Q8HR PO ; Start 09/21/16 at 22:00; Stop 09/22/16 at 16:21; Status DC Vancomycin HCl/ Sodium Chloride (Vancomycin Inj/ NS 500 ml Inj) 515 ml @ 257.5 mls/ hr Q12H IV Last administered on 09/22/16 08:10; Start 09/22/16 at 09:00; Stop 09/22/16 at 10:12; Status DC Miscellaneous Information SPECIFIC LAB TO BE DRAWN:VANCO TROUGH DATE TO... ONCE ONCE .XX Last administered on 09/24/16 04:00; Start 09/24/16 at 03:45; Stop 09/24/16 at 03:46; Status DC Vancomycin HCl/ Sodium Chloride (Vancomycin Inj/ NS 500 ml Inj) 522.5 ml @ 257.5 mls/ hr Q12H IV Last administered on 09/25/16 04:00; Start 09/22/16 at 16:00; Stop 09/25/16 at 09:09; Status DC Propofol (Diprivan 200 Mg/20 ml Inj) 200 mg STK-MED ONCE IV ; Start 09/17/16 at 12:00; Stop 09/22/16 at 15:24; Status DC Ephedrine Sulfate (ePHEDrine/NS 25 MG/5 ML SYR) 25 mg STK-MED ONCE IV ; Start at 12:00; Stop 09/22/16 at 15:24; Status DC Phenylephrine HCl (Neosynephrine/ NS 1000 Mcg/10ml Syr) 1,000 mcg STK-MED ONCE IV ; Start 09/17/16 at 12:00; Stop 09/22/16 at 15:24; Status DC Ketorolac Tromethamine (Toradol Inj) 60 mg STK-MED ONCE IM ; Start 09/17/16 at 12 :00; Stop 09/22/16 at 15:24; Status DC Ondansetron HCl 4 mg 4 mg STK-MED ONCE IV PUSH ; Start 09/17/16 at 12:00; Stop at 15:24; Status DC Lactated Ringer's (Lr 1000 ml Inj) 1,000 ml @ As Directed STK-MED ONCE IV ; Start 09/17/16 at 12:00; Stop 09/22/16 at 15:24; Status DC Potassium Chloride (KCl) 60 meq ONCE ONCE PO Last administered on 09/22/16 22 :11; Start 09/22/16 at 19:00; Stop 09/22/16 at 19:02; Status DC Potassium Chloride (KCl) 30 meq ONCE ONCE PO Last administered on 09/23/16 09 :45; Start 09/23/16 at 09:45; Stop 09/23/16 at 09:46; Status DC Potassium Phos/ Sodium Phos (K-Phos Neutral) 250 mg Q8HR PO Last administered on 09/27/16 06:15; Start 09/23/16 at 14:00 Miscellaneous Information SPECIFIC LAB TO BE DRAWN:VANCOMYCIN TROUGH DATE TO... ONCE ONCE .XX ; Start 09/26/16 at 03:45; Stop 09/26/16 at 03:45; Status DC Fluconazole/ Sodium Chloride (Diflucan 400 Mg Premix Bag) 200 ml @ 100 mls/hr Q24H IV Last administered on 09/26/16 11:20; Start 09/24/16 at 10:00 Hydromorphone HCl (Dilaudid Pf Inj) 1 mg STAT ONCE IV Last administered on 16:32; Start 09/24/16 at 16:00; Stop 09/24/16 at 16:01; Status DC Potassium Chloride 40 meq 40 meq ONCE ONCE PO Last administered on 09/25/16 02:34; Start 09/25/16 at 02:15; Stop 09/25/16 at 02:16; Status DC Potassium Chloride (KCl 20 Meq Premix Inj) 100 ml @ 50 mls/hr Q2H IV Last administered on 09/25/16 04:00; Start 09/25/16 at 02:15; Stop 09/25/16 at 06:14 ; Status DC Tramadol HCl (Ultram) 50 mg Q8H PRN PO PAIN 1-10/HEADACHE; Start 09/25/16 at 08 :00; Stop 09/25/16 at 09:25; Status DC Morphine Sulfate (Morphine Inj) 2 mg Q4HR PRN IV PUSH BREAKTHROUGH PAIN Last administered on 09/26/16 11:48; Start 09/25/16 at 08:00 Iohexol (Omnipaque 350 Inj) 70 ml STK-MED ONCE IV Last administered on 14:18; Start 09/23/16 at 14:18; Stop 09/25/16 at 11:11; Status DC Hydromorphone HCl (Dilaudid Pf Inj) 0.2 mg NOW ONCE IV Last administered on 16:33; Start 09/25/16 at 16:00; Stop 09/25/16 at 16:01; Status DC Oxycodone HCl (Roxicodone) 10 mg Q6H PRN PO PAIN WHEN TOLERATING PO MEDS Last administered on 09/27/16t 06:16; Start 09/25/16 at 16:00 Prednisone (Deltasone) 40 mg DAILY PO Last administered on 09/26/16t 13:29; Start 09/26/16 at 10:00 A/P Assessment and Plan (1) Sepsis Patient with tachycardia and fever with a MAXIMUM TEMPERATURE of 102.2 after stent removal and stone lithotripsy. Likely infected stone (pyonephritis). Patient is status post left ureteral stent placement at approximately 3 weeks ago for a 9 mm obstructing left renal stone. The patient was discharged and referred to a urologist. However the patient states that the urologist did not accept her insurance and she was not seen. The patient presented to [facility] on 09/06/16, CT abdomen and pelvis with stent in good position, no hydronephrosis, the patient was referred to Dr. Lira for stent removal as outpatient however was not seen yet when patient presented to the ED. CT abdomen and pelvis on 09/13/16 with innumerable renal calcifications bilaterally, left-sided double-J ureteral catheter in good position. Urology was consulted ; Patient was taken to the OR on and underwent cystoscopy, left ureteroscopy, laser lithotripsy and left ureteral stent removal. (2)- FUO Repeat CT of the abdomen and pelvis showed changes consistent with possible diverticulitis. Bilateral nonobstructing renal stones. An subcutaneous fatty induration in the bilateral abdominal wall left greater than right. CTA chest with no PE and clear lungs. RF and DANDRE negative. Soft tissue ultrasound of the abdomen did not show any fluid collection or abscess. LP was performed- CSF cultures and blood cultures negative. HIV testing negative. Sedimentation rate elevated at 85. gallium scan with no focus of infection. trial of prednisone- will monitor temps and the response. previously d/w - ID is following. (3) Headache with blurred vision continue with pain control. head CT with no acute abnormality. continue prednisone. will consult neurology. (4) diabetes mellitus- uncontrolled due to steroids- Hemoglobin A1c ordered and 9.0. increaase levemir and continue SSI. (5) Hypophosphatemia being replaced- will monitor. (6) Hypokalemia-replaced. (7) Transaminitis-resolved. Liver ultrasound showed normal dimension, hepatic duct. Diffusely increased acoustic attenuation of the liver suggesting fatty change. hepatitis panel negative. Discharge Planning not ready for discharge.work-up in progress. Cece Bryson MD Sep 27, 2016 07:57
[2016-09-27 08:00] VITALS: BP 114/65; PULSE 92; RESP 18; TEMP 97.5; O2SAT 97
[2016-09-27] MEDS: FLUCONAZOLE 400 MG PREMIX BAG 200 ML IV SCH (08:27)
[2016-09-27] MEDS: predniSONE 20 MG TAB PO SCH (08:27)
[2016-09-27] MEDS: TAMSULOSIN HCL 0.4 MG CAP PO SCH (08:27)
[2016-09-27] MEDS: SODIUM CHLORIDE 0.9% FLUSH 10 ML FLUSH IV FLUSH SCH ×2 (08:27→20:06)
[2016-09-27] MEDS: DOCUSATE SODIUM 50 MG/SENNA 8.6 MG TAB PO SCH ×2 (08:27→20:06)
[2016-09-27] MEDS: HYDROmorphone HCL PF 1 MG/ML VIAL IV PUSH PRN ×3 (08:28→22:17)
[2016-09-27] MEDS: INSULIN DETEMIR 100 UNITS/ML VIAL SQ SCH ×2 (08:42→20:04)
[2016-09-27] MEDS: POTASSIUM PHOSPHATE MONOBASIC 500 MG TAB PO SCH ×2 (08:44→20:06)
[2016-09-27] MEDS ORDERED: ENALAPRILAT 1.25 MG/ML VIAL IV PUSH PRN (09:15)
[2016-09-27] MEDS: SODIUM CHLOR 0.9% 1000 ML INJ 1,000 ML IV SCH ×2 (10:00→20:06)
[2016-09-27 11:30] LABS: CSF CRYPTOCOCCUS AG CONF ND (NOT DETECTD)
[2016-09-27 12:00] VITALS: BP 120/73; PULSE 71; RESP 18; TEMP 96.6; O2SAT 94
[2016-09-27 16:00] VITALS: BP 114/70; PULSE 89; RESP 18; TEMP 96.8; O2SAT 94
[2016-09-27] MEDS ORDERED: LORazepam 2 MG/ML VIAL IV PUSH SCH (16:00)
--- NOTE | 2016-09-27 17:03 | MB ---
cc: WANDA BREWER M.D. DATE OF CONSULTATION: 09/27/2016. REASON FOR CONSULTATION: Headache and blurry vision. HISTORY OF PRESENT ILLNESS: The patient is a 45-year-old woman with history of diabetes, and nephrolithiasis who came in with severe left flank pain, fever, chills and had a ureteral stent placed due to a 9 mm obstructing stone. She presented here on 09/06 with similar complaints and was placed on Macrobid and referred to urology; however, she has had worsening pain and fever. She had a cystoscopy, ureteroscopy, laser lithotripsy and stent removal it looks like on 09/17 and a 9 mm stone was found on the lower pole of the left kidney successfully fragmented into ___ fragments and the stent was removed. She has been followed by infectious disease. She has had a spinal tap that had 0 white cells, 5 RBCs and cultures were negative. Gallium scan in progress but the note read as no abnormal uptake. Sedimentation rate was elevated, _ and DANDRE was negative. Complaining of a headache, she states maybe since a spinal tap but she does not describe a low pressure headache when she stands up or sits up. She describes it as a tingling on top of her scalp going into the back of her neck. She states she got new glasses a few months ago. She is having trouble reading more with the left eye than the right but she can read distances. PHYSICAL EXAMINATION: VITAL SIGNS: She is afebrile currently 96.6, pulse 71, respiratory rate 18, blood pressure 120/73 satting at 94%. NECK: Neck is supple. No bruits. HEART: Regular. NEUROLOGICAL EXAMINATION: She is awake, alert. She is fluent. Pupils are reactive. Visual wolff are full. Cannot see her fundi. Face symmetrical. Tongue midline. Motor-coyne no weakness. No drift or leg lag. Toes are downgoing. Reflexes are 1+. Gait is withheld. LABORATORY STUDIES: Her labs were reviewed. Her glucose is 319, hemoglobin A1c is 9. Her GFR is 76. White count is normal. Hemoglobin is 10. Coag panel is unremarkable. Toxicology - just checked vancomycin trough and it was 13.1 on the 15th. Immunology - DANDRE and RF factor was negative. Spinal tap showed just 84 glucose otherwise nothing else was found. Serology - HIV negative. Hepatitis panel was negative. Microbiology - no growth in any of the cultures. RADIOLOGICAL STUDIES: CT head on 09/23 without anything acute. IMPRESSION: Chronic headache. She states she has a history of migraines since she was a young girl. This may be a migraine variant. Unfortunately putting her on a migraine preventative such as topiramate is not an option with her nephrolithiasis. Certainly a low-dose beta uma can be initiated like propranolol and start her at 10 milligrams twice a day. Preventative also would be to put her on Depakote 500 milligrams at bedtime ER and put her on a low-dose muscle relaxant such as Zanaflex 2 milligrams at bedtime versus considering a tricyclic such as nortriptyline 10 milligrams at bedtime. She is already on prednisone, Oxycodone and Dilaudid. No other pain medication at this time. Get an MRI of the brain just to make sure there is nothing worrisome. Have her follow up with ophthalmology as an outpatient if her workup is negative. MD ABDIRAHMAN Marrufo/JOHANNY /4:00 PM /4:59 PM
--- NOTE | 2016-09-27 19:37 | RADRPT ---
EXAM DATE/TIME: 09/27/2016 18:52 [facility] COMPARISON: CT BRAIN W/O CONTRAST, September 23, 2016, 14:14. INDICATIONS : Blurred vision. MEDICAL HISTORY : Hypothyroidism. Kidney stones. SURGICAL HISTORY : Umbilical hernia repair. Appendectomy. Cholecystectomy. Hysterectomy, kidney stents. ENCOUNTER: Subsequent ACUITY: 2 weeks PAIN SCORE: 0/10 LOCATION: cranial TECHNIQUE: Multiplanar, multisequence MRI of the brain was performed without contrast. FINDINGS: CEREBRUM: The ventricles are normal. No evidence of midline shift, mass lesion, hemorrhage or acute infarction . No extraaxial fluid collections are seen. The pituitary gland and suprasellar cistern are normal in configuration. WHITE MATTER: No significant signal abnormalities are seen in the white matter. POSTERIOR FOSSA: The cerebellum and brainstem demonstrate no abnormality. The 4th ventricle is midline. The cerebello pontine angle is unremarkable. The cerebellar tonsils are normal in position. DIFFUSION IMAGING: No focal areas of restricted diffusion are seen. No evidence of acute infarction. EXTRACRANIAL: There is mucoperiosteal thickening within left sphenoid sinus. Otherwise, sinuses and orbits demonstr ate no abnormality. CONCLUSION: No abnormality is identified to explain the clinical symptoms. Leonel Suarez MD on September 27, 2016 at 19:33 Board Certified Radiologist. This report was verified electronically.
--- NOTE | 2016-09-27 19:40 | RADRPT ---
EXAM DATE/TIME: 09/27/2016 18:52 [place] COMPARISON: No previous studies available for comparison. INDICATIONS : Blurred vision. MEDICAL HISTORY : Hypothyroidism. Kidney stones. SURGICAL HISTORY : Appendectomy. Cholecystectomy. Umbilical hernia repair. Hysterectomy, kidney stents. ENCOUNTER: Subsequent ACUITY: 2 weeks PAIN SCORE: 0/10 LOCATION: cranial Please note a normal MRA of the brain does not entirely exclude the possibility of a small aneurysm, nor the possibility of distal intracranial vessel disease. TECHNIQUE: 3D time of flight MRA was performed. Source images, multiplanar STS MIP, and 3D volume MIP reconstru ctions were reviewed. FINDINGS: Anterior circulation: The internal carotid arteries demonstrate no abnormality or atherosclerotic change. A1 segments and m ore distal anterior cerebral arteries are symmetric and within normal limits. The middle cerebral art arsalan branches demonstrate symmetric flow related enhancement. No aneurysm or high-grade stenosis is id entified. Posterior circulation: There are patent posterior cerebral arteries bilaterally. Vertebral arteries are codominant. The basi lar artery and posterior cerebral arteries demonstrate no significant stenosis or abnormality. No ane urysm is visualized. CONCLUSION: Intracranial vasculature is within normal limits. Leonel Suarez MD on September 27, 2016 at 19:35 Board Certified Radiologist. This report was verified electronically.
[2016-09-27 20:05] VITALS: BP 116/57; PULSE 81; RESP 18; TEMP 96.5; O2SAT 100
[2016-09-27] MEDS: SENNOSIDES 8.6 MG TAB PO PRN (20:05)
[2016-09-27] MEDS: MAGNESIUM HYDROXIDE SUSP 30 ML CUP PO PRN (20:05)
[2016-09-27] MEDS ORDERED: DIVALPROEX SODIUM E.R. 500 MG TAB PO SCH (21:00)
[2016-09-27] MEDS: TEMAZEPAM 15 MG CAP PO PRN (22:14)
[2016-09-28] MEDS: ALPRAZolam 1 MG TAB PO PRN ×3 (00:03→16:34)
[2016-09-28 00:10] VITALS: BP 107/58; PULSE 88; RESP 18; TEMP 96.5; O2SAT 97
[2016-09-28 04:05] VITALS: TEMP 97.1
[2016-09-28] MEDS: SODIUM CHLOR 0.9% 1000 ML INJ 1,000 ML IV SCH ×2 (06:28→12:14)
[2016-09-28] MEDS: HYDROmorphone HCL PF 1 MG/ML VIAL IV PUSH PRN ×2 (06:32→12:14)
[2016-09-28] MEDS: INSULIN ASPART SUPPLEMENTAL SCALE SQ SCH ×3 (06:35→16:52)
[2016-09-28 07:43] VITALS: BP 105/59; PULSE 98; RESP 16; TEMP 97.4; O2SAT 98
[2016-09-28] MEDS: SODIUM CHLORIDE 0.9% FLUSH 10 ML FLUSH IV FLUSH SCH (08:28)
[2016-09-28] MEDS: predniSONE 20 MG TAB PO SCH (08:28)
[2016-09-28] MEDS: TAMSULOSIN HCL 0.4 MG CAP PO SCH (08:28)
[2016-09-28] MEDS: DOCUSATE SODIUM 50 MG/SENNA 8.6 MG TAB PO SCH (08:29)
[2016-09-28] MEDS: POTASSIUM PHOSPHATE MONOBASIC 500 MG TAB PO SCH (08:29)
[2016-09-28] MEDS: INSULIN DETEMIR 100 UNITS/ML VIAL SQ SCH (08:33)
[2016-09-28] MEDS: FLUCONAZOLE 400 MG PREMIX BAG 200 ML IV SCH (08:36)
--- NOTE | 2016-09-28 10:46 | HHI.PR ---
Subjective Remarks resting comfortably with no distress. headache is better and overall felling better today. remains afebrile. Objective Vitals Vital Signs Date Time Temp Pulse Resp B/P Pulse Ox O2 Delivery O2 Flow Rate FiO2 09/28/16 07:43 97.4 98 16 105/59 98 09/28/16 04:05 97.1 09/28/16 00:10 96.5 88 18 107/58 97 09/27/16 20:05 96.5 81 18 116/57 100 09/27/16 18:40 Room Air 09/27/16 16:41 18 09/27/16 16:00 96.8 89 18 114/70 94 09/27/16 13:40 18 09/27/16 12:00 96.6 71 18 120/73 94 I/O 09/27/16 09/27/16 09/27/16 09/28/16 09/28/16 09/28/16 07:00 15:00 23:00 07:00 15:00 23:00 Intake Total 480 ml 700 ml 360 ml 480 ml Balance 480 ml 700 ml 360 ml 480 ml Intake Oral 480 ml 700 ml 360 ml 480 ml # Voids 0 4 2 6 # Bowel Movements 0 0 2 Result Diagram: 09/27/16 0647 09/27/16 0647 Imaging Last Impressions Head Magnetic Resonance Angiography 09/27/16 0000 Signed Impressions: Service Date/Time: Tuesday, September 27, 2016 18:52 - CONCLUSION: Intracranial vasculature is within normal limits. Leonel Suarez MD Brain MRI 09/27/16 0000 Signed Impressions: Service Date/Time: Tuesday, September 27, 2016 18:52 - CONCLUSION: No abnormality is identified to explain the clinical symptoms. Leonel Suarez MD Lumbar Puncture Fluoroscopy 09/24/16 0000 Signed Impressions: Service Date/Time: September 10:57 - CONCLUSION: Uncomplicated fluoroscopically guided lumbar puncture with pressures as above. Sarbjit Us MD Gallium Scan Nuclear Medicine 09/24/16 0000 Signed Impressions: Service Date/Time: Sunday, September 25, 2016 11:30 - CONCLUSION: No abnormal uptake is identified to suggest an infectious or inflammatory process. Leonel Suarez MD Head CT 09/23/16 1011 Signed Impressions: Service Date/Time: Friday, September 23, 2016 14:14 - CONCLUSION: No acute disease. Kayode Begum MD Lower Extremity Ultrasound 09/23/16 Signed Impressions: Service Date/Time: Friday, September 23, 2016 11:17 - CONCLUSION: No evidence of deep venous thrombosis within the lower extremities. Kayode Begum MD Chest X-Ray 09/23/16 Signed Impressions: Service Date/Time: Friday, September 23, 2016 09:11 - CONCLUSION: 1. No acute cardiopulmonary findings. Sarbjit Us MD CT Angiography 09/23/16 Signed Impressions: Service Date/Time: Friday, September 23, 2016 14:18 - CONCLUSION: 1. No pulmonary embolus identified. The lungs are clear. Sarbjit Us MD Soft Tissue Ultrasound 09/21/16 0000 Signed Impressions: Service Date/Time: Wednesday, September 21, 2016 21:31 - CONCLUSION: Nonspecific body wall edema. No abscess. Leonel Glover MD Abdomen/Pelvis CT 09/20/16 Signed Impressions: Service Date/Time: Tuesday, September 20, 2016 15:42 - CONCLUSION: 1. Minimal amount of thickening of the left lateral conal fascia adjacent to one of the several diverticula of the descending colon. This is nonspecific, but does suggest the possibility of diverticulitis. 2. Bilateral nonobstructing renal stones. 3. Subcutaneous fat induration bilateral lateral abdominal wall, left greater than right. Oscar Domínguez MD Abdomen X-Ray 09/18/16 Signed Impressions: Service Date/Time: Sunday, September 18, 2016 13:40 - CONCLUSION: 1. Very limited examination due to patient's body habitus. Small renal calculi cannot be excluded. 2. No obvious bowel obstruction or pneumoperitoneum. 3. Noncontrasted CT scan of the abdomen could be performed for further evaluation if clinically warranted. Tonny Figueroa MD Liver Ultrasound 09/15/16 Signed Impressions: Service Date/Time: Thursday, September 15, 2016 14:16 - CONCLUSION: 1. Normal dimension common hepatic duct. 2. Diffuse increased acoustic attenuation throughout the liver suggests diffuse fatty change. 3. Focal calcification mid pole right kidney without evidence of hydronephrosis. Oscar Domínguez MD Objective Remarks GENERAL: This is a well-nourished, well-developed patient, in no apparent distress. CARDIOVASCULAR: Regular rate and regular rhythm without murmurs, gallops, or rubs. RESPIRATORY: Clear to auscultation. Breath sounds equal bilaterally. No wheezes , rales, or rhonchi. GASTROINTESTINAL: Abdomen soft, mild right flank tenderness, nondistended. Normal, active bowel sounds MUSCULOSKELETAL: Extremities without clubbing, cyanosis, or edema. NEURO: Alert & Oriented x4 to person, place, time, situation. Moves all ext x4 Procedures cystoscopy, left ureteroscopy, laser lithotripsy, stent removal LP Medications and IVs Current Medications Ceftriaxone Sodium/Sodium Chloride (Rocephin Inj/NS Inj) 100 ml @ 200 mls/hr ONCE ONCE IV Last administered on 09/13/16 22:09; Start 09/13/16 at 22:00; Stop 09/13/16 at 22:29; Status DC Hydromorphone HCl (Dilaudid Pf Inj) 1 mg ONCE ONCE IV PUSH Last administered on 09/13/16 22:09; Start 09/13/16 at 22:00; Stop 09/13/16 at 22:01; Status DC Ondansetron HCl (Zofran Inj) 4 mg ONCE ONCE IV PUSH Last administered on 22:09; Start 09/13/16 at 22:00; Stop 09/13/16 at 22:01; Status DC Ketorolac Tromethamine 30 mg 30 mg ONCE ONCE IV PUSH Last administered on 23:44; Start 09/13/16 at 22:45; Stop 09/13/16 at 22:46; Status DC Ceftriaxone Sodium 1000 mg/ Sodium Chloride 100 ml @ 200 mls/hr Q24H IV Last administered on 09/17/16 21:08; Start 09/14/16 at 22:00; Stop 09/18/16 at 11:43; Status DC Sodium Chloride (NS 1000 ml Inj) 1,000 ml @ 100 mls/hr Q10H IV Last administered on 09/24/16 09:39; Start 09/14/16 at 02:00 Sodium Chloride (NS Flush) 2 ml UNSCH PRN IV FLUSH FLUSH AFTER USING IV ACCESS ; Start 09/14/16 at 01:30 Sodium Chloride (NS Flush) 2 ml BID IV FLUSH Last administered on 09/28/16 08: 28; Start 09/14/16 at 09:00 Ondansetron HCl (Zofran Inj) 4 mg Q6H PRN IVP NAUSEA OR VOMITING Last administered on 09/24/16 01:38; Start 09/14/16 at 01:30 Hydromorphone HCl (Dilaudid Pf Inj) 1 mg Q3H PRN IV Pain 6-10 Last administered on 09/14/16 17:21; Start 09/14/16 at 01:30; Stop 09/14/16 at 18:38; Status DC Senna/Docusate Sodium (Alisha-Colace) 1 tab BID PO Last administered on 20:06; Start 09/14/16 at 09:00 Magnesium Hydroxide (Milk Of Magnesia Liq) 30 ml Q12H PRN PO MILD - MODERATE CONSTIPATION Last administered on 09/27/16 20:05; Start 09/14/16 at 01:30 Sennosides (Senokot) 17.2 mg Q12H PRN PO MODERATE - SEVERE CONSTIPATION Last administered on 09/27/16 20:05; Start 09/14/16 at 01:30 Bisacodyl (Dulcolax Supp) 10 mg DAILY PRN RECTAL SEVERE CONSITIPATION Last administered on 09/17/16 04:30; Start 09/14/16 at 01:30 Lactulose (Lactulose Liq) 30 ml DAILY PRN PO SEVERE CONSITIPATION Last administered on 09/19/16 08:42; Start 09/14/16 at 01:30 Dextrose (D50w (Vial) Inj) 50 ml UNSCH PRN IV HYPOGLYCEMIA-SEE COMMENTS Last administered on 09/15/16 21:52; Start 09/14/16 at 02:45; Stop 09/18/16 at 11:45; Status DC Glucagon (Glucagon Inj) 1 mg UNSCH PRN OTHER HYPOGLYCEMIA-SEE COMMENTS; Start 09/14/16 at 02:45; Stop 09/18/16 at 11:45; Status DC Insulin Aspart (NovoLOG SUPPLEMENTAL SCALE) 1 ACHS SLIDING SCALE SQ Last administered on 09/18/16 11:20; Start 09/14/16 at 07:00; Stop 09/18/16 at 11:45; Status DC Hydromorphone HCl (Dilaudid Pf Inj) 1 mg ONCE ONCE IV PUSH Last administered on 09/14/16 03:46; Start 09/14/16 at 03:30; Stop 09/14/16 at 03:36; Status DC Ketorolac Tromethamine (Toradol Inj) 30 mg Q6HR IV PUSH Last administered on 11:19; Start 09/14/16 at 13:00; Stop 09/19/16 at 12:59; Status DC Tamsulosin HCl (Flomax) 0.4 mg DAILY PO Last administered on 09/28/16 08:28; Start 09/14/16 at 13:00 Phenazopyridine HCl (Pyridium) 200 mg Q8HR PO Last administered on 09/16/16 20: 15; Start 09/14/16 at 14:00; Stop 09/17/16 at 06:51; Status DC Oxycodone HCl (Roxicodone) 5 mg Q4H PRN PO PAIN SCALE 1 TO 4; Start 09/14/16 at 18:45; Stop 09/17/16 at 10:25; Status DC Oxycodone HCl (Roxicodone) 10 mg Q4H PRN PO PAIN SCALE 5 TO 10 Last administered on 09/17/16 08:52; Start 09/14/16 at 18:45; Stop 09/17/16 at 10:25; Status DC Hydromorphone HCl 1 mg 1 mg Q4H PRN IV PUSH BREAKTHROUGH PAIN Last administered on 09/17/16 21:27; Start 09/14/16 at 18:45; Stop 09/18/16 at 11:46; Status DC Lactated Ringer's 1,000 ml @ 30 mls/hr Q24H PRN IV SEE LABEL COMMENTS; Start at 22:00; Stop 09/19/16 at 21:59; Status DC Sodium Chloride (NS 500 ml Inj) 500 ml @ 30 mls/hr [id number] PRN IV SEE LABEL COMMENTS; Start 09/16/16 at 22:00; Stop 09/19/16 at 21:59; Status DC Metoprolol Tartrate (Lopressor) 25 mg FASTENER TECHNOLOGIST PRN PO SEE LABEL COMMENTS; Start 09/16/16 at 22:00; Stop 09/19/16 at 21:59; Status DC Povidone Iodine (Betadine 5% Antisepsis Kit) 1 applic FASTENER TECHNOLOGIST PRN EACH NARE SEE LABEL COMMENTS; Start 09/16/16 at 22:00; Stop 09/19/16 at 21:59; Status DC Chlorhexidine Gluconate (Chlorhexidine 2% Cloth) 3 pack FASTENER TECHNOLOGIST PRN TOPICAL SEE LABEL COMMENTS; Start 09/16/16 at 22:00; Stop 09/19/16 at 21:59; Status DC Insulin Human Regular (NovoLIN R INJ) See Protocol Table ... FASTENER TECHNOLOGIST PRN SQ SEE PROTOCOL TABLE; Start 09/16/16 at 22:00; Stop 09/19/16 at 21:59; Status DC Phenazopyridine HCl (Pyridium) 200 mg Q8HR PO Last administered on 09/17/16 07: 06; Start 09/17/16 at 06:00; Stop 09/18/16 at 02:41; Status DC Prochlorperazine Edisylate (Compazine Inj) 5 mg Q6H PRN IM NAUSEA OR VOMITING Last administered on 09/25/16 23:12; Start 09/17/16 at 10:30 Temazepam (Restoril) 15 mg HS PRN PO INSOMNIA Last administered on 09/27/16 22 :14; Start 09/17/16 at 10:30 Polyethylene Glycol (Miralax) 17 gm DAILY PRN PO CONSTIPATION. SEE LABEL COMMEN Last administered on 09/19/16 08:43; Start 09/17/16 at 10:30; Stop at 15:16; Status DC Morphine Sulfate (Morphine Inj) 2 mg Q3H PRN IV PUSH PAIN SCALE 1 TO 4; Start 09/17/16 at 10:30; Stop 09/18/16 at 11:46; Status DC Morphine Sulfate (Morphine Inj) 4 mg Q3H PRN IV PUSH PAIN SCALE 5 TO 10 Last administered on 09/18/16 11:17; Start 09/17/16 at 10:30; Stop 09/18/16 at 11:46; Status DC Midazolam HCl (Versed Inj) 2 mg STK-MED ONCE .ROUTE ; Start 09/17/16 at 17:21; Stop 09/17/16 at 17:22; Status DC Belladonna Alkaloids/Opium (B & O Supp) 60 mg Q6HR PRN RECTAL BLADDER SPASM; Start 09/17/16 at 19:00 Fentanyl Citrate (fentaNYL INJ) 250 mcg STK-MED ONCE .ROUTE ; Start 09/17/16 at 19:02; Stop 09/17/16 at 19:03; Status DC Cefazolin Sodium (Ancef Inj) 2,000 mg STK-MED ONCE IV Last administered on 17:56; Start 09/17/16 at 17:56; Stop 09/17/16 at 19:21; Status DC Morphine Sulfate (Morphine Inj) 8 mg STK-MED ONCE .ROUTE Last administered on 19:40; Start 09/17/16 at 19:40; Stop 09/17/16 at 19:41; Status DC Phenazopyridine HCl 200 mg 200 mg Q8HR PO Last administered on 09/22/16 13:21 ; Start 09/18/16 at 06:00; Stop 09/22/16 at 13:58; Status DC Piperacillin Sod/ Tazobactam Sod (Zosyn 4.5 Gm Premix) 100 ml @ 200 mls/hr Q8H IV Last administered on 09/20/16 11:16; Start 09/18/16 at 14:00; Stop 09/20/16 at 12:04; Status DC Dextrose (D50w (Vial) Inj) 50 ml UNSCH PRN IV HYPOGLYCEMIA-SEE COMMENTS; Start 09/18/16 at 11:45 Glucagon (Glucagon Inj) 1 mg UNSCH PRN OTHER HYPOGLYCEMIA-SEE COMMENTS; Start 09/18/16 at 11:45 Insulin Aspart (NovoLOG SUPPLEMENTAL SCALE) 1 ACHS SLIDING SCALE SQ Last administered on 09/28/16 06:35; Start 09/18/16 at 16:00 Oxycodone HCl (Roxicodone) 5 mg Q4H PRN PO PAIN SCALE 1 TO 4; Start 09/18/16 at 13:00; Stop 09/21/16 at 16:08; Status DC Oxycodone HCl (Roxicodone) 10 mg Q4H PRN PO PAIN SCALE 5 TO 10 Last administered on 09/21/16 06:15; Start 09/18/16 at 12:00; Stop 09/21/16 at 16:08 ; Status DC Morphine Sulfate 4 mg 4 mg Q3H PRN IV PUSH BREAKTHROUGH PAIN Last administered on 09/21/16 15:10; Start 09/18/16 at 12:00; Stop 09/21/16 at 16:08; Status DC Vancomycin HCl 1000 mg/Sodium Chloride 250 ml @ 250 mls/hr ONCE ONCE IV Last administered on 09/19/16 13:35; Start 09/19/16 at 12:30; Stop 09/19/16 at 13:29 ; Status DC Pharmacy Profile Note (Vancomycin Consult Pharmacy) 0 ml @ 0 mls/hr UNSCH OTHER ; Start 09/19/16 at 11:45; Stop 09/25/16 at 09:08; Status DC Insulin Detemir 10 units 10 units Q12HR SQ Last administered on 09/26/16 20:21 ; Start 09/19/16 at 11:45; Stop 09/27/16 at 07:55; Status DC Vancomycin HCl 1000 mg/Sodium Chloride 250 ml @ 250 mls/hr ONCE ONCE IV Last administered on 09/19/16 13:35; Start 09/19/16 at 13:30; Stop 09/19/16 at 14:29 ; Status DC Vancomycin HCl/ Sodium Chloride (Vancomycin Inj/ NS 500 ml Inj) 515 ml @ 257.5 mls/ hr Q12H IV Last administered on 09/21/16 20:52; Start 09/20/16 at 03:00; Stop 09/21/16 at 21:14; Status DC Miscellaneous Information SPECIFIC LAB TO BE ... ONCE ONCE .XX Last administered on 09/21/16 02:45; Start 09/21/16 at 02:45; Stop 09/21/16 at 02:46 ; Status DC Iohexol (Omnipaque 350 Inj) 100 ml STK-MED ONCE IV Last administered on 15:48; Start 09/20/16 at 15:48; Stop 09/20/16 at 15:49; Status DC Potassium Phos/ Sodium Phos 250 mg 250 mg Q8HR PO Last administered on 05:24; Start 09/20/16 at 22:00; Stop 09/23/16 at 10:57; Status DC Calcium Chloride 2 gm/Sodium Chloride 120 ml @ 120 mls/hr ONCE ONCE IV Last administered on 09/20/16 17:57; Start 09/20/16 at 17:00; Stop 09/20/16 at 17:59 ; Status DC Aztreonam 2000 mg/ Sodium Chloride 100 ml @ 200 mls/hr Q6H IV Last administered on 09/22/16 05:34; Start 09/20/16 at 17:00; Stop 09/22/16 at 09:46 ; Status DC Metronidazole 100 ml @ 100 mls/hr Q6H IV ; Start 09/20/16 at 18:00; Stop at 18:05; Status DC Metronidazole (Flagyl 500 Mg Inj) 100 ml @ 100 mls/hr Q6H IV Last administered on 09/25/16 07:44; Start 09/20/16 at 21:00; Stop 09/25/16 at 09:08 ; Status DC Insulin Aspart (NovoLOG INJ) 8 units TIDAC SQ Last administered on 09/22/16 11 :52; Start 09/21/16 at 08:00; Status Hold Miscellaneous Information SPECIFIC LAB TO BE DARIEN... ONCE ONCE .XX Last administered on 09/21/16 15:20; Start 09/21/16 at 14:45; Stop 09/21/16 at 14:46 ; Status DC Morphine Sulfate (Morphine Inj) 2 mg Q3H PRN IV PUSH PAIN SCALE 1 TO 7 Last administered on 09/24/16 10:11; Start 09/21/16 at 16:15; Stop 09/25/16 at 08:12 ; Status DC Morphine Sulfate (Morphine Inj) 4 mg Q3H PRN IV PUSH PAIN SCALE 8 TO 10 Last administered on 09/25/16 06:16; Start 09/21/16 at 16:15; Stop 09/25/16 at 08:12 ; Status DC Polyethylene Glycol (Miralax) 17 gm ONCE ONCE PO ; Start 09/21/16 at 16:15; Stop 09/21/16 at 16:19; Status DC Alprazolam (Xanax) 1 mg Q8HR PRN PO ANXIETY Last administered on 09/28/16 08: 28; Start 09/21/16 at 16:15 Potassium Phos/ Sodium Phos 250 mg 250 mg Q8HR PO ; Start 09/21/16 at 22:00; Stop 09/22/16 at 16:21; Status DC Vancomycin HCl/ Sodium Chloride (Vancomycin Inj/ NS 500 ml Inj) 515 ml @ 257.5 mls/ hr Q12H IV Last administered on 09/22/16 08:10; Start 09/22/16 at 09:00; Stop 09/22/16 at 10:12; Status DC Miscellaneous Information SPECIFIC LAB TO BE DRAWN:VANCO TROUGH DATE TO... ONCE ONCE .XX Last administered on 09/24/16 04:00; Start 09/24/16 at 03:45; Stop 09/24/16 at 03:46; Status DC Vancomycin HCl/ Sodium Chloride (Vancomycin Inj/ NS 500 ml Inj) 522.5 ml @ 257.5 mls/ hr Q12H IV Last administered on 09/25/16 04:00; Start 09/22/16 at 16:00; Stop 09/25/16 at 09:09; Status DC Propofol (Diprivan 200 Mg/20 ml Inj) 200 mg STK-MED ONCE IV ; Start 09/17/16 at 12:00; Stop 09/22/16 at 15:24; Status DC Ephedrine Sulfate (ePHEDrine/NS 25 MG/5 ML SYR) 25 mg STK-MED ONCE IV ; Start at 12:00; Stop 09/22/16 at 15:24; Status DC Phenylephrine HCl (Neosynephrine/ NS 1000 Mcg/10ml Syr) 1,000 mcg STK-MED ONCE IV ; Start 09/17/16 at 12:00; Stop 09/22/16 at 15:24; Status DC Ketorolac Tromethamine (Toradol Inj) 60 mg STK-MED ONCE IM ; Start 09/17/16 at 12 :00; Stop 09/22/16 at 15:24; Status DC Ondansetron HCl 4 mg 4 mg STK-MED ONCE IV PUSH ; Start 09/17/16 at 12:00; Stop at 15:24; Status DC Lactated Ringer's (Lr 1000 ml Inj) 1,000 ml @ As Directed STK-MED ONCE IV ; Start 09/17/16 at 12:00; Stop 09/22/16 at 15:24; Status DC Potassium Chloride (KCl) 60 meq ONCE ONCE PO Last administered on 09/22/16 22 :11; Start 09/22/16 at 19:00; Stop 09/22/16 at 19:02; Status DC Potassium Chloride (KCl) 30 meq ONCE ONCE PO Last administered on 09/23/16 09 :45; Start 09/23/16 at 09:45; Stop 09/23/16 at 09:46; Status DC Potassium Phos/ Sodium Phos (K-Phos Neutral) 250 mg Q8HR PO Last administered on 09/27/16 06:15; Start 09/23/16 at 14:00; Stop 09/27/16 at 07:58; Status DC Miscellaneous Information SPECIFIC LAB TO BE DRAWN:VANCOMYCIN TROUGH DATE TO... ONCE ONCE .XX ; Start 09/26/16 at 03:45; Stop 09/26/16 at 03:45; Status DC Fluconazole/ Sodium Chloride (Diflucan 400 Mg Premix Bag) 200 ml @ 100 mls/hr Q24H IV Last administered on 09/28/16 08:36; Start 09/24/16 at 10:00 Hydromorphone HCl (Dilaudid Pf Inj) 1 mg STAT ONCE IV Last administered on 16:32; Start 09/24/16 at 16:00; Stop 09/24/16 at 16:01; Status DC Potassium Chloride 40 meq 40 meq ONCE ONCE PO Last administered on 09/25/16 02:34; Start 09/25/16 at 02:15; Stop 09/25/16 at 02:16; Status DC Potassium Chloride (KCl 20 Meq Premix Inj) 100 ml @ 50 mls/hr Q2H IV Last administered on 09/25/16 04:00; Start 09/25/16 at 02:15; Stop 09/25/16 at 06:14 ; Status DC Tramadol HCl (Ultram) 50 mg Q8H PRN PO PAIN 1-10/HEADACHE; Start 09/25/16 at 08 :00; Stop 09/25/16 at 09:25; Status DC Morphine Sulfate (Morphine Inj) 2 mg Q4HR PRN IV PUSH BREAKTHROUGH PAIN Last administered on 09/26/16 11:48; Start 09/25/16 at 08:00; Stop 09/27/16 at 07:55 ; Status DC Iohexol (Omnipaque 350 Inj) 70 ml STK-MED ONCE IV Last administered on 14:18; Start 09/23/16 at 14:18; Stop 09/25/16 at 11:11; Status DC Hydromorphone HCl (Dilaudid Pf Inj) 0.2 mg NOW ONCE IV Last administered on 16:33; Start 09/25/16 at 16:00; Stop 09/25/16 at 16:01; Status DC Oxycodone HCl (Roxicodone) 10 mg Q6H PRN PO PAIN WHEN TOLERATING PO MEDS Last administered on 09/28/16 08:37; Start 09/25/16 at 16:00 Prednisone (Deltasone) 40 mg DAILY PO Last administered on 09/28/16 08:28; Start 09/26/16 at 10:00 Insulin Detemir (Levemir Inj) 12 units Q12HR SQ Last administered on 09/28/16 08:33; Start 09/27/16 at 09:00 Hydromorphone HCl (Dilaudid Pf Inj) 0.2 mg Q4H PRN IV PUSH BREAKTHROUGH PAIN Last administered on 09/28/16 06:32; Start 09/27/16 at 08:00 Potassium Phosphate (K-Phos) 500 mg Q12HR PO Last administered on 09/28/16 08: 29; Start 09/27/16 at 09:00 Enalaprilat (Vasotec Inj) 1.25 mg Q8H PRN IV PUSH SBP>180, DBP>110; Start at 09:15 Lorazepam (Ativan Inj) 2 mg UNSCH X1 IV PUSH Last administered on 09/27/16 18 :07; Start 09/27/16 at 16:00; Stop 09/27/16 at 20:00; Status DC Divalproex Sodium (Depakote Er) 500 mg HS PO Last administered on 09/27/16 20: 05; Start 09/27/16 at 21:00 A/P Assessment and Plan A/P (1) Sepsis Patient with tachycardia and fever with a MAXIMUM TEMPERATURE of 102.2 after stent removal and stone lithotripsy. Likely infected stone (pyonephritis). Patient is status post left ureteral stent placement at approximately 3 weeks ago for a 9 mm obstructing left renal stone. The patient was discharged and referred to a urologist. However the patient states that the urologist did not accept her insurance and she was not seen. The patient presented to [place] [facility] on 09/06/16, CT abdomen and pelvis with stent in good position, no hydronephrosis, the patient was referred to Dr. Lira for stent removal as outpatient however was not seen yet when patient presented to the ED. CT abdomen and pelvis on 09/13/16 with innumerable renal calcifications bilaterally, left-sided double-J ureteral catheter in good position. Urology was consulted ; Patient was taken to the OR on and underwent cystoscopy, left ureteroscopy, laser lithotripsy and left ureteral stent removal. f/u with urology as outpatient. (2)- FUO- now fever has resolved. Repeat CT of the abdomen and pelvis showed changes consistent with possible diverticulitis. Bilateral nonobstructing renal stones. An subcutaneous fatty induration in the bilateral abdominal wall left greater than right. CTA chest with no PE and clear lungs. RF and DANDRE negative. Soft tissue ultrasound of the abdomen did not show any fluid collection or abscess. LP was performed- CSF cultures and blood cultures negative. HIV testing negative. gallium scan with no focus of infection. trial of prednisone- previously d/w - ID is following. (3) Headache with blurred vision-improved continue with pain control. head CT and MRi brain with no acute abnormality. continue prednisone. neurology consult appreciated- ophthalmology evaluation as outpatient. (4) diabetes mellitus- uncontrolled due to steroids- Hemoglobin A1c ordered and 9.0. continue levemir and continue SSI. blood sugar level expected to improve as prednisone is being tapered off. (5) Hypophosphatemia being replaced- will monitor. (6) Hypokalemia-replaced. (7) Transaminitis-resolved. Liver ultrasound showed normal dimension, hepatic duct. Diffusely increased acoustic attenuation of the liver suggesting fatty change. hepatitis panel negative. Discharge Planning dc home later this afternoon if remains fever-free and ok with ID. see med list. f/u; pcp,urology and ophthalmology. d/w the patient and the family. time spent 35 min. Cece Bryson MD Sep 28, 2016 10:46
[2016-09-28] MEDS ORDERED: DEPA500T3 PO ×2 (10:51→10:58)
[2016-09-28] MEDS ORDERED: TAMS5CAP PO (10:51)
[2016-09-28] MEDS ORDERED: PRED5TAB PO (10:51)
[2016-09-28] MEDS ORDERED: ZANA2CAP PO ×2 (10:51→10:58)
--- NOTE | 2016-09-28 10:52 | HHI.DCPOC ---
Discharge Care Plan Diagnosis: (1) Nephrolithiasis (2) Fever Your Health Problems Are: Inflammation Goals to Promote Your Health * To prevent worsening of your condition and complications * To maintain your health at the optimal level Directions to Meet Your Goals Take your medications as prescribed Follow your dietary instruction Follow activity as directed Keep your appointments as scheduled Take your immunizations and boosters as scheduled If your symptoms worsen call your PCP, if no PCP go to Urgent Care Center or Emergency Room Smoking is Dangerous to Your Health. Avoid second hand smoke Call the 24-hour hour crisis hotline for domestic abuse at Cece Bryson MD Sep 28, 2016 10:52
--- NOTE | 2016-09-28 11:00 | HHI.DS ---
Discharge Summary Admission Date Sep 14, 2016 at 00:25 Discharge Date: Sep 28, 2016 Admitting Diagnosis UTI failed outpatient managment, ureteral stent (1) Sepsis ICD Code: A41.9 Diagnosis: Principal (2) Chest pain ICD Code: R07.9 Diagnosis: Principal (3) Swelling of right lower extremity ICD Code: M79.89 Diagnosis: Secondary (4) Headache ICD Code: R51 Diagnosis: Secondary (5) UTI (urinary tract infection) ICD Code: N39.0 Diagnosis: Principal (6) Nephrolithiasis ICD Code: N20.0 Diagnosis: Principal (7) Uncontrolled diabetes mellitus ICD Code: E11.65 Diagnosis: Secondary (8) Hypophosphatemia ICD Code: E83.39 Diagnosis: Secondary (9) Hypokalemia ICD Code: E87.6 Diagnosis: Secondary (10) Transaminitis ICD Code: R74.0 Diagnosis: Secondary Procedures cystoscopy, left ureteroscopy, laser lithotripsy, stent removal LP Brief History - From Admission This is a 45-year-old female with a PMH of DM and Renal Stones who presented to the ER with complaints of acute severe left flank pain with associated fever and chills x2 days. States she had similar symptoms approx 3wks ago, seen at and underwent Ureteral Stent Placement due to left 9mm obstructing stone, was d/c'd w/ referral to Urologist, however states she hasn't been able to follow up due to Insurance reasons. Presented to [facility] 09/06/16 w/ similar complaints. CT Abd/Pelvis 09/06/16 w/ ureteral stent in place, no hydronephrosis. D/c'd w/ instructions to continue Macrobid and referred to Dr. Lira, however has not been able to make appt as of yet. Reports worsening flank pain and fever since Wednesday. On arrival, BP 132/83, HR 100, O2 sat 98% on RA, Temp 100.2. CBC unremarkable. Chemistry essentially unremarkable except for K+ 3.4, GFR 67. UA with persistent UTI. CT Abd/Pelvis w/ innumerable renal calcifications bilaterally, left-sided double-J ureteral catheter in good position, no active stone or mass identified. S/p Blood/Urine Cultures and IV Rocephin in ER. CBC/BMP: 09/27/16 0647 09/27/16 0647 Significant Findings Laboratory Tests Test 09/27/16 06:47 Red Blood Count 3.39 MIL/MM3 (4.00-5.30) Hemoglobin 10.0 GM/DL (11.6-15.3) Hematocrit 31.1 % (35.0-46.0) Neutrophils (%) (Auto) 79.7 % (16.0-70.0) Lymphocytes # (Auto) 0.9 TH/MM3 (1.0-4.8) Anion Gap 4 MEQ/L (5-15) Estimat Glomerular Filtration 76 ML/MIN (>89) Rate Random Glucose 319 MG/DL (74-106) Calcium Level 8.4 MG/DL (8.5-10.1) Phosphorus Level 1.7 MG/DL (2.5-4.9) Imaging Last Impressions Head Magnetic Resonance Angiography 09/27/16 0000 Signed Impressions: Service Date/Time: Tuesday, September 27, 2016 18:52 - CONCLUSION: Intracranial vasculature is within normal limits. Leonel Suarez MD Brain MRI 09/27/16 0000 Signed Impressions: Service Date/Time: Tuesday, September 27, 2016 18:52 - CONCLUSION: No abnormality is identified to explain the clinical symptoms. Leonel Suarez MD Lumbar Puncture Fluoroscopy 09/24/16 0000 Signed Impressions: Service Date/Time: September 10:57 - CONCLUSION: Uncomplicated fluoroscopically guided lumbar puncture with pressures as above. Sarbjit Us MD Gallium Scan Nuclear Medicine 09/24/16 0000 Signed Impressions: Service Date/Time: Sunday, September 25, 2016 11:30 - CONCLUSION: No abnormal uptake is identified to suggest an infectious or inflammatory process. Leonel Suarez MD Head CT 09/23/16 1011 Signed Impressions: Service Date/Time: Friday, September 23, 2016 14:14 - CONCLUSION: No acute disease. Kayode Begum MD Lower Extremity Ultrasound 09/23/16 0000 Signed Impressions: Service Date/Time: Friday, September 23, 2016 11:17 - CONCLUSION: No evidence of deep venous thrombosis within the lower extremities. Kayode Begum MD Chest X-Ray 09/23/16 Signed Impressions: Service Date/Time: Friday, September 23, 2016 09:11 - CONCLUSION: 1. No acute cardiopulmonary findings. Sarbjit Us MD CT Angiography 09/23/16 Signed Impressions: Service Date/Time: Friday, September 23, 2016 14:18 - CONCLUSION: 1. No pulmonary embolus identified. The lungs are clear. Sarbjit Us MD Soft Tissue Ultrasound 09/21/16 Signed Impressions: Service Date/Time: Wednesday, September 21, 2016 21:31 - CONCLUSION: Nonspecific body wall edema. No abscess. Leonel Glover MD Abdomen/Pelvis CT 09/20/16 Signed Impressions: Service Date/Time: Tuesday, September 20, 2016 15:42 - CONCLUSION: 1. Minimal amount of thickening of the left lateral conal fascia adjacent to one of the several diverticula of the descending colon. This is nonspecific, but does suggest the possibility of diverticulitis. 2. Bilateral nonobstructing renal stones. 3. Subcutaneous fat induration bilateral lateral abdominal wall, left greater than right. Oscar Domínguez MD Abdomen X-Ray 09/18/16 Signed Impressions: Service Date/Time: Sunday, September 18, 2016 13:40 - CONCLUSION: 1. Very limited examination due to patient's body habitus. Small renal calculi cannot be excluded. 2. No obvious bowel obstruction or pneumoperitoneum. 3. Noncontrasted CT scan of the abdomen could be performed for further evaluation if clinically warranted. Tonny Figueroa MD Liver Ultrasound 09/15/16 Signed Impressions: Service Date/Time: Thursday, September 15, 2016 14:16 - CONCLUSION: 1. Normal dimension common hepatic duct. 2. Diffuse increased acoustic attenuation throughout the liver suggests diffuse fatty change. 3. Focal calcification mid pole right kidney without evidence of hydronephrosis. Oscar Domínguez MD PE at Discharge GENERAL: This is a well-nourished, well-developed patient, in no apparent distress. CARDIOVASCULAR: Regular rate and regular rhythm without murmurs, gallops, or rubs. RESPIRATORY: Clear to auscultation. Breath sounds equal bilaterally. No wheezes , rales, or rhonchi. GASTROINTESTINAL: Abdomen soft, mild right flank tenderness, nondistended. Normal, active bowel sounds MUSCULOSKELETAL: Extremities without clubbing, cyanosis, or edema. NEURO: Alert & Oriented x4 to person, place, time, situation. Moves all ext x4 Hospital Course (1) Sepsis Patient with tachycardia and fever with a MAXIMUM TEMPERATURE of 102.2 after stent removal and stone lithotripsy. Likely infected stone (pyonephritis). Patient is status post left ureteral stent placement at approximately 3 weeks ago for a 9 mm obstructing left renal stone. The patient was discharged and referred to a urologist. However the patient states that the urologist did not accept her insurance and she was not seen. The patient presented to [facility] on 09/06/16, CT abdomen and pelvis with stent in good position, no hydronephrosis, the patient was referred to Dr. Lira for stent removal as outpatient however was not seen yet when patient presented to the ED. CT abdomen and pelvis on 09/13/16 with innumerable renal calcifications bilaterally, left-sided double-J ureteral catheter in good position. Urology was consulted ; Patient was taken to the OR on and underwent cystoscopy, left ureteroscopy, laser lithotripsy and left ureteral stent removal. f/u with urology as outpatient. (2)- FUO- now fever has resolved. Repeat CT of the abdomen and pelvis showed changes consistent with possible diverticulitis. Bilateral nonobstructing renal stones. An subcutaneous fatty induration in the bilateral abdominal wall left greater than right. CTA chest with no PE and clear lungs. RF and DANDRE negative. Soft tissue ultrasound of the abdomen did not show any fluid collection or abscess. LP was performed- CSF cultures and blood cultures negative. HIV testing negative. gallium scan with no focus of infection. trial of prednisone- previously d/w - ID is following. (3) Headache with blurred vision-improved continue with pain control. head CT and MRi brain with no acute abnormality. continue prednisone. neurology consult appreciated- ophthalmology evaluation as outpatient. (4) diabetes mellitus- uncontrolled due to steroids- Hemoglobin A1c ordered and 9.0. continue levemir and continue SSI. blood sugar level expected to improve as prednisone is being tapered off. (5) Hypophosphatemia being replaced- will monitor. (6) Hypokalemia-replaced. (7) Transaminitis-resolved. Liver ultrasound showed normal dimension, hepatic duct. Diffusely increased acoustic attenuation of the liver suggesting fatty change. hepatitis panel negative. Pt Condition on Discharge: Good Discharge Disposition: Discharge Home Discharge Time: > 30 minutes Discharge Instructions DIET: Follow Instructions for: Heart Healthy Diet, Diabetic Diet Activities you can perform: Regular-No Restrictions Follow up Referrals: Ophthalmology PCP Follow-up Rheumatology Urology New Medications: Potassium Phosphate-Sodium Phosphate (K-Phos Neutral) 155-852-130 Mg Tab 250 MG PO PCHS Electrolyte Replacement Days 3 Ref 0 TAB Prednisone (Prednisone) 5 Mg Tab 5 MG PO DIRECTED 40 mg po daily for two days then 30 mg po daily for two days then 20 mg po daily for two days then 10 mg po daily for two days then 5 mg po daily for two days then stop. Inflammation Days 10 Ref 0 TAB Tizanidine (Zanaflex) 2 Mg Cap 2 MG PO HS PRN muscle spasm #10 Ref 0 CAP Divalproex ER (Depakote ER) 500 Mg Tobias 500 MG PO HS headache Days 10 Ref 0 TAB Tamsulosin (Flomax) 0.4 Mg Cap 0.4 MG PO DAILY urinary retention Days 30 Ref 0 CAP Continued Medications: Alprazolam (Xanax 1 mg) 1 Mg Tab 1 MG PO BIDPRN Insulin Glargine Inj (Lantus Inj) 100 Unit/Ml Inj Insulin Lispro (Human) Inj (Humalog Inj) 1,000 Unit/10 Ml Vial 5-25 UNITS SQ ACHS Max dose at bedtime:( )units; sugars < 70,(0)units; sugars 150-199,(5)units; sugars 200-249,(10)units; sugars 250-299,(15)units; sugars 300 -349,(20)units; sugars more than 349,(25)units. Blood Sugar Management #1 Ref 0 VIAL Oxybutynin Chloride (Ditropan) 5 Mg Tab 0 PO UNKNOWN DOSE Discontinued Medications: Cyclobenzaprine (Flexeril) 5 Mg Tab 5 MG PO TID Muscle Spasm #90 Ref 0 TAB Hydrochlorothiazide (Hydrochlorothiazide) 25 Mg Tab 25 MG PO DAILY #30 Ref 0 TAB Ketorolac (Ketorolac) 10 Mg Tab 10 MG PO Q6HR PRN PAIN Days 5 Ref 0 TAB Nitrofurantoin Monohydrate Macrocrystals (Nitrofurantoin Monohydrate Macrocrystals) 100 Mg Cap 100 MG PO BID Infection Ref 0 CAP Cece Bryson MD Sep 28, 2016 11:00
[2016-09-28 11:15] VITALS: BP 110/75; PULSE 91; RESP 16; TEMP 98.2; O2SAT 94
[2016-09-28] MEDS ORDERED: KPHOS250 PO (13:14)
--- NOTE | 2016-09-28 13:20 | HHI.IDPN ---
Note Infectious Disease Note Patient is awake and alert. Notes decreased vision in left eye for a short time and now the left eys feels "tired" No other pains currently. No distress. Afebrile. Temp improved after starting steroids. CSF culture has no growth. Gallium scan negative. RF and DANDRE negative. Sed rate elevated. Presented to the emergency department on 09/13 with fever and hematuria. The patient was evaluated 3 weeks prior and was noted to have a stone in the kidney and underwent placement of a ureteral stent double-J. PAST MEDICAL HISTORY Past medical history of diabetes mellitus, kidney stones. PAST SURGICAL HISTORY Cholecystectomy, appendectomy, lithotripsy, ureteral stent, tonsillectomy. ALLERGIES TYLENOL CAUSE SWELLING OF THE TONGUE AND CAUSED HER BREATHING TO SHUT OFF. THE PATIENT ALSO ALLERGIC TO SPLENDA AND NUTRASWEET. ANTIBIOTICS: Diflucan. OBJECTIVE: Vital Signs Date Time Temp Pulse Resp B/P Pulse Ox O2 Delivery O2 Flow Rate FiO2 09/28/16 11:15 98.2 91 16 110/75 94 09/28/16 07:43 97.4 98 16 105/59 98 09/28/16 04:05 97.1 09/28/16 00:10 96.5 88 18 107/58 97 09/27/16 20:05 96.5 81 18 116/57 100 09/27/16 18:40 Room Air 09/27/16 16:41 18 09/27/16 16:00 96.8 89 18 114/70 94 09/27/16 13:40 18 09/27/16 09/27/16 09/28/16 15:00 23:00 07:00 Intake Total 700 ml 360 ml 480 ml Balance 700 ml 360 ml 480 ml Intake Oral 700 ml 360 ml 480 ml # Voids 4 2 6 # Bowel Movements 0 2 Laboratory Tests Test 09/27/16 06:47 White Blood Count 6.3 TH/MM3 Red Blood Count 3.39 MIL/MM3 Hemoglobin 10.0 GM/DL Hematocrit 31.1 % Mean Corpuscular Volume 91.7 FL Mean Corpuscular Hemoglobin 29.4 PG Mean Corpuscular Hemoglobin 32.1 % Concent Red Cell Distribution Width 13.9 % Platelet Count 246 TH/MM3 Mean Platelet Volume 8.6 FL Neutrophils (%) (Auto) 79.7 % Lymphocytes (%) (Auto) 13.8 % Monocytes (%) (Auto) 5.6 % Eosinophils (%) (Auto) 0.2 % Basophils (%) (Auto) 0.7 % Neutrophils # (Auto) 5.1 TH/MM3 Lymphocytes # (Auto) 0.9 TH/MM3 Monocytes # (Auto) 0.4 TH/MM3 Eosinophils # (Auto) 0.0 TH/MM3 Basophils # (Auto) 0.0 TH/MM3 CBC Comment DIFF FINAL Differential Comment Laboratory Tests Test 09/27/16 09/28/16 06:47 11:42 Sodium Level 137 MEQ/L Potassium Level 3.9 MEQ/L Chloride Level 101 MEQ/L Carbon Dioxide Level 31.6 MEQ/L Anion Gap 4 MEQ/L Blood Urea Nitrogen 7 MG/DL Creatinine 0.81 MG/DL Estimat Glomerular Filtration 76 ML/MIN Rate Random Glucose 319 MG/DL Calcium Level 8.4 MG/DL Phosphorus Level 1.7 MG/DL 1.9 MG/DL Microbiology Date/Time Procedure Status Source Growth 09/24/16 11:00 Gram Stain - Final Resulted Cerebral Spinal Fluid Lumbar Puncture 09/24/16 11:00 CSF Culture - Preliminary Resulted Cerebral Spinal Fluid Lumbar Puncture NO GROWTH IN 24 HOURS. 09/24/16 11:00 Acid Fast Stain Received Cerebral Spinal Fluid Lumbar Puncture Pending 09/24/16 11:00 Mycobacterial Culture Received Cerebral Spinal Fluid Lumbar Puncture Pending 09/24/16 11:00 Fungal Smear - Final Resulted Cerebral Spinal Fluid Lumbar Puncture NO FUNGAL ELEMENTS SEEN. 09/24/16 11:00 Fungal Culture Resulted Cerebral Spinal Fluid Lumbar Puncture Pending PHYSICAL EXAMINATION GENERAL: Awake and alert. no distress. HEENT: No icterus. Oropharynx no visible lesions. NECK: Supple. No adenopathy. LUNGS: Clear to auscultation. HEART: Regular rate and rhythm without audible murmurs, rubs or gallops. ABDOMEN: Bowel sounds present, distended, soft, no tenderness. EXTREMITIES: No clubbing, cyanosis or edema. SKIN: No rash. NEURO: Nonfocal. PSYCHIATRIC: Calm and cooperative. IMPRESSION 1. Sepsis indicated by fever, tachycardia, increased respiratory rate. patient with left flank pain and chills and fever suggesting pyelonephritis. Negative cultures. 2. FUO - Temp improved after starting steroids. Likely inflammatory condition. - CSF unremarkable - Cultures negative. - CT without obvious abscess. - Gallium scan negative. 3. Recent treatment for UTI and left-sided ureteral stent removal. 4. Recent kidney stone treated with lithotripsy. 5. Abdominal pain. ? diverticulitis abd CT finding. No abdominal pain currently. RECOMMENDATIONS Stop Diflucan. Okay to discharge without antibiotics. Patient to have her family doctor make appointment with Rheumatology. D/W Dr Bryson. Cuong Navas MD Sep 28, 2016 13:20
[2016-09-28 16:19] VITALS: BP 110/76; PULSE 85; RESP 20; TEMP 98; O2SAT 96
[2016-09-28] MEDS ORDERED: OXYB5TAB10 PO (16:40)
--- NOTE | 2016-09-30 12:56 | PQ ---
Physician Query Response Document PATIENT: LUCIA GARCES : 1970 ADMIT DATE: 09/14/2016 12:25 AM DISCH DATE: 09/28/2016 6:17 PM RESPONDING PROVIDER #: [email or web address] QUERY TEXT: Present On Admission It is unclear whether a diagnosis was present on admission. Your help is needed. Please clarify the POA status Such as: SEPSIS -- Present on admission -- Not present on admission The patient's Clinical Indicators include: Dr. Bryson, this patient was admitted wit failed outpatient treatment of UTI. Patient was admitted with fever and chills. Documentation of Sepsis begins on 09-18-16 by infectious disease consult. Please review the question below and answer to the best of your ability THANK YOU Query created by: Allan Cosme on 09/30/2016 9:08 AM RESPONSE TEXT: Sepsis- not present on admission. Electronically signed by: Cece Bryson MD 09/30/2016 12:52 PM
== END 2016-09-28 18:17 | disposition home or self-care (01) | DRG 668 ==
LOC: NEPE 20:31 → NEDA 09-14 00:25 → N06B 09-14 02:32
PROVIDERS: ADMIT Internal Medicine; ATTEND Internal Medicine
PROC: 0TP98DZ Removal of Intraluminal Device from Ureter, Via Natural or Artificial Opening Endoscopic (ICD-10-PCS; 2016-09-17)
PROC: 0TJB8ZZ Inspection of Bladder, Via Natural or Artificial Opening Endoscopic (ICD-10-PCS; 2016-09-17)
PROC: 0TC78ZZ Extirpation of Matter from Left Ureter, Via Natural or Artificial Opening Endoscopic (ICD-10-PCS; principal; 2016-09-17 17:35)
PROC: 009U3ZX Drainage of Spinal Canal, Percutaneous Approach, Diagnostic (ICD-10-PCS; 2016-09-24)
DX: N39.0 Urinary tract infection, site not specified (principal); A41.9 Sepsis, unspecified organism; K57.92 Diverticulitis of intestine, part unspecified, without perforation or abscess without bleeding; K76.0 Fatty (change of) liver, not elsewhere classified; E11.65 Type 2 diabetes mellitus with hyperglycemia; E83.39 Other disorders of phosphorus metabolism; N20.0 Calculus of kidney; N32.89 Other specified disorders of bladder; K21.9 Gastro-esophageal reflux disease without esophagitis; Z87.442 Personal history of urinary calculi; E86.0 Dehydration; E87.6 Hypokalemia; G43.809 Other migraine, not intractable, without status migrainosus; R74.0 Nonspecific elevation of levels of transaminase and lactic acid dehydrogenase [LDH]; G47.00 Insomnia, unspecified; R07.9 Chest pain, unspecified; T38.0X5A Adverse effect of glucocorticoids and synthetic analogues, initial encounter; H53.8 Other visual disturbances
CPT/HCPCS: 62270; 70450; 70544; 70551; 71010; 71275; 74000; 74176; 74177; 76705; 76775; 76937; 76999; 77003; 78806; 80048; 80053; 80074; 80202; 81001; 82550; 82945; 82947; 82948; 83036; 83605; 83735; 83970; 84100; 84145; 84157; 84484; 84550; 85025; 85027; 85610; 85652; 85730; 86038; 86403; 86430; 86703; 87015; 87040; 87070; 87086; 87102; 87116; 87205; 87206; 87493; 89051; 93005; 93970; 96365; 96375; A9556; C1769; J0690; J0696; J0780; J1170; J1450; J1815; J1885; J2060; J2250; J2270; J2370; J2405; J2543; J3010; J3370; J3480; J7030; J7040; J7050; J7120; J7512; Q9967

== ENCOUNTER 2016-10-01 16:56 | Inpatient (IN) | payer MEDICAID, OTHER ==
[~2016-10-01] VITALS: Ht 157.5 cm; Wt 110.4 kg
[~2016-10-01 16:56] MED LIST changes: -CYCL5TAB PO; +DEPA500T3 PO; -HYDR25TA5 PO; -KETO10 PO; +KPHOS250 PO; -NITR100C4 PO; +OXYB5TAB10 PO; +PRED5TAB PO; +TAMS5CAP PO; +ZANA2CAP PO
[2016-10-01 17:00] VITALS: BP 117/76; PULSE 91; RESP 16; TEMP 99; O2SAT 96
[2016-10-01 17:33] VITALS: BP 104/72; PULSE 93; RESP 18; TEMP 98.3; O2SAT 96
[2016-10-01] MEDS ORDERED: SODIUM CHLOR 0.9% 1000 ML INJ 1,000 ML IV SCH (18:17)
--- NOTE | 2016-10-01 18:20 | PD ---
HPI Chief Complaint: General Weakness Time Seen by Provider: 18:20 Travel History International Travel<30 days: No Contact w/Intl Traveler<30days: No Traveled to known affect area: No History of Present Illness HPI 45-year-old female with a history of diabetes and kidney stones presents to the emergency department for evaluation of fever, weakness and dizziness. The patient was discharged from our facility 3 days ago where she was admitted for 15 days for sepsis and fever with unknown source. He was initially thought that the patient had sepsis secondary to pyelonephritis however urine cultures were negative. Blood cultures were negative. Patient had a lumbar puncture which was negative. She apparently continued to have a persistent fever without source and was being given antibiotics. Infectious disease saw the patient and decided to give the patient steroids to control her fever. She states that since she was discharged she said generalized weakness and dizziness. States that she had a fever of 100.4F this morning for the first time since she was discharged so she has come back to the emergency department for evaluation. She denies any chest pain, shortness of breath, abdominal pain , vomiting, diarrhea, numbness or tingling, one-sided weakness, headache. She complains of soreness in her lower back at the location of the lumbar puncture and soreness in her left flank status post lithotripsy. No other complaints. PCP is in [place]. [facility] Past Medical History Cancer: No Cardiovascular Problems: Yes Cerebrovascular Accident: No Diabetes: Yes (insulin dependent ) Patient Takes Glucophage: No Glaucoma: No Genitourinary: Yes (bloody urine) Headaches: Yes (DUE LOW BLOOD PRESSURE) Hepatitis: No Hiatal Hernia: Yes (REPAIR UMBILUS HERNIA) Hypertension: No Kidney Stones: Yes (THREE LISTROPSPHY) Medical other: Yes (GERD) Musculoskeletal: No Respiratory: No Thyroid Disease: Yes Ulcer: Yes ?: Not Menopausal: Yes Past Surgical History Abdominal Surgery: Yes (GALL BLADDER APPENDIX) Appendectomy: Yes Cardiac Surgery: No Section: Yes Cholecystectomy: Yes Ear Surgery: No Endocrine Surgery: No Eye Surgery: No Genitourinary Surgery: Yes (KIDNEY STENT PLACED) Gynecologic Surgery: Yes (C SECTION) Hysterectomy: Yes (2000) Joint Replacement: Yes (right ankle repair ) Oral Surgery: Yes (TONSILLECTOMY) Pacemaker: No Thoracic Surgery: No Tonsillectomy: Yes Other Surgery: Yes Social History Alcohol Use: No Tobacco Use: No Substance Use: No Allergies-Medications (Allergen,Severity, Reaction): Coded Allergies: Tylenol (Verified Allergy, Severe, VOMITING, SWELLING OF TONGUE, 10/01/16) Ultram (Verified Allergy, Intermediate, FOAMS AT THE MOUTH, 10/01/16) Uncoded Allergies: SPLENDA (Adverse Reaction, Severe, SWELLING TONGUE , 07/26/08) Reported Meds & Prescriptions Reported Meds & Active Scripts Active Ditropan (Oxybutynin Chloride) 5 Mg Tab 5 Mg PO Q12HR K-Phos Neutral (Potassium Phos/Sodium Phos) 155-852-130 Mg Tab 250 Mg PO PCHS 3 Days Zanaflex (Tizanidine HCl) 2 Mg Cap 2 Mg PO HS PRN Depakote ER (Divalproex Sodium) 500 Mg Tobias 500 Mg PO HS 10 Days Prednisone 5 Mg Tab 5 Mg PO DIRECTED 10 Days 40 mg po daily for two days then 30 mg po daily for two days then 20 mg po daily for two days then 10 mg po daily for two days then 5 mg po daily for two days then stop. Flomax (Tamsulosin HCl) 0.4 Mg Cap 0.4 Mg PO DAILY 30 Days Reported Humalog Inj (Insulin Human Lispro) 1,000 Unit/10 Ml Vial 5-25 Units SQ ACHS Max dose at bedtime:( )units; sugars < 70,(0)units; sugars 150-199,(5)units; sugars 200-249,(10)units; sugars 250-299,(15)units; sugars 300-349,(20)units; sugars more than 349,(25)units. Lantus Inj (Insulin Glargine) 100 Unit/Ml Inj Review of Systems Except as stated in HPI: all other systems reviewed are Neg Physical Exam Narrative GENERAL: Well-nourished and well-developed pleasant female patient in no acute distress. SKIN: Warm and dry. HEAD: Normocephalic and atraumatic. EYES: No injection, drainage, or hyphema noted. PERRLA. EOMI. ENT: No nasal drainage noted. Oropharynx is clear. NECK: Supple and the trachea is midline. CARDIOVASCULAR: Regular rate and rhythm. RESPIRATORY: Breath sounds are equal bilaterally with no accessory muscle use, wheezing, rhonchi, or crackles. GASTROINTESTINAL: Abdomen is soft, non-tender, and nondistended. MUSCULOSKELETAL: No obvious deformities, swelling, cyanosis, or ecchymosis is present throughout the upper and lower extremities. Patient has full range of motion without any signs of neurovascular compromise. Strength 5/5 upper and lower extremities equal bilaterally. BACK: Small area of ecchymosis to lumbar spine at location of LP. Nontender without any obvious deformities, bony point tenderness, or crepitus noted throughout the thoracic and lumbar vertebrae. NEUROLOGICAL: Awake, alert, and oriented. Normal speech and gait. Cranial nerves are grossly intact. Data Data Last Documented VS Vital Signs Date Time Temp Pulse Resp B/P Pulse Ox O2 Delivery O2 Flow Rate FiO2 10/01/16 19:09 81 16 126/80 98 Room Air 10/01/16 18:25 2 10/01/16 17:33 98.3 Orders Complete Blood Count With Diff (10/01/16 18:17) Comprehensive Metabolic Panel (10/01/16 18:17) Lactic Acid Sepsis Protocol (10/01/16 18:17) Urinalysis - C+S If Indicated (10/01/16 18:17) Blood Culture (10/01/16 18:17) Blood Glucose (10/01/16 18:17) Ecg Monitoring (10/01/16 18:17) Iv Access Insert/Monitor (10/01/16 18:17) Oximetry (10/01/16 18:17) Sodium Chlor 0.9% 1000 Ml Inj (Ns 1000 M (10/01/16 18:17) Urine Culture (10/01/16 18:15) Westergren Sedimentation Rate (10/01/16 19:31) Valproic Acid (Depakene) (10/01/16 19:33) C-Reactive Protein (Crp) (10/01/16 18:15) Ct Brain W/O Iv Contrast(Rout) (10/01/16 20:35) Labs Laboratory Tests Test 10/01/16 10/01/16 18:15 18:20 White Blood Count 10.4 TH/MM3 Red Blood Count 4.22 MIL/MM3 Hemoglobin 12.4 GM/DL Hematocrit 38.4 % Mean Corpuscular Volume 91.2 FL Mean Corpuscular Hemoglobin 29.4 PG Mean Corpuscular Hemoglobin 32.2 % Concent Red Cell Distribution Width 14.2 % Platelet Count 419 TH/MM3 Mean Platelet Volume 8.5 FL Neutrophils (%) (Auto) 85.2 % Lymphocytes (%) (Auto) 11.0 % Monocytes (%) (Auto) 3.6 % Eosinophils (%) (Auto) 0.1 % Basophils (%) (Auto) 0.1 % Neutrophils # (Auto) 8.9 TH/MM3 Lymphocytes # (Auto) 1.1 TH/MM3 Monocytes # (Auto) 0.4 TH/MM3 Eosinophils # (Auto) 0.0 TH/MM3 Basophils # (Auto) 0.0 TH/MM3 CBC Comment DIFF FINAL Differential Comment Erythrocyte Sedimentation Rate 74 mm/hr Urine Color YELLOW Urine Turbidity HAZY Urine pH 8.0 Urine Specific [place] 1.011 Urine Protein NEG mg/dL Urine Glucose (UA) TRACE mg/dL Urine Ketones NEG mg/dL Urine Occult Blood NEG Urine Nitrite NEG Urine Bilirubin NEG Urine Urobilinogen LESS THAN 2.0 MG/DL Urine Leukocyte Esterase TRACE Urine RBC 2 /hpf Urine WBC 8 /hpf Urine Squamous Epithelial 4 /hpf Cells Urine Amorphous Sediment RARE Urine Bacteria RARE /hpf Urine Mucus FEW /lpf Microscopic Urinalysis Comment CATH-CULTURE IND Sodium Level 140 MEQ/L Potassium Level 3.7 MEQ/L Chloride Level 102 MEQ/L Carbon Dioxide Level 32.3 MEQ/L Anion Gap 6 MEQ/L Blood Urea Nitrogen 13 MG/DL Creatinine 0.88 MG/DL Estimat Glomerular Filtration 69 ML/MIN Rate Random Glucose 262 MG/DL Calcium Level 9.1 MG/DL Total Bilirubin 0.3 MG/DL Aspartate Amino Transf 71 U/L (AST/SGOT) Alanine Aminotransferase 93 U/L (ALT/SGPT) Alkaline Phosphatase 104 U/L C-Reactive Protein 1.60 MG/DL Total Protein 8.1 GM/DL Albumin 2.8 GM/DL Valproic Acid (Depakene) Level 15 MCG/ML Lactic Acid Level 1.9 mmol/L [facility] Medical Decision Making Medical Screen Exam Complete: Yes Emergency Medical Condition: Yes Differential Diagnosis Sirs versus fever versus sepsis versus dehydration Narrative Course 45-year-old female presents to the emergency department 3 days after being discharged from our hospital. Patient is afebrile, vital signs are stable. Physical examination is essentially unremarkable for any acute abnormalities. IV access is obtained, labs were drawn and sent. Patient is placed on cardiac telemetry and pulse oximetry monitoring. I reviewed the EMR which shows that she had blood cultures, urine culture and CSF which were all negative. She had a brain MRI that was also negative. CBC is unremarkable. CMP shows elevated LFTs and hyperglycemia but is otherwise unremarkable. Lactic acid is 1.9. Urinalysis shows trace leukocyte esterase, 8 white blood cells, rare bacteria, few mucus. This is improved from prior urinalysis last week. CRP is slightly elevated at 1.6. Sedimentation rate is elevated at 74. This has come down from [address] is negative. Labs and imaging are essentially unremarkable. Vital signs remained stable and afebrile. The patient is stating that she is still dizzy and weak and cannot ambulate as she feels she is going to fall. Therefore as the patient cannot safely ambulate she will be admitted under observation status. I discussed the case with my attending physician Dr. Almanza who is aware of the patients history, physical examination findings, and treatment plan. Physician Communication Physician Communication I spoke with Dr. Phan Shannon who agrees to accept the patient under observation. Diagnosis Primary Impression: Dizziness Additional Impressions: Weakness Gait instability Admitting Information Admitting Physician Requests: Observation Jo Murray Oct 01, 2016 18:20
[2016-10-01 18:25] VITALS: O2SAT 96; O2SAT 98
[2016-10-01 18:55] LABS: AUTOMATED NEUTROPHIL # 8.9 TH/MM3 (1.8-7.7); BACTERIA, URINE RARE /hpf; BASOPHIL % 0.1 % (0.0-2.0); BLOOD, URINE NEG (NEG); EOSINOPHIL % 0.1 % (0.0-4.0); GLUCOSE,URINE TRACE mg/dL (NEG); HEMATOCRIT 38.4 % (35.0-46.0); HEMO FLAGS DIFF FINAL; KETONE, URINE NEG (NEG); LYMPHOCYTE # 1.1 TH/MM3 (1.0-4.8); MEAN CELL VOLUME 91.2 FL (80.0-100.0); MEAN CORPUSCULAR HEMOGLOBIN 29.4 PG (27.0-34.0); MEAN CORPUSCULAR HGB CONC 32.2 % (32.0-36.0); MONO % 3.6 % (0.0-8.0); MUCUS URINE FEW /lpf (OCC); NEUT % 85.2 % (16.0-70.0); NITRITE,URINE NEG (NEG); PLATELET COUNT 419 TH/MM3 (150-450); RED BLOOD COUNT 4.22 MIL/MM3 (4.00-5.30); RED CELL DISTRIBUTION WIDTH 14.2 % (11.6-17.2); SQUAMOUS EPITHELIAL CELL URINE 4 /hpf (0-5); URINE COLOR YELLOW (YELLW/STRAW); WHITE BLOOD COUNT 10.4 TH/MM3 (4.0-11.0)
[2016-10-01 18:59] LABS: COMMENT (UR) CATH-CULTURE IND; CULTURE IF INDICATED CATH CULTURE IND
[2016-10-01 19:02] LABS: ANION GAP 6 MEQ/L (5-15); AST (GOT) 71 U/L (15-37); BICARBONATE 32.3 MEQ/L (21.0-32.0); BLOOD UREA NITROGEN 13 MG/DL (7-18); CHLORIDE 102 MEQ/L (98-107); GLOMERULAR FILTRATION RATE 69 ML/MIN (>89); POTASSIUM 3.7 MEQ/L (3.5-5.1); SODIUM (NA) 140 MEQ/L (136-145)
[2016-10-01 19:03] LABS: ALT (GPT) 93 U/L (10-53)
[2016-10-01 19:05] LABS: ALKALINE PHOSPHATASE 104 U/L (45-117); TOTAL BILIRUBIN ADULT 0.3 MG/DL (0.2-1.0)
[2016-10-01 19:09] VITALS: BP 126/80; PULSE 81; RESP 16; O2SAT 98
--- NOTE | 2016-10-01 21:03 | RADRPT ---
EXAM DATE/TIME: 10/01/2016 20:50 [place] COMPARISON: CT BRAIN W/O CONTRAST, September 23, 2016, 14:14. INDICATIONS : Dizziness today. RADIATION DOSE: 44.71 CTDIvol (mGy) MEDICAL HISTORY : None SURGICAL HISTORY : None. ENCOUNTER: Initial ACUITY: 1 day PAIN SCALE: 0/10 LOCATION: cranial TECHNIQUE: Multiple contiguous axial images were obtained of the head. Using automated exposure control and adj ustment of the mA and/or kV according to patient size, radiation dose was kept as low as reasonably a chievable to obtain optimal diagnostic quality images. DICOM format image data is available electro nically for review and comparison. FINDINGS: CEREBRUM: The ventricles are normal for age. No evidence of midline shift, mass lesion, hemorrhage or acute in farction. No extra-axial fluid collections are seen. POSTERIOR FOSSA: The cerebellum and brainstem are intact. The 4th ventricle is midline. The cerebellopontine angle i s unremarkable. EXTRACRANIAL: The visualized portion of the orbits is intact. SKULL: The calvaria is intact. No evidence of skull fracture. CONCLUSION: Negative noncontrast CT. Fernando Richey MD on October 01, 2016 at 20:59 Board Certified Radiologist. This report was verified electronically.
[2016-10-01] MEDS ORDERED: SODIUM CHLORIDE 0.9% FLUSH 10 ML FLUSH IV FLUSH PRN (21:15)
[2016-10-01] MEDS ORDERED: NALOXONE HCL 0.4 MG/ML AMP IV PRN (21:15)
--- NOTE | 2016-10-01 21:36 | PD ---
Physical Exam Date Seen by Provider: Oct 01, 2016 Time Seen by Provider: 21:33 Narrative 45-year-old female came to the emergency room for history of dizziness, generalized weakness and just not feeling well for past 12 days. Patient was admitted in the hospital for fever and eventually turned out to be a fever of unknown origin for almost 1 week. During the stay she had exhaustive workup done trying to find the source of the fever. Eventually ID signed off on the case and it was decided that this was from some inflammatory reaction. Patient was discharged home on prednisone and is supposed to find a limousine and hearse upholsterer to follow up with. However she is back because she has not felt better. She says that this morning she had a temperature of 100. Although she was afebrile in the emergency room. She is also very dizzy and fell because of the dizziness yesterday. She has had 4 days of afebrile period. Patient is being seen by my PA and I'm supervising her. Workup was ordered and everything came back to be within acceptable limit except for her sedimentation rate which was elevated. However there was a sedimentation rate done on the and it was 85 which was high at and the one today. I went to speak with the patient and she told me that there was no way she could go home since she is even unable to move from the bed. Her was there who has a broken foot and cannot help her ambulate. They both were very frustrated. At this point I told them that we could keep her as probably observation and have the hospitalist consult ID again. She was okay with this plan. Data Data Last Documented VS Orders Complete Blood Count With Diff (10/01/16 18:17) Comprehensive Metabolic Panel (10/01/16 18:17) Lactic Acid Sepsis Protocol (10/01/16 18:17) Urinalysis - C+S If Indicated (10/01/16 18:17) Blood Culture (10/01/16 18:17) Blood Glucose (10/01/16 18:17) Ecg Monitoring (10/01/16 18:17) Iv Access Insert/Monitor (10/01/16 18:17) Oximetry (10/01/16 18:17) Sodium Chlor 0.9% 1000 Ml Inj (Ns 1000 M (10/01/16 18:17) Urine Culture (10/01/16 18:15) Westergren Sedimentation Rate (10/01/16 19:31) Valproic Acid (Depakene) (10/01/16 19:33) C-Reactive Protein (Crp) (10/01/16 18:15) Ct Brain W/O Iv Contrast(Rout) (10/01/16 20:35) Admit Order (Ed Use Only) (10/01/16 21:11) Labs MDM Supervised Visit with JOE: Yes Diagnosis Primary Impression: Dizziness Additional Impressions: Gait instability Weakness Scripts Ondansetron (Zofran)4 Mg Tab4 Mg PO Q12HR PRN (NAUSEA OR VOMITING) #20 TAB Ref 0 Prov:Chely Nur MD 10/04/16 Prednisone 20 Mg Tab60 Mg PO DAILY #30 TAB Ref 0 Prov:Chely Nur MD 10/04/16 Oxycodone 5 Mg Cap5 Mg PO Q8H PRN (PAIN) #7 CAP Ref 0 Prov:Chely Nur MD 10/04/16 Mata Almanza MD Oct 01, 2016 21:36 Red Blood Count 4.22 MIL/MM3 Hemoglobin 12.4 GM/DL Hematocrit 38.4 % Mean Corpuscular Volume 91.2 FL Mean Corpuscular Hemoglobin 29.4 PG Mean Corpuscular Hemoglobin 32.2 % Concent Red Cell Distribution Width 14.2 % Platelet Count 419 TH/MM3 Mean Platelet Volume 8.5 FL Neutrophils (%) (Auto) 85.2 % Lymphocytes (%) (Auto) 11.0 % Monocytes (%) (Auto) 3.6 % Eosinophils (%) (Auto) 0.1 % Basophils (%) (Auto) 0.1 % Neutrophils # (Auto) 8.9 TH/MM3 Lymphocytes # (Auto) 1.1 TH/MM3 Monocytes # (Auto) 0.4 TH/MM3 Eosinophils # (Auto) 0.0 TH/MM3 Basophils # (Auto) 0.0 TH/MM3 CBC Comment DIFF FINAL Differential Comment Erythrocyte Sedimentation Rate 74 mm/hr Urine Color YELLOW Urine Turbidity HAZY Urine pH 8.0 Urine Specific [place] 1.011 Urine Protein NEG mg/dL Urine Glucose (UA) TRACE mg/dL Urine Ketones NEG mg/dL Urine Occult Blood NEG Urine Nitrite NEG Urine Bilirubin NEG Urine Urobilinogen LESS THAN 2.0 MG/DL Urine Leukocyte Esterase TRACE Urine RBC 2 /hpf Urine WBC 8 /hpf Urine Squamous Epithelial 4 /hpf Cells Urine Amorphous Sediment RARE Urine Bacteria RARE /hpf Urine Mucus FEW /lpf Microscopic Urinalysis Comment CATH-CULTURE IND Sodium Level 140 MEQ/L Potassium Level 3.7 MEQ/L Chloride Level 102 MEQ/L Carbon Dioxide Level 32.3 MEQ/L Anion Gap 6 MEQ/L Blood Urea Nitrogen 13 MG/DL Creatinine 0.88 MG/DL Estimat Glomerular Filtration 69 ML/MIN Rate Random Glucose 262 MG/DL Calcium Level 9.1 MG/DL Total Bilirubin 0.3 MG/DL Aspartate Amino Transf 71 U/L (AST/SGOT) Alanine Aminotransferase 93 U/L (ALT/SGPT) Alkaline Phosphatase 104 U/L C-Reactive Protein 1.60 MG/DL Total Protein 8.1 GM/DL Albumin 2.8 GM/DL Valproic Acid (Depakene) Level 15 MCG/ML Lactic Acid Level 1.9 mmol/L MDM Supervised Visit with JOE: Yes Diagnosis Primary Impression: Dizziness Additional Impressions: Gait instability Weakness Mata Almanza MD Oct 01, 2016 21:36
[2016-10-01 23:26] VITALS: BP 117/70; PULSE 79; RESP 18; TEMP 99.5; O2SAT 94
--- NOTE | 2016-10-01 23:56 | HHI.HP ---
HPI Service [facility] Primary Care Physician Lissy Henry Admission Diagnosis Dizziness, Weakness, Inability to Ambulate Diagnoses: Chief Complaint: generalized weakness Travel History International Travel<30 Days: No Contact w/Intl Traveler <30 Da: No Traveled to Known Affected Are: No History of Present Illness Written by Ilene Alvarenga, acting as scribe for Dr. Phan on 10/02/16 at 23: 55.. This is a 45 year old female patient with a past medical history which includes DM, PE 06/2016 and renal stones. Patient presents to the ER today with multiple complaints and reports of feeling generally unwell. Patient was recently admitted 09/14/16 then discharged on Wednesday09/30/16 with diagnosis of fever of unknown origin. Patient states that, "since then I have gotten progressively worse and today I got a fever." Patient reports that she had chills yesterday, temp at home was 100.4 and dizziness for the past 3 days. Also complains of headache. Patient endorses nausea and diarrhea. Patient reports diarrhea 2 times a day for the past two days. Stool is yellow in color, denies black or red color. Patient reports chest tightness and shortness of breath for the past 3-4 days. Patient also reports that she fell yesterday landed on her back and now has pain/soreness lower back worse with palpation. Patient denies vomiting. 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 Past Surgical History Cholecystectomy, Appendectomy, Lithotripsy, Ureteral Stent , Tonsillectomy, ankle surgery, hysterectomy, hernia repair Reported Medications Ditropan (Oxybutynin Chloride) 5 Mg Tab 5 Mg PO Q12HR K-Phos Neutral (Potassium Phos/Sodium Phos) 155-852-130 Mg Tab 250 Mg PO PCHS 3 Days Zanaflex (Tizanidine HCl) 2 Mg Cap 2 Mg PO HS PRN Depakote ER (Divalproex Sodium) 500 Mg Tobias 500 Mg PO HS 10 Days Prednisone 5 Mg Tab 5 Mg PO DIRECTED 10 Days 40 mg po daily for two days then 30 mg po daily for two days then 20 mg po daily for two days then 10 mg po daily for two days then 5 mg po daily for two days then stop. Flomax (Tamsulosin HCl) 0.4 Mg Cap 0.4 Mg PO DAILY 30 Days Humalog Inj (Insulin Human Lispro) 1,000 Unit/10 Ml Vial 5-25 Units SQ ACHS Max dose at bedtime:( )units; sugars < 70,(0)units; sugars 150-199,(5)units; sugars 200-249,(10)units; sugars 250-299,(15)units; sugars 300-349,(20)units; sugars more than 349,(25)units. Lantus Inj (Insulin Glargine) 100 Unit/Ml Inj Allergies: Coded Allergies: Tylenol (Verified Allergy, Severe, VOMITING, SWELLING OF TONGUE, 10/01/16) Ultram (Verified Allergy, Intermediate, FOAMS AT THE MOUTH, 10/01/16) Uncoded Allergies: SPLENDA (Adverse Reaction, Severe, SWELLING TONGUE , 07/26/08) Active Ordered Medications Current Medications Medications (Trade) Dose Ordered Sig/Jacques Route Start Time Stop Time Status Last Admin (NS Flush) 2 ml UNSCH PRN IV FLUSH 10/01/16 21:15 (NS Flush) 2 ml BID IV FLUSH 10/02/16 09:00 (Narcan Inj) 0.4 mg UNSCH PRN IV 10/01/16 21:15 (Roxicodone) 5 mg Q8H PRN PO 10/02/16 00:30 (D50w (Vial) Inj) 50 ml UNSCH PRN IV 10/02/16 00:45 (Glucagon Inj) 1 mg UNSCH PRN OTHER 10/02/16 00:45 (Depakote Er) 500 mg HS PO 10/02/16 21:00 (Ditropan) 5 mg Q12HR PO 10/02/16 09:00 (K-Phos Neutral) 250 mg PCHS PO 10/02/16 09:30 (Flomax) 0.4 mg DAILY PO 10/02/16 09:00 (Zanaflex) 2 mg HS PRN PO 10/02/16 00:45 Family History Brother has hepatitis C Sister had HTN Mother secondary to CHF also had PE Dad colon resection sarcoma Social History lives at home with - is a smoker denies ETOH use, tobacco use or illicit drug use Physical Exam Vital Signs Vital Signs Date Time Temp Pulse Resp B/P Pulse Ox O2 Delivery O2 Flow Rate FiO2 10/01/16 23:26 99.5 79 18 117/70 94 10/01/16 19:09 81 16 126/80 98 Room Air 10/01/16 18:25 98 Nasal Cannula 2 10/01/16 17:33 98.3 93 18 104/72 96 Nasal Cannula 2 10/01/16 17:24 Nasal Cannula 2 10/01/16 17:00 99.0 91 16 117/76 96 Physical Exam GENERAL: This is a morbidly obese female patient, in no apparent distress. SKIN: No rashes, ecchymoses or lesions. Cool and dry. HEAD: Atraumatic. Normocephalic. No temporal or scalp tenderness. EYES: Extraocular motions intact. No scleral icterus. No injection or drainage. CARDIOVASCULAR: Regular rate and rhythm without murmurs, gallops, or rubs. RESPIRATORY: Clear to auscultation. Breath sounds equal bilaterally. No wheezes , rales, or rhonchi. GASTROINTESTINAL: Abdomen large soft, non-tender, nondistended. No guarding. MUSCULOSKELETAL: Extremities without clubbing, cyanosis, or edema. No joint tenderness, effusion, or edema noted. No calf tenderness. Negative Homans sign bilaterally. NEUROLOGICAL: Awake and alert. No focal deficits noted. Motor and sensory grossly within normal limits. Five out of 5 muscle strength in all muscle groups. Normal speech. Laboratory Laboratory Tests Test 10/01/16 10/01/16 18:15 18:20 White Blood Count 10.4 Red Blood Count 4.22 Hemoglobin 12.4 Hematocrit 38.4 Mean Corpuscular Volume 91.2 Mean Corpuscular Hemoglobin 29.4 Mean Corpuscular Hemoglobin 32.2 Concent Red Cell Distribution Width 14.2 Platelet Count 419 Mean Platelet Volume 8.5 Neutrophils (%) (Auto) 85.2 Lymphocytes (%) (Auto) 11.0 Monocytes (%) (Auto) 3.6 Eosinophils (%) (Auto) 0.1 Basophils (%) (Auto) 0.1 Neutrophils # (Auto) 8.9 Lymphocytes # (Auto) 1.1 Monocytes # (Auto) 0.4 Eosinophils # (Auto) 0.0 Basophils # (Auto) 0.0 CBC Comment DIFF FINAL Differential Comment Erythrocyte Sedimentation Rate 74 Urine Color YELLOW Urine Turbidity HAZY Urine pH 8.0 Urine Specific [place] 1.011 Urine Protein NEG Urine Glucose (UA) TRACE Urine Ketones NEG Urine Occult Blood NEG Urine Nitrite NEG Urine Bilirubin NEG Urine Urobilinogen LESS THAN 2.0 Urine Leukocyte Esterase TRACE Urine RBC 2 Urine WBC 8 Urine Squamous Epithelial 4 Cells Urine Amorphous Sediment RARE Urine Bacteria RARE Urine Mucus FEW Microscopic Urinalysis Comment CATH-CULTURE IND Sodium Level 140 Potassium Level 3.7 Chloride Level 102 Carbon Dioxide Level 32.3 Anion Gap 6 Blood Urea Nitrogen 13 Creatinine 0.88 Estimat Glomerular Filtration 69 Rate Random Glucose 262 Calcium Level 9.1 Total Bilirubin 0.3 Aspartate Amino Transf 71 (AST/SGOT) Alanine Aminotransferase 93 (ALT/SGPT) Alkaline Phosphatase 104 C-Reactive Protein 1.60 Total Protein 8.1 Albumin 2.8 Valproic Acid (Depakene) Level 15 Lactic Acid Level 1.9 Date/Time Procedure Status Source Growth 10/01/16 18:30 Aerobic Blood Culture Received Blood Peripheral Pending 10/01/16 18:30 Anaerobic Blood Culture Received Blood Peripheral Pending 10/01/16 18:15 Urine Culture Received Urine Catheterized Urine Pending Result Diagram: 10/01/16181410/01/161814 Imaging Last Impressions Head CT 10/01/162034 Signed Impressions: Service Date/Time: September 20:50 - CONCLUSION: Negative noncontrast CT. Fernando Richey MD Assessment and Plan Problem List: (1) Weakness ICD Code: R53.1 Status: Acute (2) Dizziness ICD Code: R42 Status: Acute Assessment and Plan chest tightness with SOB history of PE 06/2016- only completed 3 months of eliquis- recommend hypercoagulable work up as outpatient D dimer ordered serial troponin and EKG diarrhea Stool for C diff ordered Dizziness with fall check orthostatic vital signs continuous hospital monitor DM accuckecks ACHS and SSI coverage Headache oxycodone 5 mg Q8H as needed CT head negative patient had recent MRI 09/27/16 On tapering dose of prednisone at home prednisone 30mg x 2 days started plan to continue taper DVT prophylaxis with SCDs discussed with ER provider, nursing and patient This note was transcribed by scribe [Bonita Alvarenga]. I, Dr. Jannette Phan personally performed the history, physical exam, and medical decision making; and confirmed the accuracy of the information in the transcribed note. Authenticated by Dr. Jannette Phan on 10/02/16 at 23:55.. Ilene Alvarenga Oct 01, 2016 23:55 Jannette Phan MD Oct 02, 2016 07:49
[2016-10-02] VITALS (8 sets, daily range): BP systolic 93–112; BP diastolic 52–70; PULSE 73–105; RESP 16–20; TEMP 98.5–98.8; O2SAT 96–99
[2016-10-02] MEDS ORDERED: DEXTROSE 50% IN WATER 50 ML VIAL(D50) IV PRN (00:45)
[2016-10-02] MEDS ORDERED: GLUCAGON 1 MG/ML VIAL OTHER PRN (00:45)
[2016-10-02 01:14] LABS: CREATINE KINASE 24 U/L (26-192)
[2016-10-02 01:41] LABS: CREATINE KINASE 23 U/L (26-192)
[2016-10-02] MEDS ORDERED: IOHEXOL 350 MG/ML 10 ML VIAL (for RAD DIAG) IV ONE (03:39)
--- NOTE | 2016-10-02 04:13 | RADRPT ---
EXAM DATE/TIME: 10/02/2016 03:34 [place] COMPARISON: No previous studies available for comparison. INDICATIONS : Worsening left side chest pain and shortness of breath. IV CONTRAST: 75 cc Omnipaque 350 (iohexol) IV RADIATION DOSE: 23.17 CTDIvol (mGy) MEDICAL HISTORY : Hernia, hiatal. Pulmonary embolism. Diabetes. Renal stones. SURGICAL HISTORY : None. ENCOUNTER: Initial ACUITY: 2 days PAIN SCALE: 6/10 LOCATION: Left chest TECHNIQUE: Volumetric scanning of the chest was performed using a pulmonary embolism protocol MIP images were re constructed. Using automated exposure control and adjustment of the mA and/or kV according to patien t size, radiation dose was kept as low as reasonably achievable to obtain optimal diagnostic quality images. DICOM format image data is available electronically for review and comparison. FINDINGS: PULMONARY ARTERIES: No filling defects are seen in the central pulmonary arteries. LUNGS: Scattered groundglass densities bilaterally. There is no consolidation or pneumothorax . No concerni ng pulmonary nodule is visualized. PLEURAE: There is no pleural thickening or pleural effusion. MEDIASTINUM: There is good visualization of the great vessels of the middle mediastinum. No evidence of mediastin al or hilar adenopathy/mass. MUSCULOSKELETAL: Within normal limits for patient age. MISCELLANEOUS: The visualized upper abdominal organs demonstrate no acute abnormality. Cholecystectomy clips. CONCLUSION: 1. No central pulmonary emboli. 2. Scattered groundglass densities could be atelectasis or interstitial edema. 3. Cardiomegaly. Michael Solorio MD on October 02, 2016 at 4:08 Board Certified Radiologist. This report was verified electronically.
[2016-10-02] MEDS: INSULIN ASPART SUPPLEMENTAL SCALE SQ SCH ×4 (06:21→21:07)
[2016-10-02 06:51] LABS: AUTOMATED NEUTROPHIL # 7.5 TH/MM3 (1.8-7.7); BASOPHIL % 0.2 % (0.0-2.0); EOSINOPHIL # 0.1 TH/MM3 (0-0.4); EOSINOPHIL % 0.8 % (0.0-4.0); HEMATOCRIT 32.9 % (35.0-46.0); HEMO FLAGS DIFF FINAL; LYMPH % 27.8 % (9.0-44.0); LYMPHOCYTE # 3.2 TH/MM3 (1.0-4.8); MEAN CELL VOLUME 90.9 FL (80.0-100.0); MEAN CORPUSCULAR HEMOGLOBIN 30.4 PG (27.0-34.0); MEAN CORPUSCULAR HGB CONC 33.4 % (32.0-36.0); MONO % 5.3 % (0.0-8.0); NEUT % 65.9 % (16.0-70.0); PLATELET COUNT 381 TH/MM3 (150-450); RED BLOOD COUNT 3.61 MIL/MM3 (4.00-5.30); RED CELL DISTRIBUTION WIDTH 14.3 % (11.6-17.2); WHITE BLOOD COUNT 11.4 TH/MM3 (4.0-11.0)
[2016-10-02 07:08] LABS: BICARBONATE 27.5 MEQ/L (21.0-32.0); POTASSIUM 3.4 MEQ/L (3.5-5.1)
[2016-10-02 07:12] LABS: CREATINE KINASE 24 U/L (26-192)
--- NOTE | 2016-10-02 07:43 | HHI.PR ---
Subjective Remarks Follow up for multiple complaints including fever, headache, chest tightness, shortness of breath, diarrhea, dizziness, fall. The patient main complaint today is continued left frontal/temporal 8/10 headache, associated with left eye blurred vision and photophobia, pain not relieved by oxycodone overnight. She states the oxycodone made her nauseous and she is requesting something else for her headache. She states she does get migraines at home but this is different. Denies any current lightheadedness or dizziness. She denies any chest tightness or shortness of breath overnight. She has not yet had a BM but states she was having diarrhea prior to arrival. She has not yet attempted ambulation. She has no other medical complaints at this time. Objective Vitals Vital Signs Date Time Temp Pulse Resp B/P Pulse Ox O2 Delivery O2 Flow Rate FiO2 10/02/16 05:59 98.8 74 18 108/70 99 100/67 100/70 10/02/16 02:02 18 10/02/16 01:06 78 10/01/16 23:26 99.5 79 18 117/70 94 10/01/16 19:09 81 16 126/80 98 Room Air 10/01/16 18:25 98 Nasal Cannula 2 10/01/16 17:33 98.3 93 18 104/72 96 Nasal Cannula 2 10/01/16 17:24 Nasal Cannula 2 10/01/16 17:00 99.0 91 16 117/76 96 Result Diagram: 10/02/16 0618 10/02/16 [address] Angiography 10/02/16 0000 Signed Impressions: Service Date/Time: Sunday, October 02, 2016 03:34 - CONCLUSION: 1. No central pulmonary emboli. 2. Scattered groundglass densities could be atelectasis or interstitial edema. 3. Cardiomegaly. Michael Solorio MD Head CT 10/01/162034 Signed Impressions: Service Date/Time: September 20:50 - CONCLUSION: Negative noncontrast CT. Fernando Richey MD Objective Remarks GENERAL: Well-nourished, well-developed obese middle aged female patient in [facility]. SKIN: Warm and dry. No rash. HEAD: Normocephalic. Atraumatic. EYES: Pupils equal and round. EOMI. No scleral icterus. No injection or drainage. ENT: No nasal bleeding or discharge. Mucous membranes pink and moist. NECK: Supple. Trachea midline. CARDIOVASCULAR: Regular rate and rhythm. S1, S2 noted. No murmur appreciated. RESPIRATORY: No accessory muscle use. Clear to auscultation. Breath sounds equal bilaterally. GASTROINTESTINAL: Abdomen soft, non-tender, nondistended. Normoactive bowel sounds x4. MUSCULOSKELETAL: No obvious deformities. Extremities without clubbing, cyanosis , or edema. NEUROLOGICAL: Awake and alert. No obvious cranial nerve deficits. Motor grossly within normal limits. Moves all extremities spontaneously. Normal speech. PSYCHIATRIC: Appropriate mood and affect; insight and judgment normal. Medications and IVs Current Medications Medications (Trade) Dose Ordered Sig/Jacques Route Start Time Stop Time Status Last Admin (NS Flush) 2 ml UNSCH PRN IV FLUSH 10/01/16 21:15 10/02/16 09:00 (NS Flush) 2 ml BID IV FLUSH 10/02/16 09:00 10/02/16 09:00 (Narcan Inj) 0.4 mg UNSCH PRN IV 10/01/16 21:15 (Roxicodone) 5 mg Q8H PRN PO 10/02/16 00:30 10/02/16 08:52 (D50w (Vial) Inj) 50 ml UNSCH PRN IV 10/02/16 00:45 (Glucagon Inj) 1 mg UNSCH PRN OTHER 10/02/16 00:45 (Depakote Er) 500 mg HS PO 10/02/16 21:00 (Ditropan) 5 mg Q12HR PO 10/02/16 09:00 10/02/16 08:50 (K-Phos Neutral) 250 mg PCHS PO 10/02/16 09:30 10/02/16 08:51 (Flomax) 0.4 mg DAILY PO 10/02/16 09:00 10/02/16 08:49 (Zanaflex) 2 mg HS PRN PO 10/02/16 00:45 (SoluMEDROL INJ) 250 mg Q12H IV PUSH 10/02/16 12:00 A/P Problem List: (1) Weakness ICD Code: R53.1 Status: Acute (2) Dizziness ICD Code: R42 Status: Acute Assessment and Plan 45 year old female patient with a PMH of DM, PE 06/2016, renal stones, and recent admit 09/14-09/30 for fever of unknown origin, presents to the ER today with multiple complaints and reports of feeling generally unwell. Headache with Left Eye Blurred Vision: suspect Temporal Arteritis. ESR 74, CRP 1.6. Head CT images reviewed, unremarkable. Recent brain MRI 09/27/16 reviewed and unremarkable. -Consult neurology, discussed with Dr Beal, recommended temporal artery biopsy, ophthalmology consult, and high dose steroids -start on IV Solumedrol 250mg bid -consult general surgery for temporal artery biopsy -consult ophthalmology for ocular pressures and retina exam -given Imitrex sq, Compazine/Reglan x1 for headache -pain control with oxycodone as needed Chest Tightness, Dyspnea: history of PE 06/2016- only completed 3 months of Eliquis- recommend hypercoagulable work up as outpatient -D dimer elevated however CT-PA negative for PE, does show scattered groundglass densities could be atelectasis or interstitial edema -ACS ruled out with negative serial cardiac enzymes x3 and EKG without acute ischemic changes -check BNP -check Echocardiogram Diarrhea: with recent antibiotics use on prior admission -check stool for C diff -stool cultures Dizziness with fall: unclear etiology, possibly secondary to headache/blurred vision -orthostatic vital signs negative -monitor on telemetry DM: monitor closely while on steroids. HgbA1c 9.0 on 09/15/16. -continue patient's Levemir 12u sq hs -monitor ACHS and cover with medium dose SSI DVT prophylaxis with SCDs, hold anticoagulation with upcoming procedure/biopsy Ledy Luis PA-C Oct 02, 2016 7:42 am
[2016-10-02] MEDS ORDERED: PROCHLORPERAZINE INJ 10 MG/2 ML VIAL IV PUSH ONE ×2 (07:45→15:30)
[2016-10-02] MEDS ORDERED: METOCLOPRAMIDE HCL 10 MG/2 ML VIAL IV PUSH ONE ×2 (07:45→15:30)
[2016-10-02] MEDS ORDERED: SUMAtriptan INJ 6 MG/0.5 ML VIAL SQ ONE ×2 (08:00→15:30)
[2016-10-02] MEDS: TAMSULOSIN HCL 0.4 MG CAP PO SCH (08:49)
[2016-10-02] MEDS: OXYBUTYNIN CHLORIDE 5 MG TAB PO SCH ×2 (08:50→20:56)
[2016-10-02] MEDS: POTASSIUM PHOSPHATE/SODIUM PHOSPHATE 250 MG TAB PO SCH ×4 (08:51→20:56)
[2016-10-02] MEDS: SODIUM CHLORIDE 0.9% FLUSH 10 ML FLUSH IV FLUSH SCH ×2 (09:00→20:57)
[2016-10-02] MEDS ORDERED: predniSONE 20 MG TAB PO SCH (09:00)
--- NOTE | 2016-10-02 09:21 | PD.CONS ---
History of Present Illness Service Neurology Consult Requested By medical Reason for Consult headache Primary Care Physician Lissy Henry History of Present Illness 45 year old female patient admitted for weakness, dizziness. Patient was recently admitted 09/14/16 then discharged on Wednesday09/30/16 with diagnosis of fever of unknown origin. seen by ID, extensive testing performed. csf essentially normal. wbc, protein normal. left yarsani headache x 3 days, left vision loss at the time. rob comes and goes, not positionally related. see's blurry. mild photophobia but states it's not like her typical migraines. states she feels weak all over. elevated esr, slightly raised crp. denies any focal weakness, sensory loss, neck pain. no jaw claudication. mri/mra brain nml. Review of Systems Except as stated in HPI: all other systems reviewed are Neg Past Family Social History Past Medical History DM, PE 06/2016 and Renal Stones miscarriages Past Surgical History Cholecystectomy, Appendectomy, Lithotripsy, Ureteral Stent Allergies: Coded Allergies: Tylenol (Verified Allergy, Severe, VOMITING, SWELLING OF TONGUE, 10/01/16) Ultram (Verified Allergy, Intermediate, FOAMS AT THE MOUTH, 10/01/16) Uncoded Allergies: SPLENDA (Adverse Reaction, Severe, SWELLING TONGUE , 07/26/08) Family History hep, htn Social History denies ETOH use, tobacco use or illicit drug use Review of Systems All other ROS: ROS reviewed as documented in chart Past Family Social History Allergies: Coded Allergies: Tylenol (Verified Allergy, Severe, VOMITING, SWELLING OF TONGUE, 10/01/16) Ultram (Verified Allergy, Intermediate, FOAMS AT THE MOUTH, 10/01/16) Uncoded Allergies: SPLENDA (Adverse Reaction, Severe, SWELLING TONGUE , 07/26/08) Active Ordered Medications Current Medications Medications (Trade) Dose Ordered Sig/Jacques Route Start Time Stop Time Status Last Admin (NS Flush) 2 ml UNSCH PRN IV FLUSH 10/01/16 21:15 10/02/16 09:00 (NS Flush) 2 ml BID IV FLUSH 10/02/16 09:00 10/02/16 09:00 (Narcan Inj) 0.4 mg UNSCH PRN IV 10/01/16 21:15 (Roxicodone) 5 mg Q8H PRN PO 10/02/16 00:30 10/02/16 08:52 (D50w (Vial) Inj) 50 ml UNSCH PRN IV 10/02/16 00:45 (Glucagon Inj) 1 mg UNSCH PRN OTHER 10/02/16 00:45 (Depakote Er) 500 mg HS PO 10/02/16 21:00 (Ditropan) 5 mg Q12HR PO 10/02/16 09:00 10/02/16 08:50 (K-Phos Neutral) 250 mg PCHS PO 10/02/16 09:30 10/02/16 08:51 (Flomax) 0.4 mg DAILY PO 10/02/16 09:00 10/02/16 08:49 (Zanaflex) 2 mg HS PRN PO 10/02/16 00:45 (Deltasone) 30 mg DAILY PO 10/02/16 09:00 10/04/16 08:59 10/02/16 08:50 Exam I&O / VS Vital Signs Date Time Temp Pulse Resp B/P Pulse Ox O2 Delivery O2 Flow Rate FiO2 10/02/16 09:08 74 10/02/16 05:59 98.8 74 18 108/70 99 100/67 100/70 10/02/16 02:02 18 10/02/16 01:06 78 10/01/16 23:26 99.5 79 18 117/70 94 10/01/16 19:09 81 16 126/80 98 Room Air 10/01/16 18:25 98 Nasal Cannula 2 10/01/16 17:33 98.3 93 18 104/72 96 Nasal Cannula 2 10/01/16 17:24 Nasal Cannula 2 10/01/16 17:00 99.0 91 16 117/76 96 General: Alert and Oriented, No acute distress Eye: EOMI Neurologic: Alert, Oriented, Normal sensory, Normal motor, No focal defects, Normal DTR's Psychiatric: Cooperative, Appropriate mood & affect Exam Comments ox 3, obese, follows, eomi, ou 3-2mm, od- nml vff, os- can make out general shapes but difficulty with reading, eomi, + left yarsani tenderness, face sym, angulo to gravity, Review/Management Diagnosis/Plan: (1) Headache around the eyes Plan: ddx: left temporal arteritis vs migraine +low grade temps, + vision loss, mild anemia unusual to have gca less then age 50 but possible recs iv steroids consult surgery for temp artery biopsy consult optho for retina eye and eye pressures pain control rheum eval if available will follow with you (2) Fever Plan: recently, afebrile at present (3) Uncontrolled diabetes mellitus (4) Weakness Problem Qualifiers (1) Fever: (2) Uncontrolled diabetes mellitus: Hemanth Beal MD Oct 02, 2016 09:21
--- NOTE | 2016-10-02 11:40 | ECHRPT ---
Indication: CONCLUSIONS Normal left ventricular size. Wall thickness is normal. The left ventricular systolic function is low normal with an estimated ejection fraction in the rang e of 50- 55%. No regional wall motion abnormalities are present. Left ventricular diastolic function parameters are normal. BP: 117 / 90 HR: 79 Rhythm: Sinus MEASUREMENTS (Male / Female) Normal Values Technical Quality:Fair 2D ECHO LV Diastolic Diameter PLAX 4.8 cm 4.2 - 5.9 / 3.9 - 5.3 cm LV Systolic Diameter PLAX 3.7 cm IVS Diastolic Thickness 0.9 cm 0.6 - 1.0 / 0.6 - 0.9 cm LVPW Diastolic Thickness 0.9 cm 0.6 - 1.0 / 0.6 - 0.9 cm LV Relative Wall Thickness 0.4 LVOT Diameter 1.9 cm Aortic Root Diameter 2.8 cm LA Systolic Diameter LX 3.1 cm 3.0 - 4.0 / 2.7 - 3.8 cm M-MODE AV Cusp Separation MM 2.0 cm DOPPLER AV Peak Velocity 139.0 cm/s AV Peak Gradient 7.7 mmHg AV Mean Gradient 4.0 mmHg AV Velocity Time Integral 25.8 cm LVOT Peak Velocity 104.0 cm/s LVOT Peak Gradient 4.3 mmHg LVOT Velocity Time Integral 22.0 cm LVOT Cardiac Index 2184.3 cm/minm AV Area Cont Eq vti 2.4 cm AV Area Cont Eq pk 2.1 cm Mitral E Point Velocity 89.8 cm/s Mitral A Point Velocity 77.5 cm/s Mitral E to A Ratio 1.2 LV E' Lateral Velocity 7.6 cm/s Mitral E to LV E' Lateral Ratio 11.8 LV E' Septal Velocity 7.9 cm/s Mitral E to LV E' Septal Ratio 11.4 TR Peak Velocity 172.0 cm/s TR Peak Gradient 11.8 mmHg PV Peak Velocity 63.2 cm/s PV Peak Gradient 1.6 mmHg FINDINGS LEFT VENTRICLE Normal left ventricular size. Wall thickness is normal. The left ventricular systolic function is low normal with an estimated ejection fraction in the rang e of 50- 55%. No regional wall motion abnormalities are present. Left ventricular diastolic function parameters are normal. RIGHT VENTRICLE Normal right ventricular size and systolic function. LEFT ATRIUM The left atrial size is normal. RIGHT ATRIUM The right atrial size is normal. ATRIAL SEPTUM The interatrial septum not well visualized. AORTA The aortic root and proximal ascending aorta are normal in size on limited imaging. MITRAL VALVE Structurally normal mitral valve. No mitral valve stenosis or regurgitation. AORTIC VALVE Trileaflet aortic valve. No aortic valve stenosis or regurgitation. TRICUSPID VALVE Structurally normal tricuspid valve. There is trace tricuspid valve regurgitation. Normal estimated pulmonary pressures. PULMONARY VALVE No pulmonary valve regurgitation or stenosis. VESSELS The inferior vena cava was not well visualized. PERICARDIUM No significant pericardial effusion. Florin Tan MD (Electronically Signed) Final Date:02 October 2016 11:39
--- NOTE | 2016-10-02 12:02 | MB ---
cc: KATELYN NUR MD, ANDREW DATE OF CONSULTATION: 10/02/2016 REASON FOR CONSULTATION Temporal artery biopsy. HISTORY OF PRESENT ILLNESS The patient is a 45-year-old female who was admitted to [facility] with left-sided vision loss, temporal pain and elevated sed rate. The patient clinically likely has temporal arteritis and general surgery was consulted for consideration of biopsy. The patient states that she has had a week of dizziness and weakness and intermittent vision loss in the left eye. She states that her mother had giant cell arteritis. She has no other symptoms. REVIEW OF SYSTEMS A 12-point review of systems is negative except for the pertinent positives mentioned above in history of present illness. PAST MEDICAL HISTORY 1. Diabetes. 2. Renal stones. PAST SURGICAL HISTORY All done out of town. 1. Cholecystectomy. 2. Appendectomy. 3. Lithotripsy. 4. . ALLERGIES 1. TYLENOL. 2. ULTRAM. 3. SPLENDA. SOCIAL HISTORY The patient denies alcohol, tobacco or illicit drug use. FAMILY HISTORY History of giant cell arteritis in her mother. PHYSICAL EXAMINATION VITAL SIGNS: Heart rate 105, temperature 98.6 degrees, blood pressure 98/57. O2 saturation is 97%. GENERAL: The patient is a 45-year-old female with no acute distress. She is overweight. Does not appear acute or chronically ill. HEENT: Head is normocephalic, atraumatic. Pupils round and reactive to light. No visual inflammation. There was some point tenderness over the left temporal artery. The oral cavity is clear. Mucous sounds are moist. NECK: Supple. No JVD. LUNGS: Breath sounds present bilaterally. Nonlabored breathing pattern. HEART: Regular rate and rhythm. ABDOMEN: Obese, nontender to palpation. EXTREMITIES: No clubbing, cyanosis or edema. NEUROLOGIC: The patient is oriented x3, moving all extremities. Nonfocal. Cranial II through XII are grossly intact. LABORATORY VALUES Hemoglobin 11.0. INR is not done. Elevated glucose of 250. IMAGING CT angiogram: No pulmonary emboli. CT of the head shows negative CT head. ASSESSMENT AND PLAN The patient is a 45-year-old female with multiple symptoms and clinical differential of temporal arteritis. General surgery was asked to perform a biopsy. I did discuss with the patient the risks, benefits and alternatives to temporal artery biopsy including risks of necrosis of the overlying tissue and scalp. She stated she understands and would like to proceed with the biopsy. We will consult with the operating room for scheduling the temporal artery biopsy as soon as possible. Thank you very much for this consultation. MD ELROY Krueger/MILLER /11:26 AM /11:51 AM
[2016-10-02] MEDS: methylPREDNISolone SOD SUCC 125 MG/2 ML VIAL IV PUSH SCH ×2 (12:51→23:45)
--- NOTE | 2016-10-02 16:22 | EKG ---
Date Performed: 10/02/2016 Time Performed: 06:07:45 PTAGE: 45 years EKG: Sinus rhythm NORMAL ECG PREVIOUS TRACING : 10/02/2016 01.10 Compared to prior tracing no significant change DOCTOR: Roberth Brunson Interpretating Date/Time 10/02/2016 16:20:07
--- NOTE | 2016-10-02 16:22 | EKG ---
Date Performed: 10/02/2016 Time Performed: 01:10:23 PTAGE: 45 years EKG: Sinus rhythm NORMAL ECG PREVIOUS TRACING : 09/23/2016 09.10 Compared to prior tracing no significant change DOCTOR: Roberth Brunson Interpretating Date/Time 10/02/2016 16:19:57
[2016-10-02] MEDS: IBUPROFEN 200 MG TAB PO PRN (20:57)
[2016-10-02] MEDS ORDERED: INSULIN DETEMIR 100 UNITS/ML VIAL SQ SCH (21:00)
[2016-10-02] MEDS ORDERED: TEMAZEPAM 7.5 MG CAP PO ONE (23:15)
[2016-10-02] MEDS: DIVALPROEX SODIUM E.R. 500 MG TAB PO SCH (23:19)
[2016-10-02] MEDS ORDERED: INSULIN HUMAN REGULAR 1,000 UNITS/10 ML VIAL IV PUSH ONE (23:30)
[2016-10-03] VITALS (8 sets, daily range): BP systolic 90–115; BP diastolic 53–75; PULSE 69–93; RESP 17–20; TEMP 97.8–98.6; O2SAT 93–97
[2016-10-03] MEDS: INSULIN ASPART SUPPLEMENTAL SCALE SQ SCH ×5 (01:35→21:55)
[2016-10-03] MEDS: IBUPROFEN 200 MG TAB PO PRN ×2 (06:11→19:45)
[2016-10-03] MEDS: OXYBUTYNIN CHLORIDE 5 MG TAB PO SCH ×2 (08:21→21:05)
[2016-10-03] MEDS: POTASSIUM PHOSPHATE/SODIUM PHOSPHATE 250 MG TAB PO SCH ×4 (08:21→21:05)
[2016-10-03] MEDS: SODIUM CHLORIDE 0.9% FLUSH 10 ML FLUSH IV FLUSH SCH ×2 (08:21→21:06)
[2016-10-03] MEDS: TAMSULOSIN HCL 0.4 MG CAP PO SCH (08:21)
[2016-10-03 08:32] LABS: APTT (PATIENT) 23.6 SEC (24.3-30.1); PROTHROMBIN TIME - PATIENT 11.5 SEC (9.8-11.6)
[2016-10-03] MEDS ORDERED: LIDOCAINE 1%/EPINEPHrine 1:100,000 SOLN 20 ML VIAL ONE (08:49)
--- NOTE | 2016-10-03 10:27 | HHI.PR ---
Subjective Remarks Follow up for left frontal/ temporal headache with decreased vision in the left eye. Patient has a history of migraines but says this time this is different than her symptoms. Pain not relieved by Roxicodone overnight and says she is not tolerating it , says oxycodone works for her . No change in her vision, says deficit is same like yesterday. She states that she feels anxious and that her chest and shoulders feel tight, but denies chest pain, palpitations, cough or shortness of breath. Also says she takes for her migraine headaches xanax or ativan. No new motor or sensory deficit. No n/v/d/c. No diaphoresis, lightheadedness. She has no other complaints at this time. Objective Vitals Vital Signs Date Time Temp Pulse Resp B/P Pulse Ox O2 Delivery O2 Flow Rate FiO2 10/03/16 10:05 93 Room Air 10/03/16 08:05 111/70 113/72 10/03/16 08:05 97.8 72 18 113/69 93 10/03/16 04:00 Room Air 10/03/16 04:00 99/57 10/03/16 04:00 98.6 73 18 110/57 96 10/03/16 04:00 101/58 10/03/16 00:00 102/62 10/03/16 00:00 110/75 10/03/16 00:00 Room Air 10/03/16 00:00 98.3 77 20 115/68 96 10/02/16 20:20 73 10/02/16 20:00 Room Air 10/02/16 20:00 96/64 10/02/16 20:00 108/59 10/02/16 20:00 98.5 92 20 111/53 96 10/02/16 18:18 76 10/02/16 14:51 102/52 10/02/16 14:51 98.6 76 18 112/65 96 10/02/16 14:51 93/53 10/02/16 10:55 98.6 105 16 98/57 96 I/O 10/02/16 10/02/16 10/02/16 10/03/16 10/03/16 10/03/16 07:00 15:00 23:00 07:00 15:00 23:00 Intake Total 0 ml Output Total 875 ml Balance -875 ml Intake Oral 0 ml Output Urine Total 875 ml # Bowel Movements 0 Result Diagram: 10/02/16 0618 10/02/[address] Angiography 10/02/16 0000 Signed Impressions: Service Date/Time: Sunday, October 02, 2016 03:34 - CONCLUSION: 1. No central pulmonary emboli. 2. Scattered groundglass densities could be atelectasis or interstitial edema. 3. Cardiomegaly. Michael Solorio MD Head CT 10/01/162034 Signed Impressions: Service Date/Time: September 20:50 - CONCLUSION: Negative noncontrast CT. Fernando Richey MD Objective Remarks GENERAL: 45 yo female, obese, well-nourished, well-developed, does not appear to be in acute distress HEAD: normocephalic. tenderness to touch most severe on left temporal area. sensation intact EYES: normal ROM bilaterally, no scleral icterus. decreased visual acuity and peripheral vision OS. color vision appears intact. CARDIOVASCULAR: normal rate and rhythm. no murmur, gallops, or rubs RESPIRATORY: no use of accessory muscles. clear to auscultation. GASTROINTESTINAL: soft, obese, non-tender, non-distended abdomen. bowel sounds present in 4 quadrants MUSCULOSKELETAL: no obvious deformities. slight edema in lower extremities bilaterally. NEUROLOGICAL: awake and alert. cranial nerve grossly normal, except poor vision in the left eye. tenderness over temporal teddy. on the left. Motor strength normal, normal speech. A/P Problem List: (1) Weakness ICD Code: R53.1 Status: Acute (2) Dizziness ICD Code: R42 Status: Acute Assessment and Plan [age] year old female with severe frontal/temporal headache and decreased visual acuity in her left eye. She has a PMH of migraines, DM, PE (06/2016), nephrolithiasis, and a recent admit (09/14-09/30) for a fever of unknown origin. Presented to the ER on 10/01 with multiple complaints including feeling generally unwell. Headache with Left Eye Blurred Vision: suspect Temporal Arteritis. ESR 74, CRP 1.6. Head CT images reviewed, unremarkable. Recent brain MRI 09/27/16 reviewed and unremarkable. Patient also with migraine headache, poss cluster headache . Will administer O2 as well Consult gen surgery plan for temporal artery biopsy 10/03/16 Consult neuro, ff, appreciate recommendations. Continue on IV Solumedrol 250mg bid Temporal artery biopsy scheduled for this morning with general surgery Consult ophthalmology for ocular pressures and retina exam Received Imitrex sq, Compazine/Reglan x2 for headache Pain control with oxycodone as needed Chest Tightness, Dyspnea: history of PE 06/2016- only completed 3 months of Eliquis- recommend hypercoagulable work up as outpatient D dimer elevated however CT-PA negative for PE, does show scattered groundglass densities could be atelectasis or interstitial edema ACS ruled out with negative serial cardiac enzymes x3 and EKG without acute ischemic changes BNP- WNL Check Echocardiogram Diarrhea: with recent antibiotics use on prior admission. Resolved Dizziness with fall: unclear etiology, possibly secondary to headache/blurred vision Orthostatic vital signs negative Monitor on telemetry DM 2, uncontrolled, worsening due to steroid use with BS 487, monitor closely while on steroids. HgbA1c 9.0 on 09/15/16. - Will give Levemir 10 U BID -monitor ACHS and cover with SSI Morbid obesity BMI 44.6. Diet and exercise. DVT prophylaxis with SCDs, hold anticoagulation with upcoming procedure/biopsy Discussed with the patient.nurse Chely Nur MD Oct 03, 2016 10:27
--- NOTE | 2016-10-03 10:46 | PD.PN.STU ---
Subjective Remarks Follow up for left frontal/ temporal headache with decreased vision in the left eye. She has a history of migraines but this is different. Pain not relieved by Roxicodone overnight. She states that it made her feel nauseous and is requesting oxycodone for pain. She denies any improvement or decline in her vision. She states that she feels anxious and that her chest and shoulders feel tight, but denies chest pain, cough, and shortness of breath. She has no other complaints at this time. Objective Vitals Vital Signs Date Time Temp Pulse Resp B/P Pulse Ox O2 Delivery O2 Flow Rate FiO2 10/03/16 08:05 111/70 113/72 10/03/16 08:05 97.8 72 18 113/69 93 10/03/16 04:00 Room Air 10/03/16 04:00 99/57 10/03/16 04:00 98.6 73 18 110/57 96 10/03/16 04:00 101/58 10/03/16 00:00 102/62 10/03/16 00:00 110/75 10/03/16 00:00 Room Air 10/03/16 00:00 98.3 77 20 115/68 96 10/02/16 20:20 73 10/02/16 20:00 Room Air 10/02/16 20:00 96/64 10/02/16 20:00 108/59 10/02/16 20:00 98.5 92 20 111/53 96 10/02/16 18:18 76 10/02/16 14:51 102/52 10/02/16 14:51 98.6 76 18 112/65 96 10/02/16 14:51 93/53 10/02/16 10:55 98.6 105 16 98/57 96 I/O 10/02/16 10/02/16 10/02/16 10/03/16 10/03/16 10/03/16 07:00 15:00 23:00 07:00 15:00 23:00 Intake Total 0 ml Output Total 875 ml Balance -875 ml Intake Oral 0 ml Output Urine Total 875 ml # Bowel Movements 0 Result Diagram: 10/02/1661710/02/16 8479 Objective Remarks GENERAL: well-nourished, well-developed obese female. middle aged. does not appear to be in acute distress HEAD: normocephalic. tenderness to touch most severe on left temporal area. sensation intact EYES: normal ROM bilaterally, no scleral icterus. decreased visual acuity and peripheral vision OS. color vision appears intact. CARDIOVASCULAR: normal rate and rhythm. no murmur, gallops, or rubs RESPIRATORY: no use of accessory muscles. clear to auscultation. GASTROINTESTINAL: soft, non-tender, non-distended abdomen. bowel sounds present in 4 quadrants MUSCULOSKELETAL: no obvious deformities. slight edema in lower extremities bilaterally. NEUROLOGICAL: awake and alert. cranial nerve exam within normal limits. moves all limbs spontaneously. normal speech. Medications and IVs Current Medications Medications (Trade) Dose Ordered Sig/Jacques Route Start Time Stop Time Status Last Admin (NS Flush) 2 ml UNSCH PRN IV FLUSH 10/01/16 21:15 10/02/16 09:00 (NS Flush) 2 ml BID IV FLUSH 10/02/16 09:00 10/03/16 08:21 (Narcan Inj) 0.4 mg UNSCH PRN IV 10/01/16 21:15 (Roxicodone) 5 mg Q8H PRN PO 10/02/16 00:30 10/03/16 08:20 (D50w (Vial) Inj) 50 ml UNSCH PRN IV 10/02/16 00:45 (Glucagon Inj) 1 mg UNSCH PRN OTHER 10/02/16 00:45 (Depakote Er) 500 mg HS PO 10/02/16 21:00 10/02/16 23:19 (Ditropan) 5 mg Q12HR PO 10/02/16 09:00 10/03/16 08:21 (K-Phos Neutral) 250 mg PCHS PO 10/02/16 09:30 10/02/16 20:56 (Flomax) 0.4 mg DAILY PO 10/02/16 09:00 10/03/16 08:21 (Zanaflex) 2 mg HS PRN PO 10/02/16 00:45 (SoluMEDROL INJ) 250 mg Q12H IV PUSH 10/02/16 12:00 10/02/16 23:45 (Levemir Inj) 12 units HS SQ 10/02/16 21:00 10/02/16 21:07 (Advil) 200 mg Q8H PRN PO 10/02/16 19:15 10/03/16 06:11 A/P Assessment and Plan [age] year old obese female with severe frontal/temporal headache and decreased visual acuity in her left eye. She has a PMH of migraines, DM, PE (2016), nephrolithiasis, and a recent admit (09/14-09/30) for a fever of unknown origin. Presented to the ER on 10/01 with multiple complaints including feeling generally unwell. Headache with Left Eye Blurred Vision: suspect Temporal Arteritis. ESR 74, CRP 1.6. Head CT images reviewed, unremarkable. Recent brain MRI 09/27/16 reviewed and unremarkable. -continue on IV Solumedrol 250mg bid -give oxygen via nasal cannula- history of migraines, possible cluster headache -temporal artery biopsy scheduled for this morning with general surgery -consult ophthalmology for ocular pressures and retina exam -given Imitrex sq, Compazine/Reglan x1 for headache -pain control with oxycodone as needed Chest Tightness, Dyspnea: history of PE 06/2016- only completed 3 months of Eliquis- recommend hypercoagulable work up as outpatient -D dimer elevated however CT-PA negative for PE, does show scattered groundglass densities could be atelectasis or interstitial edema -ACS ruled out with negative serial cardiac enzymes x3 and EKG without acute ischemic changes -BNP- WNL -check Echocardiogram Diarrhea: with recent antibiotics use on prior admission -resolved Dizziness with fall: unclear etiology, possibly secondary to headache/blurred vision -orthostatic vital signs negative -monitor on telemetry DM: monitor closely while on steroids. HgbA1c 9.0 on 09/15/16. -hyperglycemia secondary to high dose steroids; random blood glucose 478mg/ dl on 10/02 at 21:46 -increase patient's Levemir to14u sq hs -monitor ACHS and cover with medium dose SSI -change to diabetic diet Hypokalemia: K+ 3.4 - replace by mouth DVT prophylaxis with SCDs, hold anticoagulation with upcoming procedure/biopsy Morbid Obesity: BMI 44.6kg/m2 - diet and exercise recommended Seen and discussed at length with the student Ina MS III Ina La Oct 03, 2016 10:46 Chely Nur MD Oct 04, 2016 18:52
[2016-10-03] MEDS ORDERED: GLUCAGON 1 MG/ML VIAL OTHER PRN (11:15)
[2016-10-03] MEDS ORDERED: DEXTROSE 50% IN WATER 50 ML VIAL(D50) IV PRN (11:15)
--- NOTE | 2016-10-03 11:25 | HHI.PR ---
Subjective Remarks Objective Vitals Vital Signs Date Time Temp Pulse Resp B/P Pulse Ox O2 Delivery O2 Flow Rate FiO2 10/03/16 10:05 93 Room Air 10/03/16 08:05 111/70 113/72 10/03/16 08:05 97.8 72 18 113/69 93 10/03/16 04:00 Room Air 10/03/16 04:00 99/57 10/03/16 04:00 98.6 73 18 110/57 96 10/03/16 04:00 101/58 10/03/16 00:00 102/62 10/03/16 00:00 110/75 10/03/16 00:00 Room Air 10/03/16 00:00 98.3 77 20 115/68 96 10/02/16 20:20 73 10/02/16 20:00 Room Air 10/02/16 20:00 96/64 10/02/16 20:00 108/59 10/02/16 20:00 98.5 92 20 111/53 96 10/02/16 18:18 76 10/02/16 14:51 102/52 10/02/16 14:51 98.6 76 18 112/65 96 10/02/16 14:51 93/53 I/O 10/02/16 10/02/16 10/02/16 10/03/16 10/03/16 10/03/16 06:59 14:59 22:59 06:59 14:59 22:59 Intake Total 0 ml Output Total 875 ml Balance -875 ml Intake Oral 0 ml Output Urine Total 875 ml # Bowel Movements 0 Result Diagram: 10/02/1618 10/02/166 A/P Problem List: (1) Weakness ICD Code: R53.1 Status: Acute (2) Dizziness ICD Code: R42 Status: Acute Chely Nur MD Oct 03, 2016 11:[address] Angiography 10/02/16 0000 Signed Impressions: Service Date/Time: Sunday, October 02, 2016 03:34 - CONCLUSION: 1. No central pulmonary emboli. 2. Scattered groundglass densities could be atelectasis or interstitial edema. 3. Cardiomegaly. Michael Solorio MD Head CT 10/01/162034 Signed Impressions: Service Date/Time: September 20:50 - CONCLUSION: Negative noncontrast CT. Fernando Richey MD Objective Remarks GENERAL: 45 yo female, obese, well-nourished, well-developed, does not appear to be in acute distress HEAD: normocephalic. tenderness to touch most severe on left temporal area. sensation intact EYES: normal ROM bilaterally, no scleral icterus. decreased visual acuity and peripheral vision OS. color vision appears intact. CARDIOVASCULAR: normal rate and rhythm. no murmur, gallops, or rubs RESPIRATORY: no use of accessory muscles. clear to auscultation. GASTROINTESTINAL: soft, obese, non-tender, non-distended abdomen. bowel sounds present in 4 quadrants MUSCULOSKELETAL: no obvious deformities. slight edema in lower extremities bilaterally. NEUROLOGICAL: awake and alert. cranial nerve grossly normal, except poor vision in the left eye. tenderness over temporal teddy. on the left. Motor strength normal, normal speech. [age] year old female with severe frontal/temporal headache and decreased visual acuity in her left eye. She has a PMH of migraines, DM, PE (06/2016), nephrolithiasis, and a recent admit (09/14-09/30) for a fever of unknown origin. Presented to the ER on 10/01 with multiple complaints including feeling generally unwell. Headache with Left Eye Blurred Vision: suspect Temporal Arteritis. ESR 74, CRP 1.6. Head CT images reviewed, unremarkable. Recent brain MRI 09/27/16 reviewed and unremarkable. -continue on IV Solumedrol 250mg bid -start O2 nasal cannula 2 L/min -temporal artery biopsy scheduled for this morning with general surgery -consult ophthalmology for ocular pressures and retina exam -given Imitrex sq, Compazine/Reglan x1 for headache -pain control with oxycodone as needed Chest Tightness, Dyspnea: history of PE 06/2016- only completed 3 months of Eliquis- recommend hypercoagulable work up as outpatient -D dimer elevated however CT-PA negative for PE, does show scattered groundglass densities could be atelectasis or interstitial edema -ACS ruled out with negative serial cardiac enzymes x3 and EKG without acute ischemic changes -BNP- WNL -check Echocardiogram Diarrhea: with recent antibiotics use on prior admission -resolved Dizziness with fall: unclear etiology, possibly secondary to headache/blurred vision -orthostatic vital signs negative -monitor on telemetry DM: monitor closely while on steroids. HgbA1c 9.0 on 09/15/16. -continue patient's Levemir 12u sq hs -monitor ACHS and cover with medium dose SSI DVT prophylaxis with SCDs, hold anticoagulation with upcoming procedure/biopsy A/P Problem List: (1) Weakness ICD Code: R53.1 Status: Acute (2) Dizziness ICD Code: R42 Status: Acute Chely Nur MD Oct 03, 2016 11:25
[2016-10-03] MEDS ORDERED: INSULIN ASPART SUPPLEMENTAL SCALE ONE (11:29)
[2016-10-03] MEDS ORDERED: DO NOT ADM ANY ANTICOAGULANT DRUGS PRN (11:30)
[2016-10-03] MEDS ORDERED: POTASSIUM CHLORIDE 10 MEQ CONTROLLED RELEASE TAB PO ONE (11:30)
[2016-10-03] MEDS ORDERED: *morphine SULFATE 8 MG/ML PERIprocedure ONLY ONE (11:36)
[2016-10-03] MEDS ORDERED: INSULIN DETEMIR 100 UNITS/ML VIAL SQ ONE (12:00)
[2016-10-03] MEDS ORDERED: PHENYLEPH/NS 1000 MCG/10 ML SYR IV ONE (12:00)
[2016-10-03] MEDS ORDERED: ONDANSETRON HCL 4 MG/2 ML VIAL IV PUSH ONE (12:00)
[2016-10-03] MEDS ORDERED: PROPOFOL 200 MG/20 ML AMP IV ONE (12:00)
[2016-10-03] MEDS ORDERED: LACTATED RINGER'S 1000 ML INJ 1,000 ML IV ONE (12:00)
[2016-10-03] MEDS: methylPREDNISolone SOD SUCC 125 MG/2 ML VIAL IV PUSH SCH ×2 (13:30→23:58)
--- NOTE | 2016-10-03 19:39 | MP ---
cc: MAXIMILIANO KHOURY M.D. DATE OF SURGERY: 10/03/2016 PREOPERATIVE DIAGNOSIS: Rule out left temporal arteritis. POSTOPERATIVE DIAGNOSIS: Rule out left temporal arteritis. OPERATIVE PROCEDURE PERFORMED: Left temporal artery biopsy. SURGEON: Maximiliano Khoury MD. FINANCIAL ANALYSIS CONSULTANT: . ANESTHESIA General LMA COMPLICATIONS: None. INDICATIONS FOR THE PROCEDURE: Ms. Nielsen is a 45-year-old female who was readmitted to the hospital recently with a multitude of complaints. At some point in her history she gave a history of migraines and left-sided headaches. Several physicians examined her and none of them noted left-sided temporal pain on exam. She was noted have an elevated sedimentation rate. Dr. Beal of neurology was consulted and he felt that her symptoms may be consistent with temporal arteritis versus migraines. He requested temporal artery biopsy to rule out temporal arteritis. The patient was initially seen by Dr. Cervantes who discussed risks and benefits of the procedure with her. I then examined her and discussed her case this morning and advised her that the vast majority of temporal artery biopsies come back negative and that overall I felt the probability of her having temporal arteritis was low. The patient however was adamant that we proceed with the biopsy as she felt this was the most likely diagnosis because her mother had had it. The patient is actually currently on steroids for other illnesses that she has. DESCRIPTION OF THE PROCEDURE IN DETAIL: The patient was identified and brought to the operating room and placed supine on the operating room table. After adequate general anesthesia was achieved with LMA the left side of the scalp was shaved and examined. The temporal artery was palpated. It was then confirmed with Doppler. It was marked out on the left side of the skull. The area directly over it was shaved back in order to provide adequate visualization. The left side was then prepped and draped in the standard surgical fashion. 1% lidocaine was injected in the skin and subcutaneous tissue directly overlying the artery. A vertical incision was made along the left religion area. Dissection proceeded down in the subcutaneous tissue. Immediately we identified a large temporal vein. Just inferior and medial to this was the artery. The artery was quite tortuous and very soft. It was dissected out over several centimeters. It was then ligated proximally and distally and then divided. The specimen was sent to pathology for analysis. The wound was then palpated. No other palpable abnormalities were noted. The Doppler was then used to check and we could not identify a posterior branch of the artery. It appeared that we had dissected the anterior branch and sent that as the specimen. Since we could not find a posterior branch, I elected to go ahead and take additional anterior branch. The anterior branch was then dissected out a little more proximally and then clamped with a right angle and then divided. It was sent as a second specimen. The clamp was then tied off with a 2-0 Vicryl suture. Again after we did this, we used the Doppler to check the area and we could not identify any palpable pulse on the left side of the scalp and the temporal area. We did encounter two large temporal veins but these were clearly veins as they were bluish blue in discoloration and they easily blanched and they were easily compressible and they did not have an arterial pulse with the Doppler. At this point, I felt confident we had an adequate sample of the temporal artery, it appeared grossly normal by exam. The wound was therefore irrigated with normal saline solution. The incision was then closed in two layers using a 3-0 and 4-0 Vicryl. Sterile dressings were applied. The patient was awakened and brought to recovery in stable condition. MD DANITZA Chung/JOHANNY /11:05 AM /7:35 PM
[2016-10-03] MEDS: DIVALPROEX SODIUM E.R. 500 MG TAB PO SCH (21:05)
[2016-10-03] MEDS ORDERED: MORPHINE SULFATE 4 MG/ML INJ IV PUSH ONE (21:15)
[2016-10-03] MEDS ORDERED: INSULIN HUMAN REGULAR 1,000 UNITS/10 ML VIAL IV PUSH ONE (21:15)
[2016-10-03] MEDS ORDERED: TEMAZEPAM 7.5 MG CAP PO ONE (21:15)
[2016-10-03] MEDS: INSULIN DETEMIR 100 UNITS/ML VIAL SQ SCH (21:54)
[2016-10-04] VITALS: BP_SYST 103; BP_SYST 83; BP_SYST 88; BP_SYST 91; BP_DIAS 50; BP_DIAS 53; BP_DIAS 58; PULSE 72; PULSE 75; PULSE 92; RESP 18; RESP 20; TEMP 97.9; O2SAT 93; O2SAT 94; O2SAT 96
[2016-10-04 00:01] LABS: BICARBONATE 28.1 MEQ/L (21.0-32.0); POTASSIUM 4.4 MEQ/L (3.5-5.1)
[2016-10-04] MEDS: INSULIN ASPART SUPPLEMENTAL SCALE SQ SCH ×3 (02:24→11:43)
[2016-10-04 04:00] VITALS: BP_SYST 94; BP_SYST 97; BP_DIAS 54; BP_DIAS 55; PULSE 58; PULSE 83; RESP 18; TEMP 98.2; O2SAT 93; O2SAT 96
[2016-10-04 08:10] VITALS: BP_SYST 107; BP_SYST 117; BP_DIAS 61; BP_DIAS 74; PULSE 56; RESP 18; TEMP 97.5; O2SAT 96
[2016-10-04] MEDS: TAMSULOSIN HCL 0.4 MG CAP PO SCH (08:28)
[2016-10-04] MEDS: OXYBUTYNIN CHLORIDE 5 MG TAB PO SCH (08:28)
[2016-10-04] MEDS: POTASSIUM PHOSPHATE/SODIUM PHOSPHATE 250 MG TAB PO SCH (08:31)
[2016-10-04] MEDS: INSULIN DETEMIR 100 UNITS/ML VIAL SQ SCH (08:31)
[2016-10-04] MEDS: SODIUM CHLORIDE 0.9% FLUSH 10 ML FLUSH IV FLUSH SCH (08:31)
[2016-10-04 09:03] LABS: AUTOMATED NEUTROPHIL # 12.8 TH/MM3 (1.8-7.7); HEMATOCRIT 33.5 % (35.0-46.0); HEMO FLAGS DIFF FINAL; LYMPHOCYTE # 0.7 TH/MM3 (1.0-4.8); MEAN CELL VOLUME 90.6 FL (80.0-100.0); MEAN CORPUSCULAR HEMOGLOBIN 29.8 PG (27.0-34.0); MEAN CORPUSCULAR HGB CONC 32.9 % (32.0-36.0); MONO % 1.6 % (0.0-8.0); NEUT % 93.4 % (16.0-70.0); PLATELET COUNT 368 TH/MM3 (150-450); RED CELL DISTRIBUTION WIDTH 14.2 % (11.6-17.2); WHITE BLOOD COUNT 13.7 TH/MM3 (4.0-11.0)
[2016-10-04 09:22] LABS: BICARBONATE 28.5 MEQ/L (21.0-32.0); MAGNESIUM 2.4 MG/DL (1.5-2.5); POTASSIUM 4.2 MEQ/L (3.5-5.1)
[2016-10-04 10:00] VITALS: PULSE 60
--- NOTE | 2016-10-04 10:08 | HHI.PR ---
Review/Management Diagnosis/Plan: (1) Headache around the eyes Plan: probable temporal arteritis +response to high dose steroids +low grade temps, + vision loss, mild anemia recs ok to d/c home on pred 60mg po qam x 1 month and then 50mg po qam, etc...based on esr/clinical symptoms glucose control/weight control f/u with pcp/optho/rheum/neuro d/w pt (2) Fever Plan: recently, afebrile at present (3) Uncontrolled diabetes mellitus (4) Weakness Subjective Subjective Comments No acute events reported headache better -11/19; feels stronger overall since being on high dose steroids No chest pain No dyspnea Active Medications Current Medications Medications (Trade) Dose Ordered Sig/Jacques Route Start Time Stop Time Status Last Admin (NS Flush) 2 ml UNSCH PRN IV FLUSH 10/01/16 21:15 10/02/16 09:00 (NS Flush) 2 ml BID IV FLUSH 10/02/16 09:00 10/04/16 08:31 (Narcan Inj) 0.4 mg UNSCH PRN IV 10/01/16 21:15 (Depakote Er) 500 mg HS PO 10/02/16 21:00 10/03/16 21:05 (Ditropan) 5 mg Q12HR PO 10/02/16 09:00 10/04/16 08:28 (K-Phos Neutral) 250 mg PCHS PO 10/02/16 09:30 10/04/16 08:31 (Flomax) 0.4 mg DAILY PO 10/02/16 09:00 10/04/16 08:28 (Zanaflex) 2 mg HS PRN PO 10/02/16 00:45 10/03/16 19:45 (SoluMEDROL INJ) 250 mg Q12H IV PUSH 10/02/16 12:00 10/03/16 23:58 (Advil) 200 mg Q8H PRN PO 10/02/16 19:15 10/03/16 19:45 (D50w (Vial) Inj) 50 ml UNSCH PRN IV 10/03/16 11:15 (Glucagon Inj) 1 mg UNSCH PRN OTHER 10/03/16 11:15 Miscellaneous Information ALL NURSING DEPARTME... UNSCH PRN .XX 10/03/16 11:30 10/04/16 11:29 (Levemir Inj) 10 units BID SQ 10/03/16 21:00 10/04/16 08:31 (Roxicodone) 5 mg Q4H PRN PO 10/03/16 21:12 10/04/16 09:38 Allergies Allergies Coded Allergies Tylenol (Verified Allergy, Severe, VOMITING, SWELLING OF TONGUE, 10/01/16) Ultram (Verified Allergy, Intermediate, FOAMS AT THE MOUTH, 10/01/16) Uncoded Allergies SPLENDA ( Adverse Reaction, Severe, SWELLING TONGUE , 07/26/08) Review of Systems All other ROS: ROS reviewed as documented in chart Exam I&O / VS 10/03/16 10/03/16 10/04/16 15:00 23:00 07:00 Intake Total 900 ml 360 ml 240 ml Output Total 0 ml 875 ml Balance 900 ml 360 ml -635 ml Intake Oral 360 ml 240 ml IV Total 200 ml 0 ml Other 700 ml Output Urine Total 0 ml 875 ml Estimated Blood Loss 0 ml # Voids 2 # Bowel Movements 0 0 Vital Signs Date Time Temp Pulse Resp B/P Pulse Ox O2 Delivery O2 Flow Rate FiO2 10/04/16 08:10 97.5 56 18 107/61 96 117/74 10/04/16 04:00 98.2 58 18 97/55 93 10/04/16 04:00 58 18 94/54 96 10/04/16 04:00 83 18 94/54 96 10/04/16 00:00 72 18 91/53 94 10/04/16 00:00 103/58 10/04/16 00:00 92 18 83/50 93 10/04/16 00:00 97.9 75 20 88/50 96 10/03/16 20:00 98.4 73 18 110/53 97 10/03/16 20:00 98.4 93 20 98/57 97 10/03/16 20:00 98.5 82 18 112/56 95 10/03/16 19:30 Room Air 10/03/16 17:53 18 10/03/16 16:05 98.4 84 17 109/57 94 10/03/16 15:20 69 10/03/16 12:31 98.1 84 18 108/55 95 10/03/16 12:30 114/53 90/55 6/24/17 11:45 79 16 116/74 92 Nasal Cannula 2 10/03/16 11:30 79 16 107/65 92 Nasal Cannula 2 10/03/16 11:15 98.5 92 16 97/54 92 Nasal Cannula 2 10/03/16 10:05 93 Room Air General: Alert and Oriented, No acute distress Eye: EOMI Neurologic: Alert, Oriented, Normal sensory, Normal motor, No focal defects, Normal DTR's Psychiatric: Cooperative, Appropriate mood & affect Exam Comments ox 3, obese, follows, eomi, ou 3-2mm,, eomi, +less left methodist tenderness/had biopsy done, face sym, angulo to gravity, Objective Micro and Labs Laboratory Tests Test 10/03/16 10/03/16 10/03/16 10/04/16 17:05 20:04 22:40 08:05 Random Glucose 566 644 406 320 Sodium Level 135 134 Potassium Level 4.4 4.2 Chloride Level 98 97 Carbon Dioxide Level 28.1 28.5 Anion Gap 9 9 Blood Urea Nitrogen 23 23 Creatinine 1.22 0.97 Estimat Glomerular Filtration 47 62 Rate Calcium Level 8.7 8.9 White Blood Count 13.7 Red Blood Count 3.70 Hemoglobin 11.0 Hematocrit 33.5 Mean Corpuscular Volume 90.6 Mean Corpuscular Hemoglobin 29.8 Mean Corpuscular Hemoglobin 32.9 Concent Red Cell Distribution Width 14.2 Platelet Count 368 Mean Platelet Volume 8.5 Neutrophils (%) (Auto) 93.4 Lymphocytes (%) (Auto) 5.0 Monocytes (%) (Auto) 1.6 Eosinophils (%) (Auto) 0.0 Basophils (%) (Auto) 0.0 Neutrophils # (Auto) 12.8 Lymphocytes # (Auto) 0.7 Monocytes # (Auto) 0.2 Eosinophils # (Auto) 0.0 Basophils # (Auto) 0.0 CBC Comment DIFF FINAL Differential Comment Magnesium Level 2.4 Date/Time Procedure Status Source Growth 10/01/16 18:30 Aerobic Blood Culture - Preliminary Resulted Blood Peripheral NO GROWTH IN 2 DAYS 10/01/16 18:30 Anaerobic Blood Culture - Preliminary Resulted Blood Peripheral NO GROWTH IN 2 DAYS 10/01/16 18:15 Urine Culture - Final Complete Urine Catheterized Urine 10-50,000 CFU/ML MIXED BONIFACIO... Problem Qualifiers (1) Fever: (2) Uncontrolled diabetes mellitus: Hemanth Beal MD Oct 04, 2016 10:08
[2016-10-04] MEDS ORDERED: PRED20 PO (10:25)
[2016-10-04] MEDS ORDERED: OXYC1CAP PO (10:25)
--- NOTE | 2016-10-04 10:26 | HHI.DS ---
Discharge Summary Admission Date Oct 02, 2016 at 12:12 Discharge Date: Oct 04, 2016 Admitting Diagnosis Dizziness, Weakness, Inability to Ambulate (1) Weakness ICD Code: R53.1 Diagnosis: Principal (2) Dizziness ICD Code: R42 Diagnosis: Principal Procedures left temporal biopsy Brief History - From Admission This is a 45 year old female patient with a past medical history which includes DM, PE 06/2016 and renal stones. Patient presents to the ER today with multiple complaints and reports of feeling generally unwell. Patient was recently admitted 09/14/16 then discharged on Wednesday09/30/16 with diagnosis of fever of unknown origin. Patient states that, "since then I have gotten progressively worse and today I got a fever." Patient reports that she had chills yesterday, temp at home was 100.4 and dizziness for the past 3 days. Also complains of headache. Patient endorses nausea and diarrhea. Patient reports diarrhea 2 times a day for the past two days. Stool is yellow in color, denies black or red color. Patient reports chest tightness and shortness of breath for the past 3-4 days. Patient also reports that she fell yesterday landed on her back and now has pain/soreness lower back worse with palpation. Patient denies vomiting. CBC/BMP: 10/04/16 0805 10/04/16 0805 Significant Findings Laboratory Tests Test 10/01/16 10/02/16 10/02/16 10/02/16 18:15 01:02 06:14 06:18 Neutrophils (%) (Auto) 85.2 % (16.0-70.0) Neutrophils # (Auto) 8.9 TH/MM3 (1.8-7.7) Erythrocyte Sedimentation Rate 74 mm/hr (0-20) Urine Turbidity HAZY (CLEAR) Urine Leukocyte Esterase TRACE (NEG) Urine WBC 8 /hpf (0-5) Urine Bacteria RARE /hpf (NONE) Urine Mucus FEW /lpf (OCC) Carbon Dioxide Level 32.3 MEQ/L (21.0-32.0) Estimat Glomerular Filtration 69 ML/MIN (>89) 62 ML/MIN (>89) Rate Random Glucose 262 MG/DL 250 MG/DL (74-106) (74-106) Aspartate Amino Transf 71 U/L (15-37) (AST/SGOT) Alanine Aminotransferase 93 U/L (10-53) (ALT/SGPT) C-Reactive Protein 1.60 MG/DL (0.00-0.30) Albumin 2.8 GM/DL (3.4-5.0) Valproic Acid (Depakene) Level 15 MCG/ML (50-100) Total Creatine Kinase 24 U/L (26-192) 23 U/L (26-192) 24 U/L (26-192) Troponin I LESS THAN 0.02 LESS THAN 0.02 LESS THAN 0.02 NG/ML NG/ML NG/ML (0.02-0.05) (0.02-0.05) (0.02-0.05) D-Dimer Quantitative (PE/DVT) 0.87 MG/L FEU (0.00-0.50) Potassium Level 3.4 MEQ/L (3.5-5.1) White Blood Count 11.4 TH/MM3 (4.0-11.0) Red Blood Count 3.61 MIL/MM3 (4.00-5.30) Hemoglobin 11.0 GM/DL (11.6-15.3) Hematocrit 32.9 % (35.0-46.0) Test 10/02/16 10/03/16 10/03/16 10/03/16 21:46 07:50 17:05 20:04 Random Glucose 478 MG/DL 566 MG/DL 644 MG/DL (74-106) (74-106) (74-106) Activated Partial 23.6 SEC Thromboplast Time (24.3-30.1) Test 10/03/16 10/04/16 22:40 08:05 Sodium Level 135 MEQ/L 134 MEQ/L (136-145) (136-145) Blood Urea Nitrogen 23 MG/DL (7-18) 23 MG/DL (7-18) Creatinine 1.22 MG/DL (0.50-1.00) Estimat Glomerular Filtration 47 ML/MIN (>89) 62 ML/MIN (>89) Rate Random Glucose 406 MG/DL 320 MG/DL (74-106) (74-106) White Blood Count 13.7 TH/MM3 (4.0-11.0) Red Blood Count 3.70 MIL/MM3 (4.00-5.30) Hemoglobin 11.0 GM/DL (11.6-15.3) Hematocrit 33.5 % (35.0-46.0) Neutrophils (%) (Auto) 93.4 % (16.0-70.0) Lymphocytes (%) (Auto) 5.0 % (9.0-44.0) Neutrophils # (Auto) 12.8 TH/MM3 (1.8-7.7) Lymphocytes # (Auto) 0.7 TH/MM3 (1.0-4.8) Chloride Level 97 MEQ/L (98-107) Imaging Last Impressions CT Angiography 10/02/16 0000 Signed Impressions: Service Date/Time: Sunday, October 02, 2016 03:34 - CONCLUSION: 1. No central pulmonary emboli. 2. Scattered groundglass densities could be atelectasis or interstitial edema. 3. Cardiomegaly. Michael Solorio MD Head CT 10/01/162034 Signed Impressions: Service Date/Time: September 20:50 - CONCLUSION: Negative noncontrast CT. Fernando Richey MD PE at Discharge GENERAL: 45 yo female, obese, well-nourished, well-developed, does not appear to be in acute distress HEAD: normocephalic. tenderness to touch most severe on left temporal area. sensation intact. Wrapped after left temporal artery biopsy, dressing c/d/i. EYES: normal ROM bilaterally, no scleral icterus. decreased visual acuity and peripheral vision OS. color vision appears intact. CARDIOVASCULAR: normal rate and rhythm. no murmur, gallops, or rubs RESPIRATORY: no use of accessory muscles. clear to auscultation. GASTROINTESTINAL: soft, obese, non-tender, non-distended abdomen. bowel sounds present in 4 quadrants MUSCULOSKELETAL: no obvious deformities. slight edema in lower extremities bilaterally. NEUROLOGICAL: awake and alert. cranial nerve grossly normal, except poor vision in the left eye. tenderness over temporal teddy. on the left. Motor strength normal, normal speech. Pt update on day of discharge Feels much better. Says she feels headache improved, says vision is the same, decreased. Says she has headache at the surgical site. No new deficit. No n/v/d/ c. Cleared for DC by neuro Hospital Course [age] year old female with severe frontal/temporal headache and decreased visual acuity in her left eye. She has a PMH of migraines, DM, PE (06/2016), nephrolithiasis, and a recent admit (09/14-09/30) for a fever of unknown origin. Presented to the ER on 10/01 with multiple complaints including feeling generally unwell. Headache with Left Eye Blurred Vision: suspect Temporal Arteritis. ESR 74, CRP 1.6. Head CT images reviewed, unremarkable. Recent brain MRI 09/27/16 reviewed and unremarkable. Patient also with migraine headache, poss cluster headache . Will administer O2 as well Consult gen surgery plan for temporal artery biopsy 10/03/16 Consult neuro, ff, appreciate recommendations. Continue on IV Solumedrol 250mg bid, give steroids perdnisone at DC per Dr Lopez, will follwo as OP taper prednisone as OP. Moitor ESR as OP. To follwo up with neuro , ophtalmo, rheumatology as OP Temporal artery biopsy scheduled for this morning with general surgery Consult ophthalmology for ocular pressures and retina exam Received Imitrex sq, Compazine/Reglan x2 for headache Pain control with oxycodone as needed Chest Tightness, Dyspnea: history of PE 06/2016- only completed 3 months of Eliquis- recommend hypercoagulable work up as outpatient D dimer elevated however CT-PA negative for PE, does show scattered groundglass densities could be atelectasis or interstitial edema ACS ruled out with negative serial cardiac enzymes x3 and EKG without acute ischemic changes BNP- WNL Echocardiogram nl EF Diarrhea: with recent antibiotics use on prior admission. Resolved Dizziness with fall: unclear etiology, possibly secondary to headache/blurred vision Orthostatic vital signs negative Monitor on telemetry DM 2, uncontrolled, worsening due to steroid use with BS 487, monitor closely while on steroids. HgbA1c 9.0 on 09/15/16. - Will give Levemir 10 U BID -monitor ACHS and cover with SSI Morbid obesity BMI 44.6. Diet and exercise. DVT prophylaxis with SCDs, hold anticoagulation with upcoming procedure/biopsy Discharge home in stable condition to follow up as OP with PCP and consultants. Keep your appointment with urology doc. F/u with neuro, ophthalmology, rheumatology as OP. Follow up ESR and taper steroids per neuro recommendations. Will give prescription for prednisone 60 mg po daily x 30 days, continue to taper per neuro Pt Condition on Discharge: Stable Discharge Disposition: Discharge Home Discharge Time: > 30 minutes Discharge Instructions DIET: Follow Instructions for: Heart Healthy Diet, Diabetic Diet Activities you can perform: Regular-No Restrictions Activities to Avoid: Driving Follow up Referrals: Neurology - 2 Weeks with Hemanth Beal MD Ophthalmology - 1 Week PCP Follow-up - 2-3 Days Rheumatology - 1 Week New Orders: WESTERGREN SED RATE - 2 Weeks New Medications: Ondansetron (Zofran) 4 Mg Tab 4 MG PO Q12HR PRN NAUSEA OR VOMITING #20 Ref 0 TAB Oxycodone (Oxycodone) 5 Mg Cap 5 MG PO Q8H PRN PAIN #7 Ref 0 CAP Prednisone (Prednisone) 20 Mg Tab 60 MG PO DAILY temporal arteritis #30 Ref 0 TAB Continued Medications: Divalproex ER (Depakote ER) 500 Mg Tobias 500 MG PO HS headache Days 10 Ref 0 TAB Insulin Glargine Inj (Lantus Inj) 100 Unit/Ml Inj Insulin Lispro (Human) Inj (Humalog Inj) 1,000 Unit/10 Ml Vial 5-25 UNITS SQ ACHS Max dose at bedtime:( )units; sugars < 70,(0)units; sugars 150-199,(5)units; sugars 200-249,(10)units; sugars 250-299,(15)units; sugars 300 -349,(20)units; sugars more than 349,(25)units. Blood Sugar Management #1 Ref 0 VIAL Oxybutynin (Ditropan) 5 Mg Tab 5 MG PO Q12HR Urinary Symptom Managemen #28 Ref 0 TAB Potassium Phosphate-Sodium Phosphate (K-Phos Neutral) 155-852-130 Mg Tab 250 MG PO PCHS Electrolyte Replacement Days 3 Ref 0 TAB Tamsulosin (Flomax) 0.4 Mg Cap 0.4 MG PO DAILY urinary retention Days 30 Ref 0 CAP Tizanidine (Zanaflex) 2 Mg Cap 2 MG PO HS PRN muscle spasm #10 Ref 0 CAP Discontinued Medications: Prednisone (Prednisone) 5 Mg Tab 5 MG PO DIRECTED 40 mg po daily for two days then 30 mg po daily for two days then 20 mg po daily for two days then 10 mg po daily for two days then 5 mg po daily for two days then stop. Inflammation Days 10 Ref 0 TAB Chely Nur MD Oct 04, 2016 10:26
[2016-10-04] MEDS: IBUPROFEN 200 MG TAB PO PRN (10:48)
[2016-10-04] MEDS ORDERED: ZOFR4TAB PO (11:14)
[2016-10-04] MEDS: methylPREDNISolone SOD SUCC 125 MG/2 ML VIAL IV PUSH SCH (11:33)
[2016-10-04 12:35] VITALS: BP_SYST 112; BP_SYST 116; BP_DIAS 59; PULSE 72; RESP 18; TEMP 98.5; O2SAT 96
== END 2016-10-04 13:35 | disposition home or self-care (01) | DRG 629 ==
LOC: NEPE 16:56 → NEDA 21:12 → NEPFCDU 22:59 → OBSVTOIN 10-02 12:12 → N04A 10-02 13:40
PROVIDERS: ADMIT Hospitalist; ATTEND Hospitalist
PROC: 03BT0ZX Excision of Left Temporal Artery, Open Approach, Diagnostic (ICD-10-PCS; principal; 2016-10-03 09:18)
DX: E11.65 Type 2 diabetes mellitus with hyperglycemia (principal); R50.9 Fever, unspecified; Z68.41 Body mass index [BMI] 40.0-44.9, adult; R53.1 Weakness; G43.909 Migraine, unspecified, not intractable, without status migrainosus; K21.9 Gastro-esophageal reflux disease without esophagitis; R42 Dizziness and giddiness; R26.9 Unspecified abnormalities of gait and mobility; R19.7 Diarrhea, unspecified; H54.62 Unqualified visual loss, left eye, normal vision right eye; E66.01 Morbid (severe) obesity due to excess calories; E87.6 Hypokalemia; E07.9 Disorder of thyroid, unspecified; Z87.442 Personal history of urinary calculi; Z79.4 Long term (current) use of insulin; Z86.711 Personal history of pulmonary embolism
CPT/HCPCS: 70450; 71275; 80048; 80053; 80164; 81001; 82550; 82947; 82948; 83605; 83735; 83880; 84484; 85025; 85379; 85610; 85652; 85730; 86140; 87040; 87086; 88304; 88305; 93005; 93306; 96360; G0378; J0780; J1815; J2270; J2370; J2405; J2765; J2930; J3030; J7030; J7120; J7512; Q9967

== ENCOUNTER 2016-11-20 12:28 | Emergency (ER) | payer MEDICAID, OTHER ==
[~2016-11-20] VITALS: Ht 157.5 cm; Wt 113.6 kg
[~2016-11-20 12:28] MED LIST changes: -OXYB5TAB33 PO; +OXYC1CAP PO; +PRED20 PO; -PRED5TAB PO; -XANA1TAB6 PO; +ZOFR4TAB PO
[2016-11-20 12:30] VITALS: BP 166/78; PULSE 118; RESP 14; TEMP 98.9; O2SAT 96
--- NOTE | 2016-11-20 12:38 | PD ---
Physical Exam Date Seen by Provider: Nov 20, 2016 Time Seen by Provider: 12:34 Narrative Pt is a 45 year old female presenting to the ED for evaluation of hematuria, possible kidney stone. Pt reports hesitancy and frequency. Symptoms started yesterday. Pt reports nausea. Denies any documented fevers. Hx of kidney stones , diabetes, loop recorder, syncopal episodes. Pt is followed by Dr. Moore. VSS , awaiting bed placement. Data Data Last Documented VS Vital Signs Date Time Temp Pulse Resp B/P Pulse Ox O2 Delivery O2 Flow Rate FiO2 11/20/16 12:30 98.9 118 14 166/78 96 MDM Supervised Visit with JOE: Mini Pride Nov 20, 2016 12:37
[2016-11-20 13:11] LABS: AUTOMATED NEUTROPHIL # 7.5 TH/MM3 (1.8-7.7); BASOPHIL # 0.1 TH/MM3 (0-0.2); BASOPHIL % 0.7 % (0.0-2.0); EOSINOPHIL # 0.1 TH/MM3 (0-0.4); EOSINOPHIL % 0.8 % (0.0-4.0); HEMATOCRIT 39.7 % (35.0-46.0); LYMPHOCYTE # 3.2 TH/MM3 (1.0-4.8); MEAN CELL VOLUME 91.3 FL (80.0-100.0); MEAN CORPUSCULAR HEMOGLOBIN 30.1 PG (27.0-34.0); MONO % 5.4 % (0.0-8.0); NEUT % 65.1 % (16.0-70.0); PLATELET COUNT 212 TH/MM3 (150-450); RED BLOOD COUNT 4.35 MIL/MM3 (4.00-5.30); RED CELL DISTRIBUTION WIDTH 16.5 % (11.6-17.2); WHITE BLOOD COUNT 11.6 TH/MM3 (4.0-11.0)
[2016-11-20 13:15] LABS: HEMO FLAGS AUTO DIFF
[2016-11-20 13:26] LABS: ALKALINE PHOSPHATASE 92 U/L (45-117); TOTAL BILIRUBIN ADULT 0.3 MG/DL (0.2-1.0)
[2016-11-20 13:27] LABS: ALT (GPT) 48 U/L (10-53); ANION GAP 10 MEQ/L (5-15); AST (GOT) 27 U/L (15-37); BLOOD UREA NITROGEN 20 MG/DL (7-18); CHLORIDE 103 MEQ/L (98-107); GLOMERULAR FILTRATION RATE 61 ML/MIN (>89); POTASSIUM 4.3 MEQ/L (3.5-5.1); SODIUM (NA) 139 MEQ/L (136-145)
[2016-11-20 13:40] LABS: BACTERIA, URINE OCC /hpf; BLOOD, URINE LARGE (NEG); COMMENT (UR) CULTURE INDICATED; CULTURE IF INDICATED CULTURE INDICATED; GLUCOSE,URINE 70 mg/dL (NEG); HYALINE CAST, URINE 3 /lpf (RARE); KETONE, URINE NEG (NEG); MUCUS URINE FEW /lpf (OCC); NITRITE,URINE NEG (NEG); SQUAMOUS EPITHELIAL CELL URINE 2 /hpf (0-5); URINE COLOR YELLOW (YELLW/STRAW)
[2016-11-20 13:47] LABS: EOSINOPHILS 2 % (0-4); MYELOCYTES 3 % (0-0); NEUTROPHIL # MANUAL DIFF 8.1 TH/MM3 (1.8-7.7); POLYS (SEG NEUTROPHILS) 67 % (16-70); WBC DIFF SAMPLE 100
[2016-11-20 13:48] LABS: PLATELET ESTIMATE SMEAR NORMAL (NORMAL); PLATELET MORPHOLOGY NORMAL (NORMAL); SCAN/DIFF FINAL DIFF MANUAL
--- NOTE | 2016-11-20 14:01 | RADRPT ---
EXAM DATE/TIME: 11/20/2016 13:11 [facility] COMPARISON: CT ABDOMEN & PELVIS W/O CONTRAST, September 13, 2016, 23:17. INDICATIONS : Right flank pain along with nausea and hematuria. ORAL CONTRAST: No oral contrast ingested. RADIATION DOSE: 8.42 CTDIvol (mGy) MEDICAL HISTORY : Diabetes mellitus type 2. Renal calculi. SURGICAL HISTORY : Thyroidectomy. ENCOUNTER: Initial ACUITY: 2 weeks PAIN SCALE: 7/10 LOCATION: Right flank TECHNIQUE: Volumetric scanning of the abdomen and pelvis was performed. Using automated exposure control and ad justment of the mA and/or kV according to patient size, radiation dose was kept as low as reasonably achievable to obtain optimal diagnostic quality images. DICOM format image data is available electro nically for review and comparison. FINDINGS: LOWER LUNGS: The visualized lower lungs are clear. LIVER: Homogeneous density without lesion. There is no dilation of the biliary tree. No calcified gallston es. SPLEEN: Normal size without lesion. PANCREAS: Within normal limits. KIDNEYS: No obstructing calculi are identified in both kidneys. A 4 mm calculus is identified in the right kid saira in the mid-upper pole. This was seen previously and is stable. 3 small nonobstructing calculi [place] ntified in the left kidney. A several millimeter calculus seen on the prior study is no longer presen t. Internal ureteral stent has been removed. There is no evidence of hydronephrosis or hydroureter. ADRENAL GLANDS: Within normal limits. VASCULAR: There is no aortic aneurysm. BOWEL/MESENTERY: The stomach, small bowel, and colon demonstrate no acute abnormality. There is no free intraperitone al air or fluid. ABDOMINAL WALL: Within normal limits. RETROPERITONEUM: There is no lymphadenopathy. BLADDER: No wall thickening or mass. REPRODUCTIVE: Within normal limits. INGUINAL: There is no lymphadenopathy or hernia. MUSCULOSKELETAL: It is hypertrophic facet arthropathy is identified at L4-5 and L5-S1. CONCLUSION: 1. Bilateral nonobstructing calculi 2. No evidence of hydronephrosis or hydroureter. 3. 7 mm left renal calculus and left internal ureteral stent are no longer present. 4. Lumbar hypertrophic facet arthropathy Bhargav Sweet MD on November 20, 2016 at 13:55 Board Certified Radiologist. This report was verified electronically.
[2016-11-20 14:13] VITALS: PULSE 101; RESP 18; O2SAT 95
--- NOTE | 2016-11-20 14:15 | PD ---
HPI . right sided flank pain x 3 days Chief Complaint: Flank/Kidney Pain Time Seen by Provider: 14:25 Travel History International Travel<30 days: No Contact w/Intl Traveler<30days: No Traveled to known affect area: No History of Present Illness HPI 45- year old female presents to the ED complaining of right flank pain. The patient reports the episode started a few days ago when she was unable to urinate. It then progressed yesterday when she started with the right flank pain and blood in her urine. She describes her pain as stabbing and states it is currently a 6-10/19. She has tried hot baths and ibuprofen but had no relief. She reports the pain is worse with laying down and that it radiates to her right groin. She has some associated nausea and vomiting, but denies any fevers , chills, or night sweats. She reports that she called her urologist (Dr. Moore ) this morning who referred her to go to the ED. She reports she has a history of kidney stones and states her present symptoms feel the same. Prior abdominal surgeries include hysterectomy, cholecystectomy, and appendectomy. PFSH Past Medical History Cancer: No Cardiovascular Problems: Yes Cerebrovascular Accident: No Diabetes: Yes Glaucoma: No Headaches: Yes (DUE LOW BLOOD PRESSURE) Hepatitis: No Hiatal Hernia: Yes (REPAIR UMBILUS HERNIA) Hypertension: No Kidney Stones: Yes (THREE LISTROPSPHY) Musculoskeletal: No Respiratory: Yes (Pulmonary Embolism ) Thyroid Disease: Yes Ulcer: Yes ?: Not Menopausal: Yes Past Surgical History Abdominal Surgery: Yes (GALL BLADDER APPENDIX) Appendectomy: Yes Cardiac Surgery: No Section: Yes Cholecystectomy: Yes Ear Surgery: No Endocrine Surgery: No Eye Surgery: No Genitourinary Surgery: Yes (KIDNEY STENT PLACED) Gynecologic Surgery: Yes (C SECTION) Hysterectomy: Yes Joint Replacement: Yes (right ankle repair ) Oral Surgery: Yes (TONSILLECTOMY) Pacemaker: No Thoracic Surgery: No Tonsillectomy: Yes Other Surgery: Yes Social History Alcohol Use: No Tobacco Use: No Substance Use: No Allergies-Medications (Allergen,Severity, Reaction): Coded Allergies: Tylenol (Verified Allergy, Severe, VOMITING, SWELLING OF TONGUE, 11/20/16) Ultram (Verified Allergy, Intermediate, FOAMS AT THE MOUTH, 11/20/16) Uncoded Allergies: SPLENDA (Adverse Reaction, Severe, SWELLING TONGUE , 07/26/08) Reported Meds & Prescriptions Reported Meds & Active Scripts Active Ketorolac (Ketorolac Tromethamine) 10 Mg Tab 10 Mg PO TID Macrobid (Nitrofurantoin Monohydrate Macrocrystals) 100 Mg Capsule 100 Mg PO BID 7 Days Zofran (Ondansetron HCl) 4 Mg Tab 4 Mg PO Q12HR PRN Prednisone 20 Mg Tab 60 Mg PO DAILY Oxycodone (Oxycodone HCl) 5 Mg Cap 5 Mg PO Q8H PRN Ditropan (Oxybutynin Chloride) 5 Mg Tab 5 Mg PO Q12HR K-Phos Neutral (Potassium Phos/Sodium Phos) 155-852-130 Mg Tab 250 Mg PO PCHS 3 Days Zanaflex (Tizanidine HCl) 2 Mg Cap 2 Mg PO HS PRN Depakote ER (Divalproex Sodium) 500 Mg Tobias 500 Mg PO HS 10 Days Flomax (Tamsulosin HCl) 0.4 Mg Cap 0.4 Mg PO DAILY 30 Days Reported Humalog Inj (Insulin Human Lispro) 1,000 Unit/10 Ml Vial 5-25 Units SQ ACHS Max dose at bedtime:( )units; sugars < 70,(0)units; sugars 150-199,(5)units; sugars 200-249,(10)units; sugars 250-299,(15)units; sugars 300-349,(20)units; sugars more than 349,(25)units. Lantus Inj (Insulin Glargine) 100 Unit/Ml Inj Review of Systems General / Constitutional: No: Fever, Chills, Weight Gain, Weight Loss, Other Eyes: No: Diploplia, Blurred Vision, Photophobia, Drainage, Redness, Foreign Body Sensation, Pain, Tearing, Blind Spots, Visual changes, Blindness, Other HENT: No: Headaches, Vertigo, Lightheadedness, Sore Throat, Rhinitis, Rhinorrhea, Congestion, Nosebleed, Neck Stiffness, Neck Pain, Masses, Gingival Bleeding, Dental Difficulties, Ear Discharge, Earache, Other Cardiovascular: No: Chest Pain or Discomfort, Palpitations, Irregular Rhythm, Tachycardia, Diaphoresis, Syncope, Dyspnea on exertion, Varicosities, Edema, Cyanosis, Varicosities, Phlebitis, Claudication, Other Respiratory: No: Cough, Shortness of Breath, Wheezing, Sneezing, Orthopnea, Hemoptysis, Stridor, Night Sweats, Pleuritic Pain, Other Gastrointestinal: Positive: Nausea, Vomiting, Abdominal Pain (RLQ pain), No: Diarrhea, Hematemesis, Hematochezia, Constipation, Changes in Bowel Habits, Indigestion, Dysphagia, Loss of Appetite, Other Genitourinary: Positive: Hematuria, Decreased Urinary Output, Oliguria, Flank Pain (right side), No: Urgency, Frequency, Dysuria, Nocturia, Hesitancy, Dribbling, Incontinence, Pelvic Pain, Dyspareunia, Discharge, Dysmenorrhea, Menorrhagia, Metorrhagia, Vaginal Bleeding, Other Musculoskeletal: No: Myalgias, Arthralgias, Limited ROM, Weakness, Cramping, Edema, Pain, Atrophy, Other Skin: No Rash, No Itching, No Dryness, No Lumps, No Hives, No Change in Pigmentation, No Change in nails, No Alopecia, No Lesions, No Breast Lumps, No Breast Tenderness, No Breast Swelling, No Other Neurologic: No: Weakness, Dizziness, Syncope, Focal Abnormalities, Coordination Problem, Tremor, Ataxia, Headache, Change in Mentation, Slurred Speech, Paresthesia, Incontinence, Seizures, Sensory Disturbance, Other Physical Exam Narrative GENERAL: SKIN: Warm and dry. HEAD: Atraumatic. Normocephalic. EYES: Pupils equal and round. No scleral icterus. No injection or drainage. ENT: No nasal bleeding or discharge. Mucous membranes pink and moist. NECK: Trachea midline. No JVD. CARDIOVASCULAR: Regular rate and rhythm. RESPIRATORY: No accessory muscle use. Clear to auscultation. Breath sounds equal bilaterally. GASTROINTESTINAL: Right sided CVA tenderness. Tender to palpation in RLQ. Abdomen soft, nondistended. Hepatic and splenic margins not palpable. MUSCULOSKELETAL: Extremities without clubbing, cyanosis, or edema. No obvious deformities. NEUROLOGICAL: Awake and alert. No obvious cranial nerve deficits. Motor grossly within normal limits. Five out of 5 muscle strength in the arms and legs. Normal speech. PSYCHIATRIC: Appropriate mood and affect; insight and judgment normal. Data Data Last Documented VS Vital Signs Date Time Temp Pulse Resp B/P Pulse Ox O2 Delivery O2 Flow Rate FiO2 11/20/16 14:13 101 18 95 Room Air 11/20/16 12:30 98.9 166/78 Orders Complete Blood Count With Diff (11/20/16 12:38) Comprehensive Metabolic Panel (11/20/16 12:38) Urinalysis - C+S If Indicated (11/20/16 12:38) Ct Abd/Pel W/O Iv Contrast (11/20/16 12:38) Urine Culture (11/20/16 12:46) Ketorolac Inj (Toradol Inj) (11/20/16 14:30) Labs Laboratory Tests Test 11/20/16 12:46 White Blood Count 11.6 TH/MM3 Red Blood Count 4.35 MIL/MM3 Hemoglobin 13.1 GM/DL Hematocrit 39.7 % Mean Corpuscular Volume 91.3 FL Mean Corpuscular Hemoglobin 30.1 PG Mean Corpuscular Hemoglobin 33.0 % Concent Red Cell Distribution Width 16.5 % Platelet Count 212 TH/MM3 Mean Platelet Volume 7.3 FL Neutrophils (%) (Auto) 65.1 % Lymphocytes (%) (Auto) 28.0 % Monocytes (%) (Auto) 5.4 % Eosinophils (%) (Auto) 0.8 % Basophils (%) (Auto) 0.7 % Neutrophils # (Auto) 7.5 TH/MM3 Lymphocytes # (Auto) 3.2 TH/MM3 Monocytes # (Auto) 0.6 TH/MM3 Eosinophils # (Auto) 0.1 TH/MM3 Basophils # (Auto) 0.1 TH/MM3 CBC Comment AUTO DIFF Differential Total Cells 100 Counted Neutrophils % (Manual) 67 % Lymphocytes % 23 % Monocytes % 5 % Eosinophils % 2 % Neutrophils # (Manual) 8.1 TH/MM3 Myelocytes 3 % Differential Comment FINAL DIFF MANUAL Platelet Estimate NORMAL Platelet Morphology Comment NORMAL Red Cell Morphology Comment NORMAL Urine Color YELLOW Urine Turbidity CLEAR Urine pH 6.0 Urine Specific [place] 1.023 Urine Protein TRACE mg/dL Urine Glucose (UA) 70 mg/dL Urine Ketones NEG mg/dL Urine Occult Blood LARGE Urine Nitrite NEG Urine Bilirubin NEG Urine Urobilinogen LESS THAN 2.0 MG/DL Urine Leukocyte Esterase TRACE Urine RBC /hpf Urine WBC 30 /hpf Urine Squamous Epithelial 2 /hpf Cells Urine Bacteria OCC /hpf Urine Hyaline Casts 3 /lpf Urine Mucus FEW /lpf Microscopic Urinalysis Comment CULTURE INDICATED Sodium Level 139 MEQ/L Potassium Level 4.3 MEQ/L Chloride Level 103 MEQ/L Carbon Dioxide Level 26.0 MEQ/L Anion Gap 10 MEQ/L Blood Urea Nitrogen 20 MG/DL Creatinine 0.98 MG/DL Estimat Glomerular Filtration 61 ML/MIN Rate Random Glucose 275 MG/DL Calcium Level 8.9 MG/DL Total Bilirubin 0.3 MG/DL Aspartate Amino Transf 27 U/L (AST/SGOT) Alanine Aminotransferase 48 U/L (ALT/SGPT) Alkaline Phosphatase 92 U/L Total Protein 6.9 GM/DL Albumin 3.1 GM/DL MDM Medical Decision Making Medical Screen Exam Complete: Yes Emergency Medical Condition: Yes Medical Record Reviewed: Yes Differential Diagnosis Nephrolithiasis Pyelonephritis UTI Narrative Course We have a 45-year-old female here with complaints of right back pain. She was seen by the provider in triage and protocols were ordered. Results have been reviewed and appreciated. UTI was found and kidney stone without obstruction or hydronephrosis. Last Impressions Abdomen/Pelvis CT 11/20/16 1238 Signed Impressions: Service Date/Time: Sunday, November 20, 2016 13:11 - CONCLUSION: 1. Bilateral nonobstructing calculi 2. No evidence of hydronephrosis or hydroureter. 3. 7 mm left renal calculus and left internal ureteral stent are no longer present. 4. Lumbar hypertrophic facet arthropathy Bhargav Sweet MD Laboratory Tests Test 11/20/16 12:46 White Blood Count 11.6 TH/MM3 Red Blood Count 4.35 MIL/MM3 Hemoglobin 13.1 GM/DL Hematocrit 39.7 % Mean Corpuscular Volume 91.3 FL Mean Corpuscular Hemoglobin 30.1 PG Mean Corpuscular Hemoglobin 33.0 % Concent Red Cell Distribution Width 16.5 % Platelet Count 212 TH/MM3 Mean Platelet Volume 7.3 FL Neutrophils (%) (Auto) 65.1 % Lymphocytes (%) (Auto) 28.0 % Monocytes (%) (Auto) 5.4 % Eosinophils (%) (Auto) 0.8 % Basophils (%) (Auto) 0.7 % Neutrophils # (Auto) 7.5 TH/MM3 Lymphocytes # (Auto) 3.2 TH/MM3 Monocytes # (Auto) 0.6 TH/MM3 Eosinophils # (Auto) 0.1 TH/MM3 Basophils # (Auto) 0.1 TH/MM3 CBC Comment AUTO DIFF Differential Total Cells 100 Counted Neutrophils % (Manual) 67 % Lymphocytes % 23 % Monocytes % 5 % Eosinophils % 2 % Neutrophils # (Manual) 8.1 TH/MM3 Myelocytes 3 % Differential Comment FINAL DIFF MANUAL Platelet Estimate NORMAL Platelet Morphology Comment NORMAL Red Cell Morphology Comment NORMAL Urine Color YELLOW Urine Turbidity CLEAR Urine pH 6.0 Urine Specific [place] 1.023 Urine Protein TRACE mg/dL Urine Glucose (UA) 70 mg/dL Urine Ketones NEG mg/dL Urine Occult Blood LARGE Urine Nitrite NEG Urine Bilirubin NEG Urine Urobilinogen LESS THAN 2.0 MG/DL Urine Leukocyte Esterase TRACE Urine RBC /hpf Urine WBC 30 /hpf Urine Squamous Epithelial 2 /hpf Cells Urine Bacteria OCC /hpf Urine Hyaline Casts 3 /lpf Urine Mucus FEW /lpf Microscopic Urinalysis Comment CULTURE INDICATED Sodium Level 139 MEQ/L Potassium Level 4.3 MEQ/L Chloride Level 103 MEQ/L Carbon Dioxide Level 26.0 MEQ/L Anion Gap 10 MEQ/L Blood Urea Nitrogen 20 MG/DL Creatinine 0.98 MG/DL Estimat Glomerular Filtration 61 ML/MIN Rate Random Glucose 275 MG/DL Calcium Level 8.9 MG/DL Total Bilirubin 0.3 MG/DL Aspartate Amino Transf 27 U/L (AST/SGOT) Alanine Aminotransferase 48 U/L (ALT/SGPT) Alkaline Phosphatase 92 U/L Total Protein 6.9 GM/DL Albumin 3.1 GM/DL Patient was given Toradol for pain. 1442: Dr Moore contacted: discussed findings as patient said she felt he would want to see her and was told to come to ED by Dr. Moore. He tells me the nurse advised her to come to ED. Results reviewed. No need for admission or further workup. Patient has UTI and will be treated with Macrobid. She was also given Toradol to help with the pain. Follow-up with primary care provider and urology PRN. Diagnosis Primary Impression: UTI (urinary tract infection) Qualified Code: N30.01 - Acute cystitis with hematuria Additional Impression: Nephrolithiasis Patient Instructions: General Instructions Additional Instructions: Please take the medications prescribed for urinary tract infection. Please return to emergency department if your symptoms return or worsen. Follow up with your primary care provider. Take medications as prescribed. Med/Other Pt SpecificInfo: Prescription(s) given Scripts Ketorolac 10 Mg Tab10 Mg PO TID #15 TAB Ref 0 Prov:Shar Nieves MD 11/20/16 Nitrofurantoin Monohydrate Macrocrystals (Macrobid)100 Mg [id number] Mg PO BID 7 Days Ref 0 Prov:Shar Nieves MD 11/20/16 Disposition: 01 DISCHARGE HOME Condition: Stable Larisa Brady Nov 20, 2016 14:15
[2016-11-20] MEDS ORDERED: MACR100C2 PO (14:28)
[2016-11-20] MEDS ORDERED: KETO10 PO (14:29)
[2016-11-20] MEDS ORDERED: KETOROLAC TROMETHAMINE 60 MG/2 ML (IM) VIAL IM ONE (14:30)
== END 2016-11-20 15:02 | disposition home or self-care (01) ==
LOC: NEPK 12:28
DX: N39.0 Urinary tract infection, site not specified (principal); N20.0 Calculus of kidney; R11.2 Nausea with vomiting, unspecified; E11.9 Type 2 diabetes mellitus without complications; E07.9 Disorder of thyroid, unspecified; Z79.899 Other long term (current) drug therapy; Z79.4 Long term (current) use of insulin; Z86.711 Personal history of pulmonary embolism; Z88.6 Allergy status to analgesic agent; Z88.8 Allergy status to other drugs, medicaments and biological substances
CPT/HCPCS: 74176; 80053; 81001; 85007; 85027; 87086; 96374; 99285; J1885

== ENCOUNTER 2017-01-12 14:31 | Emergency (ER) | payer MEDICAID ==
[~2017-01-12] VITALS: Ht 157.5 cm; Wt 115.0 kg
[~2017-01-12 14:31] MED LIST changes: +KETO10 PO; +MACR100C2 PO
[2017-01-12 14:33] VITALS: BP 141/94; PULSE 114; RESP 22; TEMP 98.7; O2SAT 95
[2017-01-12 14:40] VITALS: O2SAT 98
[2017-01-12] MEDS ORDERED: SODIUM CHLOR 0.9% 1000 ML INJ 1,000 ML IV SCH (14:43)
[2017-01-12] MEDS ORDERED: ONDANSETRON HCL 4 MG/2 ML VIAL IVP ONE (14:45)
[2017-01-12] MEDS ORDERED: HYDROmorphone HCL PF 1 MG/ML VIAL IVS ONE (14:45)
[2017-01-12] MEDS ORDERED: SODIUM CHLORIDE 0.9% FLUSH 10 ML FLUSH IV FLUSH PRN (14:45)
--- NOTE | 2017-01-12 14:49 | PD ---
HPI Chief Complaint: Flank/Kidney Pain Time Seen by Provider: 14:42 (Sarbjit Jim MD) Travel History International Travel<30 days: No Contact w/Intl Traveler<30days: No Traveled to known affect area: No (Sarbjit Jim MD) History of Present Illness HPI 46 yo F c/o R flank pain, hematuria, + radiation to R groin, + hx renal stones that feel the same as today for the past day. + Nausea. No vomiting. No VD/VB. Associated symptoms include dyspnea and pt states she is currently undergoing a diagnostic evaluation for asthma. No chest pain. (Sarbjit Jim MD) PFSH Past Medical History Cancer: No Cardiovascular Problems: Yes Cerebrovascular Accident: No Diabetes: Yes Glaucoma: No Headaches: Yes (DUE LOW BLOOD PRESSURE) Hepatitis: No Hiatal Hernia: Yes (REPAIR UMBILUS HERNIA) Hypertension: No Kidney Stones: Yes (THREE LISTROPSPHY) Musculoskeletal: No Respiratory: Yes (Pulmonary Embolism ) Thyroid Disease: Yes Ulcer: Yes ?: Not Menopausal: Yes (Sarbjit Jim MD) Past Surgical History Abdominal Surgery: Yes (GALL BLADDER APPENDIX) Appendectomy: Yes Cardiac Surgery: No Section: Yes Cholecystectomy: Yes Ear Surgery: No Endocrine Surgery: No Eye Surgery: No Genitourinary Surgery: Yes (KIDNEY STENT PLACED) Gynecologic Surgery: Yes (C SECTION) Hysterectomy: Yes Joint Replacement: Yes (right ankle repair ) Oral Surgery: Yes (TONSILLECTOMY) Pacemaker: No Thoracic Surgery: No Tonsillectomy: Yes Other Surgery: Yes (Sarbjit Jim MD) Social History Alcohol Use: No Tobacco Use: No Substance Use: No (Sarbjit Jim MD) Allergies-Medications (Allergen,Severity, Reaction): Coded Allergies: acetaminophen (Unverified Allergy, Severe, VOMITING, SWELLING OF TONGUE, 01/12/17) tramadol (Unverified Allergy, Intermediate, FOAMS AT THE MOUTH, 01/12/17) Uncoded Allergies: SPLENDA (Adverse Reaction, Severe, SWELLING TONGUE , 07/26/08) Reported Meds & Prescriptions Reported Meds & Active Scripts Active Oxycodone (Oxycodone HCl) 5 Mg Cap 5 Mg PO Q8H PRN Ketorolac (Ketorolac Tromethamine) 10 Mg Tab 10 Mg PO TID Macrobid (Nitrofurantoin Monohydrate Macrocrystals) 100 Mg Capsule 100 Mg PO BID 7 Days Zofran (Ondansetron HCl) 4 Mg Tab 4 Mg PO Q12HR PRN Prednisone 20 Mg Tab 60 Mg PO DAILY Oxycodone (Oxycodone HCl) 5 Mg Cap 5 Mg PO Q8H PRN Ditropan (Oxybutynin Chloride) 5 Mg Tab 5 Mg PO Q12HR K-Phos Neutral (Potassium Phos/Sodium Phos) 155-852-130 Mg Tab 250 Mg PO PCHS 3 Days Zanaflex (Tizanidine HCl) 2 Mg Cap 2 Mg PO HS PRN Depakote ER (Divalproex Sodium) 500 Mg Tobias 500 Mg PO HS 10 Days Flomax (Tamsulosin HCl) 0.4 Mg Cap 0.4 Mg PO DAILY 30 Days Reported Humalog Inj (Insulin Human Lispro) 1,000 Unit/10 Ml Vial 5-25 Units SQ ACHS Max dose at bedtime:( )units; sugars < 70,(0)units; sugars 150-199,(5)units; sugars 200-249,(10)units; sugars 250-299,(15)units; sugars 300-349,(20)units; sugars more than 349,(25)units. Lantus Inj (Insulin Glargine) 100 Unit/Ml Inj (Soraya Ortiz) Review of Systems Except as stated in HPI: all other systems reviewed are Neg General / Constitutional: No: Fever Cardiovascular: No: Chest Pain or Discomfort Respiratory: Positive: Shortness of Breath Gastrointestinal: Positive: Nausea, No: Vomiting Genitourinary: Positive: Flank Pain (Sarbjit Jim MD) Physical Exam Narrative GENERAL: 46 yo F, mild to moderate distress 2/2 pain SKIN: Warm and dry. HEAD: Atraumatic. Normocephalic. EYES: Pupils equal and round. No scleral icterus. No injection or drainage. ENT: No nasal bleeding or discharge. Mucous membranes pink and moist. NECK: Trachea midline. No JVD. CARDIOVASCULAR: Tachycardia. Regular rhythm. RESPIRATORY: No accessory muscle use. Clear to auscultation. Breath sounds equal bilaterally. GASTROINTESTINAL: Abdomen soft, non-tender, nondistended. Hepatic and splenic margins not palpable. MUSCULOSKELETAL: TTP right flank. Soft. No distension. NEUROLOGICAL: Awake and alert. No obvious cranial nerve deficits. Motor grossly within normal limits. Five out of 5 muscle strength in the arms and legs. Normal speech. PSYCHIATRIC: Appropriate mood and affect; insight and judgment normal. (Sarbjit Jim MD) Data Data Last Documented VS Vital Signs Date Time Temp Pulse Resp B/P (MAP) Pulse Ox O2 Delivery O2 Flow Rate FiO2 01/12/17 16:00 01/12/17 14:40 98 Room Air 01/12/17 14:33 98.7 114 22 (Soraya Ortiz) Last Documented VS VS reivewed (Sarbjit Jim MD) Orders Orders Complete Blood Count With Diff (01/12/17 14:43) Comprehensive Metabolic Panel (01/12/17 14:43) Lipase (01/12/17 14:43) Urinalysis - C+S If Indicated (01/12/17 14:43) Ct Abd/Pel W/O Iv Contrast (01/12/17 14:43) Iv Access Insert/Monitor (01/12/17 14:43) Ecg Monitoring (01/12/17 14:43) Oximetry (01/12/17 14:43) Ondansetron Inj (Zofran Inj) (01/12/17 14:45) Sodium Chlor 0.9% 1000 Ml Inj (Ns 1000 M (01/12/17 14:43) Sodium Chloride 0.9% Flush (Ns Flush) (01/12/17 14:45) Hydromorphone Pf Inj (Dilaudid Pf Inj) (01/12/17 14:45) Urine Culture (01/12/17 15:00) Ketorolac Inj (Toradol Inj) (01/12/17 15:45) (Soraya Ortiz) Labs Laboratory Tests Test 01/12/17 15:00 White Blood Count 12.7 TH/MM3 Red Blood Count 4.18 MIL/MM3 Hemoglobin 13.0 GM/DL Hematocrit 38.6 % Mean Corpuscular Volume 92.3 FL Mean Corpuscular Hemoglobin 31.0 PG Mean Corpuscular Hemoglobin Concent 33.6 % Red Cell Distribution Width 16.0 % Platelet Count 198 TH/MM3 Mean Platelet Volume 8.3 FL Neutrophils (%) (Auto) 91.3 % Lymphocytes (%) (Auto) 6.4 % Monocytes (%) (Auto) 2.0 % Eosinophils (%) (Auto) 0.0 % Basophils (%) (Auto) 0.3 % Neutrophils # (Auto) 11.6 TH/MM3 Lymphocytes # (Auto) 0.8 TH/MM3 Monocytes # (Auto) 0.3 TH/MM3 Eosinophils # (Auto) 0.0 TH/MM3 Basophils # (Auto) 0.0 TH/MM3 CBC Comment DIFF FINAL Differential Comment Urine Color LIGHT-RED Urine Turbidity CLEAR Urine pH 6.0 Urine Specific [place] 1.012 Urine Protein TRACE mg/dL Urine Glucose (UA) NEG mg/dL Urine Ketones NEG mg/dL Urine Occult Blood LARGE Urine Nitrite NEG Urine Bilirubin NEG Urine Urobilinogen LESS THAN 2.0 MG/DL Urine Leukocyte Esterase TRACE Urine RBC /hpf Urine WBC 34 /hpf Urine Amorphous Sediment RARE Urine Bacteria OCC /hpf Microscopic Urinalysis Comment CULTURE INDICATED Blood Urea Nitrogen 25 MG/DL Creatinine 1.27 MG/DL Random Glucose 250 MG/DL Total Protein 7.7 GM/DL Albumin 3.6 GM/DL Calcium Level 9.5 MG/DL Alkaline Phosphatase 109 U/L Aspartate Amino Transf (AST/SGOT) 18 U/L Alanine Aminotransferase (ALT/SGPT) 57 U/L Total Bilirubin 0.3 MG/DL Sodium Level 136 MEQ/L Potassium Level 4.2 MEQ/L Chloride Level 98 MEQ/L Carbon Dioxide Level 30.1 MEQ/L Anion Gap 8 MEQ/L Estimat Glomerular Filtration Rate 45 ML/MIN Lipase 148 U/L (Soraya Ortiz) [facility] Medical Decision Making Medical Screen Exam Complete: Yes Emergency Medical Condition: Yes Medical Record Reviewed: Yes Differential Diagnosis Gastritis, pancreatitis, appendicitis, acute cholecystitis, ascending cholangitis, AAA, perforated viscous, mesenteric ischemia, hepatitis, cystitis, hydronephrosis/hydroureter/nephroureter calculus, mesenteric adenitis, biliary colic Narrative Course CBC & BMP Diagram 01/12/17 15:00 Total Protein 7.7, Albumin 3.6, Calcium Level 9.5, Alkaline Phosphatase 109, Aspartate Amino Transf (AST/SGOT) 18, Alanine Aminotransferase (ALT/SGPT) 57 H, Total Bilirubin 0.3 UA: hematuria, uti less likely Last Impressions Abdomen/Pelvis CT 01/12/17 1443 Signed Impressions: Service Date/Time: Thursday, January 12, 2017 15:04 - CONCLUSION: 1. Stable small nonobstructing bilateral calyceal calculi. No obstructive uropathy. 2. Mild sigmoid diverticulosis. 3. Stable ancillary findings, as above. Cash López MD Pain controlled Symptoms most likely c/w renal/ureteric calculus related event. Pt reports Tylenol allergy Scripts as below Pt notes oxycodone script must be for tablets and not capsules. (Sarbjit Jim MD) Diagnosis Primary Impression: Nephrolithiasis Additional Impression: Hematuria Qualified Codes: R31.9 - Hematuria, unspecified Referrals: Binh Moore DO 1 week Additional Instructions: You have a choice when it comes to health care, and we are glad that you chose [facility]. Hopefully, we have met your expectations on today's visit. You are welcome to return to [facility] at any time, as we are committed to meeting the health care needs of our community. Med/Other Pt SpecificInfo: Prescription(s) given (Sarbjit Jim MD) Scripts Oxycodone (Oxycodone) 5 Mg Tab 5 MG PO Q8H Y for PAIN SCALE 6 TO 10, #20 TAB 0 Refills Prov: Sarbjit Jim MD 01/12/17 Disposition: 01 DISCHARGE HOME Condition: Stable Sarbjit Jim MD Jan 12, 2017 14:49 Soraya Ortiz Jan 12, 2017 16:30
[2017-01-12 15:12] LABS: AUTOMATED NEUTROPHIL # 11.6 TH/MM3 (1.8-7.7); BASOPHIL % 0.3 % (0.0-2.0); HEMATOCRIT 38.6 % (35.0-46.0); HEMO FLAGS DIFF FINAL; LYMPH % 6.4 % (9.0-44.0); LYMPHOCYTE # 0.8 TH/MM3 (1.0-4.8); MEAN CELL VOLUME 92.3 FL (80.0-100.0); MEAN CORPUSCULAR HGB CONC 33.6 % (32.0-36.0); NEUT % 91.3 % (16.0-70.0); PLATELET COUNT 198 TH/MM3 (150-450); RED BLOOD COUNT 4.18 MIL/MM3 (4.00-5.30); WHITE BLOOD COUNT 12.7 TH/MM3 (4.0-11.0)
--- NOTE | 2017-01-12 15:21 | RADRPT ---
EXAM DATE/TIME: 01/12/2017 15:04 [place] COMPARISON: CT ABDOMEN & PELVIS W/O CONTRAST, November 20, 2016, 13:11. INDICATIONS : Right flank pain and hematuria ORAL CONTRAST: No oral contrast ingested. RADIATION DOSE: 15.35 CTDIvol (mGy) MEDICAL HISTORY : Cardiovascular disease. Diabetes mellitus type 1. SURGICAL HISTORY : Hysterectomy. ENCOUNTER: Initial ACUITY: 1 day PAIN SCALE: LOCATION: Right flank TECHNIQUE: Volumetric scanning of the abdomen and pelvis was performed. Using automated exposure control and ad justment of the mA and/or kV according to patient size, radiation dose was kept as low as reasonably achievable to obtain optimal diagnostic quality images. DICOM format image data is available electro nically for review and comparison. FINDINGS: LOWER LUNGS: The visualized lower lungs are clear. LIVER: Homogeneous density without lesion. There is no dilation of the biliary tree. Gallbladder is surgica lly absent. SPLEEN: Normal size without lesion. PANCREAS: Within normal limits. KIDNEYS: There are 2 nonobstructing calcified calyceal calculi measuring 3-4 mm in the posterior mid right kid saira. There are 3 very subtle 1-2 mm nonobstructing calyceal calculi in the inferior pole of the left kidney. Kidneys otherwise demonstrate symmetrical size without evidence for hydronephrosis. Ureters a re normal in caliber without evidence for ureteral calculi. ADRENAL GLANDS: Within normal limits. VASCULAR: There is no aortic aneurysm. BOWEL/MESENTERY: Mild sigmoid diverticulosis without significant inflammatory change to suggest diverticulitis. Bowel otherwise appears grossly unremarkable without evidence for obstruction. No free fluid or genital flu id collection. No free air. ABDOMINAL WALL: Post surgical features of prior anterior abdominal wall hernia repair. RETROPERITONEUM: There is no lymphadenopathy. BLADDER: No wall thickening or mass. REPRODUCTIVE: Uterus is surgically absent. INGUINAL: There is no lymphadenopathy or hernia. MUSCULOSKELETAL: Degenerative spondylosis of the lower lumbar spine. CONCLUSION: 1. Stable small nonobstructing bilateral calyceal calculi. No obstructive uropathy. 2. Mild sigmoid diverticulosis. 3. Stable ancillary findings, as above. Cash López MD on January 12, 2017 at 15:13 Board Certified Radiologist. This report was verified electronically.
[2017-01-12 15:26] LABS: ALT (GPT) 57 U/L (10-53); ANION GAP 8 MEQ/L (5-15); AST (GOT) 18 U/L (15-37); BICARBONATE 30.1 MEQ/L (21.0-32.0); BLOOD UREA NITROGEN 25 MG/DL (7-18); CHLORIDE 98 MEQ/L (98-107); GLOMERULAR FILTRATION RATE 45 ML/MIN (>89); POTASSIUM 4.2 MEQ/L (3.5-5.1); SODIUM (NA) 136 MEQ/L (136-145)
[2017-01-12 15:29] LABS: BACTERIA, URINE OCC /hpf; BLOOD, URINE LARGE (NEG); COMMENT (UR) CULTURE INDICATED; CULTURE IF INDICATED CULTURE INDICATED; GLUCOSE,URINE NEG (NEG); KETONE, URINE NEG (NEG); NITRITE,URINE NEG (NEG)
[2017-01-12 15:30] LABS: URINE COLOR LIGHT-RED (YELLW/STRAW)
[2017-01-12 15:31] LABS: ALKALINE PHOSPHATASE 109 U/L (45-117); TOTAL BILIRUBIN ADULT 0.3 MG/DL (0.2-1.0)
[2017-01-12] MEDS ORDERED: OXYC1CAP PO ×2 (15:42→16:29)
[2017-01-12] MEDS ORDERED: KETOROLAC TROMETHAMINE 30 MG/ML (IVP) VIAL IV PUSH ONE (15:45)
[2017-01-12] MEDS ORDERED: OXYC-392 PO (16:43)
== END 2017-01-12 16:02 | disposition home or self-care (01) ==
LOC: NEPK 14:31
DX: N20.0 Calculus of kidney (principal); K57.30 Diverticulosis of large intestine without perforation or abscess without bleeding
CPT/HCPCS: 74176; 80053; 81001; 83690; 85025; 87086; 96361; 96374; 96375; 99285; J1170; J1885; J2405; J7030

== ENCOUNTER 2017-06-14 15:19 | Emergency (ER) | payer SELFPAY ==
[~2017-06-14 15:19] MED LIST changes: +BUPR150XL PO; -DEPA500T3 PO; +FURO1TAB62 PO; -KETO10 PO; +LIPI10TA PO; -MACR100C2 PO; -OXYB5TAB10 PO; +OXYC-392 PO; -OXYC1CAP PO; -TAMS5CAP PO; +TEGR200T PO; -ZANA2CAP PO
[2017-06-14 15:43] VITALS: BP 120/68; PULSE 93; RESP 20; TEMP 98.7; O2SAT 97
--- NOTE | 2017-06-14 16:39 | RADRPT ---
EXAM DATE/TIME: 06/14/2017 16:14 [facility] COMPARISON: CT ABDOMEN & PELVIS W/O CONTRAST, January 12, 2017, 15:04. INDICATIONS : Right flank pain with hematuria. ORAL CONTRAST: No oral contrast ingested. RADIATION DOSE: 17.09 CTDIvol (mGy) ; Patient body habitus MEDICAL HISTORY : Cardiovascular disease. Renal calculi. Diabetes mellitus type 2.Hiatal hernia SURGICAL HISTORY : Appendectomy. Cholecystectomy. section. ENCOUNTER: Initial ACUITY: 1 day PAIN SCALE: 7/10 LOCATION: Right flank TECHNIQUE: Volumetric scanning of the abdomen and pelvis was performed. Using automated exposure control and ad justment of the mA and/or kV according to patient size, radiation dose was kept as low as reasonably achievable to obtain optimal diagnostic quality images. DICOM format image data is available electro nically for review and comparison. FINDINGS: LOWER LUNGS: The visualized lower lungs are clear. LIVER: Homogeneous density without lesion. There is no dilation of the biliary tree. Prior cholecystectomy. SPLEEN: Normal size without lesion. PANCREAS: Within normal limits. KIDNEYS: Normal in size and shape. There is no mass or hydronephrosis. Small bilateral renal calculi. These m easure 1-2 mm. No ureteral stones. No perinephric stranding. ADRENAL GLANDS: Within normal limits. VASCULAR: There is no aortic aneurysm. BOWEL/MESENTERY: The stomach, small bowel, and colon demonstrate no acute abnormality. There is no free intraperitone al air or fluid. Scattered colonic diverticuli without acute inflammation. ABDOMINAL WALL: Prior hernia repair involving the anterior abdominal wall and left inguinal region. Anchoring devices consistent with prior mesh utilization. No recurrent hernia. RETROPERITONEUM: There is no lymphadenopathy. BLADDER: No wall thickening or mass. REPRODUCTIVE: Within normal limits. INGUINAL: There is no lymphadenopathy or hernia. MUSCULOSKELETAL: A degenerative lumbar spine. CONCLUSION: 1. No acute adenopathy. 2. Nonobstructing small bilateral renal calculi. 3. Prior cholecystectomy. 4. Colonic diverticulosis without acute inflammation. Oscar Strong Jr., MD on June 14, 2017 at 16:33 Board Certified Radiologist. This report was verified electronically.
[2017-06-14 17:22] LABS: BACTERIA, URINE FEW /hpf; BILIRUBIN, URINE NEG (NEG); BLOOD, URINE LARGE (NEG); GLUCOSE,URINE 1000 mg/dL (NEG); KETONE, URINE NEG (NEG); MUCUS URINE FEW /lpf (OCC); NITRITE,URINE NEG (NEG); PH, URINE 5.5 (5.0-8.5); SQUAMOUS EPITHELIAL CELL URINE 49 /hpf (0-5); URINE LEUKOCYTE ESTERASE SMALL (NEG); WHITE BLOOD CELL CLUMPS FEW
[2017-06-14 17:23] LABS: URINE COLOR LIGHT-RED (YELLW/STRAW)
[2017-06-14 18:02] LABS: AUTOMATED NEUTROPHIL # 3.7 TH/MM3 (1.8-7.7); BASOPHIL % 0.7 % (0.0-2.0); EOSINOPHIL # 0.1 TH/MM3 (0-0.4); EOSINOPHIL % 1.7 % (0.0-4.0); HEMATOCRIT 38.2 % (35.0-46.0); HEMOGLOBIN 12.8 GM/DL (11.6-15.3); LYMPH % 23.5 % (9.0-44.0); LYMPHOCYTE # 1.3 TH/MM3 (1.0-4.8); MEAN CELL VOLUME 90.6 FL (80.0-100.0); MEAN CORPUSCULAR HEMOGLOBIN 30.4 PG (27.0-34.0); MEAN CORPUSCULAR HGB CONC 33.5 % (32.0-36.0); MONO % 8.5 % (0.0-8.0); MONOCYTE # 0.5 TH/MM3 (0-0.9); NEUT % 65.6 % (16.0-70.0); PLATELET COUNT 191 TH/MM3 (150-450); RED BLOOD COUNT 4.21 MIL/MM3 (4.00-5.30); RED CELL DISTRIBUTION WIDTH 15.1 % (11.6-17.2); WHITE BLOOD COUNT 5.6 TH/MM3 (4.0-11.0)
[2017-06-14 18:27] LABS: BICARBONATE 29.1 MEQ/L (21.0-32.0); CALCIUM 9.3 MG/DL (8.5-10.1); CREATININE 0.96 MG/DL (0.50-1.00)
[2017-06-14] MEDS ORDERED: SODIUM CHLOR 0.9% 1000 ML INJ 1,000 ML IV SCH (23:38)
[2017-06-14] MEDS ORDERED: POTA10CA PO (23:39)
[2017-06-14] MEDS ORDERED: APIX5TAB PO (23:39)
[2017-06-14] MEDS ORDERED: AMIT100T2 PO (23:39)
[2017-06-14] MEDS ORDERED: ALPR.5 PO (23:39)
[2017-06-14] MEDS ORDERED: NOVORP2 SQ (23:39)
[2017-06-14] MEDS ORDERED: MORPHINE SULFATE 4 MG/ML INJ IV PUSH ONE (23:45)
[2017-06-14] MEDS ORDERED: cefTRIAXone INJ 1,000 MG in SODIUM CHLORIDE 0.9% INJ 100 ML IV ONE (23:45)
[2017-06-14] MEDS ORDERED: SODIUM CHLORIDE 0.9% FLUSH 10 ML FLUSH IV FLUSH PRN (23:45)
[2017-06-14 23:47] VITALS: O2SAT 98
[2017-06-14] MEDS ORDERED: CIPR-9 PO (23:56)
--- NOTE | 2017-06-14 23:57 | PD ---
HPI Chief Complaint: Flank/Kidney Pain Time Seen by Provider: 23:38 Travel History International Travel<30 days: No Contact w/Intl Traveler<30days: No Traveled to known affect area: No History of Present Illness HPI 46-year-old female complains of pain in the bilateral flanks with radiation to the groin. She had hematuria yesterday. She has a history of renal stones. Nausea reported. Pain is worse with percussion. Duration about 1 day. Onset sudden. PFSH Past Medical History Cancer: No Cardiovascular Problems: Yes Cerebrovascular Accident: No Diabetes: Yes Patient Takes Glucophage: No Glaucoma: No Headaches: Yes (DUE LOW BLOOD PRESSURE) Hepatitis: No Hiatal Hernia: Yes (REPAIR UMBILUS HERNIA) Hypertension: No Kidney Stones: Yes (THREE LISTROPSPHY) Medical other: Yes (GERD) Musculoskeletal: No Respiratory: Yes (Pulmonary Embolism ) Immunizations Current: Yes Thyroid Disease: Yes Ulcer: Yes ?: Not Menopausal: Yes Past Surgical History Abdominal Surgery: Yes (GALL BLADDER APPENDIX) Appendectomy: Yes Cardiac Surgery: No Section: Yes Cholecystectomy: Yes Ear Surgery: No Endocrine Surgery: No Eye Surgery: No Genitourinary Surgery: Yes (KIDNEY STENT PLACED) Gynecologic Surgery: Yes (C SECTION) Hysterectomy: Yes Joint Replacement: Yes (right ankle repair ) Neurologic Surgery: No Oral Surgery: Yes (TONSILLECTOMY) Pacemaker: No Thoracic Surgery: No Tonsillectomy: Yes Other Surgery: Yes (loop recorder ) Social History Alcohol Use: No Tobacco Use: No Substance Use: No Allergies-Medications (Allergen,Severity, Reaction): Coded Allergies: acetaminophen (Verified Allergy, Severe, VOMITING, SWELLING OF TONGUE, 06/14) tramadol (Verified Allergy, Intermediate, FOAMS AT THE MOUTH, 06/14/17) Uncoded Allergies: SPLENDA (Adverse Reaction, Severe, SWELLING TONGUE , 07/26/08) Reported Meds & Prescriptions Reported Meds & Active Scripts Active Cipro (Ciprofloxacin HCl) 500 Mg Tab 500 Mg PO BID 5 Days Prednisone 20 Mg Tab 60 Mg PO DAILY Reported Eliquis (Apixaban) 5 Mg Tab 5 Mg PO DAILY Amitriptyline (Amitriptyline HCl) 100 Mg Tab 150 Mg PO HS Xanax (Alprazolam) 0.5 Mg Tab 0.5 Mg PO Q4H PRN Novolin R Inj (Insulin Human Regular) 1,000 Unit/10 Ml Vial 0 SQ DIRECTED Sliding Scale As Directed. Potassium Chloride ER (Potassium Chloride) 10 Meq Cap 10 Meq PO DAILY Lipitor (Atorvastatin Calcium) 10 Mg Tab 10 Mg PO HS Lasix (Furosemide) 20 Mg Tab 20 Mg PO BID Lantus Inj (Insulin Glargine) 100 Unit/Ml Inj Review of Systems Except as stated in HPI: all other systems reviewed are Neg Physical Exam Narrative GENERAL: 46-year-old female pleasant well-nourished well-developed Vital Signs Date Time Temp Pulse Resp B/P (MAP) Pulse Ox O2 Delivery O2 Flow Rate FiO2 06/14/17 23:47 98 Room Air 06/14/17 15:43 98.7 93 20 120/68 (85) 97 SKIN: Warm and dry. HEAD: Atraumatic. Normocephalic. EYES: Pupils equal and round. No scleral icterus. No injection or drainage. ENT: No nasal bleeding or discharge. Mucous membranes pink and moist. NECK: Trachea midline. No JVD. CARDIOVASCULAR: Regular rate and rhythm. RESPIRATORY: No accessory muscle use. Clear to auscultation. Breath sounds equal bilaterally. GASTROINTESTINAL: Abdomen soft, non-tender, nondistended. Hepatic and splenic margins not palpable. MUSCULOSKELETAL: Extremities without clubbing, cyanosis, or edema. No obvious deformities. NEUROLOGICAL: Awake and alert. No obvious cranial nerve deficits. Motor grossly within normal limits. Five out of 5 muscle strength in the arms and legs. Normal speech. PSYCHIATRIC: Appropriate mood and affect; insight and judgment normal. Data Data Last Documented VS Vital Signs Date Time Temp Pulse Resp B/P (MAP) Pulse Ox O2 Delivery O2 Flow Rate FiO2 06/14/17 23:47 98 Room Air 06/14/17 15:43 98.7 93 20 120/68 (85) Orders Orders Complete Blood Count With Diff (06/14/17 15:47) Basic Metabolic Panel (Bmp) (06/14/17 15:47) Urinalysis - C+S If Indicated (06/14/17 15:47) Ct Abd/Pel W/O Iv Contrast (06/14/17 ) Urine Culture (06/14/17 15:55) Iv Access Insert/Monitor (06/14/17 23:38) Ecg Monitoring (06/14/17 23:38) Oximetry (06/14/17 23:38) Sodium Chlor 0.9% 1000 Ml Inj (Ns 1000 M (06/14/17 23:38) Sodium Chloride 0.9% Flush (Ns Flush) (06/14/17 23:45) Ceftriaxone Inj (Rocephin Inj) (06/14/17 23:45) Morphine Inj (Morphine Inj) (06/14/17 23:45) Ed Discharge Order (06/14/17 23:57) Labs Laboratory Tests Test 06/14/17 15:55 06/14/17 17:09 Urine Color LIGHT-RED Urine Turbidity HAZY Urine pH 5.5 Urine Specific [place] 1.022 Urine Protein 30 mg/dL Urine Glucose (UA) 1000 mg/dL Urine Ketones NEG mg/dL Urine Occult Blood LARGE Urine Nitrite NEG Urine Bilirubin NEG Urine Urobilinogen LESS THAN 2.0 MG/DL Urine Leukocyte Esterase SMALL Urine RBC /hpf Urine WBC 59 /hpf Urine WBC Clumps FEW Urine Squamous Epithelial Cells 49 /hpf Urine Bacteria FEW /hpf Urine Mucus FEW /lpf Microscopic Urinalysis Comment CULTURE INDICATED White Blood Count 5.6 TH/MM3 Red Blood Count 4.21 MIL/MM3 Hemoglobin 12.8 GM/DL Hematocrit 38.2 % Mean Corpuscular Volume 90.6 FL Mean Corpuscular Hemoglobin 30.4 PG Mean Corpuscular Hemoglobin Concent 33.5 % Red Cell Distribution Width 15.1 % Platelet Count 191 TH/MM3 Mean Platelet Volume 8.0 FL Neutrophils (%) (Auto) 65.6 % Lymphocytes (%) (Auto) 23.5 % Monocytes (%) (Auto) 8.5 % Eosinophils (%) (Auto) 1.7 % Basophils (%) (Auto) 0.7 % Neutrophils # (Auto) 3.7 TH/MM3 Lymphocytes # (Auto) 1.3 TH/MM3 Monocytes # (Auto) 0.5 TH/MM3 Eosinophils # (Auto) 0.1 TH/MM3 Basophils # (Auto) 0.0 TH/MM3 CBC Comment DIFF FINAL Differential Comment Blood Urea Nitrogen 11 MG/DL Creatinine 0.96 MG/DL Random Glucose 327 MG/DL Calcium Level 9.3 MG/DL Sodium Level 138 MEQ/L Potassium Level 4.4 MEQ/L Chloride Level 103 MEQ/L Carbon Dioxide Level 29.1 MEQ/L Anion Gap 6 MEQ/L Estimat Glomerular Filtration Rate 62 ML/MIN MDM Medical Decision Making Medical Screen Exam Complete: Yes Emergency Medical Condition: Yes Medical Record Reviewed: Yes Differential Diagnosis Constipation, Gastritis, Acute Cholecystitis, Biliary Colic, Pancreatitis, GALLO , Hepatitis, Bowel Obstruction, Cystitis, Mesenteric Ischemia, AAA, Appendicitis , Renal Stone/Hydronephrosis, GERD, perforated viscous Narrative Course CBC & BMP Diagram 06/14/17 17:09 Calcium Level 9.3 Last 24 hours Impressions Abdomen/Pelvis CT 06/14/17 0000 Signed Impressions: Service Date/Time: Wednesday, June 14, 2017 16:14 - CONCLUSION: 1. No acute adenopathy. 2. Nonobstructing small bilateral renal calculi. 3. Prior cholecystectomy. 4. Colonic diverticulosis without acute inflammation. Oscar Strong Jr., MD Rocephiethan IV. Pain controlled. Prescription as below. Diagnosis Primary Impression: Hematuria Qualified Codes: R31.9 - Hematuria, unspecified Additional Impression: UTI (urinary tract infection) Qualified Codes: N30.01 - Acute cystitis with hematuria Referrals: Binh Moore DO 2 days Med/Other Pt SpecificInfo: Prescription(s) given Scripts Ciprofloxacin (Cipro) 500 Mg Tab 500 MG PO BID for Infection for 5 Days, #10 TAB 0 Refills Prov: Sarbjit Jim MD 06/14/17 Disposition: 01 DISCHARGE HOME Condition: Stable Sarbjit Jim MD Jun 14, 2017 23:57
== END 2017-06-15 00:54 | disposition home or self-care (01) ==
LOC: NEPD 15:19
DX: N30.01 Acute cystitis with hematuria (principal); R11.0 Nausea; E11.9 Type 2 diabetes mellitus without complications; Z87.442 Personal history of urinary calculi
CPT/HCPCS: 74176; 80048; 81001; 85025; 87086; 96365; 96375; 99284; J0696; J2270; J7030

== ENCOUNTER 2017-08-10 11:33 | Emergency (ER) | payer SELFPAY ==
[~2017-08-10] VITALS: Ht 157.5 cm; Wt 125.0 kg
[~2017-08-10 11:33] MED LIST changes: +ALPR.5 PO; +AMIT100T2 PO; +APIX5TAB PO; -BUPR150XL PO; +CIPR-9 PO; -HUMALOG SQ; -KPHOS250 PO; +NOVORP2 SQ; -OXYC-392 PO; +POTA10CA PO; -TEGR200T PO; -ZOFR4TAB PO
[2017-08-10 11:35] VITALS: BP 122/74; PULSE 111; RESP 20; TEMP 98; O2SAT 98
[2017-08-10] MEDS ORDERED: PRED10 PO (11:49)
[2017-08-10] MEDS ORDERED: BUPR150T3 (11:49)
[2017-08-10] MEDS ORDERED: DULO1CAP PO (11:49)
[2017-08-10] MEDS ORDERED: LEVEMIR SQ (11:49)
[2017-08-10] MEDS ORDERED: GABA100C4 PO (11:49)
[2017-08-10] MEDS ORDERED: TEGR200T PO (11:49)
[2017-08-10] MEDS ORDERED: PIOG45TA5 PO (11:49)
[2017-08-10] MEDS ORDERED: hydrocodone (11:49)
[2017-08-10] MEDS ORDERED: GLIM2TAB PO (11:49)
[2017-08-10] MEDS ORDERED: ASPI-516 CHEW (11:49)
[2017-08-10] MEDS ORDERED: SODIUM CHLOR 0.9% 1000 ML INJ 1,000 ML IV SCH (11:52)
[2017-08-10] MEDS ORDERED: KETOROLAC TROMETHAMINE 30 MG/ML (IVP) VIAL IVP ONE (12:00)
[2017-08-10] MEDS ORDERED: MORPHINE SULFATE 4 MG/ML INJ IV PUSH ONE (12:15)
[2017-08-10] MEDS ORDERED: ONDANSETRON HCL 4 MG/2 ML VIAL IV PUSH ONE (12:15)
[2017-08-10 12:47] LABS: AUTOMATED NEUTROPHIL # 11.1 TH/MM3 (1.8-7.7); BASOPHIL % 0.3 % (0.0-2.0); EOSINOPHIL % 0.1 % (0.0-4.0); HEMATOCRIT 44.3 % (35.0-46.0); LYMPH % 8.3 % (9.0-44.0); LYMPHOCYTE # 1.1 TH/MM3 (1.0-4.8); MEAN CORPUSCULAR HEMOGLOBIN 30.4 PG (27.0-34.0); MEAN CORPUSCULAR HGB CONC 33.8 % (32.0-36.0); MEAN PLATELET VOLUME 7.9 FL (7.0-11.0); MONO % 4.5 % (0.0-8.0); MONOCYTE # 0.6 TH/MM3 (0-0.9); NEUT % 86.8 % (16.0-70.0); PLATELET COUNT 229 TH/MM3 (150-450); RED BLOOD COUNT 4.93 MIL/MM3 (4.00-5.30); RED CELL DISTRIBUTION WIDTH 15.5 % (11.6-17.2); WHITE BLOOD COUNT 12.7 TH/MM3 (4.0-11.0)
--- NOTE | 2017-08-10 12:47 | PD ---
HPI Chief Complaint: Flank/Kidney Pain Time Seen by Provider: 11:51 Travel History International Travel<30 days: No Contact w/Intl Traveler<30days: No Traveled to known affect area: No History of Present Illness HPI 46-year-old female presents to the emergency department with complaint of not being able to urinate since approximately 7 PM last night. She was seen at [facility] yesterday for complaint of bilateral flank pain secondary to kidney stones. She was able to urinate prior to her hospital visit yesterday. She called her urologist, Dr. Moore, and was told to come to [facility] for evaluation. She had her lab work and CT scans with her. She has bilateral nephrolithiasis without specified hydronephrosis or obstruction; CT scan reports see the stones are in her kidney. She has history of kidney stones. Reports fever of 100.4 last night. Reports vomiting one time today. Says she has been diaphoretic. Has taken ibuprofen for pain. Rates pain 8/10. Describes it as a layo pain. Pain is constant and unrelieved. Better with rocking. Primary CARE providers MARIAM Currie. Dr. Moore his urologist. Allergies to artificial sweeteners, acetaminophen, tramadol. History of giant cell arteritis and IDDM. Has no other medical complaints. No other modifying factors or associated signs and symptoms. PFSH Past Medical History Cancer: No Cardiovascular Problems: Yes Cerebrovascular Accident: No Diabetes: Yes Patient Takes Glucophage: No Glaucoma: No Headaches: Yes ( ) Hepatitis: No Hiatal Hernia: Yes (R UMBILICAL HERNIA REPAIR ) Hypertension: No Kidney Stones: Yes ( ) Medical other: Yes (GERD) Musculoskeletal: No Respiratory: Yes (Pulmonary Embolism ) Immunizations Current: Yes Thyroid Disease: Yes Ulcer: Yes ?: Not Menopausal: Yes Past Surgical History Abdominal Surgery: Yes ( ) Appendectomy: Yes Cardiac Surgery: No Section: Yes Cholecystectomy: Yes Ear Surgery: No Endocrine Surgery: No Eye Surgery: No Genitourinary Surgery: Yes (KIDNEY STENT PLACED) Gynecologic Surgery: Yes (C SECTION) Hysterectomy: Yes Joint Replacement: Yes (right ankle repair ) Neurologic Surgery: No Oral Surgery: Yes (TONSILLECTOMY) Pacemaker: No Thoracic Surgery: No Tonsillectomy: Yes Other Surgery: Yes (loop recorder ) Social History Alcohol Use: No Tobacco Use: No Substance Use: No Allergies-Medications (Allergen,Severity, Reaction): Coded Allergies: acetaminophen (Verified Allergy, Severe, VOMITING, SWELLING OF TONGUE, 08/10) tramadol (Verified Allergy, Intermediate, FOAMS AT THE MOUTH, 08/10/17) Uncoded Allergies: SPLENDA (Adverse Reaction, Severe, SWELLING TONGUE , 07/26/08) Reported Meds & Prescriptions Reported Meds & Active Scripts Active Keflex (Cephalexin) 500 Mg Cap 500 Mg PO Q12H 10 Days Cipro (Ciprofloxacin HCl) 500 Mg Tab 500 Mg PO BID 5 Days Reported Levemir Inj (Insulin Detemir) 1,000 unit/ 10 ML Vial 80 Units SQ HS Do not mix with any other Insulin. Gabapentin 100 Mg Cap 200 Mg PO TID Tegretol (Carbamazepine) 200 Mg Tab 300 Mg PO TID Prednisone 10 Mg Tab 15 Mg PO DAILY Pioglitazone (Pioglitazone HCl) 45 Mg Tab 45 Mg PO DAILY Glimepiride 2 Mg Tab 2 Mg PO DAILY Take with breakfast or first main meal Duloxetine DR (Duloxetine HCl) 20 Mg Capdr 20 Mg PO BID [hydrocodone] 15 Q12HR Bupropion HCl ER 24 HR (Bupropion HCl) 150 Mg Tab 150 Mg DAILY Aspirin 81 Mg Chew 81 Mg CHEW DAILY Eliquis (Apixaban) 5 Mg Tab 5 Mg PO DAILY Amitriptyline (Amitriptyline HCl) 100 Mg Tab 150 Mg PO HS Xanax (Alprazolam) 0.5 Mg Tab 0.5 Mg PO Q4H PRN Novolin R Inj (Insulin Human Regular) 1,000 Unit/10 Ml Vial 0 SQ DIRECTED Sliding Scale As Directed. Potassium Chloride ER (Potassium Chloride) 10 Meq Cap 10 Meq PO DAILY Lipitor (Atorvastatin Calcium) 10 Mg Tab 10 Mg PO HS Lasix (Furosemide) 20 Mg Tab 20 Mg PO BID Lantus Inj (Insulin Glargine) 100 Unit/Ml Inj Review of Systems Except as stated in HPI: all other systems reviewed are Neg Physical Exam Narrative GENERAL: Well-nourished, well-developed female patient, in no acute distress; afebrile, nontoxic-appearing SKIN: Warm and dry. No rash. HEAD: Atraumatic. Normocephalic. EYES: Pupils equal and round. No scleral icterus. No injection or drainage. ENT: Mucosa pink and moist. NECK: Trachea midline. CARDIOVASCULAR: Regular rate and rhythm. No murmur appreciated. RESPIRATORY: No accessory muscle use. Clear to auscultation. Breath sounds equal bilaterally. GASTROINTESTINAL: Morbidly obese. Abdomen soft, non-tender, nondistended. Hepatic and splenic margins not palpable. Bowel sounds are active 4 quadrants. Bladder tender; unable to determine if the bladder is distended secondary to body habitus. MUSCULOSKELETAL: No obvious deformities. No clubbing. No cyanosis. No edema. BACK: Bilateral CVA tenderness NEUROLOGICAL: Awake and alert. Oriented 3. No obvious cranial nerve deficits. Motor grossly within normal limits. Normal speech. Moves all extremities. 5/5 strength to all extremities. PSYCHIATRIC: Appropriate mood and affect; insight and judgment normal. Data Data Last Documented VS Vital Signs Date Time Temp Pulse Resp B/P (MAP) Pulse Ox O2 Delivery O2 Flow Rate FiO2 08/10/17 13:30 95 20 103/57 (72) 96 Room Air 08/10/17 11:35 98.0 Orders Orders Urinalysis - C+S If Indicated (08/10/17 11:52) Ed Urine Pregnancytest Poc (08/10/17 11:52) Complete Blood Count With Diff (08/10/17 11:52) Comprehensive Metabolic Panel (08/10/17 11:52) Lipase (08/10/17 11:52) Iv Access Insert/Monitor (08/10/17 11:52) Ecg Monitoring (08/10/17 11:52) Oximetry (08/10/17 11:52) Sodium Chlor 0.9% 1000 Ml Inj (Ns 1000 M (08/10/17 11:52) Us Kidney/Renal/Bladder (08/10/17 ) Urinary Catheter Insert/Apply (08/10/17 12:10) Morphine Inj (Morphine Inj) (08/10/17 12:15) Ondansetron Inj (Zofran Inj) (08/10/17 12:15) Urine Culture (08/10/17 12:34) Ceftriaxone Inj (Rocephin Inj) (08/10/17 13:15) Ketorolac Inj (Toradol Inj) (08/10/17 13:15) Ed Discharge Order (08/10/17 13:29) Labs Laboratory Tests Test 08/10/17 12:34 White Blood Count 12.7 TH/MM3 Red Blood Count 4.93 MIL/MM3 Hemoglobin 15.0 GM/DL Hematocrit 44.3 % Mean Corpuscular Volume 90.0 FL Mean Corpuscular Hemoglobin 30.4 PG Mean Corpuscular Hemoglobin Concent 33.8 % Red Cell Distribution Width 15.5 % Platelet Count 229 TH/MM3 Mean Platelet Volume 7.9 FL Neutrophils (%) (Auto) 86.8 % Lymphocytes (%) (Auto) 8.3 % Monocytes (%) (Auto) 4.5 % Eosinophils (%) (Auto) 0.1 % Basophils (%) (Auto) 0.3 % Neutrophils # (Auto) 11.1 TH/MM3 Lymphocytes # (Auto) 1.1 TH/MM3 Monocytes # (Auto) 0.6 TH/MM3 Eosinophils # (Auto) 0.0 TH/MM3 Basophils # (Auto) 0.0 TH/MM3 CBC Comment DIFF FINAL Differential Comment Urine Color LIGHT-YELLOW Urine Turbidity CLEAR Urine pH 5.0 Urine Specific [place] 1.011 Urine Protein NEG mg/dL Urine Glucose (UA) NEG mg/dL Urine Ketones NEG mg/dL Urine Occult Blood MOD Urine Nitrite NEG Urine Bilirubin NEG Urine Urobilinogen LESS THAN 2.0 MG/DL Urine Leukocyte Esterase SMALL Urine RBC 34 /hpf Urine WBC 6 /hpf Urine Squamous Epithelial Cells 1 /hpf Urine Amorphous Sediment RARE Urine Bacteria RARE /hpf Urine Hyaline Casts 41 /lpf Urine Mucus FEW /lpf Urine Yeast (Budding) OCC Microscopic Urinalysis Comment CATH-CULTURE IND Blood Urea Nitrogen 25 MG/DL Creatinine 1.40 MG/DL Random Glucose 188 MG/DL Total Protein 8.4 GM/DL Albumin 3.7 GM/DL Calcium Level 9.8 MG/DL Alkaline Phosphatase 163 U/L Aspartate Amino Transf (AST/SGOT) 58 U/L Alanine Aminotransferase (ALT/SGPT) 104 U/L Total Bilirubin 0.3 MG/DL Sodium Level 135 MEQ/L Potassium Level 4.2 MEQ/L Chloride Level 99 MEQ/L Carbon Dioxide Level 26.4 MEQ/L Anion Gap 10 MEQ/L Estimat Glomerular Filtration Rate 40 ML/MIN Lipase 128 U/L MDM Medical Decision Making Medical Screen Exam Complete: Yes Emergency Medical Condition: Yes Medical Record Reviewed: Yes Differential Diagnosis Urinary retention, UTI, obstruction, kidney stones Narrative Course 46-year-old female presents with urinary retention. She was seen at [facility] last night and was diagnosed with bilateral nephrolithiasis per CT. she has history of chronic kidney stones. Her urologist is Dr. Moore and was advised to come here secondary to her urinary retention. I discussed the patient with Dr. Weller, my attending physician, and plan of care discussed. IV, CBC, CMP, urinalysis, morphine, Zofran, kidney ultrasound, Rice catheter insertion ordered. 1305: WBC 12.7, otherwise CBC unremarkable. Urinalysis with signs of infection. Rocephin 1 g IV ordered. Kidney ultrasound concludes: Renal Ultrasound 08/10/17 0000 Signed Impressions: Service Date/Time: Thursday, August 10, 2017 12:32 - CONCLUSION: Negative exam with no evidence of hydronephrosis. Fernando Richey MD Discussed ultrasound findings with the patient. Patient provided a copy of the ultrasound report. Toradol ordered for continued complaint of pain. 1330: BUN 25. Creatinine 1.40. GFR 40. These levels are consistent with past levels. LFTs mildly elevated. Otherwise CMP unremarkable. Dr. Weller, my attending physician, have reviewed labs and ultrasound report and agrees patient can follow-up outpatient; he recommended for Rice catheter to be maintained for urinary retention. Keflex and [place] prescribed for home. Instructed patient to follow-up with urologist. She says she is going to call and make an appointment right now with her urologist. Instructed patient to follow up with primary care provider. Patient verbalizes understanding and agreement with treatment plan. Patient is medically cleared and stable for discharge. Discussed reasons to return to the emergency department. Patient agrees with treatment plan. The patients vital signs are stable and the patient is stable for outpatient follow-up and treatment. Patient discharged home, stable and in no acute distress. Diagnosis Primary Impression: Urinary retention Additional Impression: UTI (urinary tract infection) Qualified Codes: N39.0 - Urinary tract infection, site not specified; R31.9 - Hematuria, unspecified Referrals: Primary Care Physician Urologist Patient Instructions: General Instructions, Kidney Stones (ED), Urinary Tract Infection in Women (ED) Additional Instructions: Take antibiotics as prescribed and complete full course Drink plenty of fluids Maintain good personal hygiene Follow-up with primary care provider Follow-up with urologist within 1 week Return to the emergency department immediately with worsening of symptoms Med/Other Pt SpecificInfo: Prescription(s) given Scripts Cephalexin (Keflex) 500 Mg Cap 500 MG PO Q12H for Infection for 10 Days, #20 CAP 0 Refills Prov: Jo Pastor 08/10/17 Disposition: 01 DISCHARGE HOME Condition: Stable Jo Pastor August 10, 2017 12:47
--- NOTE | 2017-08-10 12:55 | RADRPT ---
EXAM DATE/TIME: 08/10/2017 12:32 [facility] COMPARISON: US KIDNEY/RENAL/BLADDER, September 16, 2016, 16:21. INDICATIONS : Obstruction. Unable to urinate since yesterday. MEDICAL HISTORY : Cardiovascular disease. Renal calculi. Diabetes mellitus type 2.Hiatal hernia SURGICAL HISTORY : section. Appendectomy. Cholecystectomy. ENCOUNTER: Subsequent ACUITY: 1 day PAIN SCORE: 8/10 LOCATION: Bilateral flank MEASUREMENTS: RIGHT KIDNEY: 12.1 x 5.3 x 5.3 cm LEFT KIDNEY: 12.9 x 5.7 x 5.2 cm FINDINGS: RIGHT KIDNEY: Renal cortex is normal in thickness and echotexture. No hydronephrosis, stone, or mass. LEFT KIDNEY: Renal cortex is normal in thickness and echotexture. No hydronephrosis, stone, or mass. BLADDER: Not well visualized. There is a Rice catheter in place. CONCLUSION: Negative exam with no evidence of hydronephrosis. Fernando Richey MD on August 10, 2017 at 12:53 Board Certified Radiologist. This report was verified electronically.
[2017-08-10 13:00] LABS: AMORPHOUS SEDIMENT, URINE RARE; BACTERIA, URINE RARE /hpf; BILIRUBIN, URINE NEG (NEG); BLOOD, URINE MOD (NEG); GLUCOSE,URINE NEG (NEG); HYALINE CAST, URINE 41 /lpf (RARE); KETONE, URINE NEG (NEG); MUCUS URINE FEW /lpf (OCC); NITRITE,URINE NEG (NEG); SQUAMOUS EPITHELIAL CELL URINE 1 /hpf (0-5); URINE COLOR LIGHT-YELLOW (YELLW/STRAW); URINE LEUKOCYTE ESTERASE SMALL (NEG)
[2017-08-10 13:08] LABS: ALT (GPT) 104 U/L (10-53)
[2017-08-10 13:11] LABS: ALKALINE PHOSPHATASE 163 U/L (45-117); TOTAL BILIRUBIN ADULT 0.3 MG/DL (0.2-1.0); TOTAL PROTEIN 8.4 GM/DL (6.4-8.2)
[2017-08-10 13:14] LABS: ALBUMIN 3.7 GM/DL (3.4-5.0); AST (GOT) 58 U/L (15-37); BICARBONATE 26.4 MEQ/L (21.0-32.0); BLOOD UREA NITROGEN 25 MG/DL (7-18); CALCIUM 9.8 MG/DL (8.5-10.1); CHLORIDE 99 MEQ/L (98-107); GLOMERULAR FILTRATION RATE 40 ML/MIN (>89); GLUCOSE,RANDOM 188 MG/DL (74-106); SODIUM (NA) 135 MEQ/L (136-145)
[2017-08-10] MEDS ORDERED: KETOROLAC TROMETHAMINE 30 MG/ML (IVP) VIAL IV PUSH ONE (13:15)
[2017-08-10] MEDS ORDERED: cefTRIAXone INJ 1,000 MG in SODIUM CHLORIDE 0.9% INJ 100 ML IV ONE (13:15)
[2017-08-10] MEDS ORDERED: CEPH-460 PO (13:21)
[2017-08-10 13:30] VITALS: BP 103/57; PULSE 95; RESP 20; O2SAT 96
== END 2017-08-10 14:33 | disposition home or self-care (01) ==
LOC: NEPD 11:33
DX: N39.0 Urinary tract infection, site not specified (principal); R31.9 Hematuria, unspecified; N20.0 Calculus of kidney; E11.9 Type 2 diabetes mellitus without complications; Z79.4 Long term (current) use of insulin
CPT/HCPCS: 51702; 76775; 80053; 81001; 83690; 85025; 87086; 87106; 96374; 96375; 99284; J0696; J1885; J2270; J2405; J7030

== ENCOUNTER 2017-09-16 14:45 | Inpatient (IN) | payer MEDICAID, OTHER ==
[~2017-09-16] VITALS: Ht 157.5 cm; Wt 129.7 kg
[~2017-09-16 14:45] MED LIST changes: +ASPI-516 CHEW; +BUPR150T3; +CEPH-460 PO; +DULO1CAP PO; +GABA100C4 PO; +GLIM2TAB PO; +LEVEMIR SQ; +PIOG45TA5 PO; +PRED10 PO; -PRED20 PO; +TEGR200T PO; +hydrocodone
[2017-09-16 15:09] VITALS: BP 157/107; PULSE 97; RESP 17; TEMP 99; O2SAT 96
[2017-09-16] MEDS ORDERED: TEGR200T PO (15:34)
[2017-09-16] MEDS ORDERED: NOVOLOGP2 SQ ×2 (15:34)
[2017-09-16] MEDS ORDERED: ATOR40TA16 PO (15:34)
[2017-09-16 17:05] LABS: AUTOMATED NEUTROPHIL # 7.5 TH/MM3 (1.8-7.7); BASOPHIL % 0.4 % (0.0-2.0); EOSINOPHIL % 0.2 % (0.0-4.0); HEMATOCRIT 43.7 % (35.0-46.0); HEMOGLOBIN 14.7 GM/DL (11.6-15.3); LYMPH % 9.3 % (9.0-44.0); LYMPHOCYTE # 0.8 TH/MM3 (1.0-4.8); MEAN CELL VOLUME 90.7 FL (80.0-100.0); MEAN CORPUSCULAR HEMOGLOBIN 30.5 PG (27.0-34.0); MEAN CORPUSCULAR HGB CONC 33.6 % (32.0-36.0); MONO % 1.3 % (0.0-8.0); MONOCYTE # 0.1 TH/MM3 (0-0.9); NEUT % 88.8 % (16.0-70.0); PLATELET COUNT 193 TH/MM3 (150-450); RED BLOOD COUNT 4.82 MIL/MM3 (4.00-5.30); RED CELL DISTRIBUTION WIDTH 15.6 % (11.6-17.2); WHITE BLOOD COUNT 8.4 TH/MM3 (4.0-11.0)
[2017-09-16] MEDS ORDERED: predniSONE 20 MG TAB PO ONE (17:15)
[2017-09-16] MEDS ORDERED: PROCHLORPERAZINE INJ 10 MG/2 ML VIAL IV PUSH ONE (17:15)
[2017-09-16] MEDS ORDERED: MORPHINE SULFATE 4 MG/ML INJ IV PUSH ONE (17:15)
[2017-09-16 17:19] VITALS: BP 128/80; PULSE 108; RESP 18; O2SAT 95
[2017-09-16 17:26] LABS: ALBUMIN 3.8 GM/DL (3.4-5.0); ALT (GPT) 87 U/L (10-53); AST (GOT) 70 U/L (15-37); BICARBONATE 25.6 MEQ/L (21.0-32.0); BLOOD UREA NITROGEN 11 MG/DL (7-18); CALCIUM 9.7 MG/DL (8.5-10.1); CHLORIDE 103 MEQ/L (98-107); GLOMERULAR FILTRATION RATE 77 ML/MIN (>89); GLUCOSE,RANDOM 215 MG/DL (74-106); SODIUM (NA) 137 MEQ/L (136-145)
[2017-09-16 17:29] LABS: ALKALINE PHOSPHATASE 167 U/L (45-117); TOTAL BILIRUBIN ADULT 0.5 MG/DL (0.2-1.0); TOTAL PROTEIN 8.2 GM/DL (6.4-8.2)
--- NOTE | 2017-09-16 18:00 | PD ---
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 Patient states she feels pressure behind her right eye. Patient states this feels exactly like it did when her left temporal arteritis started. Patient denies any fevers, chills. Patient does have a history of diabetes mellitus. She reports nausea. No diaphoresis. PFSH Past Medical History Cancer: No Cardiovascular Problems: Yes Cerebrovascular Accident: No Diabetes: Yes Patient Takes Glucophage: No Diminished Hearing: No Glaucoma: No Headaches: Yes ( ) Hepatitis: No Hiatal Hernia: Yes (R UMBILICAL HERNIA REPAIR ) Hypertension: No Kidney Stones: Yes ( ) Medical other: Yes (GERD) Musculoskeletal: No Respiratory: Yes (Pulmonary Embolism ) Immunizations Current: Yes Thyroid Disease: Yes Ulcer: Yes Tetanus Vaccination: > 5 Years Influenza Vaccination: Yes ?: Not Menopausal: Yes Past Surgical History Abdominal Surgery: Yes ( ) Appendectomy: Yes Cardiac Surgery: No Section: Yes Cholecystectomy: Yes Ear Surgery: No Endocrine Surgery: No Eye Surgery: No Genitourinary Surgery: Yes (KIDNEY STENT PLACED) Gynecologic Surgery: Yes (C SECTION) Hysterectomy: Yes Joint Replacement: Yes (right ankle repair ) Neurologic Surgery: No Oral Surgery: Yes (TONSILLECTOMY) Pacemaker: No Thoracic Surgery: No Tonsillectomy: Yes Other Surgery: Yes (loop recorder ) Social History Alcohol Use: No Tobacco Use: No Substance Use: No Allergies-Medications (Allergen,Severity, Reaction): Coded Allergies: acetaminophen (Verified Allergy, Severe, SOB, 09/16/17) tramadol (Verified Allergy, Intermediate, HIVES, 09/16/17) Reported Meds & Prescriptions Reported Meds & Active Scripts Active Reported Novolog Inj (Insulin Aspart) 1,000 Unit/10 Ml Vial 60 Units SQ TIDAC Tegretol (Carbamazepine) 200 Mg Tab 300 Mg PO TID Atorvastatin (Atorvastatin Calcium) 40 Mg Tab 40 Mg PO HS Levemir Inj (Insulin Detemir) 1,000 unit/ 10 ML Vial 80 Units SQ BID Do not mix with any other Insulin. Gabapentin 100 Mg Cap 200 Mg PO TID Prednisone 10 Mg Tab 40 Mg PO DAILY Pioglitazone (Pioglitazone HCl) 45 Mg Tab 45 Mg PO DAILY Glimepiride 2 Mg Tab 2 Mg PO DAILY Take with breakfast or first main meal Duloxetine DR (Duloxetine HCl) 20 Mg Capdr 20 Mg PO BID Aspirin 81 Mg Chew 81 Mg CHEW DAILY Eliquis (Apixaban) 5 Mg Tab 5 Mg PO DAILY Amitriptyline (Amitriptyline HCl) 100 Mg Tab 150 Mg PO HS Xanax (Alprazolam) 0.5 Mg Tab 0.5 Mg PO Q4H PRN Potassium Chloride ER (Potassium Chloride) 10 Meq Cap 10 Meq PO DAILY Lasix (Furosemide) 20 Mg Tab 20 Mg PO BID Review of Systems Except as stated in HPI: all other systems reviewed are Neg General / Constitutional: No: Fever, Chills Eyes: Positive: Blurred Vision (Right eye), Pain (Right temporal) HENT: Positive: Headaches, No: Lightheadedness, Neck Pain Cardiovascular: No: Chest Pain or Discomfort, Palpitations Respiratory: No: Cough Gastrointestinal: Positive: Nausea, No: Vomiting, Abdominal Pain Genitourinary: No: Frequency, Nocturia Musculoskeletal: No: Weakness, Pain Neurologic: Positive: Headache, No: Weakness, Dizziness, Paresthesia, Seizures , Sensory Disturbance Physical Exam Narrative GENERAL: Well-nourished, well-developed patient, in no acute respiratory distress. SKIN: Focused skin assessment warm/dry. HEAD: Normocephalic/atraumatic. EYES: No scleral icterus. No injection or drainage. Subjective tenderness over her right temporal artery. Visual acuity was 20/70 on the right eye. Left eye was without visual acuity NECK: Supple, trachea midline. No JVD or lymphadenopathy. CARDIOVASCULAR: Regular rate and rhythm without murmurs, gallops, or rubs. RESPIRATORY: Breath sounds equal bilaterally. No accessory muscle use. GASTROINTESTINAL: Abdomen soft, non-tender, nondistended. MUSCULOSKELETAL: No cyanosis, or edema. BACK: Nontender without obvious deformity. No CVA tenderness. NEUROLOGICAL: Awake and alert. Motor and sensory grossly within normal limits. Five out of 5 muscle strength in all muscle groups. Normal speech. Data Data Last Documented VS Vital Signs Date Time Temp Pulse Resp B/P (MAP) Pulse Ox O2 Delivery O2 Flow Rate FiO2 09/16/17 17:19 108 18 128/80 (96) 95 Room Air 09/16/17 15:09 99.0 Orders Orders Complete Blood Count With Diff (09/16/17 15:47) Comprehensive Metabolic Panel (09/16/17 15:47) C-Reactive Protein (Crp) (09/16/17 15:47) Westergren Sedimentation Rate (09/16/17 15:47) Iv Access Insert/Monitor (09/16/17 15:47) Ecg Monitoring (09/16/17 15:47) Oximetry (09/16/17 15:47) Morphine Inj (Morphine Inj) (09/16/17 17:15) Prednisone (Deltasone) (09/16/17 17:15) Prochlorperazine Inj (Compazine Inj) (09/16/17 17:15) Labs Laboratory Tests Test 09/16/17 16:20 White Blood Count 8.4 TH/MM3 Red Blood Count 4.82 MIL/MM3 Hemoglobin 14.7 GM/DL Hematocrit 43.7 % Mean Corpuscular Volume 90.7 FL Mean Corpuscular Hemoglobin 30.5 PG Mean Corpuscular Hemoglobin Concent 33.6 % Red Cell Distribution Width 15.6 % Platelet Count 193 TH/MM3 Mean Platelet Volume 8.0 FL Neutrophils (%) (Auto) 88.8 % Lymphocytes (%) (Auto) 9.3 % Monocytes (%) (Auto) 1.3 % Eosinophils (%) (Auto) 0.2 % Basophils (%) (Auto) 0.4 % Neutrophils # (Auto) 7.5 TH/MM3 Lymphocytes # (Auto) 0.8 TH/MM3 Monocytes # (Auto) 0.1 TH/MM3 Eosinophils # (Auto) 0.0 TH/MM3 Basophils # (Auto) 0.0 TH/MM3 CBC Comment DIFF FINAL Differential Comment Erythrocyte Sedimentation Rate 25 mm/hr Blood Urea Nitrogen 11 MG/DL Creatinine 0.80 MG/DL Random Glucose 215 MG/DL Total Protein 8.2 GM/DL Albumin 3.8 GM/DL Calcium Level 9.7 MG/DL Alkaline Phosphatase 167 U/L Aspartate Amino Transf (AST/SGOT) 70 U/L Alanine Aminotransferase (ALT/SGPT) 87 U/L Total Bilirubin 0.5 MG/DL Sodium Level 137 MEQ/L Potassium Level 4.1 MEQ/L Chloride Level 103 MEQ/L Carbon Dioxide Level 25.6 MEQ/L Anion Gap 8 MEQ/L Estimat Glomerular Filtration Rate 77 ML/MIN C-Reactive Protein 1.60 MG/DL MDM Medical Decision Making Medical Screen Exam Complete: Yes Emergency Medical Condition: Yes Differential Diagnosis Right temporal arteritis versus migraine headache versus metabolic derangement Narrative Course 46-year-old female with a history of left sided temporal arteritis with residual eyesight loss in the left eye, presents today with complaints of right sided temporal pain. Patient has signs and symptoms that are concerning for new right sided temporal arteritis. Patient has been medicated with 80 mg of prednisone. She will be medicated for her headache with morphine and Compazine. There is a call out to the admitting physicians for admission. Concern is patient is a diabetic and she will need following of her blood sugar. Diagnosis Primary Impression: Suspected right temporal arteritis Additional Impressions: Elevated transaminase level Diabetes mellitus Admitting Information Admitting Physician Requests: Admit Rian Joaquin MD Sep 16, 2017 18:00
[2017-09-16 19:11] VITALS: BP 131/75; PULSE 112; RESP 15; O2SAT 97
[2017-09-16 19:22] VITALS: BP 131/75; PULSE 112; RESP 15; O2SAT 97
[2017-09-16] MEDS ORDERED: DEXTROSE 50% IN WATER 50 ML VIAL(D50) IV PUSH PRN (20:30)
[2017-09-16] MEDS ORDERED: GLUCAGON 1 MG/ML VIAL OTHER PRN (20:30)
[2017-09-16] MEDS ORDERED: LACTULOSE SYRUP 20 GM/30 ML CUP PO PRN (20:30)
[2017-09-16] MEDS ORDERED: methylPREDNISolone SOD SUCC 40 MG/1 ML VIAL IV PUSH SCH (20:30)
[2017-09-16] MEDS ORDERED: SODIUM CHLORIDE 0.9% FLUSH 10 ML FLUSH IV FLUSH PRN (20:30)
[2017-09-16] MEDS ORDERED: SENNOSIDES 8.6 MG TAB PO PRN (20:30)
[2017-09-16] MEDS ORDERED: NALOXONE HCL 0.4 MG/ML AMP IV PUSH PRN (20:30)
[2017-09-16] MEDS ORDERED: BISACODYL 10 MG SUPP RECTAL PRN (20:30)
--- NOTE | 2017-09-16 20:50 | HHI.HP ---
HPI Service [facility] Primary Care Physician Dwayne Gutierrez, DO Admission Diagnosis right temoral arteritis, dm, elevated transaminase. 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 Patient endorses an associated headache. She states the symptoms started when she woke up this morning. She does not have any loss of vision. No chest pain or shortness of breath. No abdominal pain. No nausea/ vomiting/diarrhea. No lateralizing signs/symptoms. 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 Gabapentin 100 Mg Cap 200 Mg PO TID Prednisone 10 Mg Tab 40 Mg PO DAILY Pioglitazone (Pioglitazone HCl) 45 Mg Tab 45 Mg PO DAILY Glimepiride 2 Mg Tab 2 Mg PO DAILY Take with breakfast or first main meal Duloxetine DR (Duloxetine HCl) 20 Mg Capdr 20 Mg PO BID Aspirin 81 Mg Chew 81 Mg CHEW DAILY Eliquis (Apixaban) 5 Mg Tab 5 Mg PO DAILY Amitriptyline (Amitriptyline HCl) 100 Mg Tab 150 Mg PO HS Xanax (Alprazolam) 0.5 Mg Tab 0.5 Mg PO Q4H PRN Potassium Chloride ER (Potassium Chloride) 10 Meq Cap 10 Meq PO DAILY Lasix (Furosemide) 20 Mg Tab 20 Mg PO BID Allergies: Coded Allergies: acetaminophen (Verified Allergy, Severe, SOB, 09/16/17) tramadol (Verified Allergy, Intermediate, HIVES, 09/16/17) Family History Mother with coronary artery disease and diabetes mellitus. Father with diabetes mellitus. Social History Denies alcohol, tobacco and illicit drugs Physical Exam Vital Signs Vital Signs Date Time Temp Pulse Resp B/P (MAP) Pulse Ox O2 Delivery O2 Flow Rate FiO2 09/16/17 19:22 112 15 131/75 (93) 97 Room Air 09/16/17 17:19 108 18 128/80 (96) 95 Room Air 09/16/17 15:45 78 16 09/16/17 15:09 99.0 97 17 157/107 (124) 96 Physical Exam GENERAL: Obese, female sitting in bed SKIN: No rashes, ecchymoses or lesions. Cool and dry. HEAD: Atraumatic. Normocephalic. No temporal or scalp tenderness. EYES: Pupils equal round and reactive. Extraocular motions intact. No scleral icterus. No injection or drainage. ENT: Nose without bleeding, purulent drainage or septal hematoma. Throat without erythema, tonsillar hypertrophy or exudate. Uvula midline. Airway patent. NECK: Trachea midline. No JVD or lymphadenopathy. Supple, nontender, no meningeal signs. CARDIOVASCULAR: Regular rate and rhythm without murmurs, gallops, or rubs. RESPIRATORY: Clear to auscultation. Breath sounds equal bilaterally. No wheezes , rales, or rhonchi. GASTROINTESTINAL: Abdomen soft, non-tender, nondistended. No hepato-splenomegaly , or palpable masses. No guarding. MUSCULOSKELETAL: Extremities without clubbing, cyanosis, or edema. No joint tenderness, effusion, or edema noted. No calf tenderness. NEUROLOGICAL: Awake and alert. Cranial nerves II through XII intact. Motor and sensory grossly within normal limits. Normal speech. Laboratory Laboratory Tests Test 09/16/17 16:20 White Blood Count 8.4 Red Blood Count 4.82 Hemoglobin 14.7 Hematocrit 43.7 Mean Corpuscular Volume 90.7 Mean Corpuscular Hemoglobin 30.5 Mean Corpuscular Hemoglobin Concent 33.6 Red Cell Distribution Width 15.6 Platelet Count 193 Mean Platelet Volume 8.0 Neutrophils (%) (Auto) 88.8 Lymphocytes (%) (Auto) 9.3 Monocytes (%) (Auto) 1.3 Eosinophils (%) (Auto) 0.2 Basophils (%) (Auto) 0.4 Neutrophils # (Auto) 7.5 Lymphocytes # (Auto) 0.8 Monocytes # (Auto) 0.1 Eosinophils # (Auto) 0.0 Basophils # (Auto) 0.0 CBC Comment DIFF FINAL Differential Comment Erythrocyte Sedimentation Rate 25 Blood Urea Nitrogen 11 Creatinine 0.80 Random Glucose 215 Total Protein 8.2 Albumin 3.8 Calcium Level 9.7 Alkaline Phosphatase 167 Aspartate Amino Transf (AST/SGOT) 70 Alanine Aminotransferase (ALT/SGPT) 87 Total Bilirubin 0.5 Sodium Level 137 Potassium Level 4.1 Chloride Level 103 Carbon Dioxide Level 25.6 Anion Gap 8 Estimat Glomerular Filtration Rate 77 C-Reactive Protein 1.60 Result Diagram: 09/16/17 1620 09/16/17 1620 Caprini VTE Risk Assessment Caprini VTE Risk Assessment: Mod/High Risk (score >= 2) Caprini Risk Assessment Model Point Value = 1 Point Value = 2 Point Value = 3 Point Value = 5 Age 41-60 Minor surgery BMI > 25 kg/m2 Swollen legs Varicose veins or History of unexplained or recurrent spontaneous Oral contraceptives or hormone replacement Sepsis (< 1 month) Serious lung disease, including pneumonia (< 1 month) Abnormal pulmonary function Acute myocardial infarction Congestive heart failure (< 1 month) History of inflammatory bowel disease Medical patient at bed rest Age 61-74 Arthroscopic surgery Major open surgery (> 45 min) Laparoscopic surgery (> 45 min) Malignancy Confined to bed (> 72 hours) Immobilizing plaster cast Central venous access Age >= 75 History of VTE Family history of VTE Factor V Leiden Prothrombin [id number] Lupus anticoagulant Anticardiolipin antibodies Elevated serum homocysteine Heparin-induced thrombocytopenia Other congenital or acquired thrombophilia Stroke (< 1 month) Elective arthroplasty Hip, pelvis, or leg fracture Acute spinal cord injury (< 1 month) Prophylaxis Regimen Total Risk Factor Score Risk Level Prophylaxis Regimen 0-1 Low Early ambulation 2 Moderate Order ONE of the following: *Sequential Compression Device (SCD) *Heparin 5000 units SQ BID 3-4 Higher Order ONE of the following medications: *Heparin 5000 units SQ TID *Enoxaparin/Lovenox 40 mg SQ daily (WT < 150 kg, CrCl > 30 mL/min) *Enoxaparin/Lovenox 30 mg SQ daily (WT < 150 kg, CrCl > 10-29 mL/min) *Enoxaparin/Lovenox 30 mg SQ BID (WT < 150 kg, CrCl > 30 mL/min) AND/OR *Sequential Compression Device (SCD) 5 or more Highest Order ONE of the following medications: *Heparin 5000 units SQ TID (Preferred with Epidurals) *Enoxaparin/Lovenox 40 mg SQ daily (WT < 150 kg, CrCl > 30 mL/min) *Enoxaparin/Lovenox 30 mg SQ daily (WT < 150 kg, CrCl > 10-29 mL/min) *Enoxaparin/Lovenox 30 mg SQ BID (WT < 150 kg, CrCl > 30 mL/min) AND *Sequential Compression Device (SCD) Assessment and Plan Assessment and Plan Assessment/plan: 1. Temporal arteritis Concern for temporal arteritis of the right eye given patient's symptoms and clinical presentation Patient is on home p.o. steroids and has a neurologist in [place] for history of left-sided temporal arteritis High-dose IV steroids Neurology consulted, appreciate recommendations General surgery consulted for evaluation of possible biopsy 2. Diabetes mellitus Decrease Levemir to half dosing as patient n.p.o. Sliding-scale insulin Monitor blood glucose 3. Neuropathy Continue home gabapentin 4. Depression/anxiety Continue home medications 5. History of PE Patient has a history of PE 2 years ago and is anticoagulated on Eliquis Holding Eliquis for possible biopsy 6. Transaminitis Stable Monitor FEN N.p.o. NS at 1 25 cc/hour Electrolytes: Monitor and replete as needed Holding pharmacologic anticoagulation for possible biopsy Physician Certification 2 Midnight Certification Type: Admission for Inpatient Services Order for Inpatient Services The services are ordered in accordance with Medicare regulations or non- Medicare payer requirements, as applicable. In the case of services not specified as inpatient-only, they are appropriately provided as inpatient services in accordance with the 2-midnight benchmark. Estimated LOS (days): 2 2 days is the estimated time the patient will need to remain in the hospital, assuming treatment plan goals are met and no additional complications. Post-Hospital Plan: Not yet determined Kanchan Lock MD Sep 16, 2017 20:50
[2017-09-16] MEDS ORDERED: ATORVASTATIN 40 MG TAB PO SCH (21:00)
[2017-09-16] MEDS ORDERED: INSULIN ASPART SUPPLEMENTAL SCALE SQ SCH (21:00)
[2017-09-16] MEDS ORDERED: PILL SPLITTER OTHER PRN (21:00)
[2017-09-16] MEDS: SODIUM CHLOR 0.9% 1000 ML INJ 1,000 ML IV SCH (21:41)
[2017-09-16] MEDS: DULoxetine HCl DR 20 MG CAP PO SCH (21:41)
[2017-09-16] MEDS: FUROSEMIDE 20 MG TAB PO SCH (21:42)
[2017-09-16] MEDS: DOCUSATE SODIUM 50 MG/SENNA 8.6 MG TAB PO SCH (21:43)
[2017-09-16] MEDS: INSULIN DETEMIR 100 UNITS/ML VIAL SQ SCH (21:43)
[2017-09-16] MEDS: SODIUM CHLORIDE 0.9% FLUSH 10 ML FLUSH IV FLUSH SCH (21:45)
[2017-09-16] MEDS: ONDANSETRON ODT 4 MG TAB PO PRN (21:47)
[2017-09-16 21:54] VITALS: BP 152/77; PULSE 116; RESP 18; TEMP 98.6; O2SAT 96
[2017-09-16] MEDS: AMITRIPTYLINE HCL 75 MG TAB PO SCH (22:29)
[2017-09-16] MEDS: methylPREDNISolone SO SUCC INJ 250 MG in SODIUM CHLORIDE 0.9% INJ 100 ML IV SCH (22:48)
[2017-09-16] MEDS: MORPHINE SULFATE 4 MG/ML INJ IV PUSH PRN (23:46)
[2017-09-17] VITALS: BP 131/88; PULSE 110; RESP 18; TEMP 98.9; O2SAT 96
[2017-09-17] MEDS: ALPRAZolam 0.5 MG TAB PO PRN ×4 (00:49→20:38)
[2017-09-17] MEDS ORDERED: HYDROmorphone HCL PF 2 MG/ML VIAL IV PUSH ONE (02:30)
[2017-09-17] MEDS: methylPREDNISolone SO SUCC INJ 250 MG in SODIUM CHLORIDE 0.9% INJ 100 ML IV SCH ×4 (03:50→22:04)
[2017-09-17] MEDS: MORPHINE SULFATE 4 MG/ML INJ IV PUSH PRN ×4 (03:50→21:59)
[2017-09-17 04:00] VITALS: BP 125/77; PULSE 108; RESP 18; TEMP 99; O2SAT 94
[2017-09-17] MEDS: SODIUM CHLOR 0.9% 1000 ML INJ 1,000 ML IV SCH (05:00)
[2017-09-17 06:18] LABS: AUTOMATED NEUTROPHIL # 8.8 TH/MM3 (1.8-7.7); HEMATOCRIT 42.4 % (35.0-46.0); HEMOGLOBIN 14.1 GM/DL (11.6-15.3); LYMPH % 6.8 % (9.0-44.0); LYMPHOCYTE # 0.6 TH/MM3 (1.0-4.8); MEAN CELL VOLUME 91.3 FL (80.0-100.0); MEAN CORPUSCULAR HEMOGLOBIN 30.4 PG (27.0-34.0); MEAN CORPUSCULAR HGB CONC 33.4 % (32.0-36.0); MEAN PLATELET VOLUME 7.9 FL (7.0-11.0); MONOCYTE # 0.1 TH/MM3 (0-0.9); NEUT % 92.2 % (16.0-70.0); PLATELET COUNT 217 TH/MM3 (150-450); RED BLOOD COUNT 4.64 MIL/MM3 (4.00-5.30); RED CELL DISTRIBUTION WIDTH 15.6 % (11.6-17.2); WHITE BLOOD COUNT 9.6 TH/MM3 (4.0-11.0)
[2017-09-17 06:53] LABS: BICARBONATE 24.3 MEQ/L (21.0-32.0); CALCIUM 9.3 MG/DL (8.5-10.1); CREATININE 1.08 MG/DL (0.50-1.00)
[2017-09-17] MEDS ORDERED: GLUCAGON 1 MG/ML VIAL OTHER PRN (07:45)
[2017-09-17] MEDS ORDERED: DEXTROSE 50% IN WATER 50 ML VIAL(D50) IV PUSH PRN (07:45)
[2017-09-17 08:07] VITALS: BP 131/92; PULSE 111; RESP 16; TEMP 98.4; O2SAT 97
[2017-09-17] MEDS: carBAMazepine 200 MG TAB PO SCH ×3 (08:15→17:51)
[2017-09-17] MEDS: GABAPENTIN 100 MG CAP PO SCH ×3 (08:16→17:51)
[2017-09-17] MEDS: SODIUM CHLORIDE 0.9% FLUSH 10 ML FLUSH IV FLUSH SCH ×2 (08:16→20:39)
[2017-09-17] MEDS: DOCUSATE SODIUM 50 MG/SENNA 8.6 MG TAB PO SCH ×2 (08:16→20:38)
[2017-09-17] MEDS: FUROSEMIDE 20 MG TAB PO SCH ×2 (08:16→17:51)
[2017-09-17] MEDS: ONDANSETRON ODT 4 MG TAB PO PRN ×2 (10:18→16:44)
[2017-09-17] MEDS: DULoxetine HCl DR 20 MG CAP PO SCH ×2 (10:19→20:38)
[2017-09-17] MEDS: INSULIN ASPART SUPPLEMENTAL SCALE SQ SCH ×4 (10:20→20:37)
[2017-09-17] MEDS: INSULIN DETEMIR 100 UNITS/ML VIAL SQ SCH ×2 (10:20→20:37)
--- NOTE | 2017-09-17 11:47 | HHI.PR ---
Subjective Remarks Follow-up questionable right giant cell arteritis September 17, 2017-patient seen and examined; complains of pain to the temporal area of the right eye with some blurry vision Objective Vitals Vital Signs Date Time Temp Pulse Resp B/P (MAP) Pulse Ox O2 Delivery O2 Flow Rate FiO2 09/17/17 08:07 98.4 111 16 131/92 (105) 97 09/17/17 04:00 99.0 108 18 125/77 (93) 94 09/17/17 00:00 98.9 110 18 131/88 (102) 96 09/16/17 22:06 09/16/17 21:54 98.6 116 18 152/77 (102) 96 09/16/17 19:22 112 15 131/75 (93) 97 Room Air 09/16/17 17:19 108 18 128/80 (96) 95 Room Air 09/16/17 15:45 78 16 09/16/17 15:09 99.0 97 17 157/107 (124) 96 I/O 09/16/17 09/16/17 09/16/17 09/17/17 09/17/17 09/17/17 07:00 15:00 23:00 07:00 15:00 23:00 Intake Total 1220 ml Balance 1220 ml Intake Oral 120 ml IV Total 1100 ml # Voids 4 # Bowel Movements 0 Result Diagram: 09/17/17 0600 09/17/17 0600 Objective Remarks GENERAL: NAD SKIN: Warm and dry. HEAD: Normocephalic. EYES: No scleral icterus. No injection or drainage. NECK: Supple, trachea midline. No JVD or lymphadenopathy. CARDIOVASCULAR: Regular rate and rhythm without murmurs, gallops, or rubs. RESPIRATORY: Breath sounds equal bilaterally. No accessory muscle use. GASTROINTESTINAL: Abdomen soft, non-tender, nondistended. MUSCULOSKELETAL: No cyanosis, or edema. BACK: Nontender without obvious deformity. No CVA tenderness. A/P Problem List: (1) Giant cell arteritis ICD Code: M31.6 - Other giant cell arteritis Assessment and Plan 46-year-old female with 1. Temporal arteritis Concern for temporal arteritis of the right eye given patient's symptoms and clinical presentation Patient is on home p.o. steroids and has a neurologist in [place] for history of left-sided temporal arteritis Continue with high-dose IV steroids Neurology consulted, appreciate recommendations General surgery consulted for evaluation of possible biopsy, however due to patient's current history of giant cell arteritis any biopsy would not currency exchange specialist 2. Diabetes mellitus Resume patient home dose of Levemir 80 units every 12 hours and NovoLog 50 units TIDAC Sliding-scale insulin Monitor blood glucose 3. Neuropathy Continue home gabapentin 4. Depression/anxiety Continue home medications 5. History of PE Patient has a history of PE 2 years ago and is anticoagulated on Eliquis Resume Eliquis 6. Transaminitis Stable, however will hold statin Monitor Michael Owens MD Sep 17, 2017 11:47
[2017-09-17 12:07] VITALS: BP 139/70; PULSE 117; RESP 17; TEMP 98.5; O2SAT 96
[2017-09-17] MEDS: INSULIN ASPART 1,000 UNITS/10 ML VIAL SQ SCH ×2 (12:26→17:52)
--- NOTE | 2017-09-17 13:41 | PD.CONS ---
HPI Service General Surgery Consult Requested By Dr. Lock Reason for Consult Possible right temporal arteritis Primary Care Physician Dwayne Gutierrez DO History of Present Illness 46 yo F with history of presumed left temporal arteritis for about 1 year currently on prednisone taper with blindness in the left eye. She presents with a very similar pain in the right temporal area as to what she has in the left. She has been on 10 mg prednisone daily down from 60 mg daily a month or 2 ago. She is very concerned that she could have vision loss in the right eye. Her case is complicated by poorly controlled type 2 diabetes mellitus and morbid obesity. She is on Eliquis for history of pulmonary embolism. Her last dose was just over 48 hours ago. Pathology from left temporal artery biopsy last year was normal. 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 Gabapentin 100 Mg Cap 200 Mg PO TID Prednisone 10 Mg Tab 40 Mg PO DAILY Pioglitazone (Pioglitazone HCl) 45 Mg Tab 45 Mg PO DAILY Glimepiride 2 Mg Tab 2 Mg PO DAILY Take with breakfast or first main meal Duloxetine DR (Duloxetine HCl) 20 Mg Capdr 20 Mg PO BID Aspirin 81 Mg Chew 81 Mg CHEW DAILY Eliquis (Apixaban) 5 Mg Tab 5 Mg PO DAILY Amitriptyline (Amitriptyline HCl) 100 Mg Tab 150 Mg PO HS Xanax (Alprazolam) 0.5 Mg Tab 0.5 Mg PO Q4H PRN Potassium Chloride ER (Potassium Chloride) 10 Meq Cap 10 Meq PO DAILY Lasix (Furosemide) 20 Mg Tab 20 Mg PO BID Allergies: Coded Allergies: acetaminophen (Verified Allergy, Severe, SOB, 09/16/17) tramadol (Verified Allergy, Intermediate, HIVES, 09/16/17) Active Ordered Medications Current Medications Medications (Trade) Dose Ordered Sig/Jacques Route Start Time Stop Time Status Last Admin (NS Flush) 2 ml UNSCH PRN IV FLUSH 09/16/17 20:30 (NS Flush) 2 ml BID IV FLUSH 09/16/17 21:00 09/17/17 08:16 (Zofran Odt) 4 mg Q6H PRN PO 09/16/17 21:00 09/17/17 10:18 (Narcan Inj) 0.4 mg UNSCH PRN IV PUSH 09/16/17 20:30 (Alisha-Colace) 1 tab BID PO 09/16/17 21:00 09/17/17 08:16 (Milk Of Magnesia Liq) 30 ml Q12H PRN PO 09/16/17 20:30 (Senokot) 17.2 mg Q12H PRN PO 09/16/17 20:30 (Dulcolax Supp) 10 mg DAILY PRN RECTAL 09/16/17 20:30 (Lactulose Liq) 30 ml DAILY PRN PO 09/16/17 20:30 (Morphine Inj) 4 mg Q3H PRN IV PUSH 09/16/17 20:30 09/17/17 10:19 (Xanax) 0.5 mg Q4H PRN PO 09/16/17 20:30 09/17/17 12:24 (Elavil) 150 mg HS PO 09/16/17 21:00 09/16/17 22:29 (Lipitor) 40 mg HS PO 09/16/17 21:00 Future Hold 09/16/17 21:42 (TEGretol) 300 mg TID PO 09/17/17 09:00 09/17/17 12:05 (Cymbalta Dr) 20 mg BID PO 09/16/17 21:00 09/17/17 10:19 (Neurontin) 200 mg TID PO 09/17/17 09:00 09/17/17 12:05 Methylprednisolone Sodium Succinate 250 mg/Sodium Chloride 100 ml @ 200 mls/hr Q6H IV 09/16/17 22:00 09/17/17 12:07 (Pill Splitter) 1 ea UNSCH PRN OTHER 09/16/17 21:00 (D50w (Vial) Inj) 50 ml UNSCH PRN IV PUSH 09/17/17 07:45 (Glucagon Inj) 1 mg UNSCH PRN OTHER 09/17/17 07:45 (NovoLOG SUPPLEMENTAL SCALE) 1 ACHS SLIDING SCALE SQ 09/17/17 08:00 09/17/17 12:25 (Levemir Inj) 80 units Q12HR SQ 09/17/17 21:00 (NovoLOG INJ) 50 units TIDAC SQ 09/17/17 12:00 09/17/17 12:26 (Lasix) 20 mg BID@09,18 PO 09/17/17 18:00 Family History Noncontributory Social History Denies alcohol tobacco or drug use. Physical Exam Vital Signs Vital Signs Date Time Temp Pulse Resp B/P (MAP) Pulse Ox O2 Delivery O2 Flow Rate FiO2 09/17/17 08:07 98.4 111 16 131/92 (105) 97 09/17/17 04:00 99.0 108 18 125/77 (93) 94 09/17/17 00:00 98.9 110 18 131/88 (102) 96 09/16/17 22:06 09/16/17 21:54 98.6 116 18 152/77 (102) 96 09/16/17 19:22 112 15 131/75 (93) 97 Room Air 09/16/17 17:19 108 18 128/80 (96) 95 Room Air 09/16/17 15:45 78 16 09/16/17 15:09 99.0 97 17 157/107 (124) 96 Physical Exam GENERAL: Awake and alert. No acute distress. Cooperative. Morbidly obese. HEAD: Normocephalic. Atraumatic. EYES: Pupils equal round and reactive to light bilaterally. No scleral icterus. Tenderness in the right temporal area. CHEST: Nonlabored breathing. No respiratory distress. CARDIOVASCULAR: Regular rate and rhythm. SKIN: Warm, dry, nonjaundiced. Laboratory Laboratory Tests Test 09/16/17 16:20 09/17/17 06:00 White Blood Count 8.4 9.6 Red Blood Count 4.82 4.64 Hemoglobin 14.7 14.1 Hematocrit 43.7 42.4 Mean Corpuscular Volume 90.7 91.3 Mean Corpuscular Hemoglobin 30.5 30.4 Mean Corpuscular Hemoglobin Concent 33.6 33.4 Red Cell Distribution Width 15.6 15.6 Platelet Count 193 217 Mean Platelet Volume 8.0 7.9 Neutrophils (%) (Auto) 88.8 92.2 Lymphocytes (%) (Auto) 9.3 6.8 Monocytes (%) (Auto) 1.3 1.0 Eosinophils (%) (Auto) 0.2 0.0 Basophils (%) (Auto) 0.4 0.0 Neutrophils # (Auto) 7.5 8.8 Lymphocytes # (Auto) 0.8 0.6 Monocytes # (Auto) 0.1 0.1 Eosinophils # (Auto) 0.0 0.0 Basophils # (Auto) 0.0 0.0 CBC Comment DIFF FINAL DIFF FINAL Differential Comment Erythrocyte Sedimentation Rate 25 Blood Urea Nitrogen 11 18 Creatinine 0.80 1.08 Random Glucose 215 416 Total Protein 8.2 Albumin 3.8 Calcium Level 9.7 9.3 Alkaline Phosphatase 167 Aspartate Amino Transf (AST/SGOT) 70 Alanine Aminotransferase (ALT/SGPT) 87 Total Bilirubin 0.5 Sodium Level 137 136 Potassium Level 4.1 4.6 Chloride Level 103 99 Carbon Dioxide Level 25.6 24.3 Anion Gap 8 13 Estimat Glomerular Filtration Rate 77 54 C-Reactive Protein 1.60 Result Diagram: 09/17/17 0600 09/17/17 0600 Assessment and Plan Assessment and Plan 46-year-old female with partial blindness in left eye secondary to presumed temporal arteritis on prednisone taper now with similar pain in the right temporal area. Will await neurology recommendations. I am not sure that temporal artery biopsy would be helpful in this situation as she is already undergoing treatment for temporal arteritis. Hong Torres MD Sep 17, 2017 13:41
[2017-09-17 16:07] VITALS: BP 120/63; PULSE 106; RESP 17; TEMP 97.4; O2SAT 94
[2017-09-17 16:48] LABS: C-REACTIVE PROTEIN 1.3 MG/DL (0.00-0.30)
--- NOTE | 2017-09-17 16:52 | MB ---
cc: Delroy Lancaster MD, PhD DATE: 09/17/2017 REASON FOR CONSULTATION: Rule out temporal arteritis. HISTORY OF PRESENT ILLNESS: This is a 46-year-old female diagnosed with temporal arteritis a year ago after she developed left-sided blindness. At that time, she was found to have a high sedimentation rate, she states in the 80s. She had a temporal artery biopsy on the left, which was negative. She was treated with high dose steroids. Her pain at that time improved. She is on a prednisone taper, more recently tapering the dose to 10 mg and has now developed pain behind the right eye, which she states mimicked the left temporal arteritis pain that she had a year ago. She denies any visual complaints, however. PAST MEDICAL AND SURGICAL HISTORY: Remarkable for diabetes, depression, neuropathy, history of PE on Eliquis, temporal arteritis, cholecystectomy, hernia repair, hysterectomy, and . CURRENT MEDICATIONS: She is on insulin, Lasix, Tegretol 300 mg t.i.d., Neurontin 200 mg t.i.d., Solu-Medrol 250 mg every 6 hours which was just started, Zofran p.r.n., senna p.r.n., Elavil 150 mg at bedtime, Cymbalta 20 mg b.i.d., and Senokot. NEUROLOGICAL EXAMINATION: VITAL SIGNS: Blood pressure is 139/70, pulse 117, respirations are 17, temperature 98.5 degrees. HIGHER CORTICAL FUNCTIONS: Normal. CRANIAL NERVES: She has absence of vision in the left eye. Normal visual acuity in the right. Pupils reactive. The extraocular movements are intact. There is no temporal artery tenderness. MOTOR EXAM: Normal with normal strength and tone of all groups. Reflexes are symmetric. LABORATORY DATA: Her sedimentation rate 25. White count 8400; hemoglobin 14.7; hematocrit 43.7%; platelet count 193,000. Sodium is 137, potassium 4.1, chloride 103, CO2 of 25.6, BUN is 11, creatinine 0.8, GFR 77, glucose 215, AST 70, ALT is 87. IMPRESSION AND RECOMMENDATIONS: Given her history, I suspect this may be recurrent temporal arteritis. I agree with the high dose Solu-Medrol. On followup of the sedimentation rate, we will also get a C-reactive protein. I would like to get an MRI of the brain to rule out other etiologies of her headache. A temporal artery biopsy would be reasonable, although I think there is a high likelihood that this would be negative, since she has been on steroids long-term. Delroy Lancaster MD, PhD LOVE/ROSIE , 03:56 PM , 04:50 PM
[2017-09-17] MEDS ORDERED: LORazepam 2 MG/ML VIAL IV PUSH ONE (17:45)
[2017-09-17] MEDS ORDERED: GADODIAMIDE PF 287 MG/ML 5 ML VIAL (for RAD MRI) IVCONTRAST ONE (19:33)
[2017-09-17 20:00] VITALS: BP 130/90; PULSE 107; RESP 18; TEMP 97.9; O2SAT 96
--- NOTE | 2017-09-17 20:10 | RADRPT ---
EXAM DATE: 09/17/2017 7:59 PM EDT AGE/SEX: 46 years / Female INDICATIONS: Aneurysm. Right eye pain. CLINICAL DATA: This is the patient's initial encounter. Patient reports that signs and symptoms have been present for 1 day and indicates a pain score of 7/10. MEDICAL/SURGICAL HISTORY: Diabetes mellitus type II. Renal calculi. Hypertension. Inflammati on of left eye nerve. . [place] [facility] [place]. [facility] [place]. . TECHNIQUE: 3D [id number] MRA was performed. Source images, multiplanar STS MIP, and 3D volum e MIP reconstructions were reviewed. FINDINGS: There is excellent visualization of the major intracranial arteries out to the second-order branch ve ssels. There is asymmetry with decreased caliber of the right A1 segment of the anterior cerebral art arsalan. The 2 segments are symmetric. There is a patent anterior communicating artery. The distal flow a ppears normal symmetric. CONCLUSION: 1. Decreased caliber of the right A1 segment of the anterior cerebral artery. The A2 segments are sy mmetric. Asymmetry to the A1 segments can be seen normally. This appearance was seen previously. 2. No significant area of distal stenosis. The distal flow appears normal. 3. No aneurysm is seen. Electronically signed by: Leonel Christopher MD 09/17/2017 8:09 PM EDT
[2017-09-17] MEDS: AMITRIPTYLINE HCL 75 MG TAB PO SCH (20:38)
--- NOTE | 2017-09-17 21:19 | RADRPT ---
EXAM DATE: 09/17/2017 7:53 PM EDT AGE/SEX: 46 years / Female INDICATIONS: . Right eye pain. CLINICAL DATA: This is the patient's initial encounter. Patient reports that signs and symptoms have been present for 1 day and indicates a pain score of 7/10. MEDICAL/SURGICAL HISTORY: Diabetes mellitus type II. Renal calculi. Hypertension. Inflammati on of left eye. None. [place] [facility] [place]. . TECHNIQUE: Multiplanar, multisequence examination of the brain was performed without and with 25 ml O mniscan (gadodiamide) contrast as a single exam dose. FINDINGS: Cerebrum: The ventricles are normal for age. No evidence of midline shift, mass lesion, hemorrhage or acute infarction. No extraaxial fluid collections are seen. The pituitary gland and suprasellar cistern are normal in configuration. White Matter: No significant signal abnormalities are seen in the white matter. Posterior Fossa: The cerebellum and brainstem are intact. The 4th ventricle is midline. The cerebel lopontine angle is unremarkable. The cerebellar tonsils are normal in position. Diffusion Imaging: No focal areas of restricted diffusion are seen. No evidence of acute infarction . Extracranial: The visualized portions of the orbits and paranasal sinuses are unremarkable. Post Contrast: No abnormal areas of parenchymal or dural enhancement. No evidence of blood-brain ba rrier breakdown. CONCLUSION: Negative brain MRI examination. The orbits appear grossly normal. Electronically signed by: Leonel Christopher MD 09/17/2017 9:17 PM EDT
[2017-09-18] VITALS: BP 116/98; PULSE 101; RESP 18; TEMP 97.8; O2SAT 96
[2017-09-18] MEDS ORDERED: HYDROmorphone HCL PF 2 MG/ML VIAL IV PUSH ONE
[2017-09-18] MEDS: methylPREDNISolone SO SUCC INJ 250 MG in SODIUM CHLORIDE 0.9% INJ 100 ML IV SCH ×4 (03:45→22:30)
[2017-09-18 04:00] VITALS: BP 109/79; PULSE 104; RESP 12; TEMP 97.9; O2SAT 97
[2017-09-18] MEDS: ALPRAZolam 0.5 MG TAB PO PRN (05:51)
[2017-09-18] MEDS: MAGNESIUM HYDROXIDE SUSP 30 ML CUP PO PRN ×2 (05:55→21:16)
[2017-09-18] MEDS: MORPHINE SULFATE 4 MG/ML INJ IV PUSH PRN ×4 (07:56→22:36)
[2017-09-18 08:00] LABS: AUTOMATED NEUTROPHIL # 12.5 TH/MM3 (1.8-7.7); HEMATOCRIT 38.6 % (35.0-46.0); HEMOGLOBIN 13.4 GM/DL (11.6-15.3); LYMPH % 4.9 % (9.0-44.0); LYMPHOCYTE # 0.7 TH/MM3 (1.0-4.8); MEAN CELL VOLUME 89.5 FL (80.0-100.0); MEAN CORPUSCULAR HGB CONC 34.6 % (32.0-36.0); MONO % 1.9 % (0.0-8.0); MONOCYTE # 0.3 TH/MM3 (0-0.9); NEUT % 93.2 % (16.0-70.0); PLATELET COUNT 206 TH/MM3 (150-450); RED BLOOD COUNT 4.31 MIL/MM3 (4.00-5.30); RED CELL DISTRIBUTION WIDTH 15.2 % (11.6-17.2); WHITE BLOOD COUNT 13.5 TH/MM3 (4.0-11.0)
[2017-09-18 08:07] VITALS: BP 141/80; PULSE 103; RESP 19; TEMP 98; O2SAT 95
[2017-09-18 08:24] LABS: ALBUMIN 3.6 GM/DL (3.4-5.0); ALT (GPT) 59 U/L (10-53); AST (GOT) 20 U/L (15-37); BICARBONATE 28.6 MEQ/L (21.0-32.0); BLOOD UREA NITROGEN 24 MG/DL (7-18); CALCIUM 9.3 MG/DL (8.5-10.1); CHLORIDE 97 MEQ/L (98-107); CREATININE 1.15 MG/DL (0.50-1.00); GLOMERULAR FILTRATION RATE 51 ML/MIN (>89); GLUCOSE,RANDOM 292 MG/DL (74-106); SODIUM (NA) 136 MEQ/L (136-145)
[2017-09-18 08:34] LABS: ALKALINE PHOSPHATASE 137 U/L (45-117); TOTAL BILIRUBIN ADULT 0.4 MG/DL (0.2-1.0); TOTAL PROTEIN 7.7 GM/DL (6.4-8.2)
[2017-09-18] MEDS: GABAPENTIN 100 MG CAP PO SCH ×3 (09:09→18:47)
[2017-09-18] MEDS: DOCUSATE SODIUM 50 MG/SENNA 8.6 MG TAB PO SCH ×2 (09:10→21:06)
[2017-09-18] MEDS: DULoxetine HCl DR 20 MG CAP PO SCH ×2 (09:10→21:06)
[2017-09-18] MEDS: carBAMazepine 200 MG TAB PO SCH ×3 (09:10→18:48)
[2017-09-18] MEDS: FUROSEMIDE 20 MG TAB PO SCH ×2 (09:10→16:50)
[2017-09-18] MEDS: SODIUM CHLORIDE 0.9% FLUSH 10 ML FLUSH IV FLUSH SCH ×2 (09:11→21:05)
[2017-09-18] MEDS: INSULIN DETEMIR 100 UNITS/ML VIAL SQ SCH ×2 (09:30→21:16)
[2017-09-18] MEDS: INSULIN ASPART SUPPLEMENTAL SCALE SQ SCH ×4 (09:30→21:17)
[2017-09-18] MEDS: INSULIN ASPART 1,000 UNITS/10 ML VIAL SQ SCH ×2 (09:30→17:00)
[2017-09-18 12:07] VITALS: BP 130/63; PULSE 103; RESP 19; TEMP 97.4; O2SAT 96
--- NOTE | 2017-09-18 12:22 | HHI.PR ---
Subjective Remarks Follow-up questionable right giant cell arteritis September 17, 2017-patient seen and examined; complains of pain to the temporal area of the right eye with some blurry vision September 18, 2017-patient seen and examined, still complaining of right temporal area pain, however denies any headache Objective Vitals Vital Signs Date Time Temp Pulse Resp B/P (MAP) Pulse Ox O2 Delivery O2 Flow Rate FiO2 09/18/17 08:07 98.0 103 19 141/80 (100) 95 09/18/17 04:00 97.9 104 12 109/79 (89) 97 09/18/17 00:00 97.8 101 18 116/98 (104) 96 09/17/17 20:00 97.9 107 18 130/90 (103) 96 09/17/17 16:07 97.4 106 17 120/63 (82) 94 I/O 09/17/17 09/17/17 09/17/17 09/18/17 09/18/17 09/18/17 07:00 15:00 23:00 07:00 15:00 23:00 Intake Total 1220 ml 1100 ml 1060 ml Output Total 350 ml Balance 1220 ml 1100 ml 710 ml Intake Oral 120 ml 1100 ml 960 ml IV Total 1100 ml 100 ml Output Urine Total 350 ml # Voids 4 4 # Bowel Movements 0 1 Result Diagram: 09/18/17 0740 09/18/17 0740 Imaging Last Impressions Head Magnetic Resonance Angiography 09/17/17 0000 Signed Impressions: CONCLUSION: 1. Decreased caliber of the right A1 segment of the anterior cerebral artery. The A2 segments are symmetric. Asymmetry to the A1 segments can be seen normall y. This appearance was seen previously. 2. No significant area of distal stenosis. The distal flow appears normal. 3. No aneurysm is seen. Brain MRI 09/17/17 0000 Signed Impressions: CONCLUSION: Negative brain MRI examination. The orbits appear grossly normal. Objective Remarks GENERAL: NAD SKIN: Warm and dry. HEAD: Normocephalic. EYES: No scleral icterus. No injection or drainage. TTP to right temporal area NECK: Supple, trachea midline. No JVD or lymphadenopathy. CARDIOVASCULAR: Regular rate and rhythm without murmurs, gallops, or rubs. RESPIRATORY: Breath sounds equal bilaterally. No accessory muscle use. GASTROINTESTINAL: Abdomen soft, non-tender, nondistended. MUSCULOSKELETAL: No cyanosis, or edema. BACK: Nontender without obvious deformity. No CVA tenderness. A/P Problem List: (1) Giant cell arteritis ICD Code: M31.6 - Other giant cell arteritis Assessment and Plan 46-year-old female with 1. Temporal arteritis Concern for temporal arteritis of the right eye given patient's symptoms and clinical presentation Patient is on home p.o. steroids and has a neurologist in [place] for history of left-sided temporal arteritis Continue with high-dose IV steroids Brain MRI negative Neurology consulted, appreciate recommendations General surgery consulted for evaluation of possible biopsy, however due to patient's current history of giant cell arteritis any biopsy would not warp changer; Nevertheless Plan for Temporal artery biopsy next week 2. Diabetes mellitus labile BG Currently on Levemir 80 units every 12 hours and NovoLog 50 units TIDAC ; will Increase Levemir to 90U Q12h and NovoLog to 60u TIDAC Sliding-scale insulin Monitor blood glucose 3. Neuropathy Continue home gabapentin 4. Depression/anxiety Continue home medications 5. History of PE Patient has a history of PE 2 years ago and is anticoagulated on Eliquis On Hold Eliquis 6. Transaminitis Stable, however will hold statin Monitor Michael Owens MD Sep 18, 2017 12:22
[2017-09-18 16:07] VITALS: BP 132/66; PULSE 98; RESP 19; TEMP 98; O2SAT 96
--- NOTE | 2017-09-18 18:33 | HHI.PR ---
Review/Management Diagnosis possible temporal arteritis. However, only marginal elevation in esr and crp and lack of response to steroids is questionable. A temporal artery biopsy may be helpful, although yield may be low. If biopsy were positive would confirm dx , but negative biopsy would not negate diagnosis especially since she had been on steroids for some time Diagnosis/Plan: Subjective Subjective Comments No acute events reported No change in headache--still around right eye but now moving to left frontal. Denies vision change right eye Active Medications Current Medications Medications (Trade) Dose Ordered Sig/Jacques Route Start Time Stop Time Status Last Admin (NS Flush) 2 ml UNSCH PRN IV FLUSH 09/16/17 20:30 (NS Flush) 2 ml BID IV FLUSH 09/16/17 21:00 09/18/17 09:11 (Zofran Odt) 4 mg Q6H PRN PO 09/16/17 21:00 09/17/17 16:44 (Narcan Inj) 0.4 mg UNSCH PRN IV PUSH 09/16/17 20:30 (Alisha-Colace) 1 tab BID PO 09/16/17 21:00 09/18/17 09:10 (Milk Of Magnesia Liq) 30 ml Q12H PRN PO 09/16/17 20:30 09/18/17 05:55 (Senokot) 17.2 mg Q12H PRN PO 09/16/17 20:30 (Dulcolax Supp) 10 mg DAILY PRN RECTAL 09/16/17 20:30 (Lactulose Liq) 30 ml DAILY PRN PO 09/16/17 20:30 (Morphine Inj) 4 mg Q3H PRN IV PUSH 09/16/17 20:30 09/18/17 15:25 (Xanax) 0.5 mg Q4H PRN PO 09/16/17 20:30 09/18/17 05:51 (Elavil) 150 mg HS PO 09/16/17 21:00 09/17/17 20:38 (Lipitor) 40 mg HS PO 09/16/17 21:00 Future Hold 09/16/17 21:42 (TEGretol) 300 mg TID PO 09/17/17 09:00 09/18/17 13:16 (Cymbalta Dr) 20 mg BID PO 09/16/17 21:00 09/18/17 09:10 (Neurontin) 200 mg TID PO 09/17/17 09:00 09/18/17 13:16 Methylprednisolone Sodium Succinate 250 mg/Sodium Chloride 100 ml @ 200 mls/hr Q6H IV 09/16/17 22:00 09/18/17 16:50 (Pill Splitter) 1 ea UNSCH PRN OTHER 09/16/17 21:00 (D50w (Vial) Inj) 50 ml UNSCH PRN IV PUSH 09/17/17 07:45 (Glucagon Inj) 1 mg UNSCH PRN OTHER 09/17/17 07:45 (NovoLOG SUPPLEMENTAL SCALE) 1 ACHS SLIDING SCALE SQ 09/17/17 08:00 09/18/17 13:20 (Lasix) 20 mg BID@18 PO 09/17/17 18:00 09/18/17 16:50 (NovoLOG INJ) 60 units TIDAC SQ 09/18/17 17:00 (Levemir Inj) 90 units Q12HR SQ 09/18/17 21:00 Allergies Allergies Coded Allergies acetaminophen (Verified Allergy, Severe, SOB, 09/16/17) tramadol (Verified Allergy, Intermediate, HIVES, 09/16/17) Review of Systems All other ROS: ROS reviewed as documented in chart Exam I&O / VS Vital Signs Date Time Temp Pulse Resp B/P (MAP) Pulse Ox O2 Delivery O2 Flow Rate FiO2 09/18/17 12:07 97.4 103 19 130/63 (85) 96 09/18/17 08:07 98.0 103 19 141/80 (100) 95 09/18/17 04:00 97.9 104 12 109/79 (89) 97 09/18/17 00:00 97.8 101 18 116/98 (104) 96 09/17/17 20:00 97.9 107 18 130/90 (103) 96 General: Alert and Oriented, No acute distress Eye: EOMI Neurologic: Alert, Oriented, Normal sensory, Normal motor, No focal defects, Normal DTR's Psychiatric: Cooperative, Appropriate mood & affect Exam Comments alert, speech normal Cn--normal except decrease vision right MOtor 5/5 bue Objective Micro and Labs Laboratory Tests Test 09/18/17 07:40 White Blood Count 13.5 Red Blood Count 4.31 Hemoglobin 13.4 Hematocrit 38.6 Mean Corpuscular Volume 89.5 Mean Corpuscular Hemoglobin 31.0 Mean Corpuscular Hemoglobin Concent 34.6 Red Cell Distribution Width 15.2 Platelet Count 206 Mean Platelet Volume 8.0 Neutrophils (%) (Auto) 93.2 Lymphocytes (%) (Auto) 4.9 Monocytes (%) (Auto) 1.9 Eosinophils (%) (Auto) 0.0 Basophils (%) (Auto) 0.0 Neutrophils # (Auto) 12.5 Lymphocytes # (Auto) 0.7 Monocytes # (Auto) 0.3 Eosinophils # (Auto) 0.0 Basophils # (Auto) 0.0 CBC Comment DIFF FINAL Differential Comment Blood Urea Nitrogen 24 Creatinine 1.15 Random Glucose 292 Total Protein 7.7 Albumin 3.6 Calcium Level 9.3 Alkaline Phosphatase 137 Aspartate Amino Transf (AST/SGOT) 20 Alanine Aminotransferase (ALT/SGPT) 59 Total Bilirubin 0.4 Sodium Level 136 Potassium Level 4.3 Chloride Level 97 Carbon Dioxide Level 28.6 Anion Gap 10 Estimat Glomerular Filtration Rate 51 Delroy Lancaster MD PhD Sep 18, 2017 18:33
[2017-09-18 20:00] VITALS: BP 119/72; PULSE 100; RESP 20; TEMP 96.6; O2SAT 97
[2017-09-18] MEDS: AMITRIPTYLINE HCL 75 MG TAB PO SCH (21:06)
[2017-09-18] MEDS: ONDANSETRON ODT 4 MG TAB PO PRN (22:35)
[2017-09-19] VITALS: BP 122/70; PULSE 88; RESP 20; TEMP 96.8; O2SAT 97
[2017-09-19 04:00] VITALS: BP 150/92; PULSE 89; RESP 20; TEMP 96.7; O2SAT 97
[2017-09-19] MEDS: methylPREDNISolone SO SUCC INJ 250 MG in SODIUM CHLORIDE 0.9% INJ 100 ML IV SCH ×4 (04:14→21:39)
[2017-09-19] MEDS: ALPRAZolam 0.5 MG TAB PO PRN (05:14)
[2017-09-19] MEDS: MORPHINE SULFATE 4 MG/ML INJ IV PUSH PRN ×3 (06:30→21:35)
[2017-09-19 08:06] VITALS: BP 131/83; PULSE 97; RESP 19; TEMP 98.1; O2SAT 94
[2017-09-19] MEDS: DULoxetine HCl DR 20 MG CAP PO SCH ×2 (08:55→21:46)
[2017-09-19] MEDS: DOCUSATE SODIUM 50 MG/SENNA 8.6 MG TAB PO SCH ×2 (08:55→21:47)
[2017-09-19] MEDS: carBAMazepine 200 MG TAB PO SCH ×3 (08:55→17:42)
[2017-09-19] MEDS: GABAPENTIN 100 MG CAP PO SCH ×3 (08:55→17:42)
[2017-09-19] MEDS: FUROSEMIDE 20 MG TAB PO SCH ×2 (08:56→17:42)
[2017-09-19] MEDS: SODIUM CHLORIDE 0.9% FLUSH 10 ML FLUSH IV FLUSH SCH ×2 (08:56→21:47)
[2017-09-19] MEDS: INSULIN ASPART 1,000 UNITS/10 ML VIAL SQ SCH ×3 (09:18→17:00)
[2017-09-19] MEDS: INSULIN DETEMIR 100 UNITS/ML VIAL SQ SCH ×2 (09:18→21:46)
[2017-09-19] MEDS: INSULIN ASPART SUPPLEMENTAL SCALE SQ SCH ×4 (09:18→21:45)
--- NOTE | 2017-09-19 11:10 | HHI.PR ---
Subjective Remarks Follow-up questionable right giant cell arteritis September 17, 2017-patient seen and examined; complains of pain to the temporal area of the right eye with some blurry vision September 18, 2017-patient seen and examined, still complaining of right temporal area pain, however denies any headache September 19, 2017-patient seen and examined, still complaining of right temporal pain associated with headaches around that right eye site. Requesting Dilaudid IV 1 now and states she would not be needed any narcotics throughout the day Objective Vitals Vital Signs Date Time Temp Pulse Resp B/P (MAP) Pulse Ox O2 Delivery O2 Flow Rate FiO2 09/19/17 08:06 98.1 97 19 131/83 (99) 94 09/19/17 04:00 96.7 89 20 150/92 (111) 97 09/19/17 00:00 96.8 88 20 122/70 (87) 97 09/18/17 22:50 16 09/18/17 20:00 96.6 100 20 119/72 (88) 97 09/18/17 16:07 98.0 98 19 132/66 (88) 96 09/18/17 12:07 97.4 103 19 130/63 (85) 96 I/O 09/18/17 09/18/17 09/18/17 09/19/17 09/19/17 09/19/17 07:00 15:00 23:00 07:00 15:00 23:00 Intake Total 1060 ml 890 ml 420 ml Output Total 350 ml Balance 710 ml 890 ml 420 ml Intake Oral 960 ml 890 ml 420 ml IV Total 100 ml Output Urine Total 350 ml # Voids 10 6 # Bowel Movements 1 Result Diagram: 09/18/17 0740 09/18/17 0740 Objective Remarks GENERAL: NAD SKIN: Warm and dry. HEAD: Normocephalic. EYES: No scleral icterus. No injection or drainage. NECK: Supple, trachea midline. No JVD or lymphadenopathy. CARDIOVASCULAR: Regular rate and rhythm without murmurs, gallops, or rubs. RESPIRATORY: Breath sounds equal bilaterally. No accessory muscle use. GASTROINTESTINAL: Abdomen soft, non-tender, nondistended. MUSCULOSKELETAL: No cyanosis, or edema. BACK: Nontender without obvious deformity. No CVA tenderness. A/P Problem List: (1) Giant cell arteritis ICD Code: M31.6 - Other giant cell arteritis Assessment and Plan 46-year-old female with 1. Temporal arteritis Concern for temporal arteritis of the right eye given patient's symptoms and clinical presentation Patient is on home p.o. 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 Diabetes mellitus labile BG Home Levemir 80 units every 12 hours and NovoLog 50 units TIDAC ; however currently on Levemir 90U Q12h and NovoLog 60u TIDAC due to being on higher dose of steroid Sliding-scale insulin Monitor blood glucose 3. Neuropathy Continue home gabapentin 4. Depression/anxiety Continue home medications 5. History of PE Patient has a history of PE 2 years ago and is anticoagulated on Eliquis On Hold Eliquis 6. Transaminitis Stable, however continue to hold statin Monitor Michael Owens MD Sep 19, 2017 11:10
[2017-09-19] MEDS ORDERED: HYDROmorphone HCL PF 2 MG/ML VIAL IV PUSH ONE (11:15)
[2017-09-19 12:06] VITALS: BP 126/74; PULSE 107; RESP 19; TEMP 98.3; O2SAT 94
[2017-09-19 16:06] VITALS: BP 143/68; PULSE 104; RESP 19; TEMP 98.4; O2SAT 94
[2017-09-19 20:00] VITALS: BP 156/77; PULSE 97; RESP 19; TEMP 97.3; O2SAT 94
[2017-09-19] MEDS: AMITRIPTYLINE HCL 75 MG TAB PO SCH (21:46)
[2017-09-20] VITALS (7 sets, daily range): BP systolic 118–158; BP diastolic 58–104; PULSE 86–104; RESP 17–24; TEMP 97.1–98.9; O2SAT 94–97
[2017-09-20] MEDS: ALPRAZolam 0.5 MG TAB PO PRN ×4 (00:12→21:31)
[2017-09-20] MEDS: MORPHINE SULFATE 4 MG/ML INJ IV PUSH PRN ×4 (03:20→21:31)
[2017-09-20] MEDS: methylPREDNISolone SO SUCC INJ 250 MG in SODIUM CHLORIDE 0.9% INJ 100 ML IV SCH ×4 (04:55→21:32)
[2017-09-20 05:52] LABS: AUTOMATED NEUTROPHIL # 8.2 TH/MM3 (1.8-7.7); BASOPHIL % 0.1 % (0.0-2.0); HEMOGLOBIN 13.1 GM/DL (11.6-15.3); LYMPH % 7.4 % (9.0-44.0); LYMPHOCYTE # 0.7 TH/MM3 (1.0-4.8); MEAN CELL VOLUME 90.6 FL (80.0-100.0); MEAN CORPUSCULAR HEMOGLOBIN 30.4 PG (27.0-34.0); MEAN CORPUSCULAR HGB CONC 33.6 % (32.0-36.0); MEAN PLATELET VOLUME 7.8 FL (7.0-11.0); MONO % 4.6 % (0.0-8.0); MONOCYTE # 0.4 TH/MM3 (0-0.9); NEUT % 87.9 % (16.0-70.0); PLATELET COUNT 216 TH/MM3 (150-450); RED CELL DISTRIBUTION WIDTH 15.5 % (11.6-17.2); WHITE BLOOD COUNT 9.3 TH/MM3 (4.0-11.0)
[2017-09-20 06:18] LABS: BICARBONATE 30.4 MEQ/L (21.0-32.0); CALCIUM 8.5 MG/DL (8.5-10.1); CREATININE 1.06 MG/DL (0.50-1.00)
[2017-09-20] MEDS: ONDANSETRON ODT 4 MG TAB PO PRN ×2 (06:43→21:30)
[2017-09-20] MEDS: INSULIN ASPART 1,000 UNITS/10 ML VIAL SQ SCH ×3 (08:00→17:00)
[2017-09-20] MEDS: INSULIN ASPART SUPPLEMENTAL SCALE SQ SCH ×4 (08:00→21:00)
[2017-09-20] MEDS: INSULIN DETEMIR 100 UNITS/ML VIAL SQ SCH ×2 (08:26→21:30)
[2017-09-20] MEDS: SODIUM CHLORIDE 0.9% FLUSH 10 ML FLUSH IV FLUSH SCH ×2 (08:27→21:31)
[2017-09-20] MEDS: DOCUSATE SODIUM 50 MG/SENNA 8.6 MG TAB PO SCH ×2 (08:27→21:31)
[2017-09-20] MEDS: DULoxetine HCl DR 20 MG CAP PO SCH ×2 (08:27→21:30)
[2017-09-20] MEDS: GABAPENTIN 100 MG CAP PO SCH ×3 (08:27→17:00)
[2017-09-20] MEDS: FUROSEMIDE 20 MG TAB PO SCH ×2 (08:27→17:00)
[2017-09-20] MEDS: carBAMazepine 200 MG TAB PO SCH ×3 (08:27→17:00)
[2017-09-20] MEDS ORDERED: diphenhydrAMINE HCL 50 MG/ML VIAL IV PUSH ONE (11:30)
[2017-09-20] MEDS ORDERED: diphenhydrAMINE HCL 25 MG CAP PO PRN (11:30)
--- NOTE | 2017-09-20 11:42 | HHI.PR ---
Subjective Remarks Follow-up questionable right giant cell arteritis September 17, 2017-patient seen and examined; complains of pain to the temporal area of the right eye with some blurry vision September 18, 2017-patient seen and examined, still complaining of right temporal area pain, however denies any headache September 19, 2017-patient seen and examined, still complaining of right temporal pain associated with headaches around that right eye site. Requesting Dilaudid IV 1 now and states she would not be needed any narcotics throughout the day September 20, 2017: complains of tongue swelling after she ate jello says she is allergic to jello. Intermittent right eye pain. MRI is normal Objective Vitals Vital Signs Date Time Temp Pulse Resp B/P (MAP) Pulse Ox O2 Delivery O2 Flow Rate FiO2 09/20/17 08:03 98.2 93 20 148/91 (110) 96 09/20/17 04:00 97.1 104 24 137/104 (115) 96 09/20/17 00:00 98.5 86 18 152/88 (109) 97 09/19/17 20:00 97.3 97 19 156/77 (103) 94 09/19/17 16:06 98.4 104 19 143/68 (93) 94 09/19/17 12:06 98.3 107 19 126/74 (91) 94 I/O 09/19/17 09/19/17 09/19/17 09/20/17 09/20/17 09/20/17 07:00 15:00 23:00 07:00 15:00 23:00 Intake Total 420 ml 100 ml 620 ml 100 ml Output Total 1200 ml Balance 420 ml 100 ml -580 ml 100 ml Intake Oral 420 ml 420 ml IV Total 100 ml 200 ml 100 ml Output Urine Total 1200 ml # Voids 6 # Bowel Movements 1 Result Diagram: 09/20/17 0510 09/20/17 0510 Imaging Last Impressions Head Magnetic Resonance Angiography 09/17/17 0000 Signed Impressions: CONCLUSION: 1. Decreased caliber of the right A1 segment of the anterior cerebral artery. The A2 segments are symmetric. Asymmetry to the A1 segments can be seen normall y. This appearance was seen previously. 2. No significant area of distal stenosis. The distal flow appears normal. 3. No aneurysm is seen. Brain MRI 09/17/17 0000 Signed Impressions: CONCLUSION: Negative brain MRI examination. The orbits appear grossly normal. Objective Remarks GENERAL: Pleasant 46 yo F, morbidly obese, appears anxious EYES: Decreased peripheral vision bilateral eyes. Pupils equal and round. No scleral icterus. No injection or drainage. CARDIOVASCULAR: Regular rate and rhythm without murmurs, gallops, or rubs. RESPIRATORY: Breath sounds equal bilaterally. No accessory muscle use. GASTROINTESTINAL: Abdomen soft, obese, non-tender, nondistended. MUSCULOSKELETAL: No cyanosis, or edema. BACK: Nontender without obvious deformity. No CVA tenderness. A/P Problem List: (1) Giant cell arteritis ICD Code: M31.6 - Other giant cell arteritis Assessment and Plan 46-year-old female with Temporal arteritis Concern for temporal arteritis of the right eye given patient's symptoms and clinical presentation Patient is on home p.o. steroids and has a neurologist in [place] for history of left-sided temporal arteritis Continue with high-dose IV steroids Brain MRI negative Neurology consulted, appreciate recommendations General surgery consulted for evaluation of possible biopsy, however due to patient's current history of giant cell arteritis along with steroid therapy , any biopsy would not exchange consultant; therefore no need to perform one, which in any case my be negative Diabetes mellitus 2 labile BG Home Levemir 80 units every 12 hours and NovoLog 50 units TIDAC ; however currently on Levemir 90U Q12h and NovoLog 60u TIDAC due to being on higher dose of steroid Sliding-scale insulin Monitor blood glucose Neuropathy Continue home gabapentin Depression/anxiety Continue home medications History of PE Patient has a history of PE 2 years ago and is anticoagulated on Eliquis On Hold Eliquis Transaminitis Stable, however continue to hold statin Monitor Discussed with the nurse Chely Nur MD Sep 20, 2017 11:42
[2017-09-20] MEDS: AMITRIPTYLINE HCL 75 MG TAB PO SCH (21:30)
[2017-09-21 04:12] VITALS: BP 133/84; PULSE 92; RESP 18; TEMP 98.1; O2SAT 95
[2017-09-21] MEDS: methylPREDNISolone SO SUCC INJ 250 MG in SODIUM CHLORIDE 0.9% INJ 100 ML IV SCH ×4 (04:39→21:39)
[2017-09-21] MEDS: MORPHINE SULFATE 4 MG/ML INJ IV PUSH PRN ×3 (05:22→11:16)
[2017-09-21 08:00] VITALS: BP 161/71; PULSE 87; RESP 20; TEMP 98.3; O2SAT 95
[2017-09-21] MEDS: INSULIN DETEMIR 100 UNITS/ML VIAL SQ SCH ×2 (08:21→21:45)
[2017-09-21] MEDS: DULoxetine HCl DR 20 MG CAP PO SCH ×2 (08:28→21:43)
[2017-09-21] MEDS: DOCUSATE SODIUM 50 MG/SENNA 8.6 MG TAB PO SCH ×2 (08:28→21:43)
[2017-09-21] MEDS: FUROSEMIDE 20 MG TAB PO SCH ×2 (08:28→17:08)
[2017-09-21] MEDS: GABAPENTIN 100 MG CAP PO SCH ×3 (08:29→17:07)
[2017-09-21] MEDS: carBAMazepine 200 MG TAB PO SCH ×3 (08:29→17:08)
[2017-09-21] MEDS: SODIUM CHLORIDE 0.9% FLUSH 10 ML FLUSH IV FLUSH SCH ×2 (08:31→21:43)
[2017-09-21] MEDS: INSULIN ASPART 1,000 UNITS/10 ML VIAL SQ SCH ×3 (09:22→17:00)
[2017-09-21] MEDS: INSULIN ASPART SUPPLEMENTAL SCALE SQ SCH ×4 (09:23→21:00)
[2017-09-21] MEDS: ONDANSETRON ODT 4 MG TAB PO PRN ×2 (11:16→21:50)
[2017-09-21 12:00] VITALS: BP 141/86; PULSE 98; RESP 20; TEMP 98.2; O2SAT 93
--- NOTE | 2017-09-21 14:33 | HHI.PR ---
Subjective Remarks Says current medications are not helping for pain. DC morphine. Patient says Dilaudid twice a day helps better. With intermittent headaches sharp pain very severe however does not last long. She also complains of redness in her right breast. Says she had an abscess before and was in the hospital. No fever or chills. No nausea vomiting. Objective Vitals Vital Signs Date Time Temp Pulse Resp B/P (MAP) Pulse Ox O2 Delivery O2 Flow Rate FiO2 09/21/17 12:00 98.2 98 20 141/86 (104) 93 09/21/17 08:00 98.3 87 20 161/71 (101) 95 09/21/17 04:12 98.1 92 18 133/84 (100) 95 09/20/17 23:40 98.4 101 18 138/81 (100) 94 09/20/17 20:56 98.9 100 17 158/83 (108) 94 09/20/17 16:03 98.0 100 20 124/64 (84) 96 I/O 09/20/17 09/20/17 09/20/17 09/21/17 09/21/17 09/21/17 07:00 15:00 23:00 07:00 15:00 23:00 Intake Total 100 ml 420 ml 960 ml Output Total 1700 ml Balance 100 ml 420 ml -740 ml Intake Oral 420 ml 960 ml IV Total 100 ml Output Urine Total 1700 ml # Voids 5 # Bowel Movements 1 0 Result Diagram: 09/20/17 0510 09/21/17 0430 Imaging Last Impressions Head Magnetic Resonance Angiography 09/17/17 0000 Signed Impressions: CONCLUSION: 1. Decreased caliber of the right A1 segment of the anterior cerebral artery. The A2 segments are symmetric. Asymmetry to the A1 segments can be seen normall y. This appearance was seen previously. 2. No significant area of distal stenosis. The distal flow appears normal. 3. No aneurysm is seen. Brain MRI 09/17/17 Signed Impressions: CONCLUSION: Negative brain MRI examination. The orbits appear grossly normal. Objective Remarks GENERAL: Pleasant 46 yo F, morbidly obese, appears anxious SKIN: Right breast at 5 o'clock 2 x 3 cm rash, redness and painful to palpation , no fluctuation. EYES: Decreased peripheral vision bilateral eyes. Pupils equal and round. No scleral icterus. No injection or drainage. CARDIOVASCULAR: Regular rate and rhythm without murmurs, gallops, or rubs. RESPIRATORY: Breath sounds equal bilaterally. No accessory muscle use. GASTROINTESTINAL: Abdomen soft, obese, non-tender, nondistended. MUSCULOSKELETAL: No cyanosis, or edema. BACK: Nontender without obvious deformity. No CVA tenderness. A/P Problem List: (1) Giant cell arteritis ICD Code: M31.6 - Other giant cell arteritis Assessment and Plan 46-year-old female with Temporal arteritis Concern for temporal arteritis of the right eye given patient's symptoms and clinical presentation Patient is on home p.o. steroids and has a neurologist in [place] for history of left-sided temporal arteritis Continue with high-dose IV steroids. Neurology ff. Brain MRI negative Neurology consulted, appreciate recommendations General surgery consulted for evaluation of possible biopsy, however due to patient's current history of giant cell arteritis along with steroid therapy , any biopsy would not Patient with vision loss will consult ophthalmology. Right breast 5 o'clock rash no fluctuation. Will do US breast. Check cultures of rash . Start bacitracin and nystatin ointment. Diabetes mellitus 2 labile BG Home Levemir 80 units every 12 hours and NovoLog 50 units TIDAC ; however currently on Levemir 90U Q12h and NovoLog 60u TIDAC due to being on higher dose of steroid Sliding-scale insulin Monitor blood glucose Neuropathy Continue home gabapentin Depression/anxiety Continue home medications History of PE Patient has a history of PE 2 years ago and is anticoagulated on Eliquis On Hold Eliquis Transaminitis Stable, however continue to hold statin Monitor Discussed with the nurse, family at bedside Chely Nur MD Sep 21, 2017 14:33
[2017-09-21 16:00] VITALS: BP 106/57; PULSE 103; RESP 20; TEMP 98.5; O2SAT 95
[2017-09-21] MEDS: HYDROmorphone HCL PF 2 MG/ML VIAL IV PUSH PRN (17:07)
[2017-09-21 20:00] VITALS: BP 122/74; PULSE 104; RESP 22; TEMP 99.4; O2SAT 95
[2017-09-21] MEDS: ALPRAZolam 0.5 MG TAB PO PRN (21:44)
[2017-09-21] MEDS: AMITRIPTYLINE HCL 75 MG TAB PO SCH (21:44)
[2017-09-21] MEDS: BACITRACIN TOP OINT 15 GM TUBE TOPICAL SCH (22:02)
[2017-09-21] MEDS: MAGNESIUM HYDROXIDE SUSP 30 ML CUP PO PRN (22:02)
[2017-09-21] MEDS: NYSTATIN 100,000 U/GM OINT 15 GM TUBE TOPICAL SCH (22:02)
--- NOTE | 2017-09-21 23:17 | RADRPT ---
EXAM DATE: 09/21/2017 11:01 PM EDT AGE/SEX: 46 years / Female INDICATIONS: Abscess. CLINICAL DATA: This is the patient's initial encounter. Patient reports that signs and symptoms have been present for 1 week and indicates a pain score of 3/10. MEDICAL/SURGICAL HISTORY: . Cardiovascular disease. Renal calculi. Diabetes mellitus type 2.Hia geneva hernia . section. Appendectomy. Cholecystectomy. COMPARISON: No prior exams available for comparison. TECHNIQUE: Real-time ultrasound examination was performed using a high-frequency transducer. Conven tional and compound scanning techniques were used. FINDINGS: Focused sonographic examination was performed in the area of clinical concern in the right breast at the 5:00 position. There is an elongated subcutaneous fluid collection measuring 1.4 x 0.8 x 0.2 cm. No solid mass identified. CONCLUSION: Elongated subcutaneous 1.4 x 0.8 x 0.2 cm fluid collection in the right breast 5:00 position at the a anu of clinically palpable finding. May represent abscess in the proper clinical setting. Electronically signed by: Tobias Jackman MD 09/21/2017 11:16 PM EDT
[2017-09-22] VITALS: BP 135/90; PULSE 92; RESP 18; TEMP 98.3; O2SAT 92
[2017-09-22] MEDS: ALPRAZolam 0.5 MG TAB PO PRN ×3 (03:52→22:03)
[2017-09-22] MEDS: methylPREDNISolone SO SUCC INJ 250 MG in SODIUM CHLORIDE 0.9% INJ 100 ML IV SCH (03:58)
[2017-09-22 04:00] VITALS: BP 125/86; PULSE 84; RESP 18; TEMP 97.7; O2SAT 92
[2017-09-22] MEDS ORDERED: Vancomycin Consult Pharmacy 1 EA OTHER SCH (07:30)
[2017-09-22] MEDS: INSULIN ASPART 1,000 UNITS/10 ML VIAL SQ SCH ×3 (08:00→17:00)
[2017-09-22] MEDS ORDERED: VANCOMYCIN INJ 1,000 MG in SODIUM CHLOR 0.9% 250 ML INJ 250 ML IV SCH (08:00)
[2017-09-22] MEDS: INSULIN ASPART SUPPLEMENTAL SCALE SQ SCH ×4 (08:00→21:00)
[2017-09-22 08:12] VITALS: BP 151/92; PULSE 87; RESP 20; TEMP 97.7; O2SAT 94
[2017-09-22] MEDS: DOCUSATE SODIUM 50 MG/SENNA 8.6 MG TAB PO SCH ×2 (08:34→22:02)
[2017-09-22] MEDS: predniSONE 20 MG TAB PO SCH (08:34)
[2017-09-22] MEDS: GABAPENTIN 100 MG CAP PO SCH ×3 (08:34→17:40)
[2017-09-22] MEDS: FUROSEMIDE 20 MG TAB PO SCH ×2 (08:34→17:40)
[2017-09-22] MEDS: DULoxetine HCl DR 20 MG CAP PO SCH ×2 (08:34→22:02)
[2017-09-22] MEDS: carBAMazepine 200 MG TAB PO SCH ×3 (08:35→17:40)
[2017-09-22] MEDS: HYDROmorphone HCL PF 2 MG/ML VIAL IV PUSH PRN ×2 (08:36→23:39)
[2017-09-22] MEDS: SODIUM CHLORIDE 0.9% FLUSH 10 ML FLUSH IV FLUSH SCH ×2 (08:42→22:05)
[2017-09-22] MEDS: INSULIN DETEMIR 100 UNITS/ML VIAL SQ SCH ×2 (09:00→22:02)
[2017-09-22] MEDS: BACITRACIN TOP OINT 15 GM TUBE TOPICAL SCH ×2 (09:06→21:00)
[2017-09-22] MEDS: NYSTATIN 100,000 U/GM OINT 15 GM TUBE TOPICAL SCH ×2 (09:06→21:00)
--- NOTE | 2017-09-22 11:05 | PD.CONS ---
cc: Elier Cleveland MD HPI Service General Surgery Consult Requested By Dr. Nur Reason for Consult RIGHT breast abscess Primary Care Physician Dwayne Gutierrez, DO History of Present Illness This is a 46 year old female with a past medical history of pulmonary emboli on Eliquis, insulin dependent diabetes mellitus, depression, neuropathy, LEFT temporal arteritis with partial blindness and endometriosis. She presented several days ago with RIGHT sided eye pain and headache. It was thought she may have RIGHT temporal arteritis but no further biopsy was obtained since this would not change her treatment plan. The patient noticed yesterday a foul order coming from her RIGHT breast and noticed a red area. She had a similar type episode before about 5 months ago and was seen in [facility] where the fluid was aspirated. The area cleared up until now. An ultrasound was obtained which showed a small superficial abscess. There has been no drainage from the site. Of note, the patient is scheduled for a gastric sleeve next month in [place]. She had an outpatient EGD last week for pre-operative evaluation and her Eliquis was stopped for the procedure. She has not resumed it. A General Surgery consultation has been requested. 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 Allergies: Coded Allergies: acetaminophen (Verified Allergy, Severe, SOB, 09/16/17) tramadol (Verified Allergy, Intermediate, HIVES, 09/16/17) Active Ordered Medications Current Medications Medications (Trade) Dose Ordered Sig/Jacques Route Start Time Stop Time Status Last Admin (NS Flush) 2 ml UNSCH PRN IV FLUSH 09/16/17 20:30 (NS Flush) 2 ml BID IV FLUSH 09/16/17 21:00 09/22/17 08:42 (Zofran Odt) 4 mg Q6H PRN PO 09/16/17 21:00 09/21/17 21:50 (Narcan Inj) 0.4 mg UNSCH PRN IV PUSH 09/16/17 20:30 (Alisha-Colace) 1 tab BID PO 09/16/17 21:00 09/22/17 08:34 (Milk Of Magnesia Liq) 30 ml Q12H PRN PO 09/16/17 20:30 09/21/17 22:02 (Senokot) 17.2 mg Q12H PRN PO 09/16/17 20:30 (Dulcolax Supp) 10 mg DAILY PRN RECTAL 09/16/17 20:30 (Lactulose Liq) 30 ml DAILY PRN PO 09/16/17 20:30 (Xanax) 0.5 mg Q4H PRN PO 09/16/17 20:30 09/22/17 03:52 (Elavil) 150 mg HS PO 09/16/17 21:00 09/21/17 21:44 (Lipitor) 40 mg HS PO 09/16/17 21:00 Future Hold 09/16/17 21:42 (TEGretol) 300 mg TID PO 09/17/17 09:00 09/22/17 08:35 (Cymbalta Dr) 20 mg BID PO 09/16/17 21:00 09/22/17 08:34 (Neurontin) 200 mg TID PO 09/17/17 09:00 09/22/17 08:34 (Pill Splitter) 1 ea UNSCH PRN OTHER 09/16/17 21:00 (D50w (Vial) Inj) 50 ml UNSCH PRN IV PUSH 09/17/17 07:45 (Glucagon Inj) 1 mg UNSCH PRN OTHER 09/17/17 07:45 (NovoLOG SUPPLEMENTAL SCALE) 1 ACHS SLIDING SCALE SQ 09/17/17 08:00 09/21/17 13:27 (Lasix) 20 mg BID@ PO 09/17/17 18:00 09/22/17 08:34 (NovoLOG INJ) 60 units TIDAC SQ 09/18/17 17:00 09/22/17 08:00 (Benadryl) 25 mg Q4H PRN PO 09/20/17 11:30 (Dilaudid Pf Inj) 1 mg BID PRN IV PUSH 09/21/17 14:30 09/22/17 08:36 (Baciguent Oint) 1 applic Q12HR TOPICAL 09/21/17 21:00 09/22/17 09:06 (Mycostatin Oint) 1 applic Q12HR TOPICAL 09/21/17 21:00 09/22/17 09:06 (Levemir Inj) 75 units Q12HR SQ 09/21/17 21:00 09/21/17 21:45 (Deltasone) 60 mg DAILY PO 09/22/17 09:00 09/22/17 08:34 Vancomycin HCl 1000 mg/Sodium Chloride 250 ml @ 250 mls/hr Q12H IV 09/22/17 08:00 09/22/17 08:00 Pharmacy Profile Note 0 ml @ 0 mls/hr UNSCH OTHER 09/22/17 07:30 Family History Noncontributory Social History Denies tobacco use Denies ETOH use Denies illicit drug use Physical Exam Vital Signs Vital Signs Date Time Temp Pulse Resp B/P (MAP) Pulse Ox O2 Delivery O2 Flow Rate FiO2 09/22/17 08:12 97.7 87 20 151/92 (111) 94 09/22/17 04:00 97.7 84 18 125/86 (99) 92 09/22/17 00:00 98.3 92 18 135/90 (105) 92 09/21/17 20:00 99.4 104 22 122/74 (90) 95 09/21/17 16:00 98.5 103 20 106/57 (73) 95 09/21/17 12:00 98.2 98 20 141/86 (104) 93 Physical Exam GENERAL: 46 year old female resting in bed in no acute distress. SKIN: RIGHT breast---- small area of erythema at the 5 o'clock position which is mildly indurated; LEFT breast normal HEAD: Atraumatic. Normocephalic. EYES: Pupils equal and round. No scleral icterus. No injection or drainage. ENT: No nasal bleeding or discharge. Mucous membranes pink and moist. NECK: Trachea midline. CARDIOVASCULAR: Regular rate and rhythm. RESPIRATORY: No accessory muscle use. Clear to auscultation. Breath sounds equal bilaterally. GASTROINTESTINAL: Abdomen soft, non-tender, nondistended. Well healed laparoscopic scars. Obese abdomen. MUSCULOSKELETAL: Extremities without clubbing, cyanosis, or edema. No obvious deformities. NEUROLOGICAL: Awake and alert. No obvious cranial nerve deficits. Motor grossly within normal limits. Five out of 5 muscle strength in the arms and legs. Normal speech. PSYCHIATRIC: Appropriate mood and affect; insight and judgment normal. Laboratory Laboratory Tests Test 09/21/17 17:24 Random Glucose 70 Date/Time Source Procedure Growth Status 09/21/17 22:15 Wound Breast Gram Stain - Final Resulted 09/21/17 22:15 Wound Breast Wound Culture Pending Resulted Result Diagram: 09/20/17 0510 09/21/17 1724 Imaging Last 48 hours Impressions Breast Ultrasound 09/21/17 0000 Signed Impressions: CONCLUSION: Elongated subcutaneous 1.4 x 0.8 x 0.2 cm fluid collection in the right breast 5:00 position at the area of clinically palpable finding. May represent abscess in the proper clinical setting. Assessment and Plan Assessment and Plan 46 year old female with RIGHT breast abscess -Will plan for bedside drainage today -Obtain supplies -Obtain consents -Will obtain cultures -I do believe the patient has hidradenitis and could benefit from a outpatient Plastic Surgery consultation -Thank you for this consult; We will continue to follow Discussed Condition With Mirna Stearns Ms./First Srinivasan BECERRA Sep 22, 2017 11:05
--- NOTE | 2017-09-22 11:59 | PD.CONS ---
History of Present Illness Service Ophthalmology Consult Requested By Reason for Consult right eye vision loss Primary Care Physician Dwayne Gutierrez DO Diagnoses: History of Present Illness 46 yo female with past medical history significant for PE (anticoagulated on Eliquis), diabetes mellitus, depression, neuropathy and left sided temporal arteritis (with permanent decreased vision OS) presented to the emergency department with right sided eye pain, right temporal pain, right eye vision loss , and headache. The symptoms are very similar to the pain she had in the left eye, and they have now been going on for a week. She came to [place] last year for malaise and presumed left temporal arteritis (ESR 74, biopsy negative) and was started on high dose steroids which have slowly been tapered down to 10mg daily. She has been seen by several ophthalmologists in the area (Dr. Sheridan, Dr. Cooper, Dr. Mccann, ) over the last year. Dr. Sheridan's notes show she had hypertensive retinopathy, but no retinal vasculature explanation for decreased vision in her left eye. I am still waiting on faxes from the other ophthalmologists. Past Family Social History Allergies: Coded Allergies: acetaminophen (Verified Allergy, Severe, SOB, 09/16/17) tramadol (Verified Allergy, Intermediate, HIVES, 09/16/17) Physical Exam Vital Signs Vital Signs Date Time Temp Pulse Resp B/P (MAP) Pulse Ox O2 Delivery O2 Flow Rate FiO2 09/22/17 08:12 97.7 87 20 151/92 (111) 94 09/22/17 04:00 97.7 84 18 125/86 (99) 92 09/22/17 00:00 98.3 92 18 135/90 (105) 92 09/21/17 20:00 99.4 104 22 122/74 (90) 95 09/21/17 16:00 98.5 103 20 106/57 (73) 95 09/21/17 12:00 98.2 98 20 141/86 (104) 93 Physical Exam Va cc at near OD CF at 1 ft, OS LP EOM full OU CVF unable Pupils 2-1 no APD OU IOP normal to palpation OU Anterior exam OD - normal eyelid, C/S W&Q, K clear, AC deep, pupil round, lens clear OS - normal eyelid, C/S W&Q, K clear, AC deep, pupil round, lens clear Dilated exam OD - ON s/p/f, ves normal, vit clear, retina flat OS - ON s/p/f, ves normal, vit clear, retina flat Laboratory Laboratory Tests Test 09/21/17 17:24 Random Glucose 70 Date/Time Source Procedure Growth Status 09/21/17 22:15 Wound Breast Gram Stain - Final Resulted 09/21/17 22:15 Wound Breast Wound Culture Pending Resulted Result Diagram: 09/20/17 0510 09/21/17 1724 Assessment and Plan Problem List: (1) Vision loss, bilateral ICD Codes: H54.3 - Unqualified visual loss, both eyes Plan: Diagnosis of temporal arteritis last year and this year is questionable. She does not fit in the typical age range (>50 years), had a negative biopsy last year, and currently does not have any abnormal findings on her dilated exam in her right eye (no optic disc edema, no disc hemorrhage, no retinal whitening, no cotton wool spots). Her left eye should show optic atrophy but looks quite normal. Dr. Sheridan did not see any abnormal retinal findings when she came to his office last year. I am still waiting on the 3 other Ophthalmologists' notes and will add an addendum. 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 But again, she has a normal dilated exam today. Zulay Nicolas MD Sep 22, 2017 11:59
[2017-09-22 12:00] VITALS: BP 148/81; PULSE 95; RESP 20; TEMP 98.1; O2SAT 95
[2017-09-22] MEDS ORDERED: LIDOCAINE 1%/EPINEPHrine 1:100,000 SOLN 20 ML VIAL INFIL ONE (14:00)
[2017-09-22 16:25] VITALS: BP 138/87; PULSE 89; RESP 20; TEMP 97.7; O2SAT 96
--- NOTE | 2017-09-22 16:50 | HHI.PR ---
Subjective Remarks The patient was seen earlier today. She is still has intermittent headaches. No fever or chills. Stop IV steroids started by mouth steroids. Discussed with Dr. Lancaster neurology. Was also seen by ophthalmology Dr. Patient did not improve. She does not have any fever or chills. There is some drainage from her abscess in the right breast. Seen by general surgery for I&D Objective Vitals Vital Signs Date Time Temp Pulse Resp B/P (MAP) Pulse Ox O2 Delivery O2 Flow Rate FiO2 09/22/17 12:00 98.1 95 20 148/81 (103) 95 09/22/17 08:12 97.7 87 20 151/92 (111) 94 09/22/17 04:00 97.7 84 18 125/86 (99) 92 09/22/17 00:00 98.3 92 18 135/90 (105) 92 09/21/17 20:00 99.4 104 22 122/74 (90) 95 I/O 09/21/17 09/21/17 09/21/17 09/22/17 09/22/17 09/22/17 07:00 15:00 23:00 07:00 15:00 23:00 Intake Total 960 ml 720 ml Output Total 1700 ml Balance -740 ml 720 ml Intake Oral 960 ml 720 ml Output Urine Total 1700 ml # Voids 3 # Bowel Movements 0 Result Diagram: 09/20/17 0510 09/21/17 1724 Imaging I&D of right breast abscesses on 09/22/17 Objective Remarks GENERAL: Pleasant 46 yo F, morbidly obese, appears anxious SKIN: Right breast at 5 o'clock 2 x 3 cm rash, redness and painful to palpation , no fluctuation. EYES: Decreased peripheral vision bilateral eyes. Pupils equal and round. No scleral icterus. No injection or drainage. CARDIOVASCULAR: Regular rate and rhythm without murmurs, gallops, or rubs. RESPIRATORY: Breath sounds equal bilaterally. No accessory muscle use. GASTROINTESTINAL: Abdomen soft, obese, non-tender, nondistended. MUSCULOSKELETAL: No cyanosis, or edema. BACK: Nontender without obvious deformity. No CVA tenderness. A/P Problem List: (1) Giant cell arteritis ICD Code: M31.6 - Other giant cell arteritis Assessment and Plan 46-year-old female with Temporal arteritis Concern for temporal arteritis of the right eye given patient's symptoms and clinical presentation Patient is on home p.o. steroids and has a neurologist in [place] for history of left-sided temporal arteritis Discontinue high-dose IV steroids. Neurology was consulted. Discussed with Dr. Lancaster neurology. Patient had 5 days of high dose of IV steroids. Discontinue IV dose steroids and start prednisone 60 mg p.o. start tapering prednisone 60 mg p.o. Decrease 10 mg every 4 days until she reaches 30 mg daily. Patient is cleared from neurology standpoint for discharge to follow-up with neurology in 2 -3 weeks. Brain MRI negative Neurology consulted, appreciate recommendations General surgery consulted for evaluation of possible biopsy, however due to patient's current history of giant cell arteritis along with steroid therapy , any biopsy would not Patient with vision loss will consult ophthalmology. Right breast 5 o'clock rash no fluctuation. US breast right breast at 5 o' clock with possible abscess. Check cultures . Start bacitracin and nystatin ointment. Start IV vancomycin. Diabetes mellitus 2 labile BG Home Levemir 80 units every 12 hours and NovoLog 50 units TIDAC. Decrease Levemir to 75U Q12h, cont 60u TIDAC . Patient started on prednisone po. Sliding-scale insulin Monitor blood glucose Neuropathy Continue home gabapentin Depression/anxiety Continue home medications History of PE Patient has a history of PE 2 years ago and is anticoagulated on Eliquis On Hold Eliquis Transaminitis Stable, however continue to hold statin Monitor Discussed with the nurse, family at bedside Discussed with Dr. Lancaster neurology: tapering prednisone 60 mg p.o. Decrease 10 mg every 4 days until she reaches 30 mg daily. Continue 30 mg daily thereafter and follow-up with Dr. Lancaster as outpatient in 2-3 weeks. Discharge plan. Patient now is with Breast abscess and IV antibiotics and also general surgery plans for I&D. Possible discharge in 1 to days when improves. Chely Nur MD Sep 22, 2017 16:50
[2017-09-22] MEDS ORDERED: HYDROmorphone HCL PF 2 MG/ML VIAL IV PUSH ONE (17:30)
[2017-09-22] MEDS: VANCOMYCIN INJ 1,250 MG in SODIUM CHLOR 0.9% 250 ML INJ 250 ML IV SCH (17:41)
--- NOTE | 2017-09-22 18:05 | PD.OP ---
Operative Report Date of Surgery: Sep 22, 2017 Preoperative Diagnosis: (1) Abscess of right breast Postoperative Diagnosis: Same Procedure: RIGHT breast incision and drainage of abscess Anesthesia: Local Surgeon: Mirna BECERRA supervised by Dr. Elier Cleveland Product Designer(s): Magda YEE Operation and Findings: After proper time out and consents were obtained the RIGHT breast at the 5 o' clock position was cleaned with Betadine. The area was injected with 1% lidocaine with epinephrine. A 5 mm punch was used to open to area. A small amount of purulent drainage was expressed. Cultures were obtained. The area was dressed with dry gauze. The patient was instructed she can shower. All supplies including sharp instruments were collected and disposed of. The patient tolerated the procedure well without an complications. EBL < 5cc. Mirna Phan/First Srinivasan BECERRA Sep 22, 2017 18:05
[2017-09-22 20:00] VITALS: BP 142/67; PULSE 94; RESP 20; TEMP 99.1; O2SAT 96
[2017-09-22] MEDS: AMITRIPTYLINE HCL 75 MG TAB PO SCH (22:02)
[2017-09-22] MEDS: ONDANSETRON ODT 4 MG TAB PO PRN (22:02)
[2017-09-23] VITALS: BP 127/59; PULSE 102; RESP 18; TEMP 98.1; O2SAT 93
[2017-09-23] MEDS: ALPRAZolam 0.5 MG TAB PO PRN ×5 (03:09→22:48)
[2017-09-23] MEDS ORDERED: HYDROmorphone HCL PF 2 MG/ML VIAL IV PUSH ONE ×2 (03:15→11:45)
[2017-09-23 04:00] VITALS: BP 127/63; PULSE 96; RESP 22; TEMP 97.6
[2017-09-23] MEDS: VANCOMYCIN INJ 1,250 MG in SODIUM CHLOR 0.9% 250 ML INJ 250 ML IV SCH (04:49)
[2017-09-23 06:14] LABS: CREATININE 1.14 MG/DL (0.50-1.00)
--- NOTE | 2017-09-23 08:17 | HHI.PR ---
Subjective Subjective Notes Resting in bed Patient reports fever overnight but none documented Objective Vitals/I&O Vital Signs Date Time Temp Pulse Resp B/P (MAP) Pulse Ox O2 Delivery O2 Flow Rate FiO2 09/23/17 04:00 97.6 96 22 127/63 (84) 09/23/17 00:00 93 Labs Laboratory Tests Test 09/23/17 05:20 Creatinine 1.14 Estimat Glomerular Filtration Rate 51 Date/Time Source Procedure Growth Status 09/23/17 05:20 Blood Peripheral Aerobic Blood Culture Pending Received 09/23/17 05:20 Blood Peripheral Anaerobic Blood Culture Pending Received 09/22/17 17:24 Abscess Breast Gram Stain Pending Received 09/22/17 17:24 Abscess Breast Wound Culture Pending Received Radiology Last 48 hours Impressions Breast Ultrasound 09/21/17 0000 Signed Impressions: CONCLUSION: Elongated subcutaneous 1.4 x 0.8 x 0.2 cm fluid collection in the right breast 5:00 position at the area of clinically palpable finding. May represent abscess in the proper clinical setting. Cardiovascular: Regular Lungs: Clear Abdomen: Non-distended, Non-tender Extremities: Other (RIGHT leg swelling ) Narrative Exam RIGHT breast---dressed replaced; area less indurated; no drainage Mirna Phan/First Srinivasan BECERRA Sep 23, 2017 08:17
[2017-09-23 08:20] VITALS: BP 104/56; PULSE 93; RESP 18; TEMP 97.8; O2SAT 95
[2017-09-23] MEDS: BACITRACIN TOP OINT 15 GM TUBE TOPICAL SCH ×2 (09:00→21:00)
[2017-09-23] MEDS: NYSTATIN 100,000 U/GM OINT 15 GM TUBE TOPICAL SCH ×2 (09:00→21:00)
[2017-09-23] MEDS: DOCUSATE SODIUM 50 MG/SENNA 8.6 MG TAB PO SCH ×2 (09:00→21:05)
[2017-09-23] MEDS: GABAPENTIN 100 MG CAP PO SCH ×3 (10:40→17:45)
[2017-09-23] MEDS: predniSONE 20 MG TAB PO SCH (10:40)
[2017-09-23] MEDS: DULoxetine HCl DR 20 MG CAP PO SCH ×2 (10:40→21:00)
[2017-09-23] MEDS: FUROSEMIDE 20 MG TAB PO SCH ×2 (10:41→17:44)
[2017-09-23] MEDS: carBAMazepine 200 MG TAB PO SCH ×3 (10:41→17:44)
[2017-09-23] MEDS: SODIUM CHLORIDE 0.9% FLUSH 10 ML FLUSH IV FLUSH SCH ×2 (10:41→21:00)
[2017-09-23] MEDS: INSULIN ASPART 1,000 UNITS/10 ML VIAL SQ SCH ×3 (10:42→18:51)
[2017-09-23] MEDS: INSULIN ASPART SUPPLEMENTAL SCALE SQ SCH ×4 (10:42→21:00)
[2017-09-23] MEDS: INSULIN DETEMIR 100 UNITS/ML VIAL SQ SCH ×2 (10:43→21:06)
[2017-09-23] MEDS: HYDROmorphone HCL PF 2 MG/ML VIAL IV PUSH PRN ×2 (11:29→21:09)
[2017-09-23 12:35] VITALS: BP 118/60; PULSE 96; RESP 18; TEMP 98; O2SAT 95
[2017-09-23] MEDS: ONDANSETRON ODT 4 MG TAB PO PRN (13:05)
--- NOTE | 2017-09-23 14:34 | HHI.PR ---
Subjective Remarks Complains of swelling in her legs is worse on the right side she also says has some pain. No nausea vomiting. She is anxious. No fever or chills. Abscess from the right breast was drained yesterday is no pus. Still with intermittent headaches. Vision is not improved. However she. Otherwise no complaints. Objective Vitals Vital Signs Date Time Temp Pulse Resp B/P (MAP) Pulse Ox O2 Delivery O2 Flow Rate FiO2 09/23/17 12:35 98.0 96 18 118/60 (79) 95 09/23/17 08:20 97.8 93 18 104/56 (72) 95 09/23/17 08:00 Room Air 09/23/17 04:00 97.6 96 22 127/63 (84) 09/23/17 00:00 98.1 102 18 127/59 (81) 93 09/22/17 20:00 99.1 94 20 142/67 (92) 96 09/22/17 16:25 97.7 89 20 138/87 (104) 96 I/O 09/22/17 09/22/17 09/22/17 09/23/17 09/23/17 09/23/17 07:00 15:00 23:00 07:00 15:00 23:00 Intake Total 720 ml 480 ml Output Total 450 ml 450 ml Balance 270 ml 30 ml Intake Oral 720 ml 480 ml Output Urine Total 450 ml 450 ml # Bowel Movements 1 Result Diagram: 09/20/17 0510 09/23/17 0520 Imaging Last Impressions Lower Extremity Ultrasound 09/23/17 0000 Signed Impressions: CONCLUSION: The study is negative for bilateral lower extremity deep venous thrombosis. Breast Ultrasound 09/21/17 Signed Impressions: CONCLUSION: Elongated subcutaneous 1.4 x 0.8 x 0.2 cm fluid collection in the right breast 5:00 position at the area of clinically palpable finding. May represent abscess in the proper clinical setting. Head Magnetic Resonance Angiography 09/17/17 Signed Impressions: CONCLUSION: 1. Decreased caliber of the right A1 segment of the anterior cerebral artery. The A2 segments are symmetric. Asymmetry to the A1 segments can be seen normall y. This appearance was seen previously. 2. No significant area of distal stenosis. The distal flow appears normal. 3. No aneurysm is seen. Brain MRI 09/17/17 Signed Impressions: CONCLUSION: Negative brain MRI examination. The orbits appear grossly normal. Objective Remarks GENERAL: Pleasant 46 yo F, morbidly obese, appears anxious SKIN: Right breast at 5 o'clock 2 x 3 cm rash, redness and painful to palpation , no fluctuation. EYES: Decreased peripheral vision bilateral eyes. Pupils equal and round. No scleral icterus. No injection or drainage. CARDIOVASCULAR: Regular rate and rhythm without murmurs, gallops, or rubs. RESPIRATORY: Breath sounds equal bilaterally. No accessory muscle use. GASTROINTESTINAL: Abdomen soft, obese, non-tender, nondistended. MUSCULOSKELETAL: No cyanosis, or edema. BACK: Nontender without obvious deformity. No CVA tenderness. Procedures Status post incision and drainage on 09/22/17 by Shelley PHELAN A/P Problem List: (1) Giant cell arteritis ICD Code: M31.6 - Other giant cell arteritis Assessment and Plan 46-year-old female with Temporal arteritis Concern for temporal arteritis of the right eye given patient's symptoms and clinical presentation Patient is on home p.o. steroids and has a neurologist in [place] for history of left-sided temporal arteritis Discontinue high-dose IV steroids. Neurology was consulted. Discussed with Dr. Lancaster neurology. Patient had 5 days of high dose of IV steroids. Discontinue IV dose steroids and start prednisone 60 mg p.o. start tapering prednisone 60 mg p.o. Decrease 10 mg every 4 days until she reaches 30 mg daily. Patient is cleared from neurology standpoint for discharge to follow-up with neurology in 2 -3 weeks. Brain MRI negative Neurology consulted, appreciate recommendations General surgery consulted for evaluation of possible biopsy, however due to patient's current history of giant cell arteritis along with steroid therapy , any biopsy would not Patient with vision loss, consult ophthalmology. Follow-up as outpatient. Right breast 5 o'clock rash and fluid collection possible abscess. US breast right breast at 5 o'clock with possible abscess. Check cultures so far negative to date. Start bacitracin and nystatin ointment. Start IV vancomycin. Status post incision and drainage 09/22/17 by Shelley PHELAN. Improved significantly. Change to by mouth medications at discharge Bilateral lower extremity edema and pain worse on the right leg. Ultrasound bilateral legs shows no DVT. Will restart patient Eliquis 5 mg p.o. twice daily. Patient has a history of pulmonary embolism and is on Eliquis 5 mg twice daily. However patient says she was not taking Eliquis as she had J procedure as outpatient. Diabetes mellitus 2 labile BG Home Levemir 80 units every 12 hours and NovoLog 50 units TIDAC. Decrease Levemir to 75U Q12h, cont 60u TIDAC . Patient started on prednisone po. Sliding-scale insulin Monitor blood glucose Neuropathy Continue home gabapentin Depression/anxiety Continue home medications History of PE Patient has a history of PE 2 years ago and is anticoagulated on Eliquis On Hold Eliquis Transaminitis Stable, however continue to hold statin Monitor Discussed with the nurse, family at bedside Discussed with Dr. Lancaster neurology: tapering prednisone 60 mg p.o. Decrease 10 mg every 4 days until she reaches 30 mg daily. Continue 30 mg daily thereafter and follow-up with Dr. Lancaster as outpatient in 2-3 weeks. Discharge plan. Patient now is with Breast abscess and IV antibiotics and s/p I&D. Possible discharge tomorrow Chely Nur MD Sep 23, 2017 14:34
--- NOTE | 2017-09-23 15:09 | RADRPT ---
EXAM DATE: 09/23/2017 3:05 PM EDT AGE/SEX: 46 years / Female INDICATIONS: Bilateral leg edema. CLINICAL DATA: This is the patient's initial encounter. Patient reports that signs and symptoms have been present for 1 day and indicates a pain score of 10/10. MEDICAL/SURGICAL HISTORY: Gastroesophageal reflux disease. Diabetes. Hypertension. Pulmonary e mbolism. Paresthesia. Kidney stones. Left side temporal arteritis/partial blindness. Tonsillectomy. section. Cholecystectomy. Umbilical hernia repair. Appendectomy. Hysterectomy. Loop recor den placement. Right ankle repair. [place] [facility] [place]PL[place]/23/2016. . TECHNIQUE: Venous ultrasound of both lower extremities was performed from the inguinal ligament to t he proximal calf. Real-time, color Doppler and spectral tracing, compression and augmentation techni ques were used. FINDINGS: Right Leg: Normal compression of the deep venous system from the inguinal region to the proximal [place] f. No echogenic clot is seen. Normal response of the venous system to augmentation and respiration. Left Leg: Normal compression of the deep venous system from the inguinal region to the proximal calf . No echogenic clot is seen. Normal response of the venous system to augmentation and respiration Other: None. CONCLUSION: The study is negative for bilateral lower extremity deep venous thrombosis. Electronically signed by: Bhargav Sweet MD 09/23/2017 3:08 PM EDT
[2017-09-23 15:58] VITALS: BP 125/63; PULSE 106; RESP 18; TEMP 98.6; O2SAT 95
[2017-09-23] MEDS ORDERED: SULF1TAB23 PO (17:06)
[2017-09-23] MEDS ORDERED: LACTCHW3 CHEW (17:07)
[2017-09-23] MEDS ORDERED: PRED20 PO (17:10)
[2017-09-23] MEDS ORDERED: PRED50 PO (17:10)
[2017-09-23] MEDS ORDERED: PRED10 PO (17:10)
[2017-09-23] MEDS ORDERED: OXYC1CAP PO (17:10)
--- NOTE | 2017-09-23 17:12 | HHI.DS ---
Discharge Summary Admission Date Sep 16, 2017 at 18:18 Discharge Date: Sep 24, 2017 Admitting Diagnosis right temoral arteritis, dm, elevated transaminase. (1) Giant cell arteritis ICD Code: M31.6 - Other giant cell arteritis (2) Abscess of right breast ICD Code: N61.1 - Abscess of the breast and nipple (3) Vision loss, bilateral ICD Code: H54.3 - Unqualified visual loss, both eyes (4) Headache ICD Code: R51 - Headache Status: Acute (5) Weakness ICD Code: R53.1 - Weakness Status: Acute (6) Uncontrolled diabetes mellitus ICD Code: E11.65 - Type 2 diabetes mellitus with hyperglycemia Status: Acute Procedures Status post incision and drainage of right breast abscesses at 5 o'clock. 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 Patient endorses an associated headache. She states the symptoms started when she woke up this morning. She does not have any loss of vision. No chest pain or shortness of breath. No abdominal pain. No nausea/ vomiting/diarrhea. No lateralizing signs/symptoms. CBC/BMP: 09/20/17 0510 09/23/17 0520 Significant Findings Laboratory Tests Test 09/21/17 04:30 09/21/17 17:24 09/23/17 05:20 Random Glucose 114 MG/DL (74-106) 70 MG/DL (74-106) Creatinine 1.14 MG/DL (0.50-1.00) Estimat Glomerular Filtration Rate 51 ML/MIN (>89) Imaging Last Impressions Lower Extremity Ultrasound 09/23/17 0000 Signed Impressions: CONCLUSION: The study is negative for bilateral lower extremity deep venous thrombosis. Breast Ultrasound 09/21/17 0000 Signed Impressions: CONCLUSION: Elongated subcutaneous 1.4 x 0.8 x 0.2 cm fluid collection in the right breast 5:00 position at the area of clinically palpable finding. May represent abscess in the proper clinical setting. Head Magnetic Resonance Angiography 09/17/17 Signed Impressions: CONCLUSION: 1. Decreased caliber of the right A1 segment of the anterior cerebral artery. The A2 segments are symmetric. Asymmetry to the A1 segments can be seen normall y. This appearance was seen previously. 2. No significant area of distal stenosis. The distal flow appears normal. 3. No aneurysm is seen. Brain MRI 09/17/17 Signed Impressions: CONCLUSION: Negative brain MRI examination. The orbits appear grossly normal. PE at Discharge GENERAL: Pleasant 46 yo F, morbidly obese, appears anxious SKIN: Right breast at 5 o'clock 2 x 3 cm rash, redness and painful to palpation , no fluctuation. EYES: Decreased peripheral vision bilateral eyes. Pupils equal and round. No scleral icterus. No injection or drainage. CARDIOVASCULAR: Regular rate and rhythm without murmurs, gallops, or rubs. RESPIRATORY: Breath sounds equal bilaterally. No accessory muscle use. GASTROINTESTINAL: Abdomen soft, obese, non-tender, nondistended. MUSCULOSKELETAL: No cyanosis, or edema. BACK: Nontender without obvious deformity. No CVA tenderness. Pt update on day of discharge Feels better. Still with some pain intermittently in her right eye, and pain at the abscess site after I&D, also has back pain. However pain is controlled by medications. No nausea or vomiting. No diarrhea or constipation. Denies fever or chills. Hospital Course 46-year-old female with Temporal arteritis Concern for temporal arteritis of the right eye given patient's symptoms and clinical presentation Patient is on home p.o. steroids and has a neurologist in [place] for history of left-sided temporal arteritis Discontinue high-dose IV steroids. Neurology was consulted. Discussed with Dr. Lancaster neurology. Patient had 5 days of high dose of IV steroids. Discontinue IV dose steroids and start prednisone 60 mg p.o. start tapering prednisone 60 mg p.o. Decrease 10 mg every 4 days until she reaches 30 mg daily. Patient is cleared from neurology standpoint for discharge to follow-up with neurology in 2 -3 weeks. Brain MRI negative Neurology consulted, appreciate recommendations General surgery consulted for evaluation of possible biopsy, however due to patient's current history of giant cell arteritis along with steroid therapy , any biopsy would not Patient with vision loss, consult ophthalmology. Follow-up as outpatient. Right breast 5 o'clock rash and fluid collection possible abscess. US breast right breast at 5 o'clock with possible abscess. Check cultures so far negative to date. Start bacitracin and nystatin ointment. Start IV vancomycin. Status post incision and drainage 09/22/17 by Shelley PHELAN. Improved significantly. Change to by mouth medications at discharge Bilateral lower extremity edema and pain worse on the right leg. Ultrasound bilateral legs shows no DVT. Will restart patient Eliquis 5 mg p.o. twice daily. Patient has a history of pulmonary embolism and is on Eliquis 5 mg twice daily. However patient says she was not taking Eliquis as she had J procedure as outpatient. Diabetes mellitus 2 labile BG Home Levemir 80 units every 12 hours and NovoLog 50 units TIDAC. Decrease Levemir to 75U Q12h, cont 60u TIDAC . Patient started on prednisone po. Sliding-scale insulin Monitor blood glucose Neuropathy Continue home gabapentin Depression/anxiety Continue home medications History of PE Patient has a history of PE 2 years ago and is anticoagulated on Eliquis On Hold Eliquis Transaminitis Stable, however continue to hold statin Monitor Discussed with the nurse, family at bedside Discussed with Dr. Lancaster neurology: tapering prednisone 60 mg p.o. Decrease 10 mg every 4 days until she reaches 30 mg daily. Continue 30 mg daily thereafter and follow-up with Dr. Lancaster as outpatient in 2-3 weeks. Patient improved. Discharge home with home health in stable condition to follow -up with PCP and consultants as outpatient. Pt Condition on Discharge: Stable Discharge Disposition: Disch w/ Home Health Serv Discharge Time: > 30 minutes Discharge Instructions DIET: Follow Instructions for: Heart Healthy Diet, Diabetic Diet Activities you can perform: Regular-No Restrictions Follow up Referrals: Appointment for Follow Up @ OPHTHALONOLOGY with LORENZA GONSALES Appointment for Follow Up @ NEUROLOGY with CARLOS LANCASTER Neurology - 2 Weeks with aCrlos Lancaster MD PhD Ophthalmology - 1 Week PCP Follow-up - 2-3 Days PCP Follow-up with SOLANGE LOPES New Medications: Hydromorphone (Dilaudid) 2 Mg Tab 2 MG PO Q8H PRN for Pain Management, #7 TAB 0 Refills Lactobacillus Acidophilus (Lactinex) 1 Chew 1 TAB CHEW DAILY for Nutritional Supplement, #30 TAB 0 Refills Prednisone (Prednisone) 10 Mg Tab 30 MG PO DAILY for temporal arteritis for 30 Days, #90 TAB 0 Refills Prednisone (Prednisone) 20 Mg Tab 60 MG PO DAILY for TA, #2 TAB 0 Refills Prednisone (Prednisone) 20 Mg Tab 40 MG PO DAILY for TA, #4 TAB 0 Refills Take 40 mg (2 tablets) daily for 5 days Prednisone (Prednisone) 50 Mg Tab 50 MG PO DAILY for temp arteritis , #4 TAB 0 Refills Sulfamethoxazole-Trimethoprim (Sulfamethoxazole-Trimethoprim) 800-160 Mg Tab 1 TAB PO Q12HR for slin infection , #12 TAB Continued Medications: Alprazolam (Xanax) 0.5 Mg Tab 0.5 MG PO Q4H PRN for ANXIETY, TAB 0 Refills Amitriptyline (Amitriptyline) 100 Mg Tab 150 MG PO HS, TAB Apixaban (Eliquis) 5 Mg Tab 5 MG PO DAILY for Blood Clot Prevention, #60 TAB 0 Refills Aspirin (Aspirin) 81 Mg Chew 81 MG CHEW DAILY, TAB 0 Refills Atorvastatin (Atorvastatin) 40 Mg Tab 40 MG PO HS for Cholesterol Management, #30 TAB 0 Refills Carbamazepine (Tegretol) 200 Mg Tab 300 MG PO TID, #60 TAB [address] (Duloxetine DR) 20 Mg Capdr 20 MG PO BID, CAP 0 Refills Furosemide (Lasix) 20 Mg Tab 20 MG PO BID, #60 TAB 0 Refills Gabapentin (Gabapentin) 100 Mg Cap 200 MG PO TID, CAP 0 Refills Glimepiride (Glimepiride) 2 Mg Tab 2 MG PO DAILY for Blood Sugar Management, TAB 0 Refills Take with breakfast or first main meal Insulin Aspart Inj (Novolog Inj) 1,000 Unit/10 Ml Vial 60 UNITS SQ TIDAC for Blood Sugar Management, #10 ML 0 Refills Insulin Detemir Inj (Levemir Inj) 1,000 unit/ 10 ML Vial 80 UNITS SQ BID for Blood Sugar Management, VIAL 0 Refills Do not mix with any other Insulin. Pioglitazone (Pioglitazone) 45 Mg Tab 45 MG PO DAILY for Blood Sugar Management, TAB 0 Refills Potassium Chloride ER (Potassium Chloride ER) 10 Meq Cap 10 MEQ PO DAILY for Electrolyte Replacement, #30 CAP 0 Refills Discontinued Medications: Prednisone (Prednisone) 10 Mg Tab 40 MG PO DAILY, TAB 0 Refills Chely Nur MD Sep 23, 2017 17:12
[2017-09-23] MEDS ORDERED: VANCOMYCIN INJ 1,750 MG in SODIUM CHLORID 0.9% 500 ML INJ 500 ML IV SCH (18:00)
[2017-09-23 20:00] VITALS: BP 144/65; PULSE 104; RESP 20; TEMP 98.6; O2SAT 94
[2017-09-23] MEDS: AMITRIPTYLINE HCL 75 MG TAB PO SCH (21:05)
[2017-09-23] MEDS: SULFAMETHOXAZOLE-TRIMETHOPRIM DS 800-160 MG TAB PO SCH (21:05)
[2017-09-23] MEDS: APIXABAN 5 MG TABLET PO SCH (21:05)
[2017-09-24] VITALS: BP 133/63; PULSE 95; RESP 17; TEMP 99.1; O2SAT 95
[2017-09-24 04:00] VITALS: BP 140/93; PULSE 100; RESP 19; TEMP 99.2; O2SAT 94
[2017-09-24] MEDS: ALPRAZolam 0.5 MG TAB PO PRN (05:58)
[2017-09-24 07:21] LABS: BICARBONATE 34.3 MEQ/L (21.0-32.0); CALCIUM 8.9 MG/DL (8.5-10.1); CREATININE 0.99 MG/DL (0.50-1.00)
[2017-09-24 08:00] VITALS: BP 108/74; PULSE 88; RESP 19; TEMP 97.5; O2SAT 96
[2017-09-24] MEDS: INSULIN ASPART SUPPLEMENTAL SCALE SQ SCH (08:00)
[2017-09-24] MEDS: INSULIN ASPART 1,000 UNITS/10 ML VIAL SQ SCH (08:00)
[2017-09-24] MEDS: BACITRACIN TOP OINT 15 GM TUBE TOPICAL SCH (09:00)
[2017-09-24] MEDS: NYSTATIN 100,000 U/GM OINT 15 GM TUBE TOPICAL SCH (09:00)
[2017-09-24] MEDS: carBAMazepine 200 MG TAB PO SCH (09:27)
[2017-09-24] MEDS: GABAPENTIN 100 MG CAP PO SCH (09:27)
[2017-09-24] MEDS: FUROSEMIDE 20 MG TAB PO SCH (09:28)
[2017-09-24] MEDS: SULFAMETHOXAZOLE-TRIMETHOPRIM DS 800-160 MG TAB PO SCH (09:28)
[2017-09-24] MEDS: SODIUM CHLORIDE 0.9% FLUSH 10 ML FLUSH IV FLUSH SCH (09:28)
[2017-09-24] MEDS: DULoxetine HCl DR 20 MG CAP PO SCH (09:28)
[2017-09-24] MEDS: DOCUSATE SODIUM 50 MG/SENNA 8.6 MG TAB PO SCH (09:28)
[2017-09-24] MEDS: predniSONE 20 MG TAB PO SCH (09:28)
[2017-09-24] MEDS: APIXABAN 5 MG TABLET PO SCH (09:28)
[2017-09-24] MEDS: INSULIN DETEMIR 100 UNITS/ML VIAL SQ SCH (09:29)
[2017-09-24] MEDS: HYDROmorphone HCL PF 2 MG/ML VIAL IV PUSH PRN (09:30)
--- NOTE | 2017-09-24 10:15 | HHI.PR ---
cc: Elier Cleveland MD Subjective Subjective Notes Resting in bed No issues Objective Vitals/I&O Vital Signs Date Time Temp Pulse Resp B/P (MAP) Pulse Ox O2 Delivery O2 Flow Rate FiO2 09/24/17 08:00 Room Air 09/24/17 08:00 97.5 88 19 108/74 (85) 96 Labs Laboratory Tests Test 09/24/17 05:56 Blood Urea Nitrogen 24 Creatinine 0.99 Random Glucose 54 Calcium Level 8.9 Sodium Level 142 Potassium Level 3.6 Chloride Level 97 Carbon Dioxide Level 34.3 Anion Gap 11 Estimat Glomerular Filtration Rate 60 Date/Time Source Procedure Growth Status 09/23/17 05:20 Blood Peripheral Aerobic Blood Culture Pending Received 09/23/17 05:20 Blood Peripheral Anaerobic Blood Culture Pending Received 09/22/17 17:24 Abscess Breast Gram Stain - Final Resulted 09/22/17 17:24 Wound Culture - Preliminary Gram Positive Cocci Resulted Radiology Last 48 hours Impressions Breast Ultrasound 09/21/17 0000 Signed Impressions: CONCLUSION: Elongated subcutaneous 1.4 x 0.8 x 0.2 cm fluid collection in the right breast 5:00 position at the area of clinically palpable finding. May represent abscess in the proper clinical setting. Cardiovascular: Regular Lungs: Clear Abdomen: Non-distended, Non-tender Narrative Exam RIGHT breast---dressed replaced; area less indurated; no drainage A/P Assessment and Plan 46 year old female with RIGHT breast abscess s/p bedside I&D -on PO Bactrim -1800 ADA -Continue dressing changes -Okay to shower -Follow up with Mirna Hayden/Manufacturing Supervisor [employer] Sep 24, 2017 10:15
[2017-09-24] MEDS ORDERED: DILA2TAB4 PO (10:39)
[2017-09-24] MEDS ORDERED: HYDROmorphone HCL PF 2 MG/ML VIAL IV PUSH ONE (10:45)
[2017-09-25] MEDS ORDERED: PHARMACY ORDERED LAB ONE (17:45)
[2017-09-27] MEDS ORDERED: CLIN300C5 PO (14:42)
== END 2017-09-24 11:58 | disposition home health service (06) | DRG 988 ==
LOC: NEPE 14:45 → NEDA 18:18 → N04A 21:53
PROVIDERS: ADMIT Hospitalist; ATTEND Hospitalist
PROC: 0H9T0ZX Drainage of Right Breast, Open Approach, Diagnostic (ICD-10-PCS; principal; 2017-09-22)
DX: M31.6 Other giant cell arteritis (principal); Z68.43 Body mass index [BMI] 50.0-59.9, adult; E11.40 Type 2 diabetes mellitus with diabetic neuropathy, unspecified; F32.9 Major depressive disorder, single episode, unspecified; H54.3 Unqualified visual loss, both eyes; N61.1 Abscess of the breast and nipple; E66.01 Morbid (severe) obesity due to excess calories; R51 Headache; B95.7 Other staphylococcus as the cause of diseases classified elsewhere; E11.65 Type 2 diabetes mellitus with hyperglycemia; F41.9 Anxiety disorder, unspecified; Z86.711 Personal history of pulmonary embolism; Z79.01 Long term (current) use of anticoagulants; Z79.82 Long term (current) use of aspirin; Z79.4 Long term (current) use of insulin; Z79.52 Long term (current) use of systemic steroids; Z79.899 Other long term (current) drug therapy
CPT/HCPCS: 70544; 70553; 76642; 76937; 80048; 80053; 82565; 82947; 82948; 84702; 85025; 85652; 86140; 86403; 87040; 87070; 87077; 87186; 87205; 93970; 96374; 96375; A9579; J0780; J1170; J1200; J1815; J2060; J2270; J2930; J3370; J7030; J7050; J7512